=== PATIENT | male | born 1955 | race Caucasian/White ===

== ENCOUNTER 2016-11-02 | Inpatient (IN) ==
[2016-11-02] MEDS ORDERED: *HR* Dextrose 50 % in Water (Syg) 50 ML SYRINGE ONE (02:50)
[2016-11-02] MEDS ORDERED: D5% in 0.45% NACL 1,000 ML IVC ONE (02:51)
[2016-11-02] MEDS ORDERED: Naloxone 0.4 MG/ML INJ IVP PRN (03:04)
--- NOTE | 2016-11-02 03:04 | Internal Med History&Physical ---
<Leandro Johnson - Last Filed: 11/02/16 04:07> Date of Encounter: 11/02/16 Time of Encounter: 03:03 Assessment and Plan (1) Cardiac arrest Current visit: No Status: Acute Status post cardiac arrest, likely secondary to aspiration. Intubated and CODED by EMS. According to EMS, patient was asystolic, had a run of V. tach/V. fib, and then return of spontaneous circulation was obtained on arrival to the [facility]. A central line was placed in the left subclavian and patient was started on levophed due to hypotension despite 2L bolus; currently running at 3mcg to maintain SBP > 90s. Consult pulm for vent management, wean settings as tolerated Obtain echocardiogram Trend troponins Continue cardiopulmonary monitoring Continue norepinephrine drip for hypotension, wean as tolerated Continue maintenance fluids (D5) for lactic acidemia and hypoglycemia NPO (2) Acute respiratory failure with hypoxia and hypercapnia Current visit: Yes Status: Acute Secondary to episode of hypoglycemia, seizure, and then aspiration of vomitus Continue zosyn Add on flagyl F/u blood cultures See above. (3) Aspiration into airway Current visit: No Status: Acute See above Qualifiers: Encounter type: subsequent encounter Qualified Code(s): T17.908D - Unspecified foreign body in respiratory tract, part unspecified causing other injury, subsequent encounter (4) COPD (chronic obstructive pulmonary disease) Current visit: Yes Status: Acute Hx of COPD. On duonebs and Symbicort at home. Continue duonebs q4h Continue symbicort 160 BID Qualifiers: COPD type: unspecified COPD Qualified Code(s): J44.9 - Chronic obstructive pulmonary disease, unspecified (5) Metabolic acidosis Current visit: Yes Status: Acute pH 7.08, CO2 59, HCO3 17.5 on first ABG at [facility]. Repeat ABG here shows pH 7.07, CO2 63, HCO3 18.3 Will increase RR from 12 to 18 to improve acidosis Trend ABGs (6) Lactic acidosis Current visit: Yes Status: Acute Lactic acid of 5.9 See above plans (7) CKD (chronic kidney disease) Current visit: Yes Status: Acute Cr 1.53. No baseline for comparision Patient will be receiving fluids for hypotension and lactic academia Continue to monitor Qualifiers: Chronic kidney disease stage: unspecified stage Qualified Code(s): N18.9 - Chronic kidney disease, unspecified (8) Hypoglycemia Current visit: No Status: Acute POC glucose by EMS was 20 on arrival to nursing facility. Glucose 143 at [place] [facility] at 22:00. Upon arrival to ICU, he was given one amp of D50 and placed on D5 0.45NS at rate of 100ml/hr. Continue accucheck q1h, adjust accordingly (9) Urinary tract infection Current visit: Yes Status: Acute Large leukocyte esterase seen Currently on zosyn and flagyl F/u urine culture Qualifiers: Urinary tract infection type: site unspecified Hematuria presence: without hematuria Qualified Code(s): N39.0 - Urinary tract infection, site not specified (10) DVT prophylaxis Current visit: Yes Status: Acute Heparin 5000units q12h Internal Medicine - H&P: HPI Chief complaint: s/p cardiac arrest, resp failure Admitted From: Intrahospital Transfer History of present illness: Patient is a 60-year-old male with past medical history of COPD, CAD, diabetes, GERD, hypertension, hyperlipidemia. He presented to [facility] status post arrest. Patient currently lives in a fdc. He was found to have blood sugars in the 400s. He received sliding-scale insulin and became unresponsive, Accu-Chek showed a blood sugar in the 20s. He then reportedly seized, vomited and then presumably aspirated and went into respiratory distress. Patient then arrested, was ACLS coded and intubated by EMS. According to EMS, patient was asystolic, had a run of V. tach/V. fib, and then return of spontaneous circulation was obtained on arrival to the [facility]. According to notes, patient had spontaneous respiration no spontaneous extremity motion. He was also hypotensive during his stay despite 2L given; a central line was placed in the left subclavian and patient was started on levophed, currently running at 5mcg to maintain SBP > 90s. He was also given zosyn due to aspiration. Patient was then transferred to our ICU for further care. Labs on initial visit to [facility] showed a white blood cell count of 18.1, hemoglobin 11.4, pH 7.08, CO2 59, HCO3 17.5, lactic acid 5.9, creatinine 1.53, glucose 143. Troponin 0.03. UA shows signs of possible UTI, sent for culture. Blood cultures x2 sent. Initial chest x-ray showed right basilar opacities. 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) - Social History Smoking Status: Current every day smoker Smokeless Tobacco Status: No Alcohol use: none Drug use: none Internal Medicine - H&P: Meds Atorvastatin [Lipitor] 10 mg PO HS 08/16/16 [History] Budesonide/Formoterol 160/4.5 [Symbicort 160/4.5] 2 puff IH BIDR 08/16/16 [ History] HYDROcodone/Acet 7.5/325 mg [[place] 7.5-325 mg] 1 tab PO Q6H PRN 08/16/16 [ History] Insulin Glargine [Lantus] 15 unit SQ HS 08/16/16 [History] Ipratropium/Albuterol Sulfate [Combivent Respimat Inhal [place]] 1 puff IH Q6H 05/30 [History] Megestrol Acetate [Megace] 800 mg PO BID 08/16/16 [History] Multivit with Calcium,Iron,Min [Essential Daily] 1 each PO DAILY 08/16/16 [ History] Omeprazole [PriLOSEC] 40 mg PO DAILY 08/16/16 [History] Potassium Chloride [Klor-Con 10] 10 meq PO DAILY 08/16/16 [History] Insulin ASPART [NovoLOG] 12 unit SQ TIDWM 11/01/16 [History] LevETIRAcetam [Keppra] 500 mg PO BID 11/01/16 [History] Loperamide [Imodium] 2 mg PO Q4HR PRN 11/01/16 [History] Ondansetron HCl [Zofran] 8 mg PO TID 11/01/16 [History] 3 Allergy/AdvReac Type Severity Reaction Status Date / Time codeine Allergy Rash Verified 08/16/16 09:24 ROS unobtainable: due to endotracheal tube All Systems PM: A 10-system review of systems was performed and is negative for pertinent findings except as documented above in the HPI. - Constitutional Exam: unresponsive, intubated and sedated. some spontaneous movement of bilateral feet and toes. No movement of upper extremities. Occasionally partially opens eyes. Does not withdraw to pain but no signs of posturing at this time. - Head Head exam: Present: atraumatic, normal inspection, normocephalic - Eye Eye exam: Present: normal appearance, PERRL, conjuntiva pink, sclera anicteric. Absent: periorbital swelling Pupils: Present: PERRL Additional comments: pupils equal and reactive but sluggish - ENT ENT exam: Present: mucous membranes dry Additional comments: ET tube and OG tube placed - Neck Neck exam general surgery: Present: normal inspection, supple, trachea midline - Respiratory Respiratory exam: Present: rhonchi (bilateral LL) Additional comments: Intubated and on ventilatory support. 7.5 ET tube. - Cardiovascular Cardiovascular exam: Present: RRR, +S1, +S2. Absent: diastolic murmur, systolic murmur - GI/Abdominal GI/Abdominal exam: Present: distended (mildly distended), soft. Absent: firm, guarding, mass, rigid - Extremities Exam Extremities exam: Present: normal capillary refill, radial pulses palpable and symmetrical. Absent: pedal edema - Neurological Exam Additional comments: intubated, on no sedation. partially opening eyes, pupils equal and reactive but sluggish, gag reflex intact; no movement of bilateral UE. Small movements of toes and plantar flexion of bilateral LE. Negative babinksi. - Skin Skin exam: Present: dry, normal color, warm Additional comments: ecchymosis of bilateral UE and chest Internal Med - H&P Results - Labs CBC & Chem 7: 11/02/16 03:18 11/02/16 03:18 Procedures: Internal Med - Intubation Time out performed: Yes Sedative: Etomidate Amount Given: 20 (mg) Paralytic: Rocuronium Amount Given: 70 Laryngoscope: Pantera ET tube size: 7.5 ET tube uncuffed: Yes Tube secured depth (cm): 23 Tube secured location: lips Tube placement confirmation: visualized tube passing through cords, equal breath sounds bilaterally, no breath sounds over epigastrium, confirmation by capnometry Patient tolerated procedure: well Intubation complications: none <Lincoln Goodman - Last Filed: 11/02/16 05:32> Date of Encounter: 11/02/16 Time of Encounter: 04:30 Past Med Surg Social Fam HX - Family History Mother History Unknown: Yes Father History Unknown: Yes ROS unobtainable: due to endotracheal tube - Constitutional Vitals: Temp Pulse Resp BP Pulse Ox 98 F 93 18 96/73 93 11/02/16 03:41 11/02/16 05:00 11/02/16 05:00 11/02/16 05:00 11/02/16 05:00 Exam: intubated and unresponsive; he did have some purposeful movement of feet prior to sedation fro ETT exchange - Head Head exam: Present: atraumatic, normal inspection - Eye Eye exam: Present: normal appearance. Absent: scleral icterus - ENT ENT exam: Present: mucous membranes dry, normal external ear exam Additional comments: ETT in place - Neck Neck exam general surgery: Present: full ROM, supple. Absent: lymphadenopathy - Expanded Neck Exam Neck exam: Absent: carotid bruit - Respiratory Respiratory exam: Present: rales (faint crackles in right base), rhonchi - Cardiovascular Cardiovascular exam: Present: irregular rhythm, +S1, +S2, tachycardia - GI/Abdominal GI/Abdominal exam: Present: soft. Absent: hepatomegaly, rebound, splenomegaly, tenderness - Extremities Exam Extremities exam: Present: full ROM, warm. Absent: calf tenderness, joint swelling - Back Exam Back exam: Absent: CVA tenderness (L), CVA tenderness (R) - Neurological Exam Additional comments: unable to assess due to sedation - Psychiatric Additional comments: unable to assess - Skin Skin exam: Present: dry, warm. Absent: rash Internal Med - H&P Results - Labs CBC & Chem 7: 11/02/16 03:18 11/02/16 03:18 Labs: Short CBC 11/02/16 Range/Units 03:18 WBC 6.0 D (4.3-11.1) K/mcL Hgb 10.2 L (12.9-16.9) g/dL Hct 34.1 L (37.5-50.1) % Plt Count 235 (140-400) K/mcL Neutrophils # 4.7 (1.6-8.9) K/mcL BMP 11/02/16 03:18 Sodium 141 Potassium 4.5 Chloride 117 H Carbon Dioxide 17 L BUN 23 Creatinine 1.43 H Glucose 178 H Calcium 7.1 L D Cardiac Enzymes 11/02/16 Range/Units 03:18 Troponin I 0.09 H* (0-0.03) ng/mL Liver Function 11/02/16 Range/Units 03:18 Total Bilirubin < 0.3 (0.2-1.2) mg/dL AST 67 H (5-34) Units/L ALT 39 (0-55) Units/L Alkaline Phosphatase 101 (38-126) Units/L Albumin 2.5 L (3.5-5.0) g/dL - ABG Interpretation ABG results: 11/02/16 03:08 ABG pH 7.07 L* ABG pCO2 63 H ABG pO2 82 L ABG HCO3 18.3 L ABG Total CO2 20.2 ABG O2 Saturation 90 L ABG Base Excess -11.9 L - EKG Data -: EKG Interpreted by Myself - EKG Data EKG comments: 11/02/16 05:24 Atrial fibrillation with RVR - Impressions ITS Impressions Chest X-Ray 11/02/16 03:06 IMPRESSION: 1. Endotracheal tube tip is 5 cm above the cody. 2. Progressive right basilar airspace disease. D/ / Brian Marques MD / Brian Marques MD Interpreting Provider: Brian Marques MD X-Ray 11/02/16 03:06 IMPRESSION: NG tube in place with proximal side port just below the diaphragm. Tip is in proximal stomach. Consider further advancement by 5 cm. Bibasilar opacities suspicious for pneumonia. Given mass like morphology, consider follow up to resolution. D/ / Pk Oakes MD / Pk Oakes MD Interpreting Provider: Pk Oakes MD X-Ray 11/02/16 03:29 IMPRESSION: Orogastric tube with the tip and the proximal side port within the fundus. D/ / Wei Morgan MD / Wei Morgan MD Interpreting Provider: Wei Morgan MD - Diagnostic Studies Chest x-ray Status: image reviewed by me (RLL infiltrate) - Attending Attestation I discussed the patient LYTTON, PMH, lab data, and exam findings with Dr. Johnson. I was present and supervised patient being re-intubated by Dr. Johnson. ETT needed to be replaced and he had a small ETT and it was obstructing. He did have some minor purposeful foot movement bilaterally prior to sedation and intubation. Once a new ETT was placed, copiuos amounts of mucopurulent material was suctioned from airway. He has a predominantly respiratory acidosis on ABG. Dr. Johnson made some vent changes with which I agree. Repeat ABG will follow later. BP stable now on Leveophed. We will hydrate with IVF, continue antibiotics, and correct electrolytes as needed. If he fails to improve from a neurologic standpoint in the next day or two, I worry he may have suffered anoxic brain injury. We will monitor his glucose hourly for now until stable. I agree with the antibiotic choices. we will ask Pulmonary to assume care in the ICU. Other than my comment above and noted exam findings, I agree with Dr. Johsnon's assessment and plan.
[2016-11-02] MEDS ORDERED: Lacri-Lube 3.5 GM TUBE BOTH EYES PRN (03:07)
[2016-11-02 03:17] LABS: ABG Base Excess -11.9 mEq/L (-2.0 to 3.0); ABG HCO3 18.3 mEQ/L (21-27); ABG Oxygen Saturation 90 % (95-98); ABG PCO2 63 mmHg (35-45); ABG PO2 82 mmHg (85-104); ABG TCO2 20.2 mEq/L (20-26)
[2016-11-02 03:19] LABS: ABG PH 7.07 pH Units (7.32-7.45); Blood Gas FiO2 40 %
[2016-11-02] MEDS ORDERED: MetroNIDAZOLE 500 MG/100 ML 500 MG/100 ML BAG IVPB SCH (03:26)
[2016-11-02 03:40] LABS: Hematocrit 34.1 % (37.5-50.1); Hemoglobin 10.2 g/dL (12.9-16.9); Immature Platelets 2.2 % (1.1-6.1); Lymphocytes # 0.6 K/mcL (0.6-4.6); Mean Corpuscular HGB Conc 29.9 g/dL (31.6-35.5); Mean Corpuscular Hemoglobin 28.8 pg (28.0-33.3); Mean Corpuscular Volume 96.3 fL (83.0-100.0); Mean Platelet Volume 9.3 fL (9.4-12.4); Platelet Count 235 K/mcL (140-400); Red Blood Count 3.54 M/mcL (4.19-5.50); Red Cell Distribution Width 12.9 % (11.5-14.5)
[2016-11-02] MEDS: D5% in 0.45% NACL 1,000 ML IVC SCH ×3 (03:49→19:54)
[2016-11-02] MEDS: Norepinephrine 4 MG in D5% in Water 250 ML IVC SCH ×3 (03:50→18:25)
[2016-11-02] MEDS: Lacri-Lube 3.5 GM TUBE BOTH EYES SCH ×6 (03:54→22:35)
[2016-11-02 03:55] LABS: Alanine Aminotransferase 39 Units/L (0-55); Albumin 2.5 g/dL (3.5-5.0); Albumin/Globulin Ratio 0.9 (1.1-2.2); Alkaline Phosphatase 101 Units/L (38-126); Aspartate Amino Transferase 67 Units/L (5-34); BUN/Creatinine Ratio 16 (6-26); Bilirubin,Total < 0.3 mg/dL (0.2-1.2); Blood Urea Nitrogen 23 mg/dL (8-26); Calcium 7.1 mg/dL (8.6-10.8); Carbon Dioxide 17 mEq/L (19-29); Chloride 117 mEq/L (98-109); Globulin 2.9 g/dL (2.4-3.5); Glucose 178 mg/dL (70-99); Magnesium 1.4 mg/dL (1.6-2.6); Osmolality,Calculated 300 (280-300); Phosphorous 6.4 mg/dL (2.3-4.7); Potassium 4.5 mEq/L (3.5-4.5); Sodium 141 mEq/L (136-145); Total Protein 5.4 g/dL (6.0-8.3); eGFR For African Americans > 60 (> 60); eGFR For Non-African Americans 50 (> 60)
[2016-11-02] MEDS: FentaNYL (PF) 1,000 MCG in 0.9 % Sodium Chloride 80 ML IVC SCH ×2 (03:57→19:09)
[2016-11-02] MEDS ORDERED: *HR* Metoprolol 5 MG/5 ML VIAL IVP PRN (04:05)
[2016-11-02 04:08] LABS: Basophils # 0.2 K/mcL (0.0-0.2); Monocytes # 0.1 K/mcL (0.0-1.3); Neutrophils # 4.7 K/mcL (1.6-8.9); Platelet Estimate Normal (Normal)
[2016-11-02] MEDS ORDERED: Sodium Phosphate 30 MMOL in D5% in Water 100 ML IVPB PRN (04:11)
[2016-11-02] MEDS: Ipratropium/Albuterol Neb 3 ML IH SCH ×6 (04:13→23:39)
[2016-11-02] MEDS: Magnesium Sulfate 2 GM in D5% in Water 100 ML IVPB PRN ×2 (04:37→19:41)
[2016-11-02] MEDS: Calcium Gluconate 1,000 MG in D5% in Water 100 ML IVPB PRN ×2 (04:40→19:40)
[2016-11-02] MEDS: Famotidine 20 MG/2 ML VIAL IVP SCH ×2 (05:03→17:59)
[2016-11-02] MEDS: *HR* Heparin 5,000 UNIT/ML VIAL SQ SCH ×2 (05:03→17:59)
[2016-11-02 05:43] LABS: ABG Base Excess -11.9 mEq/L (-2.0 to 3.0); ABG HCO3 16.7 mEQ/L (21-27); ABG Oxygen Saturation 85 % (95-98); ABG PCO2 49 mmHg (35-45); ABG PO2 66 mmHg (85-104); ABG TCO2 18.2 mEq/L (20-26)
[2016-11-02 05:47] LABS: Blood Gas FiO2 40 %
[2016-11-02 05:48] LABS: ABG PH 7.14 pH Units (7.32-7.45)
[2016-11-02] MEDS: Budesonide/Formoterol 160/4.5 MDI IH SCH ×2 (07:30→19:36)
[2016-11-02] MEDS ORDERED: Budesonide/Formoterol 160/4.5 MDI IH ONE (07:51)
[2016-11-02] MEDS ORDERED: methylPREDNISolone 125 MG/2 ML VIAL IVP SCH (08:00)
[2016-11-02 08:09] LABS: ABG Base Excess -9.7 mEq/L (-2.0 to 3.0); ABG Oxygen Saturation 90 % (95-98); ABG PCO2 46 mmHg (35-45); ABG PO2 73 mmHg (85-104); ABG TCO2 19.4 mEq/L (20-26)
[2016-11-02 08:10] LABS: Blood Gas FiO2 40 %; Blood Gas PEEP 5 cm H2O; Blood Gas Respiration Rate 22; Blood Gas VT 420 cc
[2016-11-02] MEDS ORDERED: Perflutren Lipid Microsphere 1.3 ML in 0.9 % Sodium Chloride 8.7 ML IVP ONE (08:35)
[2016-11-02] MEDS: Piperacillin/Tazobactam 3.375 GM in D5% in Water (Mini-Bag+) 100 ML IVPB SCH ×3 (08:41→22:33)
[2016-11-02] MEDS: Chlorhexidine Rinse 15 ML MOUTHWASH MM SCH ×2 (08:41→19:52)
[2016-11-02 09:05] LABS: BUN/Creatinine Ratio 17 (6-26); Blood Urea Nitrogen 24 mg/dL (8-26); Calcium 7.4 mg/dL (8.6-10.8); Carbon Dioxide 17 mEq/L (19-29); Chloride 114 mEq/L (98-109); Glucose 269 mg/dL (70-99); Osmolality,Calculated 306 (280-300); Potassium 4.1 mEq/L (3.5-4.5); Sodium 141 mEq/L (136-145); eGFR For African Americans > 60 (> 60); eGFR For Non-African Americans 50 (> 60)
--- NOTE | 2016-11-02 09:29 | Pulmonology Consult Note ---
<Kyle Monteiro - Last Filed: 11/02/16 10:56> Date of Encounter: 11/02/16 Time of Encounter: 09:23 Assessment and Plan (1) Cardiac arrest Current Visit: No Status: Acute Patient had a cardiac arrest yesterday evening likely due to aspiration. Patient had arrhythmias of asystole, V. tach, V. fib and then had ROSC at [facility]. They placed a central line and began Levophed. Patient was then transferred to the ICU at [place]. Patient's initial troponin was 0.09 and repeat was 0.20. We will continue to follow this patient's troponin and monitor the patient. An echocardiogram has been ordered on this patient. (2) Hypoglycemia Current Visit: No Status: Acute Patient episode of hypoglycemia yesterday with reported glucose in the 20s. Today his current blood glucose is 269. Patient is receiving D5 half normal saline. We will continue to follow this patient's glucose levels and adjust accordingly. (3) Aspiration into airway Current Visit: No Status: Acute History the patient became hypoglycemic, seized, vomited and aspirated. Patient is being treated with Zosyn. Patient is currently sedated and on a ventilator. Qualifiers: Encounter type: subsequent encounter Qualified Code(s): T17.908D - Unspecified foreign body in respiratory tract, part unspecified causing other injury, subsequent encounter (4) Urinary tract infection Current Visit: Yes Status: Acute Patient has large leukocyte esterase on urinalysis. We will follow the urine culture. Patient is currently on Zosyn. Qualifiers: Urinary tract infection type: site unspecified Hematuria presence: without hematuria Qualified Code(s): N39.0 - Urinary tract infection, site not specified (5) Metabolic acidosis Current Visit: Yes Status: Acute Patient's last ABG showed pH of 7.2, PCO2 46 PO2 73 HCO3 18 total CO2 19.4 O2 saturation 90% base excess -9.7. Patient's ABG has been improving. We will continue to monitor this patient's ABG and we will start the patient on a bicarbonate drip. Once the pH is greater than 7.25 we will stop the bicarbonate drip. (6) Lactic acidosis Current Visit: Yes Status: Acute At [facility] patient had a lactic acid of 5.9. This morning the patient's lactic acid is 1.0. Patient's lactic acidosis is improving. We will continue to follow this patient's lactic acid and monitor the patient. (7) Acute respiratory failure with hypoxia and hypercapnia Current Visit: Yes Status: Acute This is likely secondary to the patient's hyperglycemia, seizure, vomiting and aspiration. Patient is currently sedated and on a ventilator. Patient is currently being treated with Zosyn. Patient will remain intubated until his ABG improves. (8) BJORN (acute kidney injury) Current Visit: Yes Status: Acute Patient has acute kidney injury with an elevated creatinine of 1.43. This is likely due to the patient having cardiac arrest and being hypotensive. Patient is currently receiving fluids. Patient's creatinine appears to be elevated above his baseline of 0.7-0.8. (9) COPD (chronic obstructive pulmonary disease) Current Visit: Yes Status: Chronic Patient has a history of COPD. Patient is currently on DuoNebs and Symbicort Qualifiers: COPD type: unspecified COPD Qualified Code(s): J44.9 - Chronic obstructive pulmonary disease, unspecified (10) DVT prophylaxis Current Visit: Yes Status: Acute Patient is currently on 5000 units of heparin every 12 hours for DVT prophylaxis. History of Present Illness Consult date: 11/02/16 Requesting physician: Leandro Johnson Reason for consult: COPD, other (Vent Management ) Chief complaint: Cardiac arrest History of present illness: Due to the patient being on a ventilator and sedated history of present illness was obtained from sign out physician and medical records. Patient is a 60-year-old male that lives in a custodial. Yesterday he was found to have a blood glucose in the 400s and was given sliding-scale insulin and became unresponsive. He was then found to have a glucose in the 20s. The patient began to seize, vomited and possibly aspirated. The patient then had a cardiac arrest and ACLS protocol was started. Patient was intubated. Patient had arrhythmias of asystole, V. tach, V. fib. He then had ROSC. Patient was brought to [facility]. At [facility] they placed a left subclavian central line and started him on Levophed. He is also given a dose of Zosyn due to his aspiration. Patient was then transferred to the ICU at [facility] for further care. 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) - Social History Smoking Status: Current every day smoker Smokeless Tobacco Status: No Alcohol use: none Drug use: none - Family History Mother History Unknown: Yes Father History Unknown: Yes Medications and Allergies Atorvastatin [Lipitor] 10 mg PO HS 08/16/16 [History] Budesonide/Formoterol 160/4.5 [Symbicort 160/4.5] 2 puff IH BIDR 08/16/16 [ History] Insulin Glargine [Lantus] 14 unit SQ HS 08/16/16 [History] Ipratropium/Albuterol Sulfate [Combivent Respimat Inhal [place]] 1 puff IH Q6H 05/30 [History] Megestrol Acetate [Megace] 800 mg PO BID 08/16/16 [History] Multivit with Calcium,Iron,Min [Essential Daily] 1 each PO DAILY 08/16/16 [ History] Omeprazole [PriLOSEC] 40 mg PO DAILY 08/16/16 [History] Potassium Chloride [Klor-Con 10] 10 meq PO DAILY 08/16/16 [History] Insulin ASPART [NovoLOG] 7 unit SQ TIDWM 11/01/16 [History] Loperamide [Imodium] 2 mg PO Q4HR PRN 11/01/16 [History] Ondansetron HCl [Zofran] 8 mg PO TID PRN 11/01/16 [History] Aspirin [Lo-Dose Aspirin EC] 81 mg PO DAILY 11/02/16 [History] Bacillus Coagulans/Inulin [Probiotic with Prebiotic Caps] 1 each PO DAILY [History] Citalopram [CeleXA] 20 mg PO DAILY 11/02/16 [History] Gabapentin [Neurontin] 600 mg PO TID 11/02/16 [History] LevETIRAcetam [Keppra] 500 mg PO BID 11/02/16 [History] Lidocaine 4% CRM (LMX) [Lmx 4] 1 gm TP BID 11/02/16 [History] Nut.tx.gluc.intoler,Lac-Fr,Soy [Glytrol] 1,000 ml PO DAILY 11/02/16 [History] OxyCODONE/APAP 5/325 [Percocet 5/325 MG] 1 each PO Q6HR PRN 11/02/16 [History] 3 Allergy/AdvReac Type Severity Reaction Status Date / Time codeine Allergy Rash Verified 11/02/16 11:18 ROS unobtainable: due to mental status All Systems: A 10-system review of systems was performed and is negative for pertinent findings except as documented above in the HPI. Physical Examination Vital Signs: Vital Signs, Last 4 Hours Temp Pulse Resp BP Pulse Ox 11/02/16 08:01 105 11/02/16 08:00 97.5 F L 105 22 106/66 97 11/02/16 07:31 22 105/69 99 11/02/16 07:00 101 22 105/69 98 11/02/16 06:02 100 18 102/70 94 11/02/16 05:55 18 85/62 96 General appearance: other (Patient is sedated and on a ventilator) Eyes: nonicteric ENT: oropharynx moist Neck: no JVD Effort: normal Auscultation: left: clear, right: rales Cardiovascular: regular rate and rhythm Gastrointestinal: normoactive bowel sounds, soft Integumentary: other (Scabs on right lower extremity) Extremities: no cyanosis, cool Musculoskeletal: no deformities unable to assess due to mental status (Patient is sedated on a ventilator) other (Unable to assess due to patient's mental status, patient is sedated and on the ventilator) Ventilator Settings Ventilator Settings: Ventilator Settings, Last 8 Hours Ventilator Mode VC+ Ventilator Mode A/C Ventilator Mode VC+ Ventilator Mode A/C Ventilator Mode A/C Ventilator Mode VC+ Ventilator Mode A/C Ventilator Mode A/C Ventilator Mode A/C Ventilator Mode A/C Ventilator Mode VC+ Ventilator Mode A/C Ventilator Mode VC+ Ventilator Tidal Volume 420 Setting Ventilator Tidal Volume 420 Setting Ventilator Tidal Volume 420 Setting Ventilator Tidal Volume 420 Setting Ventilator Tidal Volume 500 Setting Ventilator Tidal Volume 500 Setting Ventilator Tidal Volume 500 Setting Ventilator Tidal Volume 500 Setting Ventilator Tidal Volume 500 Setting Ventilator Tidal Volume 500 Setting Ventilator Tidal Volume 500 Setting Ventilator Tidal Volume 500 Setting Ventilator Tidal Volume 500 Setting Ventilator Tidal Volume 500 Setting Ventilator Respiratory Rate 22 Setting Ventilator Respiratory Rate 22 Setting Ventilator Respiratory Rate 22 Setting Ventilator Respiratory Rate 22 Setting Ventilator Respiratory Rate 18 Setting Ventilator Respiratory Rate 18 Setting Ventilator Respiratory Rate 18 Setting Ventilator Respiratory Rate 18 Setting Ventilator Respiratory Rate 18 Setting Ventilator Respiratory Rate 18 Setting Ventilator Respiratory Rate 18 Setting Ventilator Respiratory Rate 12 Setting Ventilator Respiratory Rate 12 Setting Ventilator Respiratory Rate 12 Setting Actual Respiratory Rate 22 Actual Respiratory Rate 22 Actual Respiratory Rate 22 Actual Respiratory Rate 22 Actual Respiratory Rate 18 Actual Respiratory Rate 18 Actual Respiratory Rate 18 Actual Respiratory Rate 18 Actual Respiratory Rate 18 Actual Respiratory Rate 18 Actual Respiratory Rate 12 Actual Respiratory Rate 32 Positive End Expiratory 5 Pressure Positive End Expiratory 5 Pressure Positive End Expiratory 5 Pressure Positive End Expiratory 5 Pressure Positive End Expiratory 5 Pressure Positive End Expiratory 5 Pressure Positive End Expiratory 5 Pressure Positive End Expiratory 5 Pressure Positive End Expiratory 5 Pressure Positive End Expiratory 5 Pressure Positive End Expiratory 5 Pressure Positive End Expiratory 5 Pressure Positive End Expiratory 5 Pressure Positive End Expiratory 5 Pressure Peak Inspiratory Airway 24 Pressure Peak Inspiratory Airway 25 Pressure Peak Inspiratory Airway 22 Pressure Peak Inspiratory Airway 25 Pressure Peak Inspiratory Airway 24 Pressure Peak Inspiratory Airway 25 Pressure Peak Inspiratory Airway 26 Pressure Peak Inspiratory Airway 26 Pressure Peak Inspiratory Airway 29 Pressure Results - Laboratory Findings CBC and BMP: 11/02/16 03:18 11/02/16 08:30 ABG ABG pH 7.20 pH Units (7.32-7.45) L* 11/02/16 08:00 ABG pCO2 46 mmHg (35-45) H 11/02/16 08:00 ABG pO2 73 mmHg (85-104) L 11/02/16 08:00 ABG O2 Saturation 90 % (95-98) L 11/02/16 08:00 Abnormal lab findings: Abnormal lab results RBC 3.54 M/mcL (4.19-5.50) L 11/02/16 03:18 Hgb 10.2 g/dL (12.9-16.9) L 11/02/16 03:18 Hct 34.1 % (37.5-50.1) L 11/02/16 03:18 MCHC 29.9 g/dL (31.6-35.5) L 11/02/16 03:18 MPV 9.3 fL (9.4-12.4) L 11/02/16 03:18 Band Neutrophils % 16.0 % (0-4) H 11/02/16 03:18 Metamyelocytes % 2.0 % (0) H 11/02/16 03:18 Myelocytes % 4.0 % (0) H 11/02/16 03:18 ABG pH 7.20 pH Units (7.32-7.45) L* 11/02/16 08:00 ABG pCO2 46 mmHg (35-45) H 11/02/16 08:00 ABG pO2 73 mmHg (85-104) L 11/02/16 08:00 ABG HCO3 18.0 mEQ/L (21-27) L 11/02/16 08:00 ABG Total CO2 19.4 mEq/L (20-26) L 11/02/16 08:00 ABG O2 Saturation 90 % (95-98) L 11/02/16 08:00 ABG Base Excess -9.7 mEq/L (-2.0 to 3.0) L 11/02/16 08:00 Chloride 114 mEq/L (98-109) H 11/02/16 08:30 Carbon Dioxide 17 mEq/L (19-29) L 11/02/16 08:30 Creatinine 1.43 mg/dL (0.72-1.25) H 11/02/16 08:30 Est GFR (Non-Af Amer) 50 (> 60) L 11/02/16 08:30 Glucose 269 mg/dL (70-99) H 11/02/16 08:30 Calculated Osmolality 306 (280-300) H 11/02/16 08:30 Calcium 7.4 mg/dL (8.6-10.8) L 11/02/16 08:30 Ionized Calcium 1.07 mmol/L (1.15-1.35) L 11/02/16 04:28 Phosphorus 6.4 mg/dL (2.3-4.7) H 11/02/16 03:18 Magnesium 1.4 mg/dL (1.6-2.6) L 11/02/16 03:18 AST 67 Units/L (5-34) H 11/02/16 03:18 Troponin I 0.20 ng/mL (0-0.03) H* 11/02/16 08:30 Serum Total Protein 5.4 g/dL (6.0-8.3) L 11/02/16 03:18 Albumin 2.5 g/dL (3.5-5.0) L 11/02/16 03:18 Albumin/Globulin Ratio 0.9 (1.1-2.2) L 11/02/16 03:18 - Clinical Findings Intake & Output: Intake & Output 11/01/16 11/02/16 11/02/16 23:59 07:59 15:59 Intake Total 337 / 337 Output Total 150 / 150 Balance 187 / 187 Weight 63.957 kg Consult Discharge Plan - Plan Referrals: Norris Bonner MD [Primary Care Provider] - <Juanito Sotelo - Last Filed: 11/02/16 15:49> Date of Encounter: 11/02/16 All Systems: A 10-system review of systems was performed and is negative for pertinent findings except as documented above in the HPI. Physical Examination Vital Signs: Vital Signs, Last 4 Hours Pulse Resp BP Pulse Ox 11/02/16 15:16 28 77/50 100 11/02/16 15:08 100 11/02/16 15:00 101 28 77/50 100 11/02/16 14:00 99 28 85/56 98 11/02/16 13:41 28 99/59 100 11/02/16 13:00 101 28 69/48 98 11/02/16 12:00 105 28 83/53 99 Ventilator Settings Ventilator Settings: Ventilator Settings, Last 8 Hours Ventilator Mode VC+ Ventilator Mode VC+ Ventilator Mode VC+ Ventilator Mode VC+ Ventilator Mode VC+ Ventilator Mode VC+ Ventilator Mode VC+ Ventilator Mode A/C Ventilator Tidal Volume 450 Setting Ventilator Tidal Volume 450 Setting Ventilator Tidal Volume 450 Setting Ventilator Tidal Volume 450 Setting Ventilator Tidal Volume 450 Setting Ventilator Tidal Volume 450 Setting Ventilator Tidal Volume 450 Setting Ventilator Tidal Volume 450 Setting Ventilator Tidal Volume 420 Setting Ventilator Tidal Volume 420 Setting Ventilator Respiratory Rate 28 Setting Ventilator Respiratory Rate 28 Setting Ventilator Respiratory Rate 28 Setting Ventilator Respiratory Rate 28 Setting Ventilator Respiratory Rate 28 Setting Ventilator Respiratory Rate 26 Setting Ventilator Respiratory Rate 26 Setting Ventilator Respiratory Rate 26 Setting Ventilator Respiratory Rate 22 Setting Ventilator Respiratory Rate 22 Setting Actual Respiratory Rate 28 Actual Respiratory Rate 28 Actual Respiratory Rate 28 Actual Respiratory Rate 28 Actual Respiratory Rate 28 Actual Respiratory Rate 28 Actual Respiratory Rate 28 Actual Respiratory Rate 28 Actual Respiratory Rate 26 Actual Respiratory Rate 26 Actual Respiratory Rate 26 Actual Respiratory Rate 26 Actual Respiratory Rate 26 Actual Respiratory Rate 22 Actual Respiratory Rate 22 Positive End Expiratory 8 Pressure Positive End Expiratory 8 Pressure Positive End Expiratory 8 Pressure Positive End Expiratory 8 Pressure Positive End Expiratory 8 Pressure Positive End Expiratory 8 Pressure Positive End Expiratory 8 Pressure Positive End Expiratory 8 Pressure Positive End Expiratory 8 Pressure Positive End Expiratory 8 Pressure Positive End Expiratory 8 Pressure Positive End Expiratory 8 Pressure Positive End Expiratory 8 Pressure Positive End Expiratory 8 Pressure Positive End Expiratory 5 Pressure Positive End Expiratory 5 Pressure Peak Inspiratory Airway 30 Pressure Peak Inspiratory Airway 30 Pressure Peak Inspiratory Airway 36 Pressure Peak Inspiratory Airway 28 Pressure Peak Inspiratory Airway 29 Pressure Peak Inspiratory Airway 27 Pressure Peak Inspiratory Airway 27 Pressure Peak Inspiratory Airway 30 Pressure Peak Inspiratory Airway 28 Pressure Peak Inspiratory Airway 28 Pressure Peak Inspiratory Airway 28 Pressure Peak Inspiratory Airway 26 Pressure Peak Inspiratory Airway 27 Pressure Peak Inspiratory Airway 24 Pressure Peak Inspiratory Airway 25 Pressure Results - Laboratory Findings CBC and BMP: 11/02/16 03:18 11/02/16 08:30 ABG ABG pH 7.17 pH Units (7.32-7.45) L* 11/02/16 11:00 ABG pCO2 41 mmHg (35-45) 11/02/16 11:00 ABG pO2 79 mmHg (85-104) L 11/02/16 11:00 ABG O2 Saturation 92 % (95-98) L 11/02/16 11:00 Abnormal lab findings: Abnormal lab results RBC 3.54 M/mcL (4.19-5.50) L 11/02/16 03:18 Hgb 10.2 g/dL (12.9-16.9) L 11/02/16 03:18 Hct 34.1 % (37.5-50.1) L 11/02/16 03:18 MCHC 29.9 g/dL (31.6-35.5) L 11/02/16 03:18 MPV 9.3 fL (9.4-12.4) L 11/02/16 03:18 Band Neutrophils % 16.0 % (0-4) H 11/02/16 03:18 Metamyelocytes % 2.0 % (0) H 11/02/16 03:18 Myelocytes % 4.0 % (0) H 11/02/16 03:18 ABG pH 7.17 pH Units (7.32-7.45) L* 11/02/16 11:00 ABG pO2 79 mmHg (85-104) L 11/02/16 11:00 ABG HCO3 15.0 mEQ/L (21-27) L 11/02/16 11:00 ABG Total CO2 16.3 mEq/L (20-26) L 11/02/16 11:00 ABG O2 Saturation 92 % (95-98) L 11/02/16 11:00 ABG Base Excess -12.7 mEq/L (-2.0 to 3.0) L 11/02/16 11:00 Chloride 114 mEq/L (98-109) H 11/02/16 08:30 Carbon Dioxide 17 mEq/L (19-29) L 11/02/16 08:30 Creatinine 1.43 mg/dL (0.72-1.25) H 11/02/16 08:30 Est GFR (Non-Af Amer) 50 (> 60) L 11/02/16 08:30 Glucose 269 mg/dL (70-99) H 11/02/16 08:30 Calculated Osmolality 306 (280-300) H 11/02/16 08:30 Lactic Acid 4.5 mmol/L (0.5-2.2) H* 11/02/16 12:50 Calcium 7.4 mg/dL (8.6-10.8) L 11/02/16 08:30 Ionized Calcium 1.02 mmol/L (1.15-1.35) L 11/02/16 12:50 Phosphorus 6.4 mg/dL (2.3-4.7) H 11/02/16 03:18 Magnesium 1.4 mg/dL (1.6-2.6) L 11/02/16 12:50 AST 67 Units/L (5-34) H 11/02/16 03:18 Troponin I 0.20 ng/mL (0-0.03) H* 11/02/16 08:30 Serum Total Protein 5.4 g/dL (6.0-8.3) L 11/02/16 03:18 Albumin 2.5 g/dL (3.5-5.0) L 11/02/16 03:18 Albumin/Globulin Ratio 0.9 (1.1-2.2) L 11/02/16 03:18 - Clinical Findings Intake & Output: Intake & Output 11/01/16 11/02/16 11/02/16 23:59 07:59 15:59 Intake Total 337 / 337 1650 / 1650 Output Total 150 / 150 100 / 100 Balance 187 / 187 1550 / 1550 Weight 63.957 kg 67.5 kg - Attending Attestation I saw the patient with the resident agree with History and Physical exam findings. Labs and Radiology were reviewed Ventilator data were reviewed BUSINESS MANAGEMENT INTERN: Patient is intubated , sedated and ventilated responding by opening his eyes to his name , patient doesnt follow commands. NECK : No JVD appreciated Pulmonary : Patient is hypoxic seconday to possible aspiration , On Vent settings 450 /28 /8 /40 , Patient Peak pressure was 28 , plateau pressure was 20 , Auto PEEP was 5 need to hyperventilate because of mixed non parker and anion gap metabolic acidosis Cardiac : Patient had cardiac arrest secondary to hypoglycemia doubt is ACS will trend troponin,s got an ECHO waiting for final read to my assesment patient Low EF . Patient is in shock mostly like due to septic shock on levophed titrating to MAP of 65 . Nutrition/GI: Patient is NPO is on GI prophylaxis will start tube feeding tomorrow . Renal : BJORN mostly likely Prerenal /ATN will volume replete will montior renal function . Patient has mixed non-anion gap and anion gap acidosis started on Bicarbonate drip . Gave 3 litres bolus patient has hypalbuminemia because of lactic acidosis and hyperchloremic acidosis gave albumin colloid for replenish intravascular volume . To avoid normal saline when there is non -gap acidosis . Heme onc : Hemoglobin stable , WBC stable ID : Most likely septic shock source is aspiration pneumonia or UTI will start on broad spectrum antibiotics Vanc, Zosy, doxycycline for atypical coverage . Blood culture , sputum ,urine culture in process . Endo: Brittle diabetes prone for hypoglycemia with Insulin R to avoid Insulin R . Will supplement with low dose insulin Lispro. Lines : Patient has subclavian line , feng catheter. Disposition : Critical condition high percentage of mortality Code status: Full Code Family/POA:Spoke with POA daughter about the critical condition of her Dad . She verbalized understanding and answered all the questions. The high probability of a clinically significant, sudden or life threatening deterioration of the patient's condition required my full and direct attention, intervention and personal management. Spent 50 minutes of Critical care time .
[2016-11-02] MEDS ORDERED: Ringers Solution, Lactated 1,000 ML IVC ONE (09:56)
[2016-11-02] MEDS ORDERED: Sodium Bicarbonate 150 MEQ in D5% in Water 1,000 ML IVC SCH ×3 (10:00→20:04)
[2016-11-02 11:11] LABS: ABG Base Excess -12.7 mEq/L (-2.0 to 3.0); ABG Oxygen Saturation 92 % (95-98); ABG PCO2 41 mmHg (35-45); ABG PO2 79 mmHg (85-104); ABG TCO2 16.3 mEq/L (20-26)
[2016-11-02 11:13] LABS: ABG PH 7.17 pH Units (7.32-7.45); Blood Gas FiO2 40 %; Blood Gas PEEP 8 cm H2O; Blood Gas Respiration Rate 26; Blood Gas VT 450 cc
[2016-11-02] MEDS ORDERED: D5% in Water 1,000 ML IVC PRN (11:45)
[2016-11-02] MEDS ORDERED: Dextrose Gel 15 GM PO PRN ×2 (11:45)
[2016-11-02] MEDS ORDERED: *HR* Dextrose 50 % in Water (Syg) 50 ML SYRINGE IVP PRN (11:45)
[2016-11-02] MEDS ORDERED: Vancomycin 1,000 MG in D5% in Water 250 ML IVPB ONE ×2 (12:24→14:00)
[2016-11-02] MEDS: Insulin LISPRO 300 UNITS/3 ML VIAL SQ SCH ×2 (12:35→18:00)
[2016-11-02 13:16] LABS: Ionized Calcium 1.02 mmol/L (1.15-1.35)
[2016-11-02 13:18] LABS: Magnesium 1.4 mg/dL (1.6-2.6)
[2016-11-02] MEDS ORDERED: Doxycycline 100 MG in 0.9 % Sodium Chloride Mini Bag 100 ML IVPB ONE (13:29)
[2016-11-02] MEDS: Albumin 25% 25gram/100mL 25 GM/100 ML IV.SOLN IVC SCH ×4 (15:31→19:52)
[2016-11-02 15:45] LABS: ABG Base Excess -11.5 mEq/L (-2.0 to 3.0); ABG HCO3 15.6 mEQ/L (21-27); ABG Oxygen Saturation 97 % (95-98); ABG PCO2 39 mmHg (35-45); ABG PH 7.21 pH Units (7.32-7.45); ABG PO2 113 mmHg (85-104); ABG TCO2 16.8 mEq/L (20-26)
[2016-11-02 15:46] LABS: Blood Gas FiO2 40 %; Blood Gas PEEP 8 cm H2O; Blood Gas Respiration Rate 28; Blood Gas VT 450 cc
[2016-11-02] MEDS ORDERED: Insulin LISPRO 300 UNITS/3 ML VIAL SQ ONE (17:17)
--- NOTE | 2016-11-02 18:17 | Electrocardiograph Report ---
[address] [address] Test Date: 2016-11-02 Pat Name: Taco Avalos Department: 109 Room: [facility] Gender: M Order Packer Or Packager: RAFA : [id number] Requested By: Leandro Johnson Order Number: [id number] Reading MD: Joe Amaya MD Measurements Intervals Dewar Rate: 124 P: 71 ID: [id number] QRS: 73 QRSD: 102 T: 34 QT: 328 QTc: 402 Interpretive Statements SINUS TACHYCARDIA WITH SHORT ID INTERVAL LOW QRS VOLTAGE IN EXTREMITY LEADS BASELINE ARTIFACT COMPLICATES ACCURATE INTERPRETATION Electronically Signed On 11-02-2016 18:15:54 EDT by Joe Amaya MD
[2016-11-02 18:58] LABS: Calcium 7.4 mg/dL (8.6-10.8); Potassium 3.4 mEq/L (3.5-4.5)
[2016-11-02] MEDS: Insulin Human Regular 100 UNIT in 0.9 % Sodium Chloride 100 ML IVC SCH (19:13)
[2016-11-02] MEDS: Potassium Chloride 40 MEQ/200 ML BAG IVPB PRN (19:36)
[2016-11-02 20:37] LABS: Bilirubin,Urine Negative (Negative); Blood,Urine Large (Negative); Clarity,Urine Turbid (Clear); Color,Urine Yellow (Yellow); Glucose,Urine (UA) >=1000 mg/dL (Normal); Ketones,Urine Negative (Negative); Leukocyte Esterase,Urine Large (Negative); Nitrite,Urine Negative (Negative); Protein,Urine 30 mg/dL (Neg-Trace); Specific Gravity,Urine 1.018 (1.010-1.025); Urobilinogen,Urine Normal (Normal)
[2016-11-02 20:39] LABS: Squamous Epithelial Cell,Urine Many per lpf (None-Few); WBC,Urine TNTC per hpf (0-3)
[2016-11-02 21:40] LABS: Yeast,Urine Many per hpf (None Seen)
[2016-11-02 21:41] LABS: Granular Casts,Urine Few per lpf (None Seen)
[2016-11-02 21:46] LABS: RBC,Urine Present per hpf (0-3); Renal Epithelial Cells,Urine Present per hpf (None-Few); Transitional Epi Cells,Urine Present per hpf (None-Few)
[2016-11-02 21:47] LABS: Bacteria,Urine Present per hpf (None-Few)
[2016-11-02 23:10] LABS: ABG HCO3 15.3 mEQ/L (21-27); ABG Oxygen Saturation 99 % (95-98); ABG PCO2 35 mmHg (35-45); ABG PH 7.25 pH Units (7.32-7.45); ABG PO2 138 mmHg (85-104); ABG TCO2 16.4 mEq/L (20-26); Blood Gas FiO2 40 %
[2016-11-03] MEDS: Insulin Human Regular 100 UNIT in 0.9 % Sodium Chloride 100 ML IVC SCH (00:08)
[2016-11-03] MEDS: Norepinephrine 4 MG in D5% in Water 250 ML IVC SCH ×2 (02:00→11:19)
[2016-11-03] MEDS: FentaNYL (PF) 1,000 MCG in 0.9 % Sodium Chloride 80 ML IVC SCH ×2 (03:11→05:17)
[2016-11-03] MEDS: Lacri-Lube 3.5 GM TUBE BOTH EYES SCH ×5 (03:12→20:39)
[2016-11-03] MEDS: Ipratropium/Albuterol Neb 3 ML IH SCH ×5 (03:20→19:49)
[2016-11-03 03:34] LABS: Hematocrit 25.1 % (37.5-50.1); Mean Corpuscular HGB Conc 30.7 g/dL (31.6-35.5); Mean Corpuscular Hemoglobin 28.7 pg (28.0-33.3); Mean Corpuscular Volume 93.7 fL (83.0-100.0); Mean Platelet Volume 10.4 fL (9.4-12.4); Platelet Count 155 K/mcL (140-400); Red Blood Count 2.68 M/mcL (4.19-5.50); Red Cell Distribution Width 13.2 % (11.5-14.5)
[2016-11-03 03:35] LABS: Hemoglobin 7.7 g/dL (12.9-16.9)
[2016-11-03 03:49] LABS: Calcium 8.3 mg/dL (8.6-10.8); Magnesium 1.9 mg/dL (1.6-2.6); Potassium 3.7 mEq/L (3.5-4.5)
[2016-11-03] MEDS: Potassium Chloride 40 MEQ/200 ML BAG IVPB PRN (03:57)
[2016-11-03 04:07] LABS: Lymphocytes # 0.9 K/mcL (0.6-4.6); Monocytes # 0.2 K/mcL (0.0-1.3); Neutrophils # 7.9 K/mcL (1.6-8.9); Platelet Estimate Normal (Normal)
[2016-11-03] MEDS: Magnesium Sulfate 2 GM in D5% in Water 100 ML IVPB PRN (04:31)
[2016-11-03] MEDS: Famotidine 20 MG/2 ML VIAL IVP SCH (05:00)
[2016-11-03] MEDS: *HR* Heparin 5,000 UNIT/ML VIAL SQ SCH (05:00)
[2016-11-03 05:22] LABS: ABG Base Excess -6.6 mEq/L (-2.0 to 3.0); ABG HCO3 19.1 mEQ/L (21-27); ABG Oxygen Saturation 98 % (95-98); ABG PCO2 38 mmHg (35-45); ABG PH 7.31 pH Units (7.32-7.45); ABG PO2 119 mmHg (85-104); ABG TCO2 20.3 mEq/L (20-26); Blood Gas FiO2 35 %
[2016-11-03] MEDS: Budesonide/Formoterol 160/4.5 MDI IH SCH ×2 (07:32→19:49)
[2016-11-03 07:57] LABS: VBG HCO3 21.5 mEq/L (21-27); VBG PH 7.36 pH Units (7.32-7.42)
[2016-11-03 08:14] LABS: Albumin/Globulin Ratio 1.5 (1.1-2.2); Bilirubin,Direct 0.4 mg/dL (0.0-0.5); Bilirubin,Indirect 0.1 mg/dL (0.0-1.2); Bilirubin,Total 0.5 mg/dL (0.2-1.2)
[2016-11-03] MEDS: Piperacillin/Tazobactam 3.375 GM in D5% in Water (Mini-Bag+) 100 ML IVPB SCH ×2 (08:31→15:02)
[2016-11-03] MEDS: Chlorhexidine Rinse 15 ML MOUTHWASH MM SCH ×2 (08:31→20:48)
[2016-11-03] MEDS ORDERED: Doxycycline 100 MG in 0.9 % Sodium Chloride Mini Bag 100 ML IVPB SCH (09:00)
[2016-11-03 09:03] LABS: INR 1.7
[2016-11-03] MEDS ORDERED: *HR* Rocuronium Bromide 100 MG/10 ML VIAL IVC ONE (09:03)
[2016-11-03 09:05] LABS: Activated Partial Thrombo Time 30.8 Seconds (26.0-36.0)
--- NOTE | 2016-11-03 09:50 | Pulmonology Progress Note ---
<MinnaLuciano W - Last Filed: 11/03/16 11:27> Date of Encounter: 11/03/16 Objective PUL Vital signs: Last Vital Signs Temp 98.4 F 11/03/16 07:37 Pulse 120 11/03/16 09:00 Resp 28 11/03/16 09:00 BP 113/50 11/03/16 09:00 Pulse Ox 99 11/03/16 09:00 Ventilator Settings Ventilator Settings: Ventilator Settings, Last 8 Hours Ventilator Mode VC+ Ventilator Mode VC+ Ventilator Mode VC+ Ventilator Mode VC+ Ventilator Mode VC+ Ventilator Mode VC+ Ventilator Mode VC+ Ventilator Mode VC+ Ventilator Mode VC+ Ventilator Tidal Volume 500 Setting Ventilator Tidal Volume 500 Setting Ventilator Tidal Volume 500 Setting Ventilator Tidal Volume 500 Setting Ventilator Tidal Volume 500 Setting Ventilator Tidal Volume 500 Setting Ventilator Tidal Volume 500 Setting Ventilator Tidal Volume 500 Setting Ventilator Tidal Volume 500 Setting Ventilator Tidal Volume 500 Setting Ventilator Tidal Volume 500 Setting Ventilator Respiratory Rate 28 Setting Ventilator Respiratory Rate 28 Setting Ventilator Respiratory Rate 28 Setting Ventilator Respiratory Rate 28 Setting Ventilator Respiratory Rate 28 Setting Ventilator Respiratory Rate 28 Setting Ventilator Respiratory Rate 28 Setting Ventilator Respiratory Rate 28 Setting Ventilator Respiratory Rate 28 Setting Ventilator Respiratory Rate 28 Setting Ventilator Respiratory Rate 28 Setting Actual Respiratory Rate 28 Actual Respiratory Rate 28 Actual Respiratory Rate 30 Actual Respiratory Rate 28 Actual Respiratory Rate 29 Actual Respiratory Rate 28 Actual Respiratory Rate 28 Actual Respiratory Rate 28 Actual Respiratory Rate 29 Actual Respiratory Rate 29 Positive End Expiratory 5 Pressure Positive End Expiratory 5 Pressure Positive End Expiratory 5 Pressure Positive End Expiratory 8 Pressure Positive End Expiratory 8 Pressure Positive End Expiratory 8 Pressure Positive End Expiratory 8 Pressure Positive End Expiratory 8 Pressure Positive End Expiratory 8 Pressure Positive End Expiratory 8 Pressure Positive End Expiratory 8 Pressure Positive End Expiratory 8 Pressure Peak Inspiratory Airway 24 Pressure Peak Inspiratory Airway 26 Pressure Peak Inspiratory Airway 25 Pressure Peak Inspiratory Airway 28 Pressure Peak Inspiratory Airway 28 Pressure Peak Inspiratory Airway 28 Pressure Peak Inspiratory Airway 32 Pressure Peak Inspiratory Airway 32 Pressure Peak Inspiratory Airway 31 Pressure Peak Inspiratory Airway 31 Pressure Results - Laboratory Findings CBC and BMP: 11/03/16 03:20 11/03/16 03:05 ABG ABG pH 7.31 pH Units (7.32-7.45) L 11/03/16 05:10 ABG pCO2 38 mmHg (35-45) 11/03/16 05:10 ABG pO2 119 mmHg (85-104) H 11/03/16 05:10 ABG O2 Saturation 98 % (95-98) 11/03/16 05:10 PT/INR, D-dimer PT 18.0 Seconds (9.4-12.1) H 11/03/16 08:30 Abnormal lab findings: Abnormal lab results RBC 2.68 M/mcL (4.19-5.50) L 11/03/16 03:20 Hgb 7.7 g/dL (12.9-16.9) L D 11/03/16 03:20 Hct 25.1 % (37.5-50.1) L 11/03/16 03:20 MCHC 30.7 g/dL (31.6-35.5) L 11/03/16 03:20 Band Neutrophils % 46.0 % (0-4) H 11/03/16 03:20 Metamyelocytes % 2.0 % (0) H 11/02/16 03:18 Myelocytes % 2.0 % (0) H 11/03/16 03:20 PT 18.0 Seconds (9.4-12.1) H 11/03/16 08:30 ABG pH 7.31 pH Units (7.32-7.45) L 11/03/16 05:10 ABG pO2 119 mmHg (85-104) H 11/03/16 05:10 ABG HCO3 19.1 mEQ/L (21-27) L 11/03/16 05:10 ABG Base Excess -6.6 mEq/L (-2.0 to 3.0) L 11/03/16 05:10 VBG pCO2 38 mmHg (41-51) L 11/03/16 07:45 VBG pO2 221 mmHg (25-40) H 11/03/16 07:45 Carbon Dioxide 18 mEq/L (19-29) L 11/03/16 03:05 BUN 29 mg/dL (8-26) H 11/03/16 03:05 Creatinine 2.22 mg/dL (0.72-1.25) H 11/03/16 03:05 Est GFR ( Amer) 37 (> 60) L 11/03/16 03:05 Est GFR (Non-Af Amer) 30 (> 60) L 11/03/16 03:05 Glucose 150 mg/dL (70-99) H 11/03/16 03:05 POC Glucose 286 (58-89) H 11/03/16 00:02 Lactic Acid 6.2 mmol/L (0.5-2.2) H* 11/03/16 03:00 Calcium 8.3 mg/dL (8.6-10.8) L 11/03/16 03:05 Ionized Calcium 1.10 mmol/L (1.15-1.35) L 11/03/16 03:00 Phosphorus 6.4 mg/dL (2.3-4.7) H 11/02/16 03:18 AST 61 Units/L (5-34) H 11/03/16 07:45 Troponin I 0.17 ng/mL (0-0.03) H* 11/02/16 21:49 Serum Total Protein 5.0 g/dL (6.0-8.3) L 11/03/16 07:45 Albumin 3.0 g/dL (3.5-5.0) L 11/03/16 07:45 Globulin 2.0 g/dL (2.4-3.5) L 11/03/16 07:45 Ur Specimen Adequacy See below A 11/02/16 20:24 Urine Clarity Turbid (Clear) A 11/02/16 20:24 Urine Protein 30 mg/dL (Neg-Trace) H 11/02/16 20:24 Urine Glucose (UA) >=1000 mg/dL (Normal) H 11/02/16 20:24 Urine Blood Large (Negative) H 11/02/16 20:24 Ur Leukocyte Esterase Large (Negative) H 11/02/16 20:24 Urine Microscopic WBC TNTC per hpf (0-3) H 11/02/16 20:24 Ur Squamous Epith Cells Many per lpf (None-Few) H 11/02/16 20:24 Granular Casts Few per lpf (None Seen) H 11/02/16 20:24 Urine Yeast Many per hpf (None Seen) H 11/02/16 20:24 Ur Culture Indicated? YES (NO) A 11/02/16 20:24 - Microbiology Findings Microbiology Findings: Microbiology, Last 48 Hours 11/02/16 18:30 Sputum Culture - Preliminary Sputum - Clinical Findings Intake & Output: Intake & Output 11/02/16 11/03/16 11/03/16 23:59 07:59 15:59 Intake Total 2174 / 2174 1051 / 1051 Output Total 330 / 330 150 / 150 Balance 1844 / 1844 901 / 901 Weight 70.035 kg Consult Discharge Plan - Plan Referrals: Norris Bonner MD [Primary Care Provider] - - Attending Attestation I examined this patient and my medical decision-making was reviewed with the Resident Physician. I agree with the documented findings, disposition and treatment plan as described except to the extent set forth below. We independently had [id number] contact with the patient I spent 35min of Critical Care time with this patient. It involved decision making of high complexity to assess, manipulate, and support vital organ system failure and/or to prevent further life threatening deterioration of the patient' s condition. The time involved in the performance of separately reportable procedures was not counted toward critical care time. Patient seen and examined at bedside Labs, radiology, chart personally reviewed. Management was reviewed during multidisciplinary critical care rounds. Neuropsych: Awake and alert follows commands on vent. Goal Hustler 2 while on vent cont propfol and fentanyl infusion to achieve this. Pulm: Acute hypoxic Respiratory failure intubated on vent. acceptable oxygenation dropped PEEP from 8 down to 5. Increased RR set on vent to help compnesate for metabolic acidosis. Treating for possible Aspiration PNA Cards: s/p Cardiac arrest also with NSTEMI (likely Type 2 ME) Reduced EF%. Remains in Cardiogenic Shock requiring Levophed infusion titrated for goal mean arterial pressure greater than 60.. We will request a formal Cardiology today. Obtain OSH records if ECHO done in past. Repeat ECG. Check central venous oxygen saturation FEN-GI: GI prophylaxis Given. NPO for now. History of chronic pancreatitis. check lipase. Renal: Acute AGMA with Non GAP Acidosis. s/t to BJORN remains oliguric but UOP increasing, ?DKA and and Lactate acidosis. Stop HCO3- infusion. Nephro sparing protocol. Check function daily. May progress to need for BI MANAGER but currently not requiring. Optimistic in progressive increase in UOP for renal recovery. ID: Stop Vanc and Doxy cont Pip/rey for concern of aspiration pneumonia. We will follow up culture results Heme/Onc: Drop in H/H. Transfuse for cardiac ischemia. Drop in Plt count with elevated INR. Given vit K 5mg x 3. Check Peripheral smear. Check Fibrinogen. CT abd pelvis with out overt evidence of intraabdominal bleeding. Endo: History of brittle diabetes. Glucose Monitored stop Insulin infusion for hypoglycemia. Integ/MSK: Skin Care per routine ICU Nursing Protocol to prevent ulcers. Lines: All lines examined without evidence of infection including: Left Subclavian CVC Dispo: Remains Critically ill CODE: Full <Kyle Monteiro - Last Filed: 11/03/16 14:14> Date of Encounter: 11/03/16 Time of Encounter: 09:49 Assessment and Plan (1) Cardiac arrest Current Visit: No Status: Acute Patient had a cardiac arrest two days ago likely due to aspiration. Patient had arrhythmias of asystole, V. tach, V. fib and then had ROSC at [facility]. They placed a central line and began Levophed. Patient was then transferred to the ICU at [place]. Patient's initial troponin was 0.09 and repeat was 0.20, 0.17. Troponin is trending downward. Patient had an echocardiogram showing ejection fraction of 35%. Cardiology has been consult on this patient. (2) Hypoglycemia Current Visit: No Status: Acute Patient episode of hypoglycemia two days ago with reported glucose in the 20s. Today his current blood glucose is 150. Insulin is ordered for this patient. We will continue to monitor the patient's glucose ant treat accordingly. (3) Aspiration into airway Current Visit: No Status: Acute Two days ago the patient became hypoglycemic, seized, vomited and aspirated. Patient is being treated with Zosyn. Patient is currently intubated and on a ventilator. Qualifiers: Encounter type: subsequent encounter Qualified Code(s): T17.908D - Unspecified foreign body in respiratory tract, part unspecified causing other injury, subsequent encounter (4) Metabolic acidosis Current Visit: Yes Status: Acute The most recent ABG on the patient had a pH of 7.31, PCO2 of 38, PO2 119, HCO3 19.1, total CO2 20.3, O2 saturation 98%, base excess of -6.6. This was followed by VBG that had a pH of 7.36, PCO2 of 38, PO2 of 221, HCO3 of 21.5. Patient's acidosis seems to be improving. We will continue to monitor the patient and repeat ABG. (5) Lactic acidosis Current Visit: Yes Status: Acute Patient has a lactic acidosis. Patient's lactic acid peaked at 10.9 and most recently is 6.2. Patient's lactic acidosis appears to be improving. We will continue to follow the patient's lactic acid level. (6) Acute respiratory failure with hypoxia and hypercapnia Current Visit: Yes Status: Acute This is likely secondary to the patient's hyperglycemia, seizure, vomiting and aspiration. Patient is currently on a ventilator. Patient is currently being treated with Zosyn. (7) Anemia Current Visit: Yes Status: Acute Patient is anemic with a hemoglobin of 7.7. This is a drop from previous hemoglobin of 10.2. We have ordered 2 units of blood to be transfused for this patient. We will continue to follow the patient's hemoglobin. Qualifiers: Anemia type: unspecified type Qualified Code(s): D64.9 - Anemia, unspecified (8) BJORN (acute kidney injury) Current Visit: Yes Status: Acute Patient has acute kidney injury with an elevated creatinine of 2.22. This is likely due to the patient having cardiac arrest and being hypotensive. Patient' s creatinine appears to be elevated above his baseline of 0.7-0.8 (9) COPD (chronic obstructive pulmonary disease) Current Visit: Yes Status: Chronic Patient has a history of COPD. Patient is currently on DuoNebs and Symbicort Qualifiers: COPD type: unspecified COPD Qualified Code(s): J44.9 - Chronic obstructive pulmonary disease, unspecified (10) DVT prophylaxis Current Visit: Yes Status: Acute Due to the patient having decrease in hemoglobin as well as a drop in platelets we have discontinued the heparin for DVT prophylaxis. We have ordered SCDs for the patient for DVT prophylaxis. Subjective Principal diagnosis: Cardiac Arrest Interval history: Patient is still on the ventilator and unable to speak and tell me how he did overnight. There were no events reported overnight. We will continue to monitor the patient. Objective PUL Vital signs: Last Vital Signs Temp 98.4 F 11/03/16 07:37 Pulse 120 11/03/16 09:00 Resp 28 11/03/16 09:00 BP 113/50 11/03/16 09:00 Pulse Ox 99 11/03/16 09:00 General appearance: alert, other (Patient is intubated, wakes up and responds to commands) Eyes: nonicteric ENT: oropharynx moist Neck: supple Effort: normal Auscultation: left: clear, right: rales Cardiovascular: other (Regular but tachycardic) Gastrointestinal: normoactive bowel sounds Integumentary: other (Multiple scabs on the right lower extremity) Extremities: no cyanosis, edema (Mild edema in the lower external nares) Musculoskeletal: no deformities other (Unable to assess due to patient being intubated) other (Unable to assess due to the patient being intubated) Ventilator Settings Ventilator Settings: Ventilator Settings, Last 8 Hours Ventilator Mode VC+ Ventilator Mode VC+ Ventilator Mode VC+ Ventilator Mode VC+ Ventilator Mode VC+ Ventilator Mode VC+ Ventilator Mode VC+ Ventilator Mode VC+ Ventilator Mode VC+ Ventilator Tidal Volume 500 Setting Ventilator Tidal Volume 500 Setting Ventilator Tidal Volume 500 Setting Ventilator Tidal Volume 500 Setting Ventilator Tidal Volume 500 Setting Ventilator Tidal Volume 500 Setting Ventilator Tidal Volume 500 Setting Ventilator Tidal Volume 500 Setting Ventilator Tidal Volume 500 Setting Ventilator Tidal Volume 500 Setting Ventilator Tidal Volume 500 Setting Ventilator Respiratory Rate 28 Setting Ventilator Respiratory Rate 28 Setting Ventilator Respiratory Rate 28 Setting Ventilator Respiratory Rate 28 Setting Ventilator Respiratory Rate 28 Setting Ventilator Respiratory Rate 28 Setting Ventilator Respiratory Rate 28 Setting Ventilator Respiratory Rate 28 Setting Ventilator Respiratory Rate 28 Setting Ventilator Respiratory Rate 28 Setting Ventilator Respiratory Rate 28 Setting Actual Respiratory Rate 28 Actual Respiratory Rate 28 Actual Respiratory Rate 30 Actual Respiratory Rate 28 Actual Respiratory Rate 29 Actual Respiratory Rate 28 Actual Respiratory Rate 28 Actual Respiratory Rate 28 Actual Respiratory Rate 29 Actual Respiratory Rate 29 Positive End Expiratory 5 Pressure Positive End Expiratory 5 Pressure Positive End Expiratory 5 Pressure Positive End Expiratory 8 Pressure Positive End Expiratory 8 Pressure Positive End Expiratory 8 Pressure Positive End Expiratory 8 Pressure Positive End Expiratory 8 Pressure Positive End Expiratory 8 Pressure Positive End Expiratory 8 Pressure Positive End Expiratory 8 Pressure Positive End Expiratory 8 Pressure Peak Inspiratory Airway 24 Pressure Peak Inspiratory Airway 26 Pressure Peak Inspiratory Airway 25 Pressure Peak Inspiratory Airway 28 Pressure Peak Inspiratory Airway 28 Pressure Peak Inspiratory Airway 28 Pressure Peak Inspiratory Airway 32 Pressure Peak Inspiratory Airway 32 Pressure Peak Inspiratory Airway 31 Pressure Peak Inspiratory Airway 31 Pressure Results - Laboratory Findings CBC and BMP: 11/03/16 11:30 11/03/16 11:30 ABG ABG pH 7.31 pH Units (7.32-7.45) L 11/03/16 05:10 ABG pCO2 38 mmHg (35-45) 11/03/16 05:10 ABG pO2 119 mmHg (85-104) H 11/03/16 05:10 ABG O2 Saturation 98 % (95-98) 11/03/16 05:10 PT/INR, D-dimer PT 18.0 Seconds (9.4-12.1) H 11/03/16 08:30 Abnormal lab findings: Abnormal lab results RBC 2.68 M/mcL (4.19-5.50) L 11/03/16 03:20 Hgb 7.7 g/dL (12.9-16.9) L D 11/03/16 03:20 Hct 25.1 % (37.5-50.1) L 11/03/16 03:20 MCHC 30.7 g/dL (31.6-35.5) L 11/03/16 03:20 Band Neutrophils % 46.0 % (0-4) H 11/03/16 03:20 Metamyelocytes % 2.0 % (0) H 11/02/16 03:18 Myelocytes % 2.0 % (0) H 11/03/16 03:20 PT 18.0 Seconds (9.4-12.1) H 11/03/16 08:30 ABG pH 7.31 pH Units (7.32-7.45) L 11/03/16 05:10 ABG pO2 119 mmHg (85-104) H 11/03/16 05:10 ABG HCO3 19.1 mEQ/L (21-27) L 11/03/16 05:10 ABG Base Excess -6.6 mEq/L (-2.0 to 3.0) L 11/03/16 05:10 VBG pCO2 38 mmHg (41-51) L 11/03/16 07:45 VBG pO2 221 mmHg (25-40) H 11/03/16 07:45 Carbon Dioxide 18 mEq/L (19-29) L 11/03/16 03:05 BUN 29 mg/dL (8-26) H 11/03/16 03:05 Creatinine 2.22 mg/dL (0.72-1.25) H 11/03/16 03:05 Est GFR ( Amer) 37 (> 60) L 11/03/16 03:05 Est GFR (Non-Af Amer) 30 (> 60) L 11/03/16 03:05 Glucose 150 mg/dL (70-99) H 11/03/16 03:05 POC Glucose 286 (58-89) H 11/03/16 00:02 Lactic Acid 6.2 mmol/L (0.5-2.2) H* 11/03/16 03:00 Calcium 8.3 mg/dL (8.6-10.8) L 11/03/16 03:05 Ionized Calcium 1.10 mmol/L (1.15-1.35) L 11/03/16 03:00 Phosphorus 6.4 mg/dL (2.3-4.7) H 11/02/16 03:18 AST 61 Units/L (5-34) H 11/03/16 07:45 Troponin I 0.17 ng/mL (0-0.03) H* 11/02/16 21:49 Serum Total Protein 5.0 g/dL (6.0-8.3) L 11/03/16 07:45 Albumin 3.0 g/dL (3.5-5.0) L 11/03/16 07:45 Globulin 2.0 g/dL (2.4-3.5) L 11/03/16 07:45 Ur Specimen Adequacy See below A 11/02/16 20:24 Urine Clarity Turbid (Clear) A 11/02/16 20:24 Urine Protein 30 mg/dL (Neg-Trace) H 11/02/16 20:24 Urine Glucose (UA) >=1000 mg/dL (Normal) H 11/02/16 20:24 Urine Blood Large (Negative) H 11/02/16 20:24 Ur Leukocyte Esterase Large (Negative) H 11/02/16 20:24 Urine Microscopic WBC TNTC per hpf (0-3) H 11/02/16 20:24 Ur Squamous Epith Cells Many per lpf (None-Few) H 11/02/16 20:24 Granular Casts Few per lpf (None Seen) H 11/02/16 20:24 Urine Yeast Many per hpf (None Seen) H 11/02/16 20:24 Ur Culture Indicated? YES (NO) A 11/02/16 20:24 - Microbiology Findings Microbiology Findings: Microbiology, Last 48 Hours 11/02/16 18:30 Sputum Culture - Preliminary Sputum - Clinical Findings Intake & Output: Intake & Output 11/02/16 11/03/16 11/03/16 23:59 07:59 15:59 Intake Total 2174 / 2174 1051 / 1051 Output Total 330 / 330 150 / 150 Balance 1844 / 1844 901 / 901 Weight 70.035 kg
[2016-11-03] MEDS: *HR* Phytonadione 10 MG/ML AMPUL SQ SCH (11:18)
[2016-11-03 11:54] LABS: Basophils # 0.1 K/mcL (0.0-0.2); Hemoglobin 7.6 g/dL (12.9-16.9); Mean Corpuscular HGB Conc 31.7 g/dL (31.6-35.5); Mean Corpuscular Hemoglobin 29.1 pg (28.0-33.3); Mean Platelet Volume 10.3 fL (9.4-12.4); Platelet Count 150 K/mcL (140-400); Red Blood Count 2.61 M/mcL (4.19-5.50); Red Cell Distribution Width 13.3 % (11.5-14.5)
[2016-11-03 11:56] LABS: Magnesium 2.3 mg/dL (1.6-2.6)
[2016-11-03 11:58] LABS: Potassium 5.1 mEq/L (3.5-4.5)
--- NOTE | 2016-11-03 11:59 | Cardiology Consult Note ---
Date of Encounter: 11/03/16 Time of Encounter: 11:54 Assessment and Plan (1) Cardiomyopathy Current Visit: Yes Status: Acute Cardiomyopathy. ? chronicity. No previous for comparison. Segmental wall motion abnormalities described, which would suggest possibly ischemic, especially given multiple risk factors for CAD. However, cardiomyopathy diagnosed after respiratory failure and subsequent cardiac arrest, so myocardial stunning could certainly be contributing. Presentation is not c/w ACS. Suspect flat troponin elevation related to respiratory failure with arrest, renal insufficiency. Continue supportive care. Aspirin when Hg stable. Cr elevated and currently on levophed - hold ACEi/BB. Monitor LFTs - consider statin in future. Obtain cardiology records from [facility] for comparison. Gaurded condition. Consider ischemic evaluation as condition hopefully improves. Thanks, Peter Figueroa DO, [facility] Qualifiers: Cardiomyopathy type: unspecified Qualified Code(s): I42.9 - Cardiomyopathy , unspecified (2) Acute respiratory failure with hypoxia and hypercapnia Current Visit: Yes Status: Acute (3) Elevated troponin Current Visit: Yes Status: Acute Discussion w patient/family: The assessment and plan as outlined above was discussed with the patient and/or family members who expressed understanding and agreement. All questions were answered. Thank you for involving us in the care of your patient. Please call with any questions. History of Present Illness Consult date: 11/03/16 Requesting physician: Kyle Monteiro Consult reason: Abnormal echocardiogram Chief complaint: Hypoglycemic History of present illness: Mr. Avalos is a 60 year old male with a reported history of COPD, CAD, DM, HTN , HLD. He was in rehabilitation. Reportedly, patient treated for hyperglycemia, but subsequently developed hypoglycemia. Per reports, seizure, vomiting, likely aspiration and cardiorespiratory arrest. He received ACLS therapy. Patient placed on Levophed initially, in addition to IVFs. TTE demonstrated LVEF of 35% with segmental wall motion abnormalities. History obtained from daughter. Reports no history of AL, but he did possibly have a cardiac catheterization at [facility] a few years ago. Unknown prior EF (no previous studies here). 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) - Social History Smoking Status: Current every day smoker Smokeless Tobacco Status: No Alcohol use: none Drug use: none - Family History Mother History Unknown: Yes Father History Unknown: Yes Medications and Allergies Atorvastatin [Lipitor] 10 mg PO HS 08/16/16 [History] Budesonide/Formoterol 160/4.5 [Symbicort 160/4.5] 2 puff IH BIDR 08/16/16 [ History] Insulin Glargine [Lantus] 14 unit SQ HS 08/16/16 [History] Ipratropium/Albuterol Sulfate [Combivent Respimat Inhal [place]] 1 puff IH Q6H 05/30 [History] Megestrol Acetate [Megace] 800 mg PO BID 08/16/16 [History] Multivit with Calcium,Iron,Min [Essential Daily] 1 each PO DAILY 08/16/16 [ History] Omeprazole [PriLOSEC] 40 mg PO DAILY 08/16/16 [History] Potassium Chloride [Klor-Con 10] 10 meq PO DAILY 08/16/16 [History] Insulin ASPART [NovoLOG] 7 unit SQ TIDWM 11/01/16 [History] Loperamide [Imodium] 2 mg PO Q4HR PRN 11/01/16 [History] Ondansetron HCl [Zofran] 8 mg PO TID PRN 11/01/16 [History] Aspirin [Lo-Dose Aspirin EC] 81 mg PO DAILY 11/02/16 [History] Bacillus Coagulans/Inulin [Probiotic with Prebiotic Caps] 1 each PO DAILY [History] Citalopram [CeleXA] 20 mg PO DAILY 11/02/16 [History] Gabapentin [Neurontin] 600 mg PO TID 11/02/16 [History] LevETIRAcetam [Keppra] 500 mg PO BID 11/02/16 [History] Lidocaine 4% CRM (LMX) [Lmx 4] 1 gm TP BID 11/02/16 [History] Nut.tx.gluc.intoler,Lac-Fr,Soy [Glytrol] 1,000 ml PO DAILY 11/02/16 [History] OxyCODONE/APAP 5/325 [Percocet 5/325 MG] 1 each PO Q6HR PRN 11/02/16 [History] 3 Allergy/AdvReac Type Severity Reaction Status Date / Time codeine Allergy Rash Verified 11/02/16 11:18 ROS unobtainable: due to endotracheal tube All Systems Review: A 10-system review of systems was performed and is negative for pertinent findings except as documented above in the HPI. Physical Examination Vital Signs, Last 4 Hours Temp Pulse Resp BP Pulse Ox 11/03/16 11:50 99.1 F 11/03/16 11:42 99.1 F 121 30 124/49 11/03/16 11:38 28 96 11/03/16 11:00 122 28 124/49 97 11/03/16 10:48 28 92 11/03/16 10:00 121 28 96/44 97 11/03/16 09:00 120 28 113/50 99 11/03/16 08:00 116 28 112/54 100 General: Other (Appeared sedated and comfortable during my evaluation. ) HEENT: Atraumatic, Normocephaly, Mucus Membranes Moist Neck: No JVD Cardiac: Other (Regular, tachycardic. No obvious murmurs. ) Neuro: Other ([place]) Abdomen: Soft, Non-Tender Skin: No rashes noted on visualized skin Musculoskeletal: No Chest Wall Tenderness Extremities: No Clubbing, No Cyanosis, No Edema Results 11/03/16 03:20 11/03/16 03:05 Lab Results 11/02/16 11/02/16 11/02/16 12:50 18:30 21:49 WBC Hgb Hct Plt Count INR APTT Sodium 137 Potassium 3.4 L Chloride 105 Carbon Dioxide 16 L BUN 26 Creatinine 2.03 H Glucose 556 H* Calcium 7.4 L Magnesium 1.4 L Total Bilirubin AST ALT Alkaline Phosphatase Troponin I 0.17 H* Lipase 11/03/16 11/03/16 11/03/16 03:05 03:20 07:45 WBC 9.2 D Hgb 7.7 L D Hct 25.1 L Plt Count 155 INR APTT Sodium 138 Potassium 3.7 Chloride 106 Carbon Dioxide 18 L BUN 29 H Creatinine 2.22 H Glucose 150 H Calcium 8.3 L Magnesium 1.9 Total Bilirubin 0.5 AST 61 H ALT 35 Alkaline Phosphatase 53 Troponin I Lipase 11/03/16 11/03/16 07:45 08:30 WBC Hgb Hct Plt Count INR 1.7 APTT 30.8 Sodium Potassium Chloride Carbon Dioxide BUN Creatinine Glucose Calcium Magnesium Total Bilirubin AST ALT Alkaline Phosphatase Troponin I Lipase < 10 - Imaging and Cardiology Echo: report reviewed Consult Discharge Plan - Plan Referrals: Norris Bonner MD [Primary Care Provider] -
[2016-11-03 13:35] LABS: Lymphocytes # 1.2 K/mcL (0.6-4.6); Monocytes # 0.4 K/mcL (0.0-1.3); Neutrophils # 10.4 K/mcL (1.6-8.9)
[2016-11-03 13:37] LABS: Platelet Estimate Normal (Normal)
[2016-11-03] MEDS: D5% in 0.45% NACL 1,000 ML IVC SCH (14:39)
[2016-11-03] MEDS: Dexmedetomidine HCl 400 MCG/100 ML MLS IVC SCH (15:02)
[2016-11-03 19:05] LABS: Calcium 8.4 mg/dL (8.6-10.8)
[2016-11-03 19:08] LABS: ABG Base Excess -5.3 mEq/L (-2.0 to 3.0); ABG HCO3 18.4 mEQ/L (21-27); ABG Oxygen Saturation 98 % (95-98); ABG PCO2 29 mmHg (35-45); ABG PH 7.41 pH Units (7.32-7.45); ABG PO2 109 mmHg (85-104); ABG TCO2 19.3 mEq/L (20-26)
[2016-11-03 19:36] LABS: Potassium 5.9 mEq/L (3.5-4.5)
[2016-11-04] MEDS ORDERED: Insulin LISPRO 300 UNITS/3 ML VIAL SQ SCH (00:15)
[2016-11-04] MEDS: Ipratropium/Albuterol Neb 3 ML IH SCH ×6 (00:19→20:19)
[2016-11-04 00:27] LABS: Basophils # 0.1 K/mcL (0.0-0.2); Basophils % 0.9 %; Eosinophils % 0.1 %; Hemoglobin 10.2 g/dL (12.9-16.9); Immature Granulocytes % 2.6 % (0-4); Immature Platelets 3.7 % (1.1-6.1); Lymphocytes # 1.3 K/mcL (0.6-4.6); Lymphocytes % 10.3 %; Mean Corpuscular HGB Conc 32.9 g/dL (31.6-35.5); Mean Corpuscular Hemoglobin 28.8 pg (28.0-33.3); Mean Corpuscular Volume 87.6 fL (83.0-100.0); Mean Platelet Volume 10.1 fL (9.4-12.4); Monocytes # 0.9 K/mcL (0.0-1.3); Monocytes % 7.1 %; Neutrophils # 9.6 K/mcL (1.6-8.9); Platelet Count 140 K/mcL (140-400); Red Blood Count 3.54 M/mcL (4.19-5.50); Red Cell Distribution Width 13.7 % (11.5-14.5)
[2016-11-04 00:57] LABS: Platelet Estimate Normal (Normal)
[2016-11-04] MEDS: Norepinephrine 4 MG in D5% in Water 250 ML IVC SCH (01:14)
[2016-11-04 01:29] LABS: ABG Base Excess -3.6 mEq/L (-2.0 to 3.0); ABG HCO3 19.9 mEQ/L (21-27); ABG Oxygen Saturation 95 % (95-98); ABG PCO2 30 mmHg (35-45); ABG PH 7.43 pH Units (7.32-7.45); ABG PO2 73 mmHg (85-104); ABG TCO2 20.8 mEq/L (20-26)
[2016-11-04] MEDS: FentaNYL (PF) 1,000 MCG in 0.9 % Sodium Chloride 80 ML IVC SCH ×2 (02:25→21:41)
[2016-11-04] MEDS: Insulin LISPRO 300 UNITS/3 ML VIAL SQ SCH ×6 (02:26→20:36)
[2016-11-04] MEDS: Lacri-Lube 3.5 GM TUBE BOTH EYES SCH ×6 (02:26→20:25)
[2016-11-04] MEDS: Piperacillin/Tazobactam 3.375 GM in D5% in Water (Mini-Bag+) 100 ML IVPB SCH ×3 (02:29→22:00)
[2016-11-04 05:01] LABS: Basophils % 0.2 %; Eosinophils % 0.2 %; Hematocrit 31.9 % (37.5-50.1); Hemoglobin 10.6 g/dL (12.9-16.9); Immature Granulocytes % 3.6 % (0-4); Mean Corpuscular HGB Conc 33.2 g/dL (31.6-35.5); Mean Corpuscular Hemoglobin 29.4 pg (28.0-33.3); Mean Corpuscular Volume 88.4 fL (83.0-100.0); Mean Platelet Volume 10.5 fL (9.4-12.4); Monocytes # 0.6 K/mcL (0.0-1.3); Monocytes % 4.6 %; Neutrophils # 10.1 K/mcL (1.6-8.9); Platelet Count 136 K/mcL (140-400); Red Blood Count 3.61 M/mcL (4.19-5.50); Red Cell Distribution Width 13.8 % (11.5-14.5); Segmented Neutrophils % 83.4 %
[2016-11-04 05:16] LABS: Albumin 2.9 g/dL (3.5-5.0); Albumin/Globulin Ratio 1.2 (1.1-2.2); Calcium 8.7 mg/dL (8.6-10.8); Globulin 2.5 g/dL (2.4-3.5); Magnesium 2.3 mg/dL (1.6-2.6); Total Protein 5.4 g/dL (6.0-8.3)
[2016-11-04 05:18] LABS: ABG Base Excess -6.5 mEq/L (-2.0 to 3.0); ABG HCO3 17.9 mEQ/L (21-27); ABG Oxygen Saturation 95 % (95-98); ABG PCO2 31 mmHg (35-45); ABG PH 7.37 pH Units (7.32-7.45); ABG PO2 78 mmHg (85-104); ABG TCO2 18.9 mEq/L (20-26)
[2016-11-04 05:19] LABS: Bilirubin,Total 1.9 mg/dL (0.2-1.2); Potassium 5.6 mEq/L (3.5-4.5)
[2016-11-04 05:26] LABS: Activated Partial Thrombo Time 29.9 Seconds (26.0-36.0)
[2016-11-04 05:27] LABS: INR 1.3; Prothrombin Time 14.3 Seconds (9.4-12.1)
[2016-11-04 05:39] LABS: Reactive Lymphocytes Present (Not Present); Toxic Granulation Present (Not Present)
[2016-11-04 05:40] LABS: Large Platelets Present (Not Present); Platelet Estimate Normal (Normal)
[2016-11-04] MEDS ORDERED: Calcium Gluconate 1,000 MG in D5% in Water 100 ML IVPB ONE (07:19)
[2016-11-04] MEDS: Budesonide/Formoterol 160/4.5 MDI IH SCH ×2 (07:36→20:19)
[2016-11-04] MEDS: *HR* Phytonadione 10 MG/ML AMPUL SQ SCH (07:55)
[2016-11-04] MEDS: Famotidine 20 MG/2 ML VIAL IVP SCH (07:56)
[2016-11-04] MEDS: Chlorhexidine Rinse 15 ML MOUTHWASH MM SCH ×2 (07:56→20:39)
--- NOTE | 2016-11-04 07:58 | Pulmonology Progress Note ---
<MinnaLuciano W - Last Filed: 11/04/16 10:16> Date of Encounter: 11/04/16 Objective PUL Vital signs: Last Vital Signs Temp 98.2 F 11/04/16 07:29 Pulse 128 11/04/16 09:00 Resp 12 11/04/16 09:00 BP 108/58 11/04/16 09:00 Pulse Ox 96 11/04/16 09:00 Ventilator Settings Ventilator Settings: Ventilator Settings, Last 8 Hours Ventilator Mode CPAP Ventilator Mode CPAP Ventilator Mode VC+ Ventilator Mode VC+ Ventilator Mode VC+ Ventilator Mode VC+ Ventilator Mode VC+ Ventilator Tidal Volume 500 Setting Ventilator Tidal Volume 500 Setting Ventilator Tidal Volume 500 Setting Ventilator Tidal Volume 500 Setting Ventilator Tidal Volume 500 Setting Ventilator Tidal Volume 500 Setting Ventilator Respiratory Rate 22 Setting Ventilator Respiratory Rate 24 Setting Ventilator Respiratory Rate 24 Setting Ventilator Respiratory Rate 24 Setting Ventilator Respiratory Rate 24 Setting Actual Respiratory Rate 12 Actual Respiratory Rate 10 Actual Respiratory Rate 24 Actual Respiratory Rate 30 Actual Respiratory Rate 25 Actual Respiratory Rate 25 Positive End Expiratory 5 Pressure Positive End Expiratory 5 Pressure Positive End Expiratory 5 Pressure Positive End Expiratory 5 Pressure Positive End Expiratory 5 Pressure Positive End Expiratory 5 Pressure Positive End Expiratory 5 Pressure Peak Inspiratory Airway 16 Pressure Peak Inspiratory Airway 16 Pressure Peak Inspiratory Airway 27 Pressure Peak Inspiratory Airway 24 Pressure Peak Inspiratory Airway 23 Pressure Peak Inspiratory Airway 23 Pressure Results - Laboratory Findings CBC and BMP: 11/04/16 04:40 11/04/16 07:50 ABG ABG pH 7.37 pH Units (7.32-7.45) 11/04/16 04:59 ABG pCO2 31 mmHg (35-45) L 11/04/16 04:59 ABG pO2 78 mmHg (85-104) L 11/04/16 04:59 ABG O2 Saturation 95 % (95-98) 11/04/16 04:59 PT/INR, D-dimer PT 14.3 Seconds (9.4-12.1) H 11/04/16 04:40 Abnormal lab findings: Abnormal lab results WBC 12.1 K/mcL (4.3-11.1) H 11/04/16 04:40 RBC 3.61 M/mcL (4.19-5.50) L 11/04/16 04:40 Hgb 10.6 g/dL (12.9-16.9) L 11/04/16 04:40 Hct 31.9 % (37.5-50.1) L 11/04/16 04:40 Plt Count 136 K/mcL (140-400) L 11/04/16 04:40 Band Neutrophils % 39.0 % (0-4) H 11/03/16 11:30 Metamyelocytes % 2.0 % (0) H 11/02/16 03:18 Myelocytes % 2.0 % (0) H 11/03/16 11:30 Neutrophils # 10.1 K/mcL (1.6-8.9) H 11/04/16 04:40 Reactive Lymphocytes Present (Not Present) A 11/04/16 04:40 Toxic Granulation Present (Not Present) A 11/04/16 04:40 Large Platelets Present (Not Present) A 11/04/16 04:40 PT 14.3 Seconds (9.4-12.1) H 11/04/16 04:40 ABG pCO2 31 mmHg (35-45) L 11/04/16 04:59 ABG pO2 78 mmHg (85-104) L 11/04/16 04:59 ABG HCO3 17.9 mEQ/L (21-27) L 11/04/16 04:59 ABG Total CO2 18.9 mEq/L (20-26) L 11/04/16 04:59 ABG Base Excess -6.5 mEq/L (-2.0 to 3.0) L 11/04/16 04:59 VBG pCO2 38 mmHg (41-51) L 11/03/16 07:45 VBG pO2 221 mmHg (25-40) H 11/03/16 07:45 Sodium 134 mEq/L (136-145) L 11/04/16 07:50 Potassium 5.7 mEq/L (3.5-4.5) H 11/04/16 07:50 Carbon Dioxide 18 mEq/L (19-29) L 11/04/16 07:50 BUN 46 mg/dL (8-26) H 11/04/16 07:50 Creatinine 3.56 mg/dL (0.72-1.25) H 11/04/16 07:50 Est GFR ( Amer) 21 (> 60) L 11/04/16 07:50 Est GFR (Non-Af Amer) 18 (> 60) L 11/04/16 07:50 Glucose 122 mg/dL (70-99) H 11/04/16 07:50 Ionized Calcium 1.10 mmol/L (1.15-1.35) L 11/03/16 03:00 Phosphorus 6.4 mg/dL (2.3-4.7) H 11/02/16 03:18 Total Bilirubin 1.9 mg/dL (0.2-1.2) H D 11/04/16 04:40 AST 75 Units/L (5-34) H 11/04/16 04:40 Troponin I 0.17 ng/mL (0-0.03) H* 11/02/16 21:49 Serum Total Protein 5.4 g/dL (6.0-8.3) L 11/04/16 04:40 Albumin 2.9 g/dL (3.5-5.0) L 11/04/16 04:40 Ur Specimen Adequacy See below A 11/02/16 20:24 Urine Clarity Turbid (Clear) A 11/02/16 20:24 Urine Protein 30 mg/dL (Neg-Trace) H 11/02/16 20:24 Urine Glucose (UA) >=1000 mg/dL (Normal) H 11/02/16 20:24 Urine Blood Large (Negative) H 11/02/16 20:24 Ur Leukocyte Esterase Large (Negative) H 11/02/16 20:24 Urine Microscopic WBC TNTC per hpf (0-3) H 11/02/16 20:24 Ur Squamous Epith Cells Many per lpf (None-Few) H 11/02/16 20:24 Granular Casts Few per lpf (None Seen) H 11/02/16 20:24 Urine Yeast Many per hpf (None Seen) H 11/02/16 20:24 Ur Culture Indicated? YES (NO) A 11/02/16 20:24 - Microbiology Findings Microbiology Findings: Microbiology, Last 48 Hours 11/02/16 14:33 Blood Culture - Preliminary Peripheral Venipuncture No growth. 11/02/16 12:50 Blood Culture - Preliminary Peripheral Venipuncture No growth. 11/02/16 18:30 Sputum Culture - Preliminary Sputum Yeast Species - Clinical Findings Intake & Output: Intake & Output 11/03/16 11/04/16 11/04/16 23:59 07:59 15:59 Intake Total 659 / 659 379 / 379 Output Total 300 / 300 600 / 600 Balance 359 / 359 -221 / -221 Weight 71.469 kg Consult Discharge Plan - Plan Referrals: Norris Bonner MD [Primary Care Provider] - - Attending Attestation I examined this patient and my medical decision-making was reviewed with the Resident Physician. I agree with the documented findings, disposition and treatment plan as described except to the extent set forth below. We independently had [id number] contact with the patient I spent 35min of Critical Care time with this patient. It involved decision making of high complexity to assess, manipulate, and support vital organ system failure and/or to prevent further life threatening deterioration of the patient' s condition. The time involved in the performance of separately reportable procedures was not counted toward critical care time. Patient seen and examined at bedside Labs, radiology, chart personally reviewed. Management was reviewed during multidisciplinary critical care rounds. Neuropsych: Awake and alert follows commands on vent. Stop Fentanyl today cont Precedex. Cont Daily Sedation Holiday. Restart Keppra for history of Seizures. Pulm: Acute hypoxic Respiratory failure intubated on vent. acceptable oxygenation on current minimal vent settings SBT. today. Cards: s/p Cardiac arrest also with NSTEMI (likely Type 2 [place]) Reduced EF%. Remains in Cardiogenic Shock requiring Levophed infusion titrated for goal mean arterial pressure greater than 60. Cardiology has evaluated patient and plan on further cardiomyopathy w/u after liberation from vent on further stabilized. FEN-GI: GI prophylaxis Given. Start Enteral Nutrition today History of chronic pancreatitis. Lipase WNL Renal: Acute AGMA with Non GAP Acidosis. s/t to BJORN remains oliguric metabolic acidosis is improving however renal function continues to deteriorate and he has potential life threatening complication of hyperkalemia for which Kayexalate and Calcium gluconate. Nephrology consulted will need HD IR consulted for line placement. ID: [id number] Pip/rey for concern of aspiration pneumonia. cultures remain negative thus far. Heme/Onc: Thrombocytopenia slightly worse today but not at significant incrase in bleeding risk. H/H stable s/p transfusion no over signs of bleeding likely s/ t critical illness and ABx start Chemical DVT prophylaxis Endo: History of brittle diabetes. Glucose Monitored and controlled on corrective scale. Integ/MSK: Skin Care per routine ICU Nursing Protocol to prevent ulcers. Lines: All lines examined without evidence of infection including: Left Subclavian CVC Dispo: Remains Critically ill CODE: Full. Daughter (HKPOA updated at bedside) <Kyle Monteiro - Last Filed: 11/04/16 17:56> Date of Encounter: 11/04/16 Time of Encounter: 07:58 Assessment and Plan (1) Cardiac arrest Current Visit: No Status: Acute Patient had a cardiac arrest three days ago likely due to aspiration. Patient had arrhythmias of asystole, V. tach, V. fib and then had ROSC at [facility]. They placed a central line and began Levophed. Patient was then transferred to the ICU at [place]. Patient's initial troponin was 0.09 and repeat was 0.20, 0.17. Troponin is trending downward. Patient had an echocardiogram showing ejection fraction of 35%. Cardiology has been consult on this patient. (2) Hypoglycemia Current Visit: No Status: Acute Patient episode of hypoglycemia two days ago with reported glucose in the 20s. Today his current blood glucose is 122. Insulin is ordered for this patient. We will continue to monitor the patient's glucose and treat accordingly. (3) Aspiration into airway Current Visit: No Status: Acute Three days ago the patient became hypoglycemic, seized, vomited and aspirated. Patient is being treated with Zosyn. Patient is currently intubated and on a ventilator. (4) Metabolic acidosis Current Visit: Yes Status: Acute The most recent ABG on the patient had a pH of 7.31, PCO2 of 38, PO2 119, HCO3 19.1, total CO2 20.3, O2 saturation 98%, base excess of -6.6. This was followed by VBG that had a pH of 7.36, PCO2 of 38, PO2 of 221, HCO3 of 21.5. Patient's acidosis seems to be improving. We will continue to monitor the patient and repeat ABG. (5) Lactic acidosis Current Visit: Yes Status: Acute Lactic acidosis appears to be resolving. Patient's lactic acid peaked at 10.9 and most recently is 1.3. Patient's lactic acidosis appears to be improving. We will continue to follow the patient's lactic acid level. (6) Acute respiratory failure with hypoxia and hypercapnia Current Visit: Yes Status: Acute This is likely secondary to the patient's hyperglycemia, seizure, vomiting and aspiration. Patient is currently on a ventilator. Patient is currently being treated with Zosyn. (7) Anemia Current Visit: Yes Status: Acute Patient was anemic with a hemoglobin of 7.7. He was transfused with 2 units of blood yesterday. Today the patient's hemoglobin is 10.6. We will continue to monitor the patient's hemoglobin. Qualifiers: Anemia type: unspecified type Qualified Code(s): D64.9 - Anemia, unspecified (8) BJORN (acute kidney injury) Current Visit: Yes Status: Acute Patient has acute kidney injury with an elevated creatinine of 3.56. This is likely due to the patient having cardiac arrest and being hypotensive. Patient' s creatinine appears to be elevated above his baseline of 0.7-0.8. We have consult nephrology on this patient. (9) COPD (chronic obstructive pulmonary disease) Current Visit: Yes Status: Chronic Patient has a history of COPD. Patient is currently on DuoNebs and Symbicort Qualifiers: COPD type: unspecified COPD Qualified Code(s): J44.9 - Chronic obstructive pulmonary disease, unspecified (10) DVT prophylaxis Current Visit: Yes Status: Acute Patient is currently on 5000 units of heparin subcutaneous every 8 hours for DVT prophylaxis. Subjective Principal diagnosis: Cardiac Arrest Interval history: Patient is still on the ventilator and unable to speak but nods that things went well overnight. There are no events reported overnight. We will continue to monitor the patient. Objective PUL Vital signs: Last Vital Signs Temp 98.2 F 11/04/16 07:29 Pulse 124 11/04/16 06:00 Resp 26 11/04/16 07:36 BP 136/73 11/04/16 06:05 Pulse Ox 97 11/04/16 07:36 General appearance: other (Patient is currently on a ventilator) Eyes: nonicteric ENT: oropharynx moist Neck: supple Effort: mildly labored Auscultation: left: clear, right: rales Cardiovascular: other (Tachycardic but regular) Gastrointestinal: hypoactive bowel sounds Integumentary: other (Patient has scabs and scars on right and left lower extremities) Musculoskeletal: no deformities non-focal exam, other (Unable to assess fully due to the patient being intubated ) other (Unable to assess fully due to the patient being intubated) Ventilator Settings Ventilator Settings: Ventilator Settings, Last 8 Hours Ventilator Mode VC+ Ventilator Mode VC+ Ventilator Mode VC+ Ventilator Mode VC+ Ventilator Mode VC+ Ventilator Mode VC+ Ventilator Mode VC+ Ventilator Mode VC+ Ventilator Tidal Volume 500 Setting Ventilator Tidal Volume 500 Setting Ventilator Tidal Volume 500 Setting Ventilator Tidal Volume 500 Setting Ventilator Tidal Volume 500 Setting Ventilator Tidal Volume 500 Setting Ventilator Tidal Volume 500 Setting Ventilator Tidal Volume 500 Setting Ventilator Respiratory Rate 22 Setting Ventilator Respiratory Rate 24 Setting Ventilator Respiratory Rate 24 Setting Ventilator Respiratory Rate 24 Setting Ventilator Respiratory Rate 24 Setting Ventilator Respiratory Rate 24 Setting Ventilator Respiratory Rate 24 Setting Ventilator Respiratory Rate 24 Setting Actual Respiratory Rate 24 Actual Respiratory Rate 30 Actual Respiratory Rate 25 Actual Respiratory Rate 25 Actual Respiratory Rate 25 Actual Respiratory Rate 26 Positive End Expiratory 5 Pressure Positive End Expiratory 5 Pressure Positive End Expiratory 5 Pressure Positive End Expiratory 5 Pressure Positive End Expiratory 5 Pressure Positive End Expiratory 5 Pressure Positive End Expiratory 5 Pressure Positive End Expiratory 5 Pressure Peak Inspiratory Airway 27 Pressure Peak Inspiratory Airway 24 Pressure Peak Inspiratory Airway 23 Pressure Peak Inspiratory Airway 23 Pressure Peak Inspiratory Airway 24 Pressure Peak Inspiratory Airway 22 Pressure Results - Laboratory Findings CBC and BMP: 11/04/16 04:40 11/04/16 07:50 ABG ABG pH 7.37 pH Units (7.32-7.45) 11/04/16 04:59 ABG pCO2 31 mmHg (35-45) L 11/04/16 04:59 ABG pO2 78 mmHg (85-104) L 11/04/16 04:59 ABG O2 Saturation 95 % (95-98) 11/04/16 04:59 PT/INR, D-dimer PT 14.3 Seconds (9.4-12.1) H 11/04/16 04:40 Abnormal lab findings: Abnormal lab results WBC 12.1 K/mcL (4.3-11.1) H 11/04/16 04:40 RBC 3.61 M/mcL (4.19-5.50) L 11/04/16 04:40 Hgb 10.6 g/dL (12.9-16.9) L 11/04/16 04:40 Hct 31.9 % (37.5-50.1) L 11/04/16 04:40 Plt Count 136 K/mcL (140-400) L 11/04/16 04:40 Band Neutrophils % 39.0 % (0-4) H 11/03/16 11:30 Metamyelocytes % 2.0 % (0) H 11/02/16 03:18 Myelocytes % 2.0 % (0) H 11/03/16 11:30 Neutrophils # 10.1 K/mcL (1.6-8.9) H 11/04/16 04:40 Reactive Lymphocytes Present (Not Present) A 11/04/16 04:40 Toxic Granulation Present (Not Present) A 11/04/16 04:40 Large Platelets Present (Not Present) A 11/04/16 04:40 PT 14.3 Seconds (9.4-12.1) H 11/04/16 04:40 ABG pCO2 31 mmHg (35-45) L 11/04/16 04:59 ABG pO2 78 mmHg (85-104) L 11/04/16 04:59 ABG HCO3 17.9 mEQ/L (21-27) L 11/04/16 04:59 ABG Total CO2 18.9 mEq/L (20-26) L 11/04/16 04:59 ABG Base Excess -6.5 mEq/L (-2.0 to 3.0) L 11/04/16 04:59 VBG pCO2 38 mmHg (41-51) L 11/03/16 07:45 VBG pO2 221 mmHg (25-40) H 11/03/16 07:45 Sodium 134 mEq/L (136-145) L 11/04/16 04:40 Potassium 5.6 mEq/L (3.5-4.5) H 11/04/16 04:40 BUN 44 mg/dL (8-26) H 11/04/16 04:40 Creatinine 3.55 mg/dL (0.72-1.25) H 11/04/16 04:40 Est GFR ( Amer) 21 (> 60) L 11/04/16 04:40 Est GFR (Non-Af Amer) 18 (> 60) L 11/04/16 04:40 Glucose 103 mg/dL (70-99) H 11/04/16 04:40 Lactic Acid 6.2 mmol/L (0.5-2.2) H* 11/03/16 03:00 Ionized Calcium 1.10 mmol/L (1.15-1.35) L 11/03/16 03:00 Phosphorus 6.4 mg/dL (2.3-4.7) H 11/02/16 03:18 Total Bilirubin 1.9 mg/dL (0.2-1.2) H D 11/04/16 04:40 AST 75 Units/L (5-34) H 11/04/16 04:40 Troponin I 0.17 ng/mL (0-0.03) H* 11/02/16 21:49 Serum Total Protein 5.4 g/dL (6.0-8.3) L 11/04/16 04:40 Albumin 2.9 g/dL (3.5-5.0) L 11/04/16 04:40 Ur Specimen Adequacy See below A 11/02/16 20:24 Urine Clarity Turbid (Clear) A 11/02/16 20:24 Urine Protein 30 mg/dL (Neg-Trace) H 11/02/16 20:24 Urine Glucose (UA) >=1000 mg/dL (Normal) H 11/02/16 20:24 Urine Blood Large (Negative) H 11/02/16 20:24 Ur Leukocyte Esterase Large (Negative) H 11/02/16 20:24 Urine Microscopic WBC TNTC per hpf (0-3) H 11/02/16 20:24 Ur Squamous Epith Cells Many per lpf (None-Few) H 11/02/16 20:24 Granular Casts Few per lpf (None Seen) H 11/02/16 20:24 Urine Yeast Many per hpf (None Seen) H 11/02/16 20:24 Ur Culture Indicated? YES (NO) A 11/02/16 20:24 - Microbiology Findings Microbiology Findings: Microbiology, Last 48 Hours 11/02/16 18:30 Sputum Culture - Preliminary Sputum Yeast Species - Clinical Findings Intake & Output: Intake & Output 11/03/16 11/03/16 11/04/16 15:59 23:59 07:59 Intake Total 870 / 870 659 / 659 379 / 379 Output Total 500 / 500 300 / 300 600 / 600 Balance 370 / 370 359 / 359 -221 / -221 Weight 71.469 kg
[2016-11-04 08:53] LABS: Calcium 8.7 mg/dL (8.6-10.8); Potassium 5.7 mEq/L (3.5-4.5)
[2016-11-04] MEDS ORDERED: 0.9 % Sodium Chloride 250 ML IVC PRN (09:13)
--- NOTE | 2016-11-04 09:19 | Nephrology Consult Note ---
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 His hemodynamics are slowly improving and almost off Levo. Remains intubated. I've consulted IR to request a temporary HD catheter, and will attempt hemodialysis however, he may need CRRT if hemodynamics are not supportive enough. Follow a renal protective strategy: dose Rx by GFR, avoid NSAIDs, Bactrim, IV contrast Thank you for consulting the [facility] group. Will follow with you. 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 Appears nonobstructing without hydronephrosis. (4) Acute respiratory failure with hypoxia and hypercapnia Current Visit: Yes Status: Acute As per primary (5) Cardiomyopathy Current Visit: Yes Status: Acute Hx of, Qualifiers: Cardiomyopathy type: unspecified Qualified Code(s): I42.9 - Cardiomyopathy , unspecified (6) Metabolic acidosis Current Visit: Yes Status: Acute Most likely secondary to the BJORN History of Present Illness - Reason for Consult Consult date: 11/04/16 Acute Kidney Injury, hyperkalemia Requesting physician: Luciano Buitrago - Chief Complaint BJORN with hyperkalemia s/p Cardiac arrest - History of Present Illness Taco Avalos is a 60 y/o WM who developed acute respiratory failure with tachycardia and acute renal failure. 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 He was intubated and sedated so a complete history was limited. A CT abd without contrast did not reveal hydronephrosis, though did suggest chronic pancreatitis. He developed hyperkalemia and worsening SCr. 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) - Social History Smoking Status: Current every day smoker Smokeless Tobacco Status: No Alcohol use: none Drug use: none - Family History Mother History Unknown: Yes Father History Unknown: Yes Medications and Allergies Atorvastatin [Lipitor] 10 mg PO HS 08/16/16 [History] Budesonide/Formoterol 160/4.5 [Symbicort 160/4.5] 2 puff IH BIDR 08/16/16 [ History] Insulin Glargine [Lantus] 14 unit SQ HS 08/16/16 [History] Ipratropium/Albuterol Sulfate [Combivent Respimat Inhal [place]] 1 puff IH Q6H 05/30 [History] Megestrol Acetate [Megace] 800 mg PO BID 08/16/16 [History] Multivit with Calcium,Iron,Min [Essential Daily] 1 each PO DAILY 08/16/16 [ History] Omeprazole [PriLOSEC] 40 mg PO DAILY 08/16/16 [History] Potassium Chloride [Klor-Con 10] 10 meq PO DAILY 08/16/16 [History] Insulin ASPART [NovoLOG] 7 unit SQ TIDWM 11/01/16 [History] Loperamide [Imodium] 2 mg PO Q4HR PRN 11/01/16 [History] Ondansetron HCl [Zofran] 8 mg PO TID PRN 11/01/16 [History] Aspirin [Lo-Dose Aspirin EC] 81 mg PO DAILY 11/02/16 [History] Bacillus Coagulans/Inulin [Probiotic with Prebiotic Caps] 1 each PO DAILY [History] Citalopram [CeleXA] 20 mg PO DAILY 11/02/16 [History] Gabapentin [Neurontin] 600 mg PO TID 11/02/16 [History] LevETIRAcetam [Keppra] 500 mg PO BID 11/02/16 [History] Lidocaine 4% CRM (LMX) [Lmx 4] 1 gm TP BID 11/02/16 [History] Nut.tx.gluc.intoler,Lac-Fr,Soy [Glytrol] 1,000 ml PO DAILY 11/02/16 [History] OxyCODONE/APAP 5/325 [Percocet 5/325 MG] 1 each PO Q6HR PRN 11/02/16 [History] 3 Allergy/AdvReac Type Severity Reaction Status Date / Time codeine Allergy Rash Verified 11/02/16 11:18 Review of Systems ROS unobtainable: due to endotracheal tube, due to mental status Exam - Vital Signs Vital signs: Initial Vital Signs Resp BP Pulse Ox 32 110/74 100 11/02/16 02:35 11/02/16 02:35 11/02/16 02:35 Vital Signs - Last 8 Hours Temp Pulse Resp BP Pulse Ox 11/04/16 08:00 129 10 108/61 95 11/04/16 07:36 26 97 11/04/16 07:29 98.2 F 11/04/16 06:05 29 136/73 98 11/04/16 06:00 124 25 136/73 99 11/04/16 05:00 120 29 132/58 98 11/04/16 04:37 27 133/74 98 11/04/16 04:28 98.3 F 11/04/16 04:00 112 24 125/68 100 11/04/16 03:00 112 25 124/70 98 11/04/16 02:50 27 122/66 98 11/04/16 02:00 112 27 119/58 98 Intake and Output 11/03/16 11/04/16 11/04/16 23:59 07:59 15:59 Intake Total 659 / 659 379 / 379 Output Total 300 / 300 600 / 600 Balance 359 / 359 -221 / -221 Intake: IV Fluids 309 / 309 379 / 379 HumuLIN R 100 UNIT In 0. 2 / 2 9 % Sodium Chloride 100 ML @ 1 UNIT/HR 1.01 mls/ hr IVC CONT JOSY Rx#: [id number] Levophed 4 MG In Dextrose 207 / 207 279 / 279 5% 250 ML @ 8 MCG/MIN 30 mls/hr IVC CONT JOSY Rx#: [id number] Zosyn 3.375 GM In 100 / 100 100 / 100 Dextrose 5% (Minibag+) 100 ML 100 ML @ 25 mls/hr IVPB Q8H JOSY Rx#: [id number] Blood Product 350 / 350 Rbcs Leuko Poor As-1 350 / 350 Unit [id number] Output: Catheter 300 / 300 600 / 600 Other: Weight 71.469 kg Blood Glucose* 118 116 Patient Weight 11/04/16 23:59 Weight 71.469 kg - General Appearance General appearance: sedated on ventilator, intubated EENT: ATNC, PERRL Neck: supple Respiratory: course breath sounds Cardiology: no murmurs, no edema, rapid rhythm, normal S1, normal S2 Gastrointestinal: normoactive bowel sounds, no tenderness, no guarding Integumentary: no rash, warm and dry Neurologic: no asterixis, confused Musculoskeletal: no erythema, no cyanosis, no clubbing Results - Lab Results 11/06/16 04:47 11/06/16 17:30 Most recent lab results ABG pH 7.37 pH Units (7.32-7.45) 11/04/16 04:59 ABG pCO2 31 mmHg (35-45) L 11/04/16 04:59 ABG pO2 78 mmHg (85-104) L 11/04/16 04:59 ABG HCO3 17.9 mEQ/L (21-27) L 11/04/16 04:59 ABG O2 Saturation 95 % (95-98) 11/04/16 04:59 Calcium 8.7 mg/dL (8.6-10.8) 11/04/16 07:50 Phosphorus 6.4 mg/dL (2.3-4.7) H 11/02/16 03:18 Magnesium 2.3 mg/dL (1.6-2.6) 11/04/16 04:40 I reviewed the above data mcpherson and reviewed the progress notes, labs, med, I/ Os, imaging. Consult Discharge Plan - Plan Referrals: Norris Bonner MD [Primary Care Provider] -
[2016-11-04] MEDS ORDERED: *HR* Heparin 5,000 UNIT/ML VIAL ONE (11:14)
[2016-11-04] MEDS: Dexmedetomidine HCl 400 MCG/100 ML MLS IVC SCH ×2 (15:59→23:14)
[2016-11-04] MEDS ORDERED: *HR* Metoprolol 5 MG/5 ML VIAL IVP ONE ×2 (16:13→17:46)
[2016-11-04] MEDS: *HR* Heparin 5,000 UNIT/ML VIAL SQ SCH ×2 (16:23→22:01)
--- NOTE | 2016-11-04 18:27 | Electrocardiograph Report ---
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
[2016-11-04 19:09] LABS: Calcium 8.4 mg/dL (8.6-10.8)
[2016-11-04 19:10] LABS: Potassium 4.6 mEq/L (3.5-4.5)
--- NOTE | 2016-11-04 19:20 | Event Note ---
Date of Encounter: 11/04/16 Time of Encounter: 19:19 Continuing to monitor patient from a cardiovascular standpoint. Continues to require aggressive support. Not an ideal candidate for an ischemic evaluation at this time. Continue supportive care. We will continue to monitor.
[2016-11-05] MEDS: Ipratropium/Albuterol Neb 3 ML IH SCH ×7 (00:08→23:28)
[2016-11-05] MEDS: Lacri-Lube 3.5 GM TUBE BOTH EYES SCH ×6 (01:01→20:46)
[2016-11-05] MEDS: Insulin LISPRO 300 UNITS/3 ML VIAL SQ SCH ×7 (01:01→23:59)
[2016-11-05 04:30] LABS: Eosinophils % 0.1 %; Lymphocytes % 6.1 %
[2016-11-05 04:31] LABS: Basophils # 0.1 K/mcL (0.0-0.2); Basophils % 0.9 %; Hematocrit 32.2 % (37.5-50.1); Hemoglobin 10.4 g/dL (12.9-16.9); Immature Platelets 4.4 % (1.1-6.1); Lymphocytes # 0.6 K/mcL (0.6-4.6); Mean Corpuscular HGB Conc 32.3 g/dL (31.6-35.5); Mean Corpuscular Hemoglobin 28.7 pg (28.0-33.3); Mean Corpuscular Volume 88.7 fL (83.0-100.0); Mean Platelet Volume 10.3 fL (9.4-12.4); Monocytes # 0.4 K/mcL (0.0-1.3); Monocytes % 4.4 %; Neutrophils # 8.4 K/mcL (1.6-8.9); Red Blood Count 3.63 M/mcL (4.19-5.50); Red Cell Distribution Width 13.8 % (11.5-14.5); Segmented Neutrophils % 87.5 %
[2016-11-05 04:38] LABS: Platelet Count 95 K/mcL (140-400)
[2016-11-05 04:41] LABS: INR 1.2; Prothrombin Time 12.5 Seconds (9.4-12.1)
[2016-11-05 04:43] LABS: Activated Partial Thrombo Time 35.6 Seconds (26.0-36.0)
[2016-11-05 04:48] LABS: Potassium 4.9 mEq/L (3.5-4.5)
[2016-11-05 04:49] LABS: Albumin 2.5 g/dL (3.5-5.0); Albumin/Globulin Ratio 0.9 (1.1-2.2); Bilirubin,Total 1.4 mg/dL (0.2-1.2); Globulin 2.9 g/dL (2.4-3.5); Magnesium 2.2 mg/dL (1.6-2.6); Total Protein 5.4 g/dL (6.0-8.3)
[2016-11-05 05:11] LABS: ABG HCO3 15.1 mEQ/L (21-27); ABG Oxygen Saturation 94 % (95-98); ABG PCO2 30 mmHg (35-45); ABG PH 7.31 pH Units (7.32-7.45); ABG PO2 77 mmHg (85-104)
[2016-11-05 05:13] LABS: Blood Gas FiO2 30 %; Blood Gas PEEP 5 cm H2O; Blood Gas Respiration Rate 22; Blood Gas VT 500 cc
[2016-11-05 05:14] LABS: Platelet Estimate Decreased (Normal); Toxic Granulation Present (Not Present)
--- NOTE | 2016-11-05 05:49 | Event Note ---
Date of Encounter: 11/05/16 Time of Encounter: 05:47 Patient loosened RUE from soft restraint and self extubated. He was satting 89 % on RA and then 98% on nonrebreather. However, he had significant rales and was belly breathing at a rate of 10. He was also still confused. Concern for airway protection at this time. Patient was subsequently intubated. See separate note for procedure.
--- NOTE | 2016-11-05 05:55 | Procedure Note ---
Date of procedure: 11/05/16 Pre-op diagnosis: ARF secondary to aspiration Post-op diagnosis: same Procedure: Endotracheal Intubation Date: 11/05/16 Time: 05:32 Indication: ARF secondary to aspiration Resident: Leandro Johnson D.O. Attending: Dr. Santa A time-out was completed verifying correct patient, procedure, positioning. The patient was placed in a flat position. Sedation was obtained using Versed 4mg, and additionally with Etomidate 20mg. The patient was easily ventilated using an ambu bag. The MAC 4 BLADE was used and inserted into the oropharynx at which time there was a Grade 1 view of the vocal cords. A 7.5-thai endotracheal tube was inserted and visualized going through the vocal cords. The stylette was removed. Colorimetric change was visualized on the CO2 meter. Breath sounds were heard in both lung mcpherson equally. The endotracheal tube was placed at 23 cm, measured at the lip. Dr. Santa was present for the entire procedure. A chest x-ray was ordered to assess for pneumothorax and verify endotrachealtube placement. The patient tolerated the procedure well and there were no complications. Condition: stable Disposition: ICU
[2016-11-05] MEDS: Norepinephrine 4 MG in D5% in Water 250 ML IVC SCH (06:34)
[2016-11-05] MEDS: *HR* Heparin 5,000 UNIT/ML VIAL SQ SCH ×3 (06:34→21:21)
[2016-11-05 06:48] LABS: ABG Base Excess -11.3 mEq/L (-2.0 to 3.0); ABG HCO3 13.4 mEQ/L (21-27); ABG Oxygen Saturation 95 % (95-98); ABG PCO2 26 mmHg (35-45); ABG PH 7.32 pH Units (7.32-7.45); ABG PO2 81 mmHg (85-104); ABG TCO2 14.2 mEq/L (20-26)
[2016-11-05 06:49] LABS: Blood Gas FiO2 30 %; Blood Gas PEEP 5 cm H2O; Blood Gas Respiration Rate 22; Blood Gas VT 500 cc
[2016-11-05] MEDS ORDERED: *HR* Etomidate 20 MG/10 ML AMPUL IVP ONE (07:02)
[2016-11-05] MEDS ORDERED: *HR* Midazolam HCl 5 MG/5 ML VIAL IVP ONE (07:02)
--- NOTE | 2016-11-05 07:39 | Pulmonology Progress Note ---
<DanielaulyssesLuciano alves W - Last Filed: 11/05/16 10:19> Date of Encounter: 11/05/16 Objective PUL Vital signs: Last Vital Signs Temp 96.5 F L 11/05/16 07:54 Pulse 117 11/05/16 07:30 Resp 25 11/05/16 07:30 BP 117/63 11/05/16 07:30 Pulse Ox 95 11/05/16 07:30 Ventilator Settings Ventilator Settings: Ventilator Settings, Last 8 Hours Ventilator Mode VC+ Ventilator Mode VC+ Ventilator Mode VC+ Ventilator Mode VC+ Ventilator Mode VC+ Ventilator Mode VC+ Ventilator Tidal Volume 500 Setting Ventilator Tidal Volume 500 Setting Ventilator Tidal Volume 500 Setting Ventilator Tidal Volume 500 Setting Ventilator Tidal Volume 500 Setting Ventilator Tidal Volume 500 Setting Ventilator Respiratory Rate 22 Setting Ventilator Respiratory Rate 22 Setting Ventilator Respiratory Rate 22 Setting Ventilator Respiratory Rate 22 Setting Ventilator Respiratory Rate 22 Setting Ventilator Respiratory Rate 22 Setting Actual Respiratory Rate 25 Actual Respiratory Rate 25 Actual Respiratory Rate 25 Actual Respiratory Rate 25 Positive End Expiratory 5 Pressure Positive End Expiratory 5 Pressure Positive End Expiratory 5 Pressure Positive End Expiratory 5 Pressure Positive End Expiratory 5 Pressure Positive End Expiratory 5 Pressure Peak Inspiratory Airway 22 Pressure Peak Inspiratory Airway 21 Pressure Peak Inspiratory Airway 21 Pressure Peak Inspiratory Airway 23 Pressure Results - Laboratory Findings CBC and BMP: 11/05/16 04:15 11/05/16 04:15 ABG ABG pH 7.32 pH Units (7.32-7.45) 11/05/16 06:40 ABG pCO2 26 mmHg (35-45) L 11/05/16 06:40 ABG pO2 81 mmHg (85-104) L 11/05/16 06:40 ABG O2 Saturation 95 % (95-98) 11/05/16 06:40 PT/INR, D-dimer PT 12.5 Seconds (9.4-12.1) H 11/05/16 04:15 Abnormal lab findings: Abnormal lab results RBC 3.63 M/mcL (4.19-5.50) L 11/05/16 04:15 Hgb 10.4 g/dL (12.9-16.9) L 11/05/16 04:15 Hct 32.2 % (37.5-50.1) L 11/05/16 04:15 Plt Count 95 K/mcL (140-400) L 11/05/16 04:15 Band Neutrophils % 39.0 % (0-4) H 11/03/16 11:30 Metamyelocytes % 2.0 % (0) H 11/02/16 03:18 Myelocytes % 2.0 % (0) H 11/03/16 11:30 Reactive Lymphocytes Present (Not Present) A 11/04/16 04:40 Toxic Granulation Present (Not Present) A 11/05/16 04:15 Platelet Estimate Decreased (Normal) L 11/05/16 04:15 Large Platelets Present (Not Present) A 11/04/16 04:40 PT 12.5 Seconds (9.4-12.1) H 11/05/16 04:15 ABG pCO2 26 mmHg (35-45) L 11/05/16 06:40 ABG pO2 81 mmHg (85-104) L 11/05/16 06:40 ABG HCO3 13.4 mEQ/L (21-27) L 11/05/16 06:40 ABG Total CO2 14.2 mEq/L (20-26) L 11/05/16 06:40 ABG Base Excess -11.3 mEq/L (-2.0 to 3.0) L 11/05/16 06:40 VBG pCO2 38 mmHg (41-51) L 11/03/16 07:45 VBG pO2 221 mmHg (25-40) H 11/03/16 07:45 Potassium 4.9 mEq/L (3.5-4.5) H 11/05/16 04:15 Carbon Dioxide 16 mEq/L (19-29) L 11/05/16 04:15 BUN 40 mg/dL (8-26) H 11/05/16 04:15 Creatinine 3.16 mg/dL (0.72-1.25) H 11/05/16 04:15 Est GFR ( Amer) 24 (> 60) L 11/05/16 04:15 Est GFR (Non-Af Amer) 20 (> 60) L 11/05/16 04:15 Glucose 153 mg/dL (70-99) H 11/05/16 04:15 POC Glucose 123 (58-89) H 11/05/16 00:27 Calculated Osmolality 301 (280-300) H 11/05/16 04:15 Ionized Calcium 1.10 mmol/L (1.15-1.35) L 11/03/16 03:00 Phosphorus 6.4 mg/dL (2.3-4.7) H 11/02/16 03:18 Total Bilirubin 1.4 mg/dL (0.2-1.2) H 11/05/16 04:15 AST 69 Units/L (5-34) H 11/05/16 04:15 Troponin I 0.17 ng/mL (0-0.03) H* 11/02/16 21:49 Serum Total Protein 5.4 g/dL (6.0-8.3) L 11/05/16 04:15 Albumin 2.5 g/dL (3.5-5.0) L 11/05/16 04:15 Albumin/Globulin Ratio 0.9 (1.1-2.2) L 11/05/16 04:15 Ur Specimen Adequacy See below A 11/02/16 20:24 Urine Clarity Turbid (Clear) A 11/02/16 20:24 Urine Protein 30 mg/dL (Neg-Trace) H 11/02/16 20:24 Urine Glucose (UA) >=1000 mg/dL (Normal) H 11/02/16 20:24 Urine Blood Large (Negative) H 11/02/16 20:24 Ur Leukocyte Esterase Large (Negative) H 11/02/16 20:24 Urine Microscopic WBC TNTC per hpf (0-3) H 11/02/16 20:24 Ur Squamous Epith Cells Many per lpf (None-Few) H 11/02/16 20:24 Granular Casts Few per lpf (None Seen) H 11/02/16 20:24 Urine Yeast Many per hpf (None Seen) H 11/02/16 20:24 Ur Culture Indicated? YES (NO) A 11/02/16 20:24 - Microbiology Findings Microbiology Findings: Microbiology, Last 48 Hours 11/02/16 20:24 Urine Culture - Final Urine,Clean Catch Yeast Species 11/02/16 14:33 Blood Culture - Preliminary Peripheral Venipuncture No growth. 11/02/16 12:50 Blood Culture - Preliminary Peripheral Venipuncture No growth. 11/02/16 18:30 Sputum Culture - Preliminary Sputum Yeast Species - Clinical Findings Intake & Output: Intake & Output 11/04/16 11/05/16 11/05/16 23:59 07:59 15:59 Intake Total 344.9 / 344.9 207 / 207 50 / 50 Output Total 400 / 400 700 / 700 Balance -55.1 / -55.1 -493 / -493 50 / 50 Weight 71.214 kg Consult Discharge Plan - Plan Referrals: Norris Bonner MD [Primary Care Provider] - - Attending Attestation I examined this patient and my medical decision-making was reviewed with the Resident Physician. I agree with the documented findings, disposition and treatment plan as described except to the extent set forth below. We independently had [id number] contact with the patient I spent 35min of Critical Care time with this patient. It involved decision making of high complexity to assess, manipulate, and support vital organ system failure and/or to prevent further life threatening deterioration of the patient' s condition. The time involved in the performance of separately reportable procedures was not counted toward critical care time. Patient seen and examined at bedside Labs, radiology, chart personally reviewed. Management was reviewed during multidisciplinary critical care rounds. Neuropsych: sedated on vent. will hold sedation now for sedation holiday. cont precedex and fentanyl as needed for GOAL [place] 2. Keppra restarted for history of seizures. Pulm: Acute hypoxic Respiratory failure intubated on vent. acceptable oxygenation on current minimal vent settings however unintended extubation overnight and patient failed and had to be reintubated. this may have been related to decreased sensorium more than actually respiratory deficit. Cards: s/p Cardiac arrest also with NSTEMI (likely Type 2 [place]) Reduced EF%. Vasopressor weaned off. BB started for SVT (likely aflutter) Diuresis today for pulmonary edema. ASA 325 per Cardiology recs. FEN-GI: GI prophylaxis Given. Cont Enteral Nutrition today History of chronic pancreatitis. Lipase WNL Renal: Acute AGMA with Non GAP Acidosis. s/t to BJORN HD yesterday for hyperkalemia. No indication today. ID: cont Pip/rey for concern of aspiration pneumonia. cultures remain negative thus far. Heme/Onc: Thrombocytopenia likely s/t to critical illness and Piptazo. . H/H stable s/p transfusion no over signs of bleeding cont Chemical DVT prophylaxis Endo: History of brittle diabetes. Glucose Monitored and controlled on corrective scale. Integ/MSK: Skin Care per routine ICU Nursing Protocol to prevent ulcers. Lines: All lines examined without evidence of infection including: Left Subclavian CVC and right Temp Dialysis CVC. Dispo: Remains in ICU <Kyle Monteiro - Last Filed: 11/05/16 16:34> Date of Encounter: 11/05/16 Time of Encounter: 07:39 Assessment and Plan (1) Cardiac arrest Current Visit: No Status: Acute Patient had a cardiac arrest three days ago likely due to aspiration. Patient had arrhythmias of asystole, V. tach, V. fib and then had ROSC at [facility]. They placed a central line and began Levophed. Patient was then transferred to the ICU at [place]. Patient's initial troponin was 0.09 and repeat was 0.20, 0.17. Patient had an echocardiogram showing ejection fraction of 35%. Patient has had some tachycardia which is being treated with lopressor. Cardiology has been consult on this patient. (2) Hypoglycemia Current Visit: No Status: Acute Patient episode of hypoglycemia two days ago with reported glucose in the 20s. Today his current blood glucose is 153. Insulin is ordered for this patient. We will continue to monitor the patient's glucose and treat accordingly. (3) Aspiration into airway Current Visit: No Status: Acute Three days ago the patient became hypoglycemic, seized, vomited and aspirated. Patient is being treated with Zosyn. Patient is currently intubated and on a ventilator. (4) Metabolic acidosis Current Visit: Yes Status: Acute The most recent ABG on the patient had a pH of 7.32, PCO2 of 26, PO2 81, HCO3 18.4, total CO2 of 14.2, O2 saturation 95, base excess of -11.3. We will continue to monitor the patient and repeat ABG. (5) Lactic acidosis Current Visit: Yes Status: Acute Lactic acidosis appears to be resolving. Patient's lactic acid peaked at 10.9 and most recently is 1.2. Patient's lactic acidosis appears to be improving. We will continue to follow the patient's lactic acid level. (6) Acute respiratory failure with hypoxia and hypercapnia Current Visit: Yes Status: Acute This is likely secondary to the patient's hyperglycemia, seizure, vomiting and aspiration. Patient is currently on a ventilator. Patient is currently being treated with Zosyn. (7) Anemia Current Visit: Yes Status: Acute Patient was anemic with a hemoglobin of 7.7. He was transfused with 2 units of blood. Today the patient's hemoglobin is 10.4. We will continue to monitor the patient's hemoglobin. Qualifiers: Anemia type: unspecified type Qualified Code(s): D64.9 - Anemia, unspecified (8) CAD (coronary artery disease) Current Visit: Yes Status: Acute Patient has a history of coronary artery disease. Patient has had stents placed in the LAD and circumflex at an outside organization and an undetermined date. We are in the process of trying to obtain further medical records. Cardiology has been consulted on this patient. It is my understanding that the patient is not a candidate to have a catheterization at this time. It was recommended that the patient be started on aspirin for his CAD. We have started the patient on 300 mg of aspirin rectally daily. Qualifiers: Coronary Disease-Associated Artery/Lesion type: [place] artery [place] vs. transplanted heart: [place] heart Associated angina: angina presence unspecified Qualified Code(s): I25.10 - Atherosclerotic heart disease of [place] coronary artery without angina pectoris (9) BJORN (acute kidney injury) Current Visit: Yes Status: Acute Patient has acute kidney injury with an elevated creatinine of 3.16. This is likely due to the patient having cardiac arrest and being hypotensive. Patient' s creatinine appears to be elevated above his baseline of 0.7-0.8. We have consult nephrology on this patient. Per nephrology patient received dialysis yesterday but did not tolerate very well so they had to stop early. They said that they would hold off on dialysis today. (10) COPD (chronic obstructive pulmonary disease) Current Visit: Yes Status: Chronic Patient has a history of COPD. Patient is currently on DuoNebs and Symbicort Qualifiers: COPD type: unspecified COPD Qualified Code(s): J44.9 - Chronic obstructive pulmonary disease, unspecified (11) DVT prophylaxis Current Visit: Yes Status: Acute Patient is currently on 5000 units of heparin subcutaneous every 8 hours for DVT prophylaxis. Subjective Principal diagnosis: Cardiac Arrest Interval history: Overnight the patient self extubated as well as pulled his OG tube out. The overnight staff felt that the patient was not breathing adequately so the patient was recently intubated and sedated. Patient was sedated and intubated this morning and was unable to communicate how he was doing or anything about the overnight events. Objective PUL Vital signs: Last Vital Signs Temp 97.6 F 11/05/16 00:00 Pulse 122 11/05/16 06:00 Resp 25 11/05/16 06:25 BP 118/66 11/05/16 06:25 Pulse Ox 94 11/05/16 06:25 General appearance: other (Patient is currently sedated and intubated) Eyes: icteric ENT: oropharynx dry Neck: no JVD Effort: mildly labored Auscultation: right: rales (Mild), bilateral: clear Cardiovascular: other (Heart was regular but tachycardic) Gastrointestinal: hypoactive bowel sounds Integumentary: other (Scabs on lower left and right extremities) Extremities: no cyanosis, edema (Mild edema) Musculoskeletal: no deformities other (Unable to assess due to the patient being sedated and on a ventilator) other (Unable to assess due to the patient being sedated and on a ventilator) Ventilator Settings Ventilator Settings: Ventilator Settings, Last 8 Hours Ventilator Mode VC+ Ventilator Mode VC+ Ventilator Mode VC+ Ventilator Mode VC+ Ventilator Mode VC+ Ventilator Mode VC+ Ventilator Mode VC+ Ventilator Tidal Volume 500 Setting Ventilator Tidal Volume 500 Setting Ventilator Tidal Volume 500 Setting Ventilator Tidal Volume 500 Setting Ventilator Tidal Volume 500 Setting Ventilator Tidal Volume 500 Setting Ventilator Tidal Volume 500 Setting Ventilator Respiratory Rate 22 Setting Ventilator Respiratory Rate 22 Setting Ventilator Respiratory Rate 22 Setting Ventilator Respiratory Rate 22 Setting Ventilator Respiratory Rate 22 Setting Ventilator Respiratory Rate 22 Setting Ventilator Respiratory Rate 22 Setting Actual Respiratory Rate 25 Actual Respiratory Rate 25 Actual Respiratory Rate 25 Actual Respiratory Rate 26 Actual Respiratory Rate 25 Positive End Expiratory 5 Pressure Positive End Expiratory 5 Pressure Positive End Expiratory 5 Pressure Positive End Expiratory 5 Pressure Positive End Expiratory 5 Pressure Positive End Expiratory 5 Pressure Positive End Expiratory 5 Pressure Peak Inspiratory Airway 21 Pressure Peak Inspiratory Airway 21 Pressure Peak Inspiratory Airway 23 Pressure Peak Inspiratory Airway 24 Pressure Peak Inspiratory Airway 24 Pressure Results - Laboratory Findings CBC and BMP: 11/05/16 04:15 11/05/16 04:15 ABG ABG pH 7.32 pH Units (7.32-7.45) 11/05/16 06:40 ABG pCO2 26 mmHg (35-45) L 11/05/16 06:40 ABG pO2 81 mmHg (85-104) L 11/05/16 06:40 ABG O2 Saturation 95 % (95-98) 11/05/16 06:40 PT/INR, D-dimer PT 12.5 Seconds (9.4-12.1) H 11/05/16 04:15 Abnormal lab findings: Abnormal lab results RBC 3.63 M/mcL (4.19-5.50) L 11/05/16 04:15 Hgb 10.4 g/dL (12.9-16.9) L 11/05/16 04:15 Hct 32.2 % (37.5-50.1) L 11/05/16 04:15 Plt Count 95 K/mcL (140-400) L 11/05/16 04:15 Band Neutrophils % 39.0 % (0-4) H 11/03/16 11:30 Metamyelocytes % 2.0 % (0) H 11/02/16 03:18 Myelocytes % 2.0 % (0) H 11/03/16 11:30 Reactive Lymphocytes Present (Not Present) A 11/04/16 04:40 Toxic Granulation Present (Not Present) A 11/05/16 04:15 Platelet Estimate Decreased (Normal) L 11/05/16 04:15 Large Platelets Present (Not Present) A 11/04/16 04:40 PT 12.5 Seconds (9.4-12.1) H 11/05/16 04:15 ABG pCO2 26 mmHg (35-45) L 11/05/16 06:40 ABG pO2 81 mmHg (85-104) L 11/05/16 06:40 ABG HCO3 13.4 mEQ/L (21-27) L 11/05/16 06:40 ABG Total CO2 14.2 mEq/L (20-26) L 11/05/16 06:40 ABG Base Excess -11.3 mEq/L (-2.0 to 3.0) L 11/05/16 06:40 VBG pCO2 38 mmHg (41-51) L 11/03/16 07:45 VBG pO2 221 mmHg (25-40) H 11/03/16 07:45 Potassium 4.9 mEq/L (3.5-4.5) H 11/05/16 04:15 Carbon Dioxide 16 mEq/L (19-29) L 11/05/16 04:15 BUN 40 mg/dL (8-26) H 11/05/16 04:15 Creatinine 3.16 mg/dL (0.72-1.25) H 11/05/16 04:15 Est GFR ( Amer) 24 (> 60) L 11/05/16 04:15 Est GFR (Non-Af Amer) 20 (> 60) L 11/05/16 04:15 Glucose 153 mg/dL (70-99) H 11/05/16 04:15 POC Glucose 123 (58-89) H 11/05/16 00:27 Calculated Osmolality 301 (280-300) H 11/05/16 04:15 Ionized Calcium 1.10 mmol/L (1.15-1.35) L 11/03/16 03:00 Phosphorus 6.4 mg/dL (2.3-4.7) H 11/02/16 03:18 Total Bilirubin 1.4 mg/dL (0.2-1.2) H 11/05/16 04:15 AST 69 Units/L (5-34) H 11/05/16 04:15 Troponin I 0.17 ng/mL (0-0.03) H* 11/02/16 21:49 Serum Total Protein 5.4 g/dL (6.0-8.3) L 11/05/16 04:15 Albumin 2.5 g/dL (3.5-5.0) L 11/05/16 04:15 Albumin/Globulin Ratio 0.9 (1.1-2.2) L 11/05/16 04:15 Ur Specimen Adequacy See below A 11/02/16 20:24 Urine Clarity Turbid (Clear) A 11/02/16 20:24 Urine Protein 30 mg/dL (Neg-Trace) H 11/02/16 20:24 Urine Glucose (UA) >=1000 mg/dL (Normal) H 11/02/16 20:24 Urine Blood Large (Negative) H 11/02/16 20:24 Ur Leukocyte Esterase Large (Negative) H 11/02/16 20:24 Urine Microscopic WBC TNTC per hpf (0-3) H 11/02/16 20:24 Ur Squamous Epith Cells Many per lpf (None-Few) H 11/02/16 20:24 Granular Casts Few per lpf (None Seen) H 11/02/16 20:24 Urine Yeast Many per hpf (None Seen) H 11/02/16 20:24 Ur Culture Indicated? YES (NO) A 11/02/16 20:24 - Microbiology Findings Microbiology Findings: Microbiology, Last 48 Hours 11/02/16 20:24 Urine Culture - Final Urine,Clean Catch Yeast Species 11/02/16 14:33 Blood Culture - Preliminary Peripheral Venipuncture No growth. 11/02/16 12:50 Blood Culture - Preliminary Peripheral Venipuncture No growth. 11/02/16 18:30 Sputum Culture - Preliminary Sputum Yeast Species - Clinical Findings Intake & Output: Intake & Output 11/04/16 11/04/16 11/05/16 15:59 23:59 07:59 Intake Total 1015.1 / 1015.1 344.9 / 344.9 207 / 207 Output Total 450 / 450 400 / 400 700 / 700 Balance 565.1 / 565.1 -55.1 / -55.1 -493 / -493 Weight 71.214 kg - VTE Documentation of Mechanical Device: Intermittent pneumatic compression device
[2016-11-05] MEDS: Budesonide/Formoterol 160/4.5 MDI IH SCH ×2 (07:53→19:49)
--- NOTE | 2016-11-05 08:37 | Electrocardiograph Report ---
[place] [address] Test Date: 2016-11-04 Pat Name: Taco Avalos Department: 109 Room: [facility] Gender: M Health Commissioner: BRIE : 1955 Requested By: Kyle Monteiro Order Number: [id number] Reading MD: Joe Amaya MD Measurements Intervals [place] Rate: 123 P: 66 DE: 93 QRS: 51 QRSD: 98 T: 64 QT: 321 QTc: 394 Interpretive Statements SINUS TACHYCARDIA WITH SHORT DE INTERVAL LOW QRS VOLTAGE IN EXTREMITY LEADS Electronically Signed On 11-05-2016 8:35:15 EDT by Joe Amaya MD
[2016-11-05] MEDS: Dexmedetomidine HCl 400 MCG/100 ML MLS IVC SCH ×2 (08:45→21:23)
[2016-11-05] MEDS: FentaNYL (PF) 1,000 MCG in 0.9 % Sodium Chloride 80 ML IVC SCH ×2 (08:47→08:59)
[2016-11-05] MEDS: Piperacillin/Tazobactam 3.375 GM in D5% in Water (Mini-Bag+) 100 ML IVPB SCH ×2 (09:14→21:22)
[2016-11-05] MEDS: Nicotine 7 MG PATCH.TD24 TD SCH (09:16)
[2016-11-05] MEDS ORDERED: Furosemide 40 MG/4 ML VIAL IVP ONE (09:16)
[2016-11-05] MEDS: *HR* Phytonadione 10 MG/ML AMPUL SQ SCH (09:18)
[2016-11-05] MEDS: Chlorhexidine Rinse 15 ML MOUTHWASH MM SCH ×2 (09:21→21:21)
[2016-11-05] MEDS: Famotidine 20 MG/2 ML VIAL IVP SCH (09:21)
--- NOTE | 2016-11-05 09:24 | Nephrology Progress Note ---
Date of Encounter: 11/05/16 Time of Encounter: 09:21 - Assessment and Plan (1) BJORN (acute kidney injury) Current Visit: Yes Status: Acute Non-oliguric BJORN. He did not tolerated standard HD with low Qb and Qd with minimal UF d/t significantly worsened tachycardia and hypotension. The mildly elevated serum K+ is not severe and not necessitating BILINGUAL RECEPTIONIST today. He is making significant UOP as well, without fluid overload on exam. Since he remains so tachycardic today, I recommend holding HD today out of concern that HD may again worsen his hemodynamics. Will assess daily for dialytic vs CVVHDF needs. Discussed with the PERSONAL CARER. (2) Hyperkalemia Current Visit: Yes Status: Acute Improved after first HD (3) Left nephrolithiasis Current Visit: Yes Status: Chronic History of, and does not appear to be active (4) Acute respiratory failure with hypoxia and hypercapnia Current Visit: Yes Status: Acute As per primary (5) Cardiomyopathy Current Visit: Yes Status: Acute History of a CMP. As per primary Qualifiers: Cardiomyopathy type: unspecified Qualified Code(s): I42.9 - Cardiomyopathy , unspecified (6) Metabolic acidosis Current Visit: Yes Status: Acute Improved after first HD Subjective Principal diagnosis: Cardiac Arrest Interval history: Pt was seen and examined. He remains intubated. The initial HD led to severely worsened tachycardia and hypotension. Objective - Vital Signs Vital signs: Vital Signs Temp Pulse Resp BP Pulse Ox 11/05/16 07:54 96.5 F L 11/05/16 07:30 117 25 117/63 95 11/05/16 06:25 25 118/66 94 11/05/16 06:00 122 23 118/66 94 11/05/16 05:00 120 25 118/77 92 11/05/16 04:00 112 11/05/16 03:53 25 128/58 94 11/05/16 03:00 120 25 110/61 91 11/05/16 02:00 118 25 139/71 96 11/05/16 01:00 122 23 136/75 96 11/05/16 00:08 26 140/73 98 11/05/16 00:00 97.6 F 116 25 140/73 92 11/04/16 23:00 112 23 146/72 94 11/04/16 22:00 110 23 135/80 93 11/04/16 21:58 23 147/82 92 11/04/16 21:00 112 23 141/72 92 11/04/16 20:20 25 134/85 92 11/04/16 20:00 96.8 F L 104 29 119/66 88 11/04/16 19:00 142 25 116/76 93 11/04/16 18:00 114 24 130/73 93 11/04/16 17:00 116 26 114/73 93 11/04/16 16:49 23 97 11/04/16 16:15 97.7 F 24 110/56 11/04/16 16:00 147 24 80/41 92 11/04/16 15:45 90/56 11/04/16 15:30 96/67 11/04/16 15:25 97.7 F 11/04/16 15:15 109/58 11/04/16 15:00 114 24 108/54 94 11/04/16 14:45 113/70 11/04/16 14:30 125/62 11/04/16 14:15 90/56 11/04/16 14:00 97.7 F 147 24 129/78 96 11/04/16 13:00 125 24 80/51 96 11/04/16 12:00 97.5 F L 129 25 92/61 92 11/04/16 11:35 9 94 11/04/16 11:00 129 10 109/67 93 11/04/16 10:00 126 10 113/60 94 11/04/16 09:57 10 96 Intake and Output 11/04/16 11/05/16 11/05/16 23:59 07:59 15:59 Intake Total 344.9 / 344.9 207 / 207 50 / 50 Output Total 400 / 400 700 / 700 Balance -55.1 / -55.1 -493 / -493 50 / 50 Intake: IV Fluids 344.9 / 344.9 207 / 207 50 / 50 PRECEDEX Premix 400 mcg 100 / 100 57 / 57 In 100 ml @ 0.2 MCG/KG/HR 3.502 mls/hr IVC .Q24H JOSY Rx#:[id number] FentaNYL (PF) 1,000 MCG 139.9 / 139.9 50 / 50 50 / 50 In 0.9 % Sodium Chloride 80 ML @ 50 MCG/HR 5 mls/ hr IVC CONT JOSY Rx#: [id number] Zosyn 3.375 GM In 100 / 100 Dextrose 5% (Minibag+) 100 ML 100 ML @ 25 mls/hr IVPB Q12H JOSY Rx#: [id number] Keppra 500 MG In 0.9 % 105 / 105 Sodium Chloride 100 ML @ 400 mls/hr IVPB BID JOSY Rx#:[id number] Output: Urine 0 / 0 Total Dialysis (HD) 0 / 0 Output Catheter 400 / 400 700 / 700 Other: Weight 71.214 kg Blood Glucose* 98 179 Hemodialysis Net Fluid 0 Removed (mL) Patient Weight 11/05/16 23:59 Weight 71.214 kg - General Appearance Exam: General appearance: sedated on ventilator, intubated EENT: ATNC, PERRL Neck: supple Respiratory: course breath sounds Cardiology: no murmurs, no edema, rapid rhythm, normal S1, normal S2 Gastrointestinal: normoactive bowel sounds, no tenderness, no guarding Integumentary: no rash, warm and dry Neurologic: no asterixis, confused Musculoskeletal: no erythema, no cyanosis, no clubbing - Lab 11/06/16 04:47 11/06/16 17:30 Most recent lab results ABG pH 7.32 pH Units (7.32-7.45) 11/05/16 06:40 ABG pCO2 26 mmHg (35-45) L 11/05/16 06:40 ABG pO2 81 mmHg (85-104) L 11/05/16 06:40 ABG HCO3 13.4 mEQ/L (21-27) L 11/05/16 06:40 ABG O2 Saturation 95 % (95-98) 11/05/16 06:40 Calcium 9.0 mg/dL (8.6-10.8) 11/05/16 04:15 Phosphorus 6.4 mg/dL (2.3-4.7) H 11/02/16 03:18 Magnesium 2.2 mg/dL (1.6-2.6) 11/05/16 04:15 - VTE Documentation of Mechanical Device: Intermittent pneumatic compression device Consult Discharge Plan - Plan Referrals: Norris Bonner MD [Primary Care Provider] -
[2016-11-05 10:12] LABS: Hepatitis B Surface Antigen Nonreactive (Nonreactive)
--- NOTE | 2016-11-05 10:26 | Cardiology Progress Note ---
Date of Encounter: 11/05/16 Time of Encounter: 10:22 Assessment and Plan (1) Cardiomyopathy Current Visit: Yes Status: Acute Cardiomyopathy. ? chronicity. No previous for comparison. Segmental wall motion abnormalities described, which would suggest possibly ischemic, especially given known CAD. Per reports, prior PCI to LAD and CX. However, cardiomyopathy diagnosed after respiratory failure and subsequent cardiac arrest, so myocardial stunning could certainly be contributing. Presentation is not c/w ACS. Suspect flat troponin elevation related to respiratory failure with arrest, renal insufficiency. Continue supportive care. Recommend aspirin. Agree with BB. Monitor LFTs, statin when able. Guarded condition. Consider ischemic evaluation as condition hopefully improves. Thanks, Peter Figueroa DO, FACC Qualifiers: Qualified Code(s): I42.9 - Cardiomyopathy, unspecified (2) Acute respiratory failure with hypoxia and hypercapnia Current Visit: Yes Status: Acute (3) Elevated troponin Current Visit: Yes Status: Acute Discussion w patient/family: The assessment and plan as outlined above was discussed with the patient and/or family members who expressed understanding and agreement. All questions were answered. Thank you for involving us in the care of your patient. Please call with any questions. Subjective Principal diagnosis: Cardiac Arrest Interval history: Patient seen and examined. HD performed yesterday. Self extubation overnight, reintubated. Currently, he appears comfortable. Hemodynamics appear stable. Remains off pressors. Reports received - similar hospitalization in [place] in 2016 due to hypoglycemia. Comments in those documents regarding CAD and prior PCI to LAD and CX. EF not commented on. Objective Vital Signs, Last 4 Hours Temp Pulse Resp BP Pulse Ox 11/05/16 09:00 117 22 113/61 95 11/05/16 08:00 117 23 114/64 95 11/05/16 07:54 96.5 F L 11/05/16 07:30 117 25 117/63 95 11/05/16 06:25 25 118/66 94 General: Other (Sedated on ventilatory) HEENT: Atraumatic, Normocephaly, Mucus Membranes Moist Neck: No JVD, Normal carotid pulses Cardiac: Reg Rate and Rhythm, Normal S1 and S2, No Murmur, Other (Tachycardic) Lungs: Normal Breath Sounds, Other (Mostly clear at this time) Neuro: Other (Sedated on ventilator) Abdomen: Soft, Non-Tender Skin: No rashes noted on visualized skin Musculoskeletal: No Chest Wall Tenderness Extremities: No Clubbing, No Cyanosis, No Edema Results 11/05/16 04:15 11/05/16 04:15 Lab Results 11/04/16 11/05/16 11/05/16 18:38 04:15 04:15 WBC 9.6 Hgb 10.4 L Hct 32.2 L Plt Count 95 L INR 1.2 APTT 35.6 Sodium 136 Potassium 4.6 H D Chloride 102 Carbon Dioxide 23 BUN 33 H D Creatinine 2.81 H Glucose 100 H Calcium 8.4 L Magnesium 2.0 Total Bilirubin AST ALT Alkaline Phosphatase 11/05/16 04:15 WBC Hgb Hct Plt Count INR APTT Sodium 139 Potassium 4.9 H Chloride 102 Carbon Dioxide 16 L BUN 40 H Creatinine 3.16 H Glucose 153 H Calcium 9.0 Magnesium 2.2 Total Bilirubin 1.4 H AST 69 H ALT 45 Alkaline Phosphatase 101 - Imaging and Cardiology Echo: report reviewed - EKG Interpretation EKG results cardiology: personally reviewed - VTE Documentation of Mechanical Device: Intermittent pneumatic compression device Consult Discharge Plan - Plan Referrals: Norris Bonner MD [Primary Care Provider] -
[2016-11-05] MEDS: *HR* Metoprolol 5 MG/5 ML VIAL IVP SCH ×3 (11:12→23:59)
[2016-11-05 16:59] LABS: Calcium 8.8 mg/dL (8.6-10.8); Potassium 4.4 mEq/L (3.5-4.5)
[2016-11-05] MEDS ORDERED: *HR* Metoprolol 5 MG/5 ML VIAL IVP ONE ×2 (19:37→21:25)
[2016-11-05] MEDS ORDERED: 0.9 % Sodium Chloride 500 ML IVC ONE (20:31)
[2016-11-06] MEDS: FentaNYL (PF) 1,000 MCG in 0.9 % Sodium Chloride 80 ML IVC SCH ×3 (01:13→22:43)
[2016-11-06] MEDS: Ipratropium/Albuterol Neb 3 ML IH SCH ×6 (04:09→23:24)
[2016-11-06] MEDS: Lacri-Lube 3.5 GM TUBE BOTH EYES SCH ×7 (04:25→23:36)
[2016-11-06] MEDS: Norepinephrine 4 MG in D5% in Water 250 ML IVC SCH (04:25)
[2016-11-06 04:26] LABS: ABG Base Excess -8.6 mEq/L (-2.0 to 3.0); ABG HCO3 16.5 mEQ/L (21-27); ABG Oxygen Saturation 94 % (95-98); ABG PCO2 32 mmHg (35-45); ABG PH 7.32 pH Units (7.32-7.45); ABG PO2 75 mmHg (85-104); ABG TCO2 17.5 mEq/L (20-26); Blood Gas FiO2 30 %
[2016-11-06] MEDS: Insulin LISPRO 300 UNITS/3 ML VIAL SQ SCH ×6 (04:26→23:36)
[2016-11-06] MEDS: Dexmedetomidine HCl 400 MCG/100 ML MLS IVC SCH ×4 (04:29→22:43)
[2016-11-06 05:13] LABS: Red Cell Distribution Width 14.3 % (11.5-14.5)
[2016-11-06 05:15] LABS: Basophils # 0.1 K/mcL (0.0-0.2); Hematocrit 31.2 % (37.5-50.1); Hemoglobin 10.2 g/dL (12.9-16.9); Immature Platelets 5.5 % (1.1-6.1); Mean Corpuscular HGB Conc 32.7 g/dL (31.6-35.5); Mean Corpuscular Hemoglobin 29.2 pg (28.0-33.3); Mean Corpuscular Volume 89.4 fL (83.0-100.0); Mean Platelet Volume 10.4 fL (9.4-12.4); Red Blood Count 3.49 M/mcL (4.19-5.50)
[2016-11-06 05:20] LABS: Prothrombin Time 10.4 Seconds (9.4-12.1)
[2016-11-06 05:22] LABS: Activated Partial Thrombo Time 32.5 Seconds (26.0-36.0)
[2016-11-06] MEDS: *HR* Metoprolol 5 MG/5 ML VIAL IVP SCH ×4 (05:30→23:34)
[2016-11-06] MEDS: *HR* Heparin 5,000 UNIT/ML VIAL SQ SCH ×3 (05:30→21:22)
[2016-11-06 05:46] LABS: Calcium 8.9 mg/dL (8.6-10.8); Potassium 4.5 mEq/L (3.5-4.5)
[2016-11-06 05:49] LABS: Platelet Count 93 K/mcL (140-400)
[2016-11-06 06:28] LABS: Lymphocytes # 0.4 K/mcL (0.6-4.6); Monocytes # 0.1 K/mcL (0.0-1.3); Platelet Estimate Decreased (Normal); Toxic Granulation Present (Not Present)
[2016-11-06 06:30] LABS: Ovalocytes 1+ (Not Present); Poikilocytosis 1+ (Not Present)
[2016-11-06 06:31] LABS: Burr Cells 1+ (Not Present)
--- NOTE | 2016-11-06 06:41 | Pulmonology Progress Note ---
Date of Encounter: 11/06/16 Time of Encounter: 06:41 Assessment and Plan (1) Acute respiratory failure with hypoxia and hypercapnia Current Visit: Yes Status: Acute Management was reviewed during multidisciplinary critical care rounds. Neuropsych: sedated on vent. He does respond to my voice continue to wean sedation for goal Bejarano 2-3 cont daily sedation holiday Pulm: Acute hypoxic Respiratory failure intubated on vent. acceptable oxygenation on current minimal vent settings however plan for spontaneous breathing trial today Cards: s/p Cardiac arrest also with NSTEMI (likely Type 2 [place]) Reduced EF%. Continue BB started for atrial fibrillation continue Diuresis today for pulmonary edema. ASA 325 per Cardiology recs. Will check leak test prior to extubation because of laryngeal edema noted on reintubation FEN-GI: GI prophylaxis Given. Enteral nutrition on hold because neither and OG or NG could be placed because of pharyngeal edema Renal: Acute AGMA with Non GAP Acidosis. s/t to BJORN HD yesterday for hyperkalemia. Worsening renal function over the last 24 hours may need EGD today including volume removal will discuss with nephrology has been following with this patient ID: cont Pip/rey for concern of aspiration pneumonia. cultures remain negative thus far. Heme/Onc: Thrombocytopenia likely s/t to critical illness and Piptazo improved from yesterday. H/H stable no over signs of bleeding cont continue Chemical DVT prophylaxis Endo: History of brittle diabetes. Glucose Monitored and controlled on corrective scale. Integ/MSK: Skin Care per routine ICU Nursing Protocol to prevent ulcers. Lines: All lines examined without evidence of infection including: Left Subclavian CVC and right Temp Dialysis CVC. Dispo: Remain in ICU Code Full: Family updated at bedside (2) Cardiac arrest Current Visit: No Status: Acute (3) Acute hyperglycemia Current Visit: No Status: Acute (4) Aspiration into airway Current Visit: No Status: Acute Qualifiers: Encounter type: initial encounter Qualified Code(s): T17.908A - Unspecified foreign body in respiratory tract, part unspecified causing other injury, initial encounter (5) Metabolic acidosis Current Visit: Yes Status: Acute (6) DVT prophylaxis Current Visit: Yes Status: Acute (7) COPD (chronic obstructive pulmonary disease) Current Visit: Yes Status: Chronic Qualifiers: COPD type: unspecified COPD Qualified Code(s): J44.9 - Chronic obstructive pulmonary disease, unspecified (8) BJORN (acute kidney injury) Current Visit: Yes Status: Acute (9) Cardiomyopathy Current Visit: Yes Status: Acute Qualifiers: Cardiomyopathy type: unspecified Qualified Code(s): I42.9 - Cardiomyopathy , unspecified (10) Hyperkalemia Current Visit: Yes Status: Acute Subjective Principal diagnosis: Cardiac Arrest Interval history: Had a couple of episodes of SVT overnight requiring boluses of metoprolol was also given IV crystalloid infusion. He is a weekend to my voice he is able to nod his head to my questions. He remains hemodynamically stable Objective PUL Vital signs: Last Vital Signs Temp 97.6 F 11/06/16 04:00 Pulse 103 11/06/16 06:00 Resp 9 11/06/16 06:13 BP 104/58 11/06/16 06:13 Pulse Ox 94 11/06/16 06:13 General appearance: other (He is sedated on the vent response to my voice makes eye contact) Eyes: nonicteric ENT: other (Endotracheal tube noted in satisfactory position) Auscultation: bilateral: diminished breath sounds, rales Cardiovascular: irregular rhythm Gastrointestinal: normoactive bowel sounds, soft, non-tender Extremities: edema non-focal exam, pupils equal and round Ventilator Settings Ventilator Settings: Ventilator Settings, Last 8 Hours Ventilator Mode CPAP Ventilator Mode CPAP Ventilator Mode VC+ Ventilator Mode VC+ Ventilator Mode VC+ Ventilator Mode VC+ Ventilator Mode VC+ Ventilator Mode VC+ Ventilator Mode VC+ Ventilator Mode VC+ Ventilator Mode VC+ Ventilator Mode VC+ Ventilator Mode VC+ Ventilator Mode VC+ Ventilator Mode VC+ Ventilator Tidal Volume 500 Setting Ventilator Tidal Volume 500 Setting Ventilator Tidal Volume 500 Setting Ventilator Tidal Volume 500 Setting Ventilator Tidal Volume 500 Setting Ventilator Tidal Volume 500 Setting Ventilator Tidal Volume 500 Setting Ventilator Tidal Volume 500 Setting Ventilator Tidal Volume 500 Setting Ventilator Tidal Volume 500 Setting Ventilator Tidal Volume 500 Setting Ventilator Tidal Volume 500 Setting Ventilator Tidal Volume 500 Setting Ventilator Respiratory Rate 18 Setting Ventilator Respiratory Rate 18 Setting Ventilator Respiratory Rate 18 Setting Ventilator Respiratory Rate 18 Setting Ventilator Respiratory Rate 18 Setting Ventilator Respiratory Rate 18 Setting Ventilator Respiratory Rate 18 Setting Ventilator Respiratory Rate 18 Setting Ventilator Respiratory Rate 18 Setting Ventilator Respiratory Rate 18 Setting Ventilator Respiratory Rate 18 Setting Ventilator Respiratory Rate 18 Setting Ventilator Respiratory Rate 18 Setting Actual Respiratory Rate 9 Actual Respiratory Rate 21 Actual Respiratory Rate 20 Actual Respiratory Rate 19 Actual Respiratory Rate 22 Actual Respiratory Rate 20 Actual Respiratory Rate 19 Actual Respiratory Rate 21 Actual Respiratory Rate 21 Actual Respiratory Rate 22 Actual Respiratory Rate 27 Actual Respiratory Rate 22 Actual Respiratory Rate 24 Positive End Expiratory 5 Pressure Positive End Expiratory 5 Pressure Positive End Expiratory 5 Pressure Positive End Expiratory 5 Pressure Positive End Expiratory 5 Pressure Positive End Expiratory 5 Pressure Positive End Expiratory 5 Pressure Positive End Expiratory 5 Pressure Positive End Expiratory 5 Pressure Positive End Expiratory 5 Pressure Positive End Expiratory 5 Pressure Positive End Expiratory 5 Pressure Positive End Expiratory 5 Pressure Positive End Expiratory 5 Pressure Peak Inspiratory Airway 11 Pressure Peak Inspiratory Airway 12 Pressure Peak Inspiratory Airway 20 Pressure Peak Inspiratory Airway 18 Pressure Peak Inspiratory Airway 21 Pressure Peak Inspiratory Airway 18 Pressure Peak Inspiratory Airway 17 Pressure Peak Inspiratory Airway 20 Pressure Peak Inspiratory Airway 20 Pressure Peak Inspiratory Airway 15 Pressure Peak Inspiratory Airway 21 Pressure Peak Inspiratory Airway 18 Pressure Peak Inspiratory Airway 22 Pressure Results - Laboratory Findings CBC and BMP: 11/06/16 04:47 11/06/16 04:47 ABG ABG pH 7.32 pH Units (7.32-7.45) 11/06/16 04:09 ABG pCO2 32 mmHg (35-45) L 11/06/16 04:09 ABG pO2 75 mmHg (85-104) L 11/06/16 04:09 ABG O2 Saturation 94 % (95-98) L 11/06/16 04:09 PT/INR, D-dimer PT 10.4 Seconds (9.4-12.1) 11/06/16 04:47 Abnormal lab findings: Abnormal lab results RBC 3.49 M/mcL (4.19-5.50) L 11/06/16 04:47 Hgb 10.2 g/dL (12.9-16.9) L 11/06/16 04:47 Hct 31.2 % (37.5-50.1) L 11/06/16 04:47 Plt Count 93 K/mcL (140-400) L 11/06/16 04:47 Band Neutrophils % 6.0 % (0-4) H 11/06/16 04:47 Metamyelocytes % 2.0 % (0) H 11/02/16 03:18 Myelocytes % 2.0 % (0) H 11/03/16 11:30 Lymphocytes # 0.4 K/mcL (0.6-4.6) L 11/06/16 04:47 Reactive Lymphocytes Present (Not Present) A 11/04/16 04:40 Toxic Granulation Present (Not Present) A 11/06/16 04:47 Platelet Estimate Decreased (Normal) L 11/06/16 04:47 Large Platelets Present (Not Present) A 11/04/16 04:40 Poikilocytosis 1+ (Not Present) A 11/06/16 04:47 Ovalocytes 1+ (Not Present) A 11/06/16 04:47 Reyno Cells 1+ (Not Present) A 11/06/16 04:47 ABG pCO2 32 mmHg (35-45) L 11/06/16 04:09 ABG pO2 75 mmHg (85-104) L 11/06/16 04:09 ABG HCO3 16.5 mEQ/L (21-27) L 11/06/16 04:09 ABG Total CO2 17.5 mEq/L (20-26) L 11/06/16 04:09 ABG O2 Saturation 94 % (95-98) L 11/06/16 04:09 ABG Base Excess -8.6 mEq/L (-2.0 to 3.0) L 11/06/16 04:09 VBG pCO2 38 mmHg (41-51) L 11/03/16 07:45 VBG pO2 221 mmHg (25-40) H 11/03/16 07:45 Carbon Dioxide 16 mEq/L (19-29) L 11/06/16 04:47 BUN 45 mg/dL (8-26) H 11/06/16 04:47 Creatinine 3.69 mg/dL (0.72-1.25) H 11/06/16 04:47 Est GFR ( Amer) 20 (> 60) L 11/06/16 04:47 Est GFR (Non-Af Amer) 17 (> 60) L 11/06/16 04:47 Glucose 149 mg/dL (70-99) H 11/06/16 04:47 POC Glucose 123 (58-89) H 11/05/16 00:27 Calculated Osmolality 306 (280-300) H 11/06/16 04:47 Ionized Calcium 1.10 mmol/L (1.15-1.35) L 11/03/16 03:00 Phosphorus 6.4 mg/dL (2.3-4.7) H 11/02/16 03:18 Total Bilirubin 1.4 mg/dL (0.2-1.2) H 11/05/16 04:15 AST 69 Units/L (5-34) H 11/05/16 04:15 Troponin I 0.17 ng/mL (0-0.03) H* 11/02/16 21:49 Serum Total Protein 5.4 g/dL (6.0-8.3) L 11/05/16 04:15 Albumin 2.5 g/dL (3.5-5.0) L 11/05/16 04:15 Albumin/Globulin Ratio 0.9 (1.1-2.2) L 11/05/16 04:15 Ur Specimen Adequacy See below A 11/02/16 20:24 Urine Clarity Turbid (Clear) A 11/02/16 20:24 Urine Protein 30 mg/dL (Neg-Trace) H 11/02/16 20:24 Urine Glucose (UA) >=1000 mg/dL (Normal) H 11/02/16 20:24 Urine Blood Large (Negative) H 11/02/16 20:24 Ur Leukocyte Esterase Large (Negative) H 11/02/16 20:24 Urine Microscopic WBC TNTC per hpf (0-3) H 11/02/16 20:24 Ur Squamous Epith Cells Many per lpf (None-Few) H 11/02/16 20:24 Granular Casts Few per lpf (None Seen) H 11/02/16 20:24 Urine Yeast Many per hpf (None Seen) H 11/02/16 20:24 Ur Culture Indicated? YES (NO) A 11/02/16 20:24 - Microbiology Findings Microbiology Findings: Microbiology, Last 48 Hours 11/02/16 18:30 Sputum Culture - Preliminary Sputum Yeast Species 11/02/16 20:24 Urine Culture - Final Urine,Clean Catch Yeast Species 11/02/16 14:33 Blood Culture - Preliminary Peripheral Venipuncture No growth. 11/02/16 12:50 Blood Culture - Preliminary Peripheral Venipuncture No growth. - Clinical Findings Intake & Output: Intake & Output 11/05/16 11/05/16 11/06/16 15:59 23:59 07:59 Intake Total 404 / 404 205 / 205 300 / 300 Output Total 750 / 750 625 / 625 850 / 850 Balance -346 / -346 -420 / -420 -550 / -550 Weight 72.1 kg - VTE Documentation of Mechanical Device: Graduated compression elastic hosiery Consult Discharge Plan - Plan Referrals: Norris Bonner MD [Primary Care Provider] -
[2016-11-06] MEDS: Budesonide/Formoterol 160/4.5 MDI IH SCH ×2 (07:42→19:47)
[2016-11-06] MEDS: Nicotine 7 MG PATCH.TD24 TD SCH (08:54)
[2016-11-06] MEDS: Chlorhexidine Rinse 15 ML MOUTHWASH MM SCH ×2 (08:55→21:21)
[2016-11-06] MEDS: Famotidine 20 MG/2 ML VIAL IVP SCH (08:55)
--- NOTE | 2016-11-06 08:56 | Nephrology Progress Note ---
Date of Encounter: 11/06/16 Time of Encounter: 08:45 - Assessment and Plan (1) BJORN (acute kidney injury) Current Visit: Yes Status: Acute Excellent UOP, no hyperkalemia, and still too tachy with relative hypotension, making the risks of iHD today sufficient enough that I'll hold it today as well. If his hemodynamics do not stabilize and if his renal function were to continue worsening, then would upgrade him to CVVHDF by tomorrow (Thursday). Discussed with the ICU team. (2) Hyperkalemia Current Visit: Yes Status: Acute Improved (3) Left nephrolithiasis Current Visit: Yes Status: Chronic noted on CT but it was nonobstructive (4) Acute respiratory failure with hypoxia and hypercapnia Current Visit: Yes Status: Acute As per primary (5) Cardiomyopathy Current Visit: Yes Status: Acute Hx of CMP Qualifiers: Cardiomyopathy type: unspecified Qualified Code(s): I42.9 - Cardiomyopathy , unspecified (6) Metabolic acidosis Current Visit: Yes Status: Acute Will monitor Subjective Principal diagnosis: Cardiac Arrest Interval history: Pt was seen/examined earlier today. He remains intubated and sedated. I spoke with his daughter and son. Objective - Vital Signs Vital signs: Vital Signs Temp Pulse Resp BP Pulse Ox 11/06/16 08:00 108 10 96/61 100 11/06/16 07:43 8 95 11/06/16 07:20 97.6 F 11/06/16 06:13 9 104/58 94 11/06/16 06:00 103 21 104/58 95 11/06/16 05:38 20 108/58 95 11/06/16 05:00 105 19 106/59 94 11/06/16 04:30 105 11/06/16 04:09 22 97/55 95 11/06/16 04:00 97.6 F 106 20 97/55 94 11/06/16 03:00 109 19 105/62 95 11/06/16 02:00 111 21 97/62 95 11/06/16 01:00 131 21 88/55 95 11/06/16 00:49 22 88/61 95 11/06/16 00:29 126 11/06/16 00:13 97.1 F L 11/06/16 00:00 126 27 91/55 98 11/05/16 23:28 22 94/64 94 11/05/16 23:00 131 24 94/64 93 11/05/16 22:00 138 23 111/67 95 11/05/16 21:53 23 117/69 95 11/05/16 21:00 140 21 117/68 96 11/05/16 20:39 96.4 F L 11/05/16 20:30 140 11/05/16 20:00 140 18 111/73 98 11/05/16 19:49 20 101/63 93 11/05/16 19:00 107 25 135/74 93 11/05/16 18:00 140 20 116/68 93 11/05/16 17:00 112 23 131/64 95 11/05/16 16:00 97.3 F L 112 20 123/62 95 11/05/16 15:28 21 117/73 94 11/05/16 15:00 128 21 117/73 94 11/05/16 14:00 105 23 105/55 94 11/05/16 13:15 23 103/74 95 11/05/16 13:00 154 20 108/72 95 11/05/16 12:00 109 21 104/59 95 11/05/16 11:57 97.1 F L 11/05/16 11:14 24 95/57 94 11/05/16 11:00 117 20 95/57 95 11/05/16 10:00 118 24 104/60 94 11/05/16 09:50 24 108/59 95 11/05/16 09:00 117 22 113/61 95 Intake and Output 11/05/16 11/06/16 11/06/16 23:59 07:59 15:59 Intake Total / 205 300 / 300 Output Total 625 / 625 1050 / 1050 Balance -420 / -420 -750 / -750 Intake: IV Fluids 205 / 205 300 / 300 PRECEDEX Premix 400 mcg 100 / 100 100 / 100 In 100 ml @ 0.2 MCG/KG/HR 3.502 mls/hr IVC .Q24H JOSY Rx#:[id number] FentaNYL (PF) 1,000 MCG 0 / 0 100 / 100 In 0.9 % Sodium Chloride 80 ML @ 50 MCG/HR 5 mls/ hr IVC CONT JOSY Rx#: [id number] Zosyn 3.375 GM In 100 / 100 Dextrose 5% (Minibag+) 100 ML 100 ML @ 25 mls/hr IVPB Q12H JOSY Rx#: [id number] Keppra 500 MG In 0.9 % 105 / 105 Sodium Chloride 100 ML @ 400 mls/hr IVPB BID JOSY Rx#:[id number] Output: Catheter 625 / 625 1050 / 1050 Other: Weight 72.1 kg Blood Glucose* 103 143 Patient Weight 11/06/16 23:59 Weight 72.1 kg - General Appearance Exam: General appearance: sedated on ventilator, intubated EENT: ATNC, PERRL Neck: supple Respiratory: course breath sounds Cardiology: no murmurs, no edema, rapid rhythm, normal S1, normal S2 Gastrointestinal: normoactive bowel sounds, no tenderness, no guarding Integumentary: no rash, warm and dry Neurologic: no asterixis, confused Musculoskeletal: no erythema, no cyanosis, no clubbing - Lab 11/06/16 04:47 11/06/16 17:30 Most recent lab results ABG pH 7.32 pH Units (7.32-7.45) 11/06/16 04:09 ABG pCO2 32 mmHg (35-45) L 11/06/16 04:09 ABG pO2 75 mmHg (85-104) L 11/06/16 04:09 ABG HCO3 16.5 mEQ/L (21-27) L 11/06/16 04:09 ABG O2 Saturation 94 % (95-98) L 11/06/16 04:09 Calcium 8.9 mg/dL (8.6-10.8) 11/06/16 04:47 Phosphorus 6.4 mg/dL (2.3-4.7) H 11/02/16 03:18 Magnesium 2.0 mg/dL (1.6-2.6) 11/06/16 04:47 - VTE Documentation of Mechanical Device: Graduated compression elastic hosiery Consult Discharge Plan - Plan Referrals: Norris Bonner MD [Primary Care Provider] -
[2016-11-06] MEDS ORDERED: Furosemide 40 MG/4 ML VIAL IVP ONE (09:06)
[2016-11-06] MEDS ORDERED: Furosemide 40 MG/4 ML VIAL ONE (09:12)
[2016-11-06] MEDS: Piperacillin/Tazobactam 3.375 GM in D5% in Water (Mini-Bag+) 100 ML IVPB SCH ×2 (10:26→21:22)
--- NOTE | 2016-11-06 17:39 | Electrocardiograph Report ---
[place] [address] Test Date: 2016-11-04 Pat Name: Taco Avalos Department: 109 Room: 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
--- NOTE | 2016-11-06 17:46 | Cardiology Progress Note ---
Date of Encounter: 11/06/16 Time of Encounter: 17:44 Assessment and Plan (1) Cardiomyopathy Current Visit: Yes Status: Acute Cardiomyopathy. ? chronicity. No previous for comparison. Segmental wall motion abnormalities described, which would suggest possibly ischemic, especially given known CAD. Per reports, prior PCI to LAD and CX. However, cardiomyopathy diagnosed after respiratory failure and subsequent cardiac arrest, so myocardial stunning could certainly be contributing. Presentation is not c/w ACS. Suspect flat troponin elevation related to respiratory failure with arrest, renal insufficiency. Continue supportive care. Recommend aspirin. Agree with BB. Monitor LFTs, statin when able. Guarded condition. Consider ischemic evaluation as condition hopefully improves. Thanks, Peter Figueroa, DO, [facility] Qualifiers: Cardiomyopathy type: unspecified Qualified Code(s): I42.9 - Cardiomyopathy , unspecified (2) Acute respiratory failure with hypoxia and hypercapnia Current Visit: Yes Status: Acute (3) Elevated troponin Current Visit: Yes Status: Acute Discussion w patient/family: The assessment and plan as outlined above was discussed with the patient and/or family members who expressed understanding and agreement. All questions were answered. Thank you for involving us in the care of your patient. Please call with any questions. Subjective Principal diagnosis: Cardiac Arrest Interval history: Patient seen and examined earlier this morning. He was on CPAP at that time. Otherwise, no new cardiac events. ECGs reviewed - sinus rhythm/sinus tachycardia. Objective Vital Signs, Last 4 Hours Temp Pulse Resp BP Pulse Ox 11/06/16 17:00 109 19 109/55 100 11/06/16 16:03 20 98 11/06/16 16:00 112 19 98/51 100 11/06/16 15:52 97.8 F 11/06/16 15:15 113 24 92/48 98 11/06/16 14:39 8 99 11/06/16 14:00 114 17 91/53 98 General: Other (Ventilator) HEENT: Atraumatic, Normocephaly, Mucus Membranes Moist Neck: No JVD, Normal carotid pulses Cardiac: Other (Distant, regular) Lungs: Other (Mostly clear breaths sounds noted, few rhonchi) Neuro: Other (sedated on ventilator) Abdomen: Soft Skin: No rashes noted on visualized skin Musculoskeletal: No Chest Wall Tenderness Extremities: No Clubbing, No Cyanosis, No Edema Results 11/06/16 04:47 11/06/16 04:47 Lab Results 11/06/16 11/06/16 11/06/16 04:47 04:47 04:47 WBC 6.7 Hgb 10.2 L Hct 31.2 L Plt Count 93 L INR 1.0 APTT 32.5 Sodium 141 Potassium 4.5 Chloride 105 Carbon Dioxide 16 L BUN 45 H Creatinine 3.69 H Glucose 149 H Calcium 8.9 Magnesium 2.0 - Imaging and Cardiology Echo: report reviewed - EKG Interpretation EKG results cardiology: personally reviewed - VTE Documentation of Mechanical Device: Graduated compression elastic hosiery Consult Discharge Plan - Plan Referrals: Norris Bonner MD [Primary Care Provider] -
[2016-11-06 18:41] LABS: Calcium 9.1 mg/dL (8.6-10.8); Potassium 4.3 mEq/L (3.5-4.5)
[2016-11-07] MEDS: Norepinephrine 4 MG in D5% in Water 250 ML IVC SCH ×2 (00:05→04:42)
[2016-11-07 03:31] LABS: Hematocrit 30.8 % (37.5-50.1); Hemoglobin 9.9 g/dL (12.9-16.9); Immature Platelets 4.2 % (1.1-6.1); Mean Corpuscular HGB Conc 32.1 g/dL (31.6-35.5); Mean Corpuscular Hemoglobin 28.6 pg (28.0-33.3); Mean Platelet Volume 10.4 fL (9.4-12.4); Monocytes # 0.6 K/mcL (0.0-1.3); Red Blood Count 3.46 M/mcL (4.19-5.50); Red Cell Distribution Width 14.4 % (11.5-14.5)
[2016-11-07 03:32] LABS: Prothrombin Time 10.6 Seconds (9.4-12.1)
[2016-11-07 03:35] LABS: Activated Partial Thrombo Time 30.4 Seconds (26.0-36.0)
[2016-11-07 03:37] LABS: Platelet Count 98 K/mcL (140-400)
[2016-11-07] MEDS: Ipratropium/Albuterol Neb 3 ML IH SCH ×6 (03:41→23:31)
[2016-11-07 03:45] LABS: Magnesium 1.8 mg/dL (1.6-2.6); Potassium 4.4 mEq/L (3.5-4.5)
[2016-11-07] MEDS: Insulin LISPRO 300 UNITS/3 ML VIAL SQ SCH ×6 (03:47→23:02)
[2016-11-07] MEDS: Lacri-Lube 3.5 GM TUBE BOTH EYES SCH ×6 (03:48→23:02)
[2016-11-07 04:07] LABS: Dohle Bodies Present (Not Present); Lymphocytes # 0.6 K/mcL (0.6-4.6); Neutrophils # 4.9 K/mcL (1.6-8.9); Platelet Estimate Decreased (Normal)
[2016-11-07 04:07] LABS: ABG Base Excess -8.2 mEq/L (-2.0 to 3.0); ABG Oxygen Saturation 96 % (95-98); ABG PCO2 33 mmHg (35-45); ABG PH 7.32 pH Units (7.32-7.45); ABG PO2 89 mmHg (85-104); Blood Gas FiO2 30 %
[2016-11-07] MEDS: Dexmedetomidine HCl 400 MCG/100 ML MLS IVC SCH ×3 (04:58→21:00)
[2016-11-07] MEDS: *HR* Metoprolol 5 MG/5 ML VIAL IVP SCH ×4 (05:35→23:02)
[2016-11-07] MEDS: *HR* Heparin 5,000 UNIT/ML VIAL SQ SCH ×3 (05:35→21:00)
--- NOTE | 2016-11-07 06:31 | Pulmonology Progress Note ---
Date of Encounter: 11/07/16 Time of Encounter: 06:31 Assessment and Plan (1) Acute respiratory failure with hypoxia and hypercapnia Current Visit: Yes Status: Acute Management was reviewed during multidisciplinary critical care rounds. Neuropsych: Worsening Delirium. Low dose continuous infusion of sedative ( Precedex) and fentanyl He does respond to my voice continue to wean sedation for goal Bejarano 2cont daily sedation holiday Pulm: Acute hypoxic Respiratory failure intubated on vent. acceptable oxygenation on current minimal vent settings plan for spontaneous breathing trial today. Will check leak test prior to extubation because of laryngeal edema noted on reintubation Cards: s/p Cardiac arrest also with NSTEMI (likely Type 2 NE) Reduced EF%.mild hypotension it is possible that after diuresis although patient total body fluid overloaded may be intravascularly dry we will hold further diuresis at this time would continue low-dose beta erasmo may consider infusion of albumin aced upon clinical course pulmonary edema. ASA 325 per Cardiology recs. FEN-GI: GI prophylaxis Given. Enteral nutrition on hold because neither and OG or NG could be placed because of pharyngeal edema. If unable to be liberated from the ventilator today we will reattempt placement of small bore feeding tube such as Dobhoff Renal: Acute AGMA with Non GAP Acidosis. s/t to BJORN . Worsening renal function over the last 24 hours may need EMPLOYMENT DIRECTOR. Nephrology followig. We are monitoring his electrolytes daily and replacing per protocol ID: cont Pip/rey for concern of aspiration pneumonia. Would stop after day 7 (tomorrow). He does have a normal white count but noticed increase in band forms over the last 2 days and with hypotension there is a concern of early sepsis although I think there are other explanations that are just as likely he does not have any fever but if clinical worsening would reculture patient at very least and it would have low threshold for broadening out antimicrobials. Heme/Onc: Thrombocytopenia likely s/t to critical illness and Abx (stable). H/ H stable no over signs of bleeding. Continue Chemical DVT prophylaxis Endo: History of brittle diabetes. Glucose Monitored and controlled on corrective scale. Integ/MSK: Skin Care per routine ICU Nursing Protocol to prevent ulcers. Lines: All lines examined without evidence of infection including: Left Subclavian CVC and right Temp Dialysis CVC. Dispo: Remain in ICU Code Full: (2) Cardiac arrest Current Visit: No Status: Acute (3) Acute hyperglycemia Current Visit: No Status: Acute (4) Aspiration into airway Current Visit: No Status: Acute Qualifiers: Encounter type: initial encounter Qualified Code(s): T17.908A - Unspecified foreign body in respiratory tract, part unspecified causing other injury, initial encounter (5) Metabolic acidosis Current Visit: Yes Status: Acute (6) DVT prophylaxis Current Visit: Yes Status: Acute (7) COPD (chronic obstructive pulmonary disease) Current Visit: Yes Status: Chronic Qualifiers: COPD type: unspecified COPD Qualified Code(s): J44.9 - Chronic obstructive pulmonary disease, unspecified (8) BJORN (acute kidney injury) Current Visit: Yes Status: Acute (9) Cardiomyopathy Current Visit: Yes Status: Acute Qualifiers: Cardiomyopathy type: unspecified Qualified Code(s): I42.9 - Cardiomyopathy , unspecified (10) Hyperkalemia Current Visit: Yes Status: Acute Subjective Principal diagnosis: Cardiac Arrest Interval history: Early this morning patient had an episode of hypotension after being moved and possible fluid shift per nursing staff. He was started on low-dose infusion of platelets and to keep map greater than 60 he is currently 1 g of Levaquin.. Urine output has been excellent although creatinine clearance continues to decline Objective PUL Vital signs: Last Vital Signs Temp 97.8 F 11/07/16 04:50 Pulse 108 11/07/16 06:00 Resp 25 11/07/16 06:00 BP 133/64 11/07/16 06:00 Pulse Ox 99 11/07/16 06:00 General appearance: no acute distress Eyes: nonicteric Auscultation: bilateral: diminished breath sounds, rales Cardiovascular: regular rate and rhythm Gastrointestinal: normoactive bowel sounds, soft, non-tender Extremities: edema non-focal exam, pupils equal and round, other (He is able to follow all my commands and moves all extremities and not his head to my questions) Ventilator Settings Ventilator Settings: Ventilator Settings, Last 8 Hours Ventilator Mode VC+ Ventilator Mode VC+ Ventilator Mode VC+ Ventilator Mode VC+ Ventilator Mode VC+ Ventilator Mode VC+ Ventilator Mode VC+ Ventilator Mode VC+ Ventilator Mode VC+ Ventilator Mode VC+ Ventilator Mode VC+ Ventilator Mode VC+ Ventilator Mode VC+ Ventilator Tidal Volume 500 Setting Ventilator Tidal Volume 500 Setting Ventilator Tidal Volume 500 Setting Ventilator Tidal Volume 500 Setting Ventilator Tidal Volume 500 Setting Ventilator Tidal Volume 500 Setting Ventilator Tidal Volume 500 Setting Ventilator Tidal Volume 500 Setting Ventilator Tidal Volume 500 Setting Ventilator Tidal Volume 500 Setting Ventilator Tidal Volume 500 Setting Ventilator Tidal Volume 500 Setting Ventilator Tidal Volume 500 Setting Ventilator Respiratory Rate 18 Setting Ventilator Respiratory Rate 18 Setting Ventilator Respiratory Rate 18 Setting Ventilator Respiratory Rate 18 Setting Ventilator Respiratory Rate 18 Setting Ventilator Respiratory Rate 18 Setting Ventilator Respiratory Rate 18 Setting Ventilator Respiratory Rate 18 Setting Ventilator Respiratory Rate 18 Setting Ventilator Respiratory Rate 18 Setting Ventilator Respiratory Rate 18 Setting Ventilator Respiratory Rate 18 Setting Ventilator Respiratory Rate 18 Setting Actual Respiratory Rate 25 Actual Respiratory Rate 24 Actual Respiratory Rate 21 Actual Respiratory Rate 21 Actual Respiratory Rate 22 Actual Respiratory Rate 22 Actual Respiratory Rate 21 Actual Respiratory Rate 22 Actual Respiratory Rate 21 Actual Respiratory Rate 23 Actual Respiratory Rate 23 Actual Respiratory Rate 23 Positive End Expiratory 5 Pressure Positive End Expiratory 5 Pressure Positive End Expiratory 5 Pressure Positive End Expiratory 5 Pressure Positive End Expiratory 5 Pressure Positive End Expiratory 5 Pressure Positive End Expiratory 5 Pressure Positive End Expiratory 5 Pressure Positive End Expiratory 5 Pressure Positive End Expiratory 5 Pressure Positive End Expiratory 5 Pressure Positive End Expiratory 5 Pressure Positive End Expiratory 5 Pressure Peak Inspiratory Airway 22 Pressure Peak Inspiratory Airway 22 Pressure Peak Inspiratory Airway 18 Pressure Peak Inspiratory Airway 21 Pressure Peak Inspiratory Airway 21 Pressure Peak Inspiratory Airway 22 Pressure Peak Inspiratory Airway 21 Pressure Peak Inspiratory Airway 20 Pressure Peak Inspiratory Airway 22 Pressure Peak Inspiratory Airway 21 Pressure Peak Inspiratory Airway 20 Pressure Peak Inspiratory Airway 18 Pressure Results - Laboratory Findings CBC and BMP: 11/07/16 03:20 11/07/16 03:20 ABG ABG pH 7.32 pH Units (7.32-7.45) 11/07/16 03:58 ABG pCO2 33 mmHg (35-45) L 11/07/16 03:58 ABG pO2 89 mmHg (85-104) 11/07/16 03:58 ABG O2 Saturation 96 % (95-98) 11/07/16 03:58 PT/INR, D-dimer PT 10.6 Seconds (9.4-12.1) 11/07/16 03:20 Abnormal lab findings: Abnormal lab results RBC 3.46 M/mcL (4.19-5.50) L 11/07/16 03:20 Hgb 9.9 g/dL (12.9-16.9) L 11/07/16 03:20 Hct 30.8 % (37.5-50.1) L 11/07/16 03:20 Plt Count 98 K/mcL (140-400) L 11/07/16 03:20 Band Neutrophils % 8.0 % (0-4) H 11/07/16 03:20 Metamyelocytes % 2.0 % (0) H 11/02/16 03:18 Myelocytes % 2.0 % (0) H 11/03/16 11:30 Reactive Lymphocytes Present (Not Present) A 11/04/16 04:40 Toxic Granulation Present (Not Present) A 11/06/16 04:47 Dohle Bodies Present (Not Present) A 11/07/16 03:20 Platelet Estimate Decreased (Normal) L 11/07/16 03:20 Large Platelets Present (Not Present) A 11/04/16 04:40 Poikilocytosis 1+ (Not Present) A 11/06/16 04:47 Ovalocytes 1+ (Not Present) A 11/06/16 04:47 Mission Cells 1+ (Not Present) A 11/06/16 04:47 ABG pCO2 33 mmHg (35-45) L 11/07/16 03:58 ABG HCO3 17.0 mEQ/L (21-27) L 11/07/16 03:58 ABG Total CO2 18.0 mEq/L (20-26) L 11/07/16 03:58 ABG Base Excess -8.2 mEq/L (-2.0 to 3.0) L 11/07/16 03:58 VBG pCO2 38 mmHg (41-51) L 11/03/16 07:45 VBG pO2 221 mmHg (25-40) H 11/03/16 07:45 Carbon Dioxide 18 mEq/L (19-29) L 11/07/16 03:20 BUN 52 mg/dL (8-26) H 11/07/16 03:20 Creatinine 4.01 mg/dL (0.72-1.25) H 11/07/16 03:20 Est GFR ( Amer) 19 (> 60) L 11/07/16 03:20 Est GFR (Non-Af Amer) 15 (> 60) L 11/07/16 03:20 Glucose 127 mg/dL (70-99) H 11/07/16 03:20 POC Glucose 147 (58-89) H 11/06/16 23:29 Calculated Osmolality 312 (280-300) H 11/07/16 03:20 Ionized Calcium 1.10 mmol/L (1.15-1.35) L 11/03/16 03:00 Phosphorus 6.4 mg/dL (2.3-4.7) H 11/02/16 03:18 Total Bilirubin 1.4 mg/dL (0.2-1.2) H 11/05/16 04:15 AST 69 Units/L (5-34) H 11/05/16 04:15 Troponin I 0.17 ng/mL (0-0.03) H* 11/02/16 21:49 Serum Total Protein 5.4 g/dL (6.0-8.3) L 11/05/16 04:15 Albumin 2.5 g/dL (3.5-5.0) L 11/05/16 04:15 Albumin/Globulin Ratio 0.9 (1.1-2.2) L 11/05/16 04:15 Ur Specimen Adequacy See below A 11/02/16 20:24 Urine Clarity Turbid (Clear) A 11/02/16 20:24 Urine Protein 30 mg/dL (Neg-Trace) H 11/02/16 20:24 Urine Glucose (UA) >=1000 mg/dL (Normal) H 11/02/16 20:24 Urine Blood Large (Negative) H 11/02/16 20:24 Ur Leukocyte Esterase Large (Negative) H 11/02/16 20:24 Urine Microscopic WBC TNTC per hpf (0-3) H 11/02/16 20:24 Ur Squamous Epith Cells Many per lpf (None-Few) H 11/02/16 20:24 Granular Casts Few per lpf (None Seen) H 11/02/16 20:24 Urine Yeast Many per hpf (None Seen) H 11/02/16 20:24 Ur Culture Indicated? YES (NO) A 11/02/16 20:24 - Microbiology Findings Microbiology Findings: Microbiology, Last 48 Hours 11/02/16 18:30 Sputum Culture - Preliminary Sputum Yeast Species 11/02/16 20:24 Urine Culture - Final Urine,Clean Catch Yeast Species - Clinical Findings Intake & Output: Intake & Output 11/06/16 11/06/16 11/07/16 15:59 23:59 07:59 Intake Total 405 / 405 305 / 305 245 / 245 Output Total 1000 / 1000 520 / 520 550 / 550 Balance -595 / -595 -215 / -215 -305 / -305 - VTE Documentation of Mechanical Device: Intermittent pneumatic compression device Consult Discharge Plan - Plan Referrals: Norris Bonnre MD [Primary Care Provider] -
[2016-11-07] MEDS ORDERED: Furosemide 40 MG/4 ML VIAL IVP ONE (06:37)
[2016-11-07] MEDS: Budesonide/Formoterol 160/4.5 MDI IH SCH ×2 (07:24→19:38)
[2016-11-07] MEDS: Chlorhexidine Rinse 15 ML MOUTHWASH MM SCH ×2 (09:29→19:31)
[2016-11-07] MEDS: Piperacillin/Tazobactam 3.375 GM in D5% in Water (Mini-Bag+) 100 ML IVPB SCH ×2 (09:29→21:00)
[2016-11-07] MEDS: Nicotine 7 MG PATCH.TD24 TD SCH (09:36)
[2016-11-07] MEDS: Famotidine 20 MG/2 ML VIAL IVP SCH (09:40)
--- NOTE | 2016-11-07 11:08 | Cardiology Progress Note ---
Date of Encounter: 11/07/16 Time of Encounter: 11:05 Assessment and Plan (1) Cardiomyopathy Current Visit: Yes Status: Acute Cardiomyopathy. ? chronicity. No previous for comparison. Segmental wall motion abnormalities described, which would suggest possibly ischemic, especially given known CAD. Per reports, prior PCI to LAD and CX. However, cardiomyopathy diagnosed after respiratory failure and subsequent cardiac arrest, so myocardial stunning could certainly be contributing. Presentation is not c/w ACS. Suspect flat troponin elevation related to respiratory failure with arrest, renal insufficiency. Despite supportive ICU care, remains intubated. Delerium noted per reports. Recommend continue aspirin. Hypotensive requiring levophed and BJORN noted - hold BB/ACEi. Consider statin once LFTs normalize. Overall, his condition remains guarded. Given multiple organ systems involved, prognosis appears guarded. Consider ischemic evaluation as condition hopefully improves. Thanks, Peter Figueroa DO, [facility] Qualifiers: Cardiomyopathy type: unspecified Qualified Code(s): I42.9 - Cardiomyopathy , unspecified (2) Acute respiratory failure with hypoxia and hypercapnia Current Visit: Yes Status: Acute (3) Elevated troponin Current Visit: Yes Status: Acute Discussion w patient/family: The assessment and plan as outlined above was discussed with the patient and/or family members who expressed understanding and agreement. All questions were answered. Thank you for involving us in the care of your patient. Please call with any questions. Subjective Principal diagnosis: Cardiac Arrest Interval history: Remains intubated this AM. Increasing delerium per reports. Requiring levophed. Renal function worsening. Objective Vital Signs, Last 4 Hours Temp Pulse Resp BP Pulse Ox 11/07/16 09:08 21 96/55 95 11/07/16 08:30 120 22 82/50 93 11/07/16 08:10 99.7 F H 11/07/16 07:33 109 20 89/51 99 11/07/16 07:25 27 89/51 96 General: Other (Intubated, sedated. ) HEENT: Atraumatic, Normocephaly, Mucus Membranes Moist Neck: No JVD, Normal carotid pulses Cardiac: Reg Rate and Rhythm, Other (Tachycardic. No obvious murmurs) Lungs: Other (Mostly clear) Neuro: Other (Sedated/delerium per reports) Abdomen: Soft, Non-Tender Skin: No rashes noted on visualized skin Musculoskeletal: No Chest Wall Tenderness Extremities: No Clubbing, No Cyanosis, No Edema Results 11/07/16 03:20 11/07/16 03:20 Lab Results 11/06/16 11/07/16 11/07/16 17:30 03:20 03:20 WBC 6.1 Hgb 9.9 L Hct 30.8 L Plt Count 98 L INR 1.0 APTT 30.4 Sodium 142 Potassium 4.3 Chloride 105 Carbon Dioxide 16 L BUN 50 H Creatinine 3.81 H Glucose 147 H Calcium 9.1 Magnesium 11/07/16 03:20 WBC Hgb Hct Plt Count INR APTT Sodium 143 Potassium 4.4 Chloride 107 Carbon Dioxide 18 L BUN 52 H Creatinine 4.01 H Glucose 127 H Calcium 9.0 Magnesium 1.8 - Imaging and Cardiology Echo: report reviewed - EKG Interpretation EKG results cardiology: personally reviewed - VTE Documentation of Mechanical Device: Intermittent pneumatic compression device Consult Discharge Plan - Plan Referrals: Norris Bonner MD [Primary Care Provider] -
--- NOTE | 2016-11-07 11:26 | Nephrology Progress Note ---
Date of Encounter: 11/07/16 Time of Encounter: 10:50 Subjective Principal diagnosis: Cardiac Arrest Interval history: Patient seen. He is intubated. Objective - Vital Signs Vital signs: Vital Signs Temp Pulse Resp BP Pulse Ox 11/07/16 09:08 21 96/55 95 11/07/16 08:30 120 22 82/50 93 11/07/16 08:10 99.7 F H 11/07/16 07:33 109 20 89/51 99 11/07/16 07:25 27 89/51 96 11/07/16 06:00 108 25 133/64 99 11/07/16 05:42 24 95/54 99 11/07/16 05:00 109 21 78/51 96 11/07/16 04:50 97.8 F 11/07/16 04:19 105 11/07/16 04:00 105 21 79/57 97 11/07/16 03:41 24 87/50 98 11/07/16 03:00 104 22 100/58 100 11/07/16 02:00 101 21 81/48 100 11/07/16 01:26 22 106/54 98 11/07/16 01:00 99 21 106/74 99 11/07/16 00:18 104 11/07/16 00:00 103 23 98/54 98 11/06/16 23:24 23 92/54 100 11/06/16 23:00 109 23 92/54 100 11/06/16 22:00 108 23 96/59 99 11/06/16 21:45 24 91/59 99 11/06/16 21:00 105 23 93/56 97 11/06/16 20:33 104 11/06/16 20:18 96.8 F L 11/06/16 20:00 102 23 101/59 100 11/06/16 19:47 18 84/61 100 11/06/16 19:00 97 16 99/56 99 11/06/16 18:13 18 99 11/06/16 18:00 105 19 104/54 100 11/06/16 17:00 109 19 109/55 100 11/06/16 16:03 20 98 11/06/16 16:00 112 19 98/51 100 11/06/16 15:52 97.8 F 11/06/16 15:15 113 24 92/48 98 11/06/16 14:39 8 99 11/06/16 14:00 114 17 91/53 98 11/06/16 13:00 111 19 96/53 99 11/06/16 12:26 97.7 F 11/06/16 12:00 106 12 92/48 97 11/06/16 11:31 9 100 Intake and Output 11/06/16 11/07/16 11/07/16 23:59 07:59 15:59 Intake Total 305 / 305 245 / 245 Output Total 520 / 520 550 / 550 100 / 100 Balance -215 / -215 -305 / -305 -100 / -100 Intake: IV Fluids 305 / 305 245 / 245 PRECEDEX Premix 400 mcg 100 / 100 100 / 100 In 100 ml @ 0.2 MCG/KG/HR 3.502 mls/hr IVC .Q24H JOSY Rx#:[id number] FentaNYL (PF) 1,000 MCG 100 / 100 45 / 45 In 0.9 % Sodium Chloride 80 ML @ 50 MCG/HR 5 mls/ hr IVC CONT JOSY Rx#: [id number] Zosyn 3.375 GM In 100 / 100 Dextrose 5% (Minibag+) 100 ML 100 ML @ 25 mls/hr IVPB Q12H JOSY Rx#: [id number] Keppra 500 MG In 0.9 % 105 / 105 Sodium Chloride 100 ML @ 400 mls/hr IVPB BID JOSY Rx#:[id number] Output: Catheter 400 / 400 550 / 550 100 / 100 Gastric Drainage 120 / 120 Other: Blood Glucose* 153 147 164 - Lab 11/07/16 03:20 11/07/16 03:20 Most recent lab results ABG pH 7.32 pH Units (7.32-7.45) 11/07/16 03:58 ABG pCO2 33 mmHg (35-45) L 11/07/16 03:58 ABG pO2 89 mmHg (85-104) 11/07/16 03:58 ABG HCO3 17.0 mEQ/L (21-27) L 11/07/16 03:58 ABG O2 Saturation 96 % (95-98) 11/07/16 03:58 Calcium 9.0 mg/dL (8.6-10.8) 11/07/16 03:20 Phosphorus 6.4 mg/dL (2.3-4.7) H 11/02/16 03:18 Magnesium 1.8 mg/dL (1.6-2.6) 11/07/16 03:20 - VTE Documentation of Mechanical Device: Intermittent pneumatic compression device Consult Discharge Plan - Plan Referrals: Norris Bonner MD [Primary Care Provider] -
[2016-11-07] MEDS ORDERED: 0.9 % Sodium Chloride 250 ML IVC PRN (11:53)
[2016-11-07] MEDS ORDERED: *HR* Heparin 10,000 UNIT/10 ML VIAL IV PRN (11:53)
[2016-11-07] MEDS ORDERED: Albumin Human 5% 25.0 GM/500 ML VIAL ONE (16:47)
[2016-11-07] MEDS: FentaNYL (PF) 1,000 MCG in 0.9 % Sodium Chloride 80 ML IVC SCH ×2 (17:45→23:51)
[2016-11-08] MEDS: Norepinephrine 4 MG in D5% in Water 250 ML IVC SCH (01:01)
[2016-11-08] MEDS: Lacri-Lube 3.5 GM TUBE BOTH EYES SCH ×6 (01:02→23:10)
[2016-11-08] MEDS: Dexmedetomidine HCl 400 MCG/100 ML MLS IVC SCH ×3 (02:02→20:40)
[2016-11-08 03:13] LABS: INR 1.2; Prothrombin Time 12.7 Seconds (9.4-12.1)
[2016-11-08 03:16] LABS: Activated Partial Thrombo Time 34.4 Seconds (26.0-36.0)
[2016-11-08 03:20] LABS: Calcium 8.7 mg/dL (8.6-10.8); Magnesium 1.5 mg/dL (1.6-2.6)
[2016-11-08 03:22] LABS: Hematocrit 26.6 % (37.5-50.1)
[2016-11-08 03:23] LABS: Hemoglobin 8.2 g/dL (12.9-16.9); Immature Platelets 4.2 % (1.1-6.1); Mean Corpuscular HGB Conc 30.8 g/dL (31.6-35.5); Mean Corpuscular Hemoglobin 28.5 pg (28.0-33.3); Mean Corpuscular Volume 92.4 fL (83.0-100.0); Mean Platelet Volume 10.4 fL (9.4-12.4); Red Blood Count 2.88 M/mcL (4.19-5.50); Red Cell Distribution Width 14.8 % (11.5-14.5)
[2016-11-08] MEDS: Insulin LISPRO 300 UNITS/3 ML VIAL SQ SCH ×6 (03:24→23:10)
[2016-11-08] MEDS: Ipratropium/Albuterol Neb 3 ML IH SCH ×6 (03:38→23:35)
[2016-11-08 03:52] LABS: Platelet Count 91 K/mcL (140-400)
[2016-11-08 03:54] LABS: Basophils # 0.2 K/mcL (0.0-0.2); Lymphocytes # 1.5 K/mcL (0.6-4.6); Neutrophils # 5.5 K/mcL (1.6-8.9); Platelet Estimate Marked Decrease (Normal)
[2016-11-08] MEDS: *HR* Metoprolol 5 MG/5 ML VIAL IVP SCH ×5 (04:09→23:10)
[2016-11-08] MEDS: Magnesium Sulfate 2 GM in D5% in Water 100 ML IVPB PRN (04:09)
[2016-11-08] MEDS: *HR* Heparin 5,000 UNIT/ML VIAL SQ SCH ×4 (04:09→21:03)
[2016-11-08 06:12] LABS: ABG Base Excess -8.9 mEq/L (-2.0 to 3.0); ABG HCO3 16.7 mEQ/L (21-27); ABG Oxygen Saturation 96 % (95-98); ABG PCO2 34 mmHg (35-45); ABG PO2 88 mmHg (85-104); ABG TCO2 17.7 mEq/L (20-26); Blood Gas FiO2 40 %
[2016-11-08] MEDS: Budesonide/Formoterol 160/4.5 MDI IH SCH ×2 (07:37→19:55)
--- NOTE | 2016-11-08 07:41 | Pulmonology Progress Note ---
<Luciano Buitrago W - Last Filed: 11/08/16 09:12> Date of Encounter: 11/08/16 Assessment and Plan (1) Acute respiratory failure with hypoxia and hypercapnia Current Visit: Yes Status: Acute (2) Cardiac arrest Current Visit: No Status: Acute (3) Acute hyperglycemia Current Visit: No Status: Acute (4) Aspiration into airway Current Visit: No Status: Acute Qualifiers: Encounter type: initial encounter Qualified Code(s): T17.908A - Unspecified foreign body in respiratory tract, part unspecified causing other injury, initial encounter (5) Metabolic acidosis Current Visit: Yes Status: Acute (6) DVT prophylaxis Current Visit: Yes Status: Acute (7) COPD (chronic obstructive pulmonary disease) Current Visit: Yes Status: Chronic Qualifiers: COPD type: unspecified COPD Qualified Code(s): J44.9 - Chronic obstructive pulmonary disease, unspecified (8) BJORN (acute kidney injury) Current Visit: Yes Status: Acute (9) Cardiomyopathy Current Visit: Yes Status: Acute Qualifiers: Cardiomyopathy type: unspecified Qualified Code(s): I42.9 - Cardiomyopathy , unspecified (10) Hyperkalemia Current Visit: Yes Status: Acute Objective PUL Vital signs: Last Vital Signs Temp 98.9 F 11/08/16 04:07 Pulse 112 11/08/16 06:12 Resp 23 11/08/16 06:12 BP 111/62 11/08/16 06:12 Pulse Ox 100 11/08/16 06:12 Ventilator Settings Ventilator Settings: Ventilator Settings, Last 8 Hours Ventilator Mode VC+ Ventilator Mode VC+ Ventilator Mode VC+ Ventilator Mode VC+ Ventilator Mode VC+ Ventilator Mode VC+ Ventilator Mode VC+ Ventilator Mode VC+ Ventilator Mode VC+ Ventilator Mode VC+ Ventilator Mode VC+ Ventilator Tidal Volume 500 Setting Ventilator Tidal Volume 500 Setting Ventilator Tidal Volume 500 Setting Ventilator Tidal Volume 500 Setting Ventilator Tidal Volume 500 Setting Ventilator Tidal Volume 500 Setting Ventilator Tidal Volume 500 Setting Ventilator Tidal Volume 500 Setting Ventilator Tidal Volume 500 Setting Ventilator Tidal Volume 500 Setting Ventilator Tidal Volume 500 Setting Ventilator Respiratory Rate 18 Setting Ventilator Respiratory Rate 18 Setting Ventilator Respiratory Rate 18 Setting Ventilator Respiratory Rate 18 Setting Ventilator Respiratory Rate 18 Setting Ventilator Respiratory Rate 18 Setting Ventilator Respiratory Rate 18 Setting Ventilator Respiratory Rate 18 Setting Ventilator Respiratory Rate 18 Setting Ventilator Respiratory Rate 18 Setting Ventilator Respiratory Rate 18 Setting Actual Respiratory Rate 21 Actual Respiratory Rate 21 Actual Respiratory Rate 21 Actual Respiratory Rate 23 Actual Respiratory Rate 23 Actual Respiratory Rate 22 Actual Respiratory Rate 23 Actual Respiratory Rate 22 Actual Respiratory Rate 20 Actual Respiratory Rate 23 Positive End Expiratory 5 Pressure Positive End Expiratory 5 Pressure Positive End Expiratory 5 Pressure Positive End Expiratory 5 Pressure Positive End Expiratory 5 Pressure Positive End Expiratory 5 Pressure Positive End Expiratory 5 Pressure Positive End Expiratory 5 Pressure Positive End Expiratory 5 Pressure Positive End Expiratory 5 Pressure Positive End Expiratory 5 Pressure Peak Inspiratory Airway 27 Pressure Peak Inspiratory Airway 18 Pressure Peak Inspiratory Airway 18 Pressure Peak Inspiratory Airway 20 Pressure Peak Inspiratory Airway 25 Pressure Peak Inspiratory Airway 22 Pressure Peak Inspiratory Airway 20 Pressure Peak Inspiratory Airway 20 Pressure Peak Inspiratory Airway 23 Pressure Peak Inspiratory Airway 21 Pressure Results - Laboratory Findings CBC and BMP: 11/08/16 03:00 11/08/16 03:00 ABG ABG pH 7.30 pH Units (7.32-7.45) L 11/08/16 05:58 ABG pCO2 34 mmHg (35-45) L 11/08/16 05:58 ABG pO2 88 mmHg (85-104) 11/08/16 05:58 ABG O2 Saturation 96 % (95-98) 11/08/16 05:58 PT/INR, D-dimer PT 12.7 Seconds (9.4-12.1) H 11/08/16 03:00 Abnormal lab findings: Abnormal lab results RBC 2.88 M/mcL (4.19-5.50) L 11/08/16 03:00 Hgb 8.2 g/dL (12.9-16.9) L D 11/08/16 03:00 Hct 26.6 % (37.5-50.1) L 11/08/16 03:00 MCHC 30.8 g/dL (31.6-35.5) L 11/08/16 03:00 RDW 14.8 % (11.5-14.5) H 11/08/16 03:00 Plt Count 91 K/mcL (140-400) L 11/08/16 03:00 Band Neutrophils % 28.0 % (0-4) H 11/08/16 03:00 Metamyelocytes % 2.0 % (0) H 11/02/16 03:18 Myelocytes % 2.0 % (0) H 11/03/16 11:30 Reactive Lymphocytes Present (Not Present) A 11/04/16 04:40 Toxic Granulation Present (Not Present) A 11/06/16 04:47 Dohle Bodies Present (Not Present) A 11/07/16 03:20 Platelet Estimate Marked Decrease (Normal) L 11/08/16 03:00 Large Platelets Present (Not Present) A 11/04/16 04:40 Poikilocytosis 1+ (Not Present) A 11/06/16 04:47 Ovalocytes 1+ (Not Present) A 11/06/16 04:47 Gini Cells 1+ (Not Present) A 11/06/16 04:47 PT 12.7 Seconds (9.4-12.1) H 11/08/16 03:00 ABG pH 7.30 pH Units (7.32-7.45) L 11/08/16 05:58 ABG pCO2 34 mmHg (35-45) L 11/08/16 05:58 ABG HCO3 16.7 mEQ/L (21-27) L 11/08/16 05:58 ABG Total CO2 17.7 mEq/L (20-26) L 11/08/16 05:58 ABG Base Excess -8.9 mEq/L (-2.0 to 3.0) L 11/08/16 05:58 VBG pCO2 38 mmHg (41-51) L 11/03/16 07:45 VBG pO2 221 mmHg (25-40) H 11/03/16 07:45 Carbon Dioxide 15 mEq/L (19-29) L 11/08/16 03:00 Creatinine 2.65 mg/dL (0.72-1.25) H 11/08/16 03:00 Est GFR ( Amer) 30 (> 60) L 11/08/16 03:00 Est GFR (Non-Af Amer) 25 (> 60) L 11/08/16 03:00 Glucose 191 mg/dL (70-99) H 11/08/16 03:00 POC Glucose 152 (58-89) H 11/07/16 22:34 Calculated Osmolality 303 (280-300) H 11/08/16 03:00 Ionized Calcium 1.10 mmol/L (1.15-1.35) L 11/03/16 03:00 Phosphorus 6.4 mg/dL (2.3-4.7) H 11/02/16 03:18 Magnesium 1.5 mg/dL (1.6-2.6) L 11/08/16 03:00 Total Bilirubin 1.4 mg/dL (0.2-1.2) H 11/05/16 04:15 AST 69 Units/L (5-34) H 11/05/16 04:15 Troponin I 0.17 ng/mL (0-0.03) H* 11/02/16 21:49 Serum Total Protein 5.4 g/dL (6.0-8.3) L 11/05/16 04:15 Albumin 2.5 g/dL (3.5-5.0) L 11/05/16 04:15 Albumin/Globulin Ratio 0.9 (1.1-2.2) L 11/05/16 04:15 Ur Specimen Adequacy See below A 11/02/16 20:24 Urine Clarity Turbid (Clear) A 11/02/16 20:24 Urine Protein 30 mg/dL (Neg-Trace) H 11/02/16 20:24 Urine Glucose (UA) >=1000 mg/dL (Normal) H 11/02/16 20:24 Urine Blood Large (Negative) H 11/02/16 20:24 Ur Leukocyte Esterase Large (Negative) H 11/02/16 20:24 Urine Microscopic WBC TNTC per hpf (0-3) H 11/02/16 20:24 Ur Squamous Epith Cells Many per lpf (None-Few) H 11/02/16 20:24 Granular Casts Few per lpf (None Seen) H 11/02/16 20:24 Urine Yeast Many per hpf (None Seen) H 11/02/16 20:24 Ur Culture Indicated? YES (NO) A 11/02/16 20:24 - Microbiology Findings Microbiology Findings: Microbiology, Last 48 Hours 11/02/16 18:30 Sputum Culture - Final Sputum Yeast Species - Clinical Findings Intake & Output: Intake & Output 11/07/16 11/07/16 11/08/16 15:59 23:59 07:59 Intake Total 1195 / 1195 820 / 820 260 / 260 Output Total 550 / 550 680 / 680 50 / 50 Balance 645 / 645 140 / 140 210 / 210 Weight 70 kg Consult Discharge Plan - Plan Referrals: Norris Bonner MD [Primary Care Provider] - - Attending Attestation I examined this patient and my medical decision-making was reviewed with the Resident Physician. I agree with the documented findings, disposition and treatment plan as described except to the extent set forth below. We independently had [id number] contact with the patient Patient seen and examined at bedside Labs, radiology, chart personally reviewed. Management was reviewed during multidisciplinary critical care rounds.: Neuropsych: Persistent Delirium. Low dose continuous infusion of sedative ( Precedex) and will attempt to stop fentanyl jerry. Goal [place] 2. We will attempt to restore sleep-wake cycle. avoid sensory deprivation and avoid unnecessary HUM[employer]IT[employer]ORDINATOR depressant medications. Pulm: Acute hypoxic Respiratory failure intubated on vent. acceptable oxygenation on current minimal vent settings plan for spontaneous breathing trial today. Will check leak test prior to extubation because of laryngeal edema noted on reintubation Cards: s/p Cardiac arrest also with NSTEMI (likely Type 2 [place]) Reduced EF% .persistent tachycardia titrate low-dose beta erasmo may consider ASA 325 per Cardiology recs. FEN-GI: GI prophylaxis Given. G-tube past today start enteral nutrition at trophic rate. PPI prophylaxis given Renal: Acute AGMA with Non GAP Acidosis. s/t to BJORN . Status post truncated hemodialysis is a complicated by tachycardia and hypotension creatinine clearance has improved after dialysis he continues to make urine we will attempt diuretic today continue to monitor electrolyte panel daily nephrology following ID: Concern for evolving sepsis with bandemia of 28 today persistent leuckocytosis cont Zosyn for aspiration pneumonia concern for invasive candidiasis start Diflucan. Broaden to Vancomycin pending final cultures obtained yesterday. Heme/Onc: Thrombocytopenia likely s/t to critical illness and Abx (stable). He has worsening ecchymosis on the flanks with the drop in H&H overnight sending for retroperitoneal CT scan to rule out bleed. No other overt signs of bleeding Integ/MSK: Skin Care per routine ICU Nursing Protocol to prevent ulcers. Lines: All lines examined without evidence of infection including: Left Subclavian CVC and right Temp Dialysis CVC. Dispo: Remains in ICU Code: Full. Family updated at bedside including his daughter stepdaughter and son <Renee Parekhd - Last Filed: 11/08/16 12:28> Date of Encounter: 11/08/16 Time of Encounter: 07:40 Assessment and Plan (1) Acute respiratory failure with hypoxia and hypercapnia Current Visit: Yes Status: Acute Patient is currently intubated. We will continue this at this time. His last arterial blood gas shows a pH of 7.3, PCO2 of 34, PO2 of 88, bicarbonate 15. We will continue DuoNeb's every 4 hours. We are not treating an aspiration pneumonia with Zosyn. We have provided this for 7 days. Although his leukocytosis has improved, there is some concern about a fungal origin to this pneumonia. We will start 100 mg of Diflucan today. They will continue 400 mg after today. This patient also received 1 dose of vancomycin. We will continue monitoring his CBC. (2) Aspiration pneumonia Current Visit: Yes Status: Acute See above (3) Cardiac arrest Current Visit: No Status: Acute Cardiac arrest also with a NSTEMI with reduced ejection fraction. We will continue holding diuresis at this time and use low dose beta erasmo. We may consider albumin infusion if blood pressure lowers. (4) Acute hyperglycemia Current Visit: No Status: Acute Patient's last serum glucose was 191. He is currently on low-dose corrective insulin regimen. We will continue monitoring his blood glucose. (5) Aspiration into airway Current Visit: No Status: Acute See above Qualifiers: Encounter type: initial encounter Qualified Code(s): T17.908A - Unspecified foreign body in respiratory tract, part unspecified causing other injury, initial encounter (6) Metabolic acidosis Current Visit: Yes Status: Acute See above (7) DVT prophylaxis Current Visit: Yes Status: Acute Soft compressive devices around the calves as there is a concern for bleeding in this patient. (8) Anemia Current Visit: Yes Status: Acute This patient have a drop in his hemoglobin from 9.9-8.2. We also noticed that he has some ecchymosis of the flanks bilaterally. We obtained a CT scan of his abdomen and pelvis to rule out a retroperitoneal bleed. CT scan was negative for such. We will continue monitoring his hemoglobin as he may need a blood transfusion. We currently do not have a source for his anemia. Qualifiers: Anemia type: unspecified type Qualified Code(s): D64.9 - Anemia, unspecified (9) COPD (chronic obstructive pulmonary disease) Current Visit: Yes Status: Chronic See above Qualifiers: COPD type: unspecified COPD Qualified Code(s): J44.9 - Chronic obstructive pulmonary disease, unspecified (10) BJORN (acute kidney injury) Current Visit: Yes Status: Acute Patient's current creatinine is 2.65 and his BUN is 24. We will continue to monitor his renal function as this patient is followed and managed by nephrology closely. (11) Cardiomyopathy Current Visit: Yes Status: Acute See above Qualifiers: Cardiomyopathy type: unspecified Qualified Code(s): I42.9 - Cardiomyopathy , unspecified (12) Hyperkalemia Current Visit: Yes Status: Acute Current potassium is 4.0. We will continue monitoring. Subjective Principal diagnosis: Cardiac Arrest Interval history: Unable to obtain history of patient due to sedation. Patient has had some agitation throughout the night. No other events. Objective PUL Vital signs: Last Vital Signs Temp 98.9 F 11/08/16 04:07 Pulse 112 11/08/16 06:12 Resp 23 11/08/16 06:12 BP 111/62 11/08/16 06:12 Pulse Ox 100 11/08/16 06:12 General appearance: other (Patient is currently sedated and on the ventilator upon exam.) Eyes: nonicteric ENT: oropharynx moist Neck: supple Effort: normal Auscultation: bilateral: rhonchi Cardiovascular: irregular rhythm, other (Rate in the 120s) Gastrointestinal: hypoactive bowel sounds, non-distended, other (Ecchymosis on the flanks bilaterally.) Integumentary: other (Ecchymosis on the arms bilaterally.) Extremities: no cyanosis, no edema, pink and warm unable to assess due to mental status (Intubated and sedated) other (Unable to assess) Ventilator Settings Ventilator Settings: Ventilator Settings, Last 8 Hours Ventilator Mode VC+ Ventilator Mode VC+ Ventilator Mode VC+ Ventilator Mode VC+ Ventilator Mode VC+ Ventilator Mode VC+ Ventilator Mode VC+ Ventilator Mode VC+ Ventilator Mode VC+ Ventilator Mode VC+ Ventilator Mode VC+ Ventilator Tidal Volume 500 Setting Ventilator Tidal Volume 500 Setting Ventilator Tidal Volume 500 Setting Ventilator Tidal Volume 500 Setting Ventilator Tidal Volume 500 Setting Ventilator Tidal Volume 500 Setting Ventilator Tidal Volume 500 Setting Ventilator Tidal Volume 500 Setting Ventilator Tidal Volume 500 Setting Ventilator Tidal Volume 500 Setting Ventilator Tidal Volume 500 Setting Ventilator Respiratory Rate 18 Setting Ventilator Respiratory Rate 18 Setting Ventilator Respiratory Rate 18 Setting Ventilator Respiratory Rate 18 Setting Ventilator Respiratory Rate 18 Setting Ventilator Respiratory Rate 18 Setting Ventilator Respiratory Rate 18 Setting Ventilator Respiratory Rate 18 Setting Ventilator Respiratory Rate 18 Setting Ventilator Respiratory Rate 18 Setting Ventilator Respiratory Rate 18 Setting Actual Respiratory Rate 21 Actual Respiratory Rate 21 Actual Respiratory Rate 21 Actual Respiratory Rate 23 Actual Respiratory Rate 23 Actual Respiratory Rate 22 Actual Respiratory Rate 23 Actual Respiratory Rate 22 Actual Respiratory Rate 20 Actual Respiratory Rate 23 Positive End Expiratory 5 Pressure Positive End Expiratory 5 Pressure Positive End Expiratory 5 Pressure Positive End Expiratory 5 Pressure Positive End Expiratory 5 Pressure Positive End Expiratory 5 Pressure Positive End Expiratory 5 Pressure Positive End Expiratory 5 Pressure Positive End Expiratory 5 Pressure Positive End Expiratory 5 Pressure Positive End Expiratory 5 Pressure Peak Inspiratory Airway 27 Pressure Peak Inspiratory Airway 18 Pressure Peak Inspiratory Airway 18 Pressure Peak Inspiratory Airway 20 Pressure Peak Inspiratory Airway 25 Pressure Peak Inspiratory Airway 22 Pressure Peak Inspiratory Airway 20 Pressure Peak Inspiratory Airway 20 Pressure Peak Inspiratory Airway 23 Pressure Peak Inspiratory Airway 21 Pressure Results - Laboratory Findings CBC and BMP: 11/08/16 03:00 11/08/16 03:00 ABG ABG pH 7.30 pH Units (7.32-7.45) L 11/08/16 05:58 ABG pCO2 34 mmHg (35-45) L 11/08/16 05:58 ABG pO2 88 mmHg (85-104) 11/08/16 05:58 ABG O2 Saturation 96 % (95-98) 11/08/16 05:58 PT/INR, D-dimer PT 12.7 Seconds (9.4-12.1) H 11/08/16 03:00 Abnormal lab findings: Abnormal lab results RBC 2.88 M/mcL (4.19-5.50) L 11/08/16 03:00 Hgb 8.2 g/dL (12.9-16.9) L D 11/08/16 03:00 Hct 26.6 % (37.5-50.1) L 11/08/16 03:00 MCHC 30.8 g/dL (31.6-35.5) L 11/08/16 03:00 RDW 14.8 % (11.5-14.5) H 11/08/16 03:00 Plt Count 91 K/mcL (140-400) L 11/08/16 03:00 Band Neutrophils % 28.0 % (0-4) H 11/08/16 03:00 Metamyelocytes % 2.0 % (0) H 11/02/16 03:18 Myelocytes % 2.0 % (0) H 11/03/16 11:30 Reactive Lymphocytes Present (Not Present) A 11/04/16 04:40 Toxic Granulation Present (Not Present) A 11/06/16 04:47 Dohle Bodies Present (Not Present) A 11/07/16 03:20 Platelet Estimate Marked Decrease (Normal) L 11/08/16 03:00 Large Platelets Present (Not Present) A 11/04/16 04:40 Poikilocytosis 1+ (Not Present) A 11/06/16 04:47 Ovalocytes 1+ (Not Present) A 11/06/16 04:47 [place] Cells 1+ (Not Present) A 11/06/16 04:47 PT 12.7 Seconds (9.4-12.1) H 11/08/16 03:00 ABG pH 7.30 pH Units (7.32-7.45) L 11/08/16 05:58 ABG pCO2 34 mmHg (35-45) L 11/08/16 05:58 ABG HCO3 16.7 mEQ/L (21-27) L 11/08/16 05:58 ABG Total CO2 17.7 mEq/L (20-26) L 11/08/16 05:58 ABG Base Excess -8.9 mEq/L (-2.0 to 3.0) L 11/08/16 05:58 VBG pCO2 38 mmHg (41-51) L 11/03/16 07:45 VBG pO2 221 mmHg (25-40) H 11/03/16 07:45 Carbon Dioxide 15 mEq/L (19-29) L 11/08/16 03:00 Creatinine 2.65 mg/dL (0.72-1.25) H 11/08/16 03:00 Est GFR ( Amer) 30 (> 60) L 11/08/16 03:00 Est GFR (Non-Af Amer) 25 (> 60) L 11/08/16 03:00 Glucose 191 mg/dL (70-99) H 11/08/16 03:00 POC Glucose 152 (58-89) H 11/07/16 22:34 Calculated Osmolality 303 (280-300) H 11/08/16 03:00 Ionized Calcium 1.10 mmol/L (1.15-1.35) L 11/03/16 03:00 Phosphorus 6.4 mg/dL (2.3-4.7) H 11/02/16 03:18 Magnesium 1.5 mg/dL (1.6-2.6) L 11/08/16 03:00 Total Bilirubin 1.4 mg/dL (0.2-1.2) H 11/05/16 04:15 AST 69 Units/L (5-34) H 11/05/16 04:15 Troponin I 0.17 ng/mL (0-0.03) H* 11/02/16 21:49 Serum Total Protein 5.4 g/dL (6.0-8.3) L 11/05/16 04:15 Albumin 2.5 g/dL (3.5-5.0) L 11/05/16 04:15 Albumin/Globulin Ratio 0.9 (1.1-2.2) L 11/05/16 04:15 Ur Specimen Adequacy See below A 11/02/16 20:24 Urine Clarity Turbid (Clear) A 11/02/16 20:24 Urine Protein 30 mg/dL (Neg-Trace) H 11/02/16 20:24 Urine Glucose (UA) >=1000 mg/dL (Normal) H 11/02/16 20:24 Urine Blood Large (Negative) H 11/02/16 20:24 Ur Leukocyte Esterase Large (Negative) H 11/02/16 20:24 Urine Microscopic WBC TNTC per hpf (0-3) H 11/02/16 20:24 Ur Squamous Epith Cells Many per lpf (None-Few) H 11/02/16 20:24 Granular Casts Few per lpf (None Seen) H 11/02/16 20:24 Urine Yeast Many per hpf (None Seen) H 11/02/16 20:24 Ur Culture Indicated? YES (NO) A 11/02/16 20:24 - Microbiology Findings Microbiology Findings: Microbiology, Last 48 Hours 11/02/16 18:30 Sputum Culture - Final Sputum Yeast Species - Clinical Findings Intake & Output: Intake & Output 11/07/16 11/07/16 11/08/16 15:59 23:59 07:59 Intake Total 1195 / 1195 820 / 820 260 / 260 Output Total 550 / 550 680 / 680 50 / 50 Balance 645 / 645 140 / 140 210 / 210 Weight 70 kg - VTE Documentation of Mechanical Device: Intermittent pneumatic compression device
--- NOTE | 2016-11-08 09:07 | Nephrology Progress Note ---
Date of Encounter: 11/08/16 Time of Encounter: 09:01 - Assessment and Plan (1) BJORN (acute kidney injury) Current Visit: Yes Status: Acute Attempted dialysis yesterday. Had to discontinue secondary to hypotension and tachycardia despite no UF. Monitor for renal recovery. Adjust medications for renal function. (2) Acute respiratory failure with hypoxia and hypercapnia Current Visit: Yes Status: Acute Patient is intubated and sedated. Per pulmonary. (3) Cardiomyopathy Current Visit: Yes Status: Acute Per cardiology. Qualifiers: Cardiomyopathy type: unspecified Qualified Code(s): I42.9 - Cardiomyopathy , unspecified (4) Metabolic acidosis Current Visit: Yes Status: Acute Replace as needed. Consider supplemental bicarbonate. Will give one amp and reevaluate in am. Subjective Principal diagnosis: Cardiac Arrest Interval history: Patient seen. He is intubated. Objective - Vital Signs Vital signs: Vital Signs Temp Pulse Resp BP Pulse Ox 11/08/16 07:53 98.9 F 11/08/16 07:37 24 95/49 97 11/08/16 06:12 112 23 111/62 100 11/08/16 05:50 21 107/60 100 11/08/16 05:00 106 23 97/53 100 11/08/16 04:07 98.9 F 112 24 100/52 100 11/08/16 03:38 23 100/57 99 11/08/16 03:03 111 21 97/53 100 11/08/16 02:00 111 22 102/59 100 11/08/16 01:25 22 102/59 100 11/08/16 01:00 111 23 112/59 100 11/08/16 00:02 110 23 105/55 100 11/07/16 23:31 23 105/55 100 11/07/16 23:01 98.8 F 142 24 108/58 100 11/07/16 22:43 142 11/07/16 22:00 147 20 100 11/07/16 21:42 23 101/52 100 11/07/16 21:00 149 25 100 11/07/16 20:09 120 23 100/55 98 11/07/16 19:38 26 100/55 98 11/07/16 19:09 100 F H 154 23 104/59 98 11/07/16 19:00 98 11/07/16 18:58 154 11/07/16 18:30 154 26 102/57 98 11/07/16 18:10 23 108/92 96 11/07/16 17:30 155 24 101/63 98 11/07/16 16:45 100.0 F H 28 72/54 11/07/16 16:38 72/50 11/07/16 16:35 76/55 11/07/16 16:30 156 28 98/55 97 11/07/16 16:15 106/90 11/07/16 16:00 114/69 11/07/16 15:47 23 96/48 99 11/07/16 15:45 96/48 11/07/16 15:30 128 26 117/60 98 11/07/16 15:15 115/64 11/07/16 15:00 114/69 11/07/16 14:45 116/67 11/07/16 14:30 120 28 138/70 98 11/07/16 14:15 141/71 11/07/16 14:00 101.0 F H 26 121/67 11/07/16 13:30 130 28 109/53 97 11/07/16 12:30 130 28 102/51 96 11/07/16 11:49 101.4 F H 11/07/16 11:39 27 105/63 99 11/07/16 11:30 138 22 105/63 98 11/07/16 10:30 135 24 95/53 96 11/07/16 09:30 128 24 105/52 94 11/07/16 09:08 21 96/55 95 Intake and Output 11/07/16 11/08/16 11/08/16 23:59 07:59 15:59 Intake Total 820 / 820 260 / 260 Output Total 680 / 680 150 / 150 Balance 140 / 140 110 / 110 Intake: IV Fluids 820 / 820 260 / 260 ALBURX 5% 12.5 gm In 250 500 / 500 ml @ As Directed IVC .Q0M JOSY Rx#:[id number] PRECEDEX Premix 400 mcg 95 / 95 100 / 100 In 100 ml @ 0.2 MCG/KG/HR 3.502 mls/hr IVC .Q24H JOSY Rx#:[id number] FentaNYL (PF) 1,000 MCG 120 / 120 60 / 60 In 0.9 % Sodium Chloride 80 ML @ 50 MCG/HR 5 mls/ hr IVC CONT JOSY Rx#: [id number] Zosyn 3.375 GM In 100 / 100 Dextrose 5% (Minibag+) 100 ML 100 ML @ 25 mls/hr IVPB Q12H JOSY Rx#: [id number] Keppra 500 MG In 0.9 % 105 / 105 Sodium Chloride 100 ML @ 400 mls/hr IVPB BID JOSY Rx#:[id number] Output: Urine 0 / 0 Total Dialysis (HD) 530 / 530 Output Catheter 150 / 150 150 / 150 Other: Weight 70 kg Blood Glucose* 176 Hemodialysis Net Fluid 0 Removed (mL) - General Appearance General appearance: Present: well-developed, chronically ill, sedated on ventilator, intubated, frail EENT: Present: ATNC Neck: Present: supple Respiratory: Present: course breath sounds Cardiology: Present: no edema Additional Comments: tachycardic Dialysis Vascular Access: Venous Catheter Integumentary: Present: warm and dry - Lab 11/08/16 03:00 11/08/16 03:00 Most recent lab results ABG pH 7.30 pH Units (7.32-7.45) L 11/08/16 05:58 ABG pCO2 34 mmHg (35-45) L 11/08/16 05:58 ABG pO2 88 mmHg (85-104) 11/08/16 05:58 ABG HCO3 16.7 mEQ/L (21-27) L 11/08/16 05:58 ABG O2 Saturation 96 % (95-98) 11/08/16 05:58 Calcium 8.7 mg/dL (8.6-10.8) 11/08/16 03:00 Phosphorus 6.4 mg/dL (2.3-4.7) H 11/02/16 03:18 Magnesium 1.5 mg/dL (1.6-2.6) L 11/08/16 03:00 - VTE Documentation of Mechanical Device: Intermittent pneumatic compression device Consult Discharge Plan - Plan Referrals: Norris Bonner MD [Primary Care Provider] -
[2016-11-08] MEDS: Famotidine 20 MG/2 ML VIAL IVP SCH (09:48)
[2016-11-08] MEDS: Chlorhexidine Rinse 15 ML MOUTHWASH MM SCH ×2 (09:48→20:01)
[2016-11-08] MEDS: Nicotine 7 MG PATCH.TD24 TD SCH (09:48)
[2016-11-08] MEDS: FentaNYL (PF) 3,000 MCG in 0.9 % Sodium Chloride 240 ML IVC SCH ×2 (10:18→19:31)
[2016-11-08] MEDS ORDERED: Vancomycin 1,000 MG in D5% in Water 250 ML IVPB ONE (10:30)
[2016-11-08] MEDS: Piperacillin/Tazobactam 3.375 GM in D5% in Water (Mini-Bag+) 100 ML IVPB SCH ×2 (10:35→21:03)
[2016-11-08] MEDS: Fluconazole 400 MG/200 ML 400 MG/200 ML BAG IVPB SCH ×2 (10:36→12:28)
[2016-11-08] MEDS: Sennosides 8.6 MG TABLET PO SCH ×2 (12:01→20:01)
--- NOTE | 2016-11-08 16:46 | Cardiology Progress Note ---
Date of Encounter: 11/08/16 Time of Encounter: 16:44 Assessment and Plan (1) Cardiomyopathy Current Visit: Yes Status: Acute Cardiomyopathy. ? chronicity. No previous for comparison. Segmental wall motion abnormalities described, which would suggest possibly ischemic, especially given known CAD. Per reports, prior PCI to LAD and CX. However, cardiomyopathy diagnosed after respiratory failure and subsequent cardiac arrest, so myocardial stunning could certainly be contributing. Presentation is not c/w ACS. Suspect flat troponin elevation related to respiratory failure with arrest, renal insufficiency. Despite supportive ICU care, remains intubated. Delerium noted per reports. Recommend aspirin. BP better today. If remains, consider low dose BB. Consider statin once LFTs normalize. Overall, his condition remains guarded. Given multiple organ systems involved, prognosis appears guarded. Consider ischemic evaluation as condition hopefully improves. Thanks, Peter Figueroa DO, [facility] Qualifiers: Cardiomyopathy type: unspecified Qualified Code(s): I42.9 - Cardiomyopathy , unspecified (2) Acute respiratory failure with hypoxia and hypercapnia Current Visit: Yes Status: Acute (3) Elevated troponin Current Visit: Yes Status: Acute Discussion w patient/family: The assessment and plan as outlined above was discussed with the patient and/or family members who expressed understanding and agreement. All questions were answered. Thank you for involving us in the care of your patient. Please call with any questions. Subjective Principal diagnosis: Cardiac Arrest Interval history: Seen and examined earlier today. Remains intubated. HD attempted yesterday, BP low. BP appears better today. Objective Vital Signs, Last 4 Hours Temp Pulse Resp BP Pulse Ox 11/08/16 16:00 115 21 130/70 99 11/08/16 15:58 97.6 F 11/08/16 15:10 20 132/63 100 11/08/16 15:00 106 16 132/63 100 11/08/16 14:00 109 24 130/67 100 11/08/16 13:05 23 126/73 100 11/08/16 13:00 109 20 126/73 100 General: Other (Remains sedated, intubated. ) HEENT: Atraumatic, Normocephaly, Mucus Membranes Moist Neck: No JVD, Normal carotid pulses Cardiac: Other (Tachycardia, no significant murmurs) Lungs: Normal Breath Sounds, Other Neuro: Alert and responsive, No focal deficits noted Abdomen: Soft, Non-Tender Skin: No rashes noted on visualized skin Musculoskeletal: No Chest Wall Tenderness Extremities: No Clubbing, No Cyanosis, No Edema Results 11/08/16 03:00 11/08/16 03:00 Lab Results 11/08/16 11/08/16 11/08/16 03:00 03:00 03:00 WBC 8.1 Hgb 8.2 L D Hct 26.6 L Plt Count 91 L INR 1.2 APTT 34.4 Sodium 142 Potassium 4.0 Chloride 104 Carbon Dioxide 15 L BUN 24 D Creatinine 2.65 H Glucose 191 H Calcium 8.7 Magnesium 1.5 L - Imaging and Cardiology Echo: report reviewed - VTE Documentation of Mechanical Device: Intermittent pneumatic compression device Consult Discharge Plan - Plan Referrals: Norris Bonner MD [Primary Care Provider] -
[2016-11-08 20:19] LABS: Hematocrit 27.7 % (37.5-50.1); Hemoglobin 9.1 g/dL (12.9-16.9)
[2016-11-09] MEDS: FentaNYL (PF) 3,000 MCG in 0.9 % Sodium Chloride 240 ML IVC SCH (01:03)
[2016-11-09] MEDS: Norepinephrine 4 MG in D5% in Water 250 ML IVC SCH (01:03)
[2016-11-09] MEDS: Dexmedetomidine HCl 400 MCG/100 ML MLS IVC SCH ×4 (02:59→22:47)
[2016-11-09] MEDS: Lacri-Lube 3.5 GM TUBE BOTH EYES SCH ×5 (03:00→19:32)
[2016-11-09 03:15] LABS: Red Cell Distribution Width 14.6 % (11.5-14.5)
[2016-11-09 03:17] LABS: Hematocrit 28.4 % (37.5-50.1); Hemoglobin 9.1 g/dL (12.9-16.9); Immature Platelets 3.8 % (1.1-6.1); Mean Corpuscular Hemoglobin 28.5 pg (28.0-33.3); Mean Platelet Volume 10.2 fL (9.4-12.4); Monocytes # 0.5 K/mcL (0.0-1.3); Platelet Count 106 K/mcL (140-400); Red Blood Count 3.19 M/mcL (4.19-5.50)
[2016-11-09 03:19] LABS: INR 1.1
[2016-11-09 03:21] LABS: Activated Partial Thrombo Time 31.5 Seconds (26.0-36.0)
[2016-11-09 03:26] LABS: Calcium 9.1 mg/dL (8.6-10.8); Magnesium 1.9 mg/dL (1.6-2.6); Potassium 3.8 mEq/L (3.5-4.5)
[2016-11-09] MEDS: Insulin LISPRO 300 UNITS/3 ML VIAL SQ SCH ×5 (03:32→20:17)
[2016-11-09] MEDS: Ipratropium/Albuterol Neb 3 ML IH SCH ×5 (03:34→19:55)
[2016-11-09 03:41] LABS: Eosinophils # 0.5 K/mcL (0.0-0.6); Lymphocytes # 1.6 K/mcL (0.6-4.6); Neutrophils # 10.3 K/mcL (1.6-8.9); Toxic Granulation Present (Not Present)
[2016-11-09 03:42] LABS: Platelet Estimate Decreased (Normal)
[2016-11-09 04:21] LABS: ABG Base Excess -5.5 mEq/L (-2.0 to 3.0); ABG HCO3 18.9 mEQ/L (21-27); ABG Oxygen Saturation 98 % (95-98); ABG PCO2 32 mmHg (35-45); ABG PH 7.38 pH Units (7.32-7.45); ABG PO2 104 mmHg (85-104); ABG TCO2 19.9 mEq/L (20-26)
[2016-11-09] MEDS: *HR* Heparin 5,000 UNIT/ML VIAL SQ SCH ×3 (05:00→19:45)
[2016-11-09] MEDS: *HR* Metoprolol 5 MG/5 ML VIAL IVP SCH (05:00)
[2016-11-09] MEDS ORDERED: Furosemide 40 MG/4 ML VIAL IVP ONE (06:53)
[2016-11-09] MEDS ORDERED: *HR* Metoprolol 5 MG/5 ML VIAL IVP PRN (07:00)
--- NOTE | 2016-11-09 07:03 | Pulmonology Progress Note ---
<Luciano Buitrago W - Last Filed: 11/09/16 08:14> Date of Encounter: 11/09/16 Assessment and Plan (1) Acute respiratory failure with hypoxia and hypercapnia Current Visit: Yes Status: Acute (2) Cardiac arrest Current Visit: No Status: Acute (3) Acute hyperglycemia Current Visit: No Status: Acute (4) Aspiration into airway Current Visit: No Status: Acute Qualifiers: Encounter type: initial encounter Qualified Code(s): T17.908A - Unspecified foreign body in respiratory tract, part unspecified causing other injury, initial encounter (5) Metabolic acidosis Current Visit: Yes Status: Acute (6) DVT prophylaxis Current Visit: Yes Status: Acute (7) COPD (chronic obstructive pulmonary disease) Current Visit: Yes Status: Chronic Qualifiers: COPD type: unspecified COPD Qualified Code(s): J44.9 - Chronic obstructive pulmonary disease, unspecified (8) BJORN (acute kidney injury) Current Visit: Yes Status: Acute (9) Cardiomyopathy Current Visit: Yes Status: Acute Qualifiers: Cardiomyopathy type: unspecified Qualified Code(s): I42.9 - Cardiomyopathy , unspecified (10) Hyperkalemia Current Visit: Yes Status: Acute Objective PUL Vital signs: Last Vital Signs Temp 99.2 F 11/09/16 04:00 Pulse 120 11/09/16 06:00 Resp 25 11/09/16 06:00 BP 127/66 11/09/16 06:00 Pulse Ox 100 11/09/16 06:00 Ventilator Settings Ventilator Settings: Ventilator Settings, Last 8 Hours Ventilator Mode VC+ Ventilator Mode VC+ Ventilator Mode VC+ Ventilator Mode VC+ Ventilator Mode VC+ Ventilator Mode VC+ Ventilator Mode VC+ Ventilator Mode VC+ Ventilator Mode VC+ Ventilator Mode VC+ Ventilator Mode VC+ Ventilator Mode VC+ Ventilator Tidal Volume 500 Setting Ventilator Tidal Volume 500 Setting Ventilator Tidal Volume 500 Setting Ventilator Tidal Volume 500 Setting Ventilator Tidal Volume 500 Setting Ventilator Tidal Volume 500 Setting Ventilator Tidal Volume 500 Setting Ventilator Tidal Volume 500 Setting Ventilator Tidal Volume 500 Setting Ventilator Tidal Volume 500 Setting Ventilator Tidal Volume 500 Setting Ventilator Tidal Volume 500 Setting Ventilator Respiratory Rate 18 Setting Ventilator Respiratory Rate 18 Setting Ventilator Respiratory Rate 18 Setting Ventilator Respiratory Rate 18 Setting Ventilator Respiratory Rate 18 Setting Ventilator Respiratory Rate 18 Setting Ventilator Respiratory Rate 18 Setting Ventilator Respiratory Rate 18 Setting Ventilator Respiratory Rate 18 Setting Ventilator Respiratory Rate 18 Setting Ventilator Respiratory Rate 18 Setting Ventilator Respiratory Rate 18 Setting Actual Respiratory Rate 26 Actual Respiratory Rate 29 Actual Respiratory Rate 26 Actual Respiratory Rate 26 Actual Respiratory Rate 26 Actual Respiratory Rate 21 Actual Respiratory Rate 21 Actual Respiratory Rate 24 Actual Respiratory Rate 21 Actual Respiratory Rate 21 Actual Respiratory Rate 21 Positive End Expiratory 5 Pressure Positive End Expiratory 5 Pressure Positive End Expiratory 5 Pressure Positive End Expiratory 5 Pressure Positive End Expiratory 5 Pressure Positive End Expiratory 5 Pressure Positive End Expiratory 5 Pressure Positive End Expiratory 5 Pressure Positive End Expiratory 5 Pressure Positive End Expiratory 5 Pressure Positive End Expiratory 5 Pressure Positive End Expiratory 5 Pressure Peak Inspiratory Airway 13 Pressure Peak Inspiratory Airway 15 Pressure Peak Inspiratory Airway 12 Pressure Peak Inspiratory Airway 12 Pressure Peak Inspiratory Airway 12 Pressure Peak Inspiratory Airway 11 Pressure Peak Inspiratory Airway 13 Pressure Peak Inspiratory Airway 11 Pressure Peak Inspiratory Airway 13 Pressure Peak Inspiratory Airway 13 Pressure Peak Inspiratory Airway 13 Pressure Results - Laboratory Findings CBC and BMP: 11/09/16 03:00 11/09/16 03:00 ABG ABG pH 7.38 pH Units (7.32-7.45) 11/09/16 04:14 ABG pCO2 32 mmHg (35-45) L 11/09/16 04:14 ABG pO2 104 mmHg (85-104) 11/09/16 04:14 ABG O2 Saturation 98 % (95-98) 11/09/16 04:14 PT/INR, D-dimer PT 12.0 Seconds (9.4-12.1) 11/09/16 03:00 Abnormal lab findings: Abnormal lab results WBC 12.9 K/mcL (4.3-11.1) H D 11/09/16 03:00 RBC 3.19 M/mcL (4.19-5.50) L 11/09/16 03:00 Hgb 9.1 g/dL (12.9-16.9) L 11/09/16 03:00 Hct 28.4 % (37.5-50.1) L 11/09/16 03:00 RDW 14.6 % (11.5-14.5) H 11/09/16 03:00 Plt Count 106 K/mcL (140-400) L 11/09/16 03:00 Band Neutrophils % 8.0 % (0-4) H 11/09/16 03:00 Metamyelocytes % 2.0 % (0) H 11/02/16 03:18 Myelocytes % 2.0 % (0) H 11/03/16 11:30 Neutrophils # 10.3 K/mcL (1.6-8.9) H 11/09/16 03:00 Reactive Lymphocytes Present (Not Present) A 11/04/16 04:40 Toxic Granulation Present (Not Present) A 11/09/16 03:00 Dohle Bodies Present (Not Present) A 11/07/16 03:20 Platelet Estimate Decreased (Normal) L 11/09/16 03:00 Large Platelets Present (Not Present) A 11/04/16 04:40 Poikilocytosis 1+ (Not Present) A 11/06/16 04:47 Ovalocytes 1+ (Not Present) A 11/06/16 04:47 Gini Cells 1+ (Not Present) A 11/06/16 04:47 ABG pCO2 32 mmHg (35-45) L 11/09/16 04:14 ABG HCO3 18.9 mEQ/L (21-27) L 11/09/16 04:14 ABG Total CO2 19.9 mEq/L (20-26) L 11/09/16 04:14 ABG Base Excess -5.5 mEq/L (-2.0 to 3.0) L 11/09/16 04:14 VBG pCO2 38 mmHg (41-51) L 11/03/16 07:45 VBG pO2 221 mmHg (25-40) H 11/03/16 07:45 BUN 31 mg/dL (8-26) H 11/09/16 03:00 Creatinine 3.41 mg/dL (0.72-1.25) H 11/09/16 03:00 Est GFR ( Amer) 22 (> 60) L 11/09/16 03:00 Est GFR (Non-Af Amer) 18 (> 60) L 11/09/16 03:00 Glucose 164 mg/dL (70-99) H 11/09/16 03:00 POC Glucose 100 (58-89) H 11/08/16 22:39 Calculated Osmolality 306 (280-300) H 11/09/16 03:00 Ionized Calcium 1.10 mmol/L (1.15-1.35) L 11/03/16 03:00 Phosphorus 6.4 mg/dL (2.3-4.7) H 11/02/16 03:18 Total Bilirubin 1.4 mg/dL (0.2-1.2) H 11/05/16 04:15 AST 69 Units/L (5-34) H 11/05/16 04:15 Troponin I 0.17 ng/mL (0-0.03) H* 11/02/16 21:49 Serum Total Protein 5.4 g/dL (6.0-8.3) L 11/05/16 04:15 Albumin 2.5 g/dL (3.5-5.0) L 11/05/16 04:15 Albumin/Globulin Ratio 0.9 (1.1-2.2) L 11/05/16 04:15 Ur Specimen Adequacy See below A 11/02/16 20:24 Urine Clarity Turbid (Clear) A 11/02/16 20:24 Urine Protein 30 mg/dL (Neg-Trace) H 11/02/16 20:24 Urine Glucose (UA) >=1000 mg/dL (Normal) H 11/02/16 20:24 Urine Blood Large (Negative) H 11/02/16 20:24 Ur Leukocyte Esterase Large (Negative) H 11/02/16 20:24 Urine Microscopic WBC TNTC per hpf (0-3) H 11/02/16 20:24 Ur Squamous Epith Cells Many per lpf (None-Few) H 11/02/16 20:24 Granular Casts Few per lpf (None Seen) H 11/02/16 20:24 Urine Yeast Many per hpf (None Seen) H 11/02/16 20:24 Ur Culture Indicated? YES (NO) A 11/02/16 20:24 - Microbiology Findings Microbiology Findings: Microbiology, Last 48 Hours 11/02/16 14:33 Blood Culture - Final Peripheral Venipuncture No growth. 11/02/16 12:50 Blood Culture - Final Peripheral Venipuncture No growth. 11/02/16 18:30 Sputum Culture - Final Sputum Yeast Species - Clinical Findings Intake & Output: Intake & Output 11/08/16 11/08/16 11/09/16 15:59 23:59 07:59 Intake Total 885 / 885 296 / 296 210 / 210 Output Total 150 / 150 450 / 450 350 / 350 Balance 735 / 735 -154 / -154 -140 / -140 Weight 70.2 kg Consult Discharge Plan - Plan Referrals: Norris Bonner MD [Primary Care Provider] - - Attending Attestation I examined this patient and my medical decision-making was reviewed with the Resident Physician. I agree with the documented findings, disposition and treatment plan as described except to the extent set forth below. We independently had [id number] contact with the patient Patient seen and examined at bedside Labs, radiology, chart personally reviewed. Management was reviewed during multidisciplinary critical care rounds.: Neuropsych: Persistent Delirium with agitation. Cont Low dose continuous infusion of sedative (Precedex) d/c fentanyl infustion may need intemrittent boulses for severe agitation. Goal [place] 2. We will attempt to restore sleep- wake cycle. avoid sensory deprivation and avoid unnecessary [employer] depressant medications. Pulm: Acute hypoxic Respiratory failure intubated on vent. acceptable oxygenation on current minimal vent settings failed spontaneous breathing trial today because of agitation and poor respiratory mechanics suspect degree of underlying. Lower lung field cuts from CT abdomen showed bilateral consolidations consistent with aspiration from admission vs VAP. Cards: s/p Cardiac arrest also with NSTEMI (likely Type 2 [place]) Reduced EF% .persistent tachycardia titrate low-dose beta erasmo ASA 325 per Cardiology recs. Will need ischemic evaluation when extubated more stable FEN-GI: GI prophylaxis Given. OG tube placed cont advance enteral nutrition to goal (nutrition consulted) PPI prophylaxis given Renal: Acute AGMA with Non GAP Acidosis. s/t to BJORN . Continues to have poor renal clearance as evidenced by a rise in serum creatinine over the last 24 hours when he has not undergone renal replacement therapy. Nephrology following I will defer to them for timing of dialysis continue to monitor electrolytes and replace per protocol ID: Concern for evolving sepsis with bandemia of 28 today persistent leuckocytosis Cont Zosyn for aspiration today because of concern for invasive candidiasis and Diflucan started and also broadened to Vancomycin. Heme/Onc: Thrombocytopenia likely s/t to critical illness and Abx (stable). CT abd w/o evidence of RP bleeding. H/H stable Integ/MSK: Skin Care per routine ICU Nursing Protocol to prevent ulcers. Lines: All lines examined without evidence of infection including: Left Subclavian CVC and right Temp Dialysis CVC. Dispo: Remains in ICU Code: Full. Family updated at bedside including his daughter stepdaughter and son <Kyle Monteiro - Last Filed: 11/09/16 09:47> Date of Encounter: 11/09/16 Time of Encounter: 07:02 Assessment and Plan (1) Cardiac arrest Current Visit: No Status: Acute Patient had a cardiac arrest three days ago likely due to aspiration. Patient had arrhythmias of asystole, V. tach, V. fib and then had ROSC at [facility]. Patient was then transferred to the ICU at [place]. Patient's initial troponin was 0.09 and repeat was 0.20, 0.17. Patient had an echocardiogram showing ejection fraction of 35%. Patient is on lopressor for rate contorl. Cardiology has been consult on this patient. (2) Hypoglycemia Current Visit: No Status: Acute Patient most recent glucose was 164. Low-dose Insulin is ordered for this patient. We will continue to monitor the patient's glucose and treat accordingly. (3) Aspiration into airway Current Visit: No Status: Acute Three days ago the patient became hypoglycemic, seized, vomited and aspirated. Patient is being treated with Zosyn and diflucan. Patient is currently intubated and on a ventilator. Qualifiers: Encounter type: initial encounter Qualified Code(s): T17.908A - Unspecified foreign body in respiratory tract, part unspecified causing other injury, initial encounter (4) Metabolic acidosis Current Visit: Yes Status: Acute The most recent ABG on the patient had a pH of 7.38, PCO2 of 32, PO2 of 104, HCO3 of 18.9, total CO2 19.9, O2 saturations 98, with a base excess of -5.5.. We will continue to monitor the patient and repeat ABG. (5) Lactic acidosis Current Visit: Yes Status: Acute Lactic acidosis appears to be resolving. Patient's lactic acid peaked at 10.9 and most recently is 1.8. We will continue to follow the patient's lactic acid level. (6) Acute respiratory failure with hypoxia and hypercapnia Current Visit: Yes Status: Acute This is likely secondary to the patient's hyperglycemia, seizure, vomiting and aspiration. Patient is currently sedated, intubated and on a ventilator. Patient is currently being treated with Zosyn. He has also been started on Diflucan for concern of fungal infection. (7) Anemia Current Visit: Yes Status: Acute Patient's hemoglobin is currently 9.1. Patient had a CT of the abdomen and pelvis done yesterday which was negative for a bleed. We do not have a source of bleeding at this time. We will continue to monitor the patient's hemoglobin CBCs Qualifiers: Anemia type: unspecified type Qualified Code(s): D64.9 - Anemia, unspecified (8) CAD (coronary artery disease) Current Visit: Yes Status: Acute Patient has a history of coronary artery disease. Patient has had stents placed in the LAD and circumflex at an outside organization and an undetermined date. Cardiology has been consulted on this patient. Patient is receiving aspirin. Qualifiers: Coronary Disease-Associated Artery/Lesion type: [place] artery [place] vs. transplanted heart: [place] heart Associated angina: angina presence unspecified Qualified Code(s): I25.10 - Atherosclerotic heart disease of [place] coronary artery without angina pectoris (9) BJORN (acute kidney injury) Current Visit: Yes Status: Acute Patient has acute kidney injury with an elevated creatinine of 3.41. This is likely due to the patient having cardiac arrest and being hypotensive. Patient' s creatinine appears to be elevated above his baseline of 0.7-0.8. We have consult nephrology on this patient. Per nephrology patient received dialysis on thursday but did not tolerate very well so they had to stop early. Further dialysis will be per nephrology. (10) COPD (chronic obstructive pulmonary disease) Current Visit: Yes Status: Chronic Patient has a history of COPD. Patient is currently on DuoNebs and Symbicort Qualifiers: COPD type: unspecified COPD Qualified Code(s): J44.9 - Chronic obstructive pulmonary disease, unspecified (11) DVT prophylaxis Current Visit: Yes Status: Acute Patient is currently on 5000 units of heparin subcutaneous every 8 hours for DVT prophylaxis. Subjective Principal diagnosis: Cardiac Arrest Interval history: The patient is currently sedated, intubated and on the ventilator. Due to this the patient was unable to give any overnight history. I am not aware of any events that occurred overnight. Objective PUL Vital signs: Last Vital Signs Temp 99.2 F 11/09/16 04:00 Pulse 120 11/09/16 06:00 Resp 25 11/09/16 06:00 BP 127/66 11/09/16 06:00 Pulse Ox 100 11/09/16 06:00 General appearance: other (Patient is sedated and on the ventilator) Eyes: nonicteric ENT: oropharynx dry Neck: supple Effort: mildly labored Auscultation: bilateral: rales Cardiovascular: other (Tachycardic but regular) Gastrointestinal: hypoactive bowel sounds Integumentary: other (Bilateral scabs and lower extremities) Extremities: no cyanosis, edema (Bilateral lower extremities) Musculoskeletal: no deformities other (Unable to assess due to the patient being sedated and intubated) other (Unable to assess due to the patient being sedated and intubated) Ventilator Settings Ventilator Settings: Ventilator Settings, Last 8 Hours Ventilator Mode VC+ Ventilator Mode VC+ Ventilator Mode VC+ Ventilator Mode VC+ Ventilator Mode VC+ Ventilator Mode VC+ Ventilator Mode VC+ Ventilator Mode VC+ Ventilator Mode VC+ Ventilator Mode VC+ Ventilator Mode VC+ Ventilator Mode VC+ Ventilator Mode VC+ Ventilator Tidal Volume 500 Setting Ventilator Tidal Volume 500 Setting Ventilator Tidal Volume 500 Setting Ventilator Tidal Volume 500 Setting Ventilator Tidal Volume 500 Setting Ventilator Tidal Volume 500 Setting Ventilator Tidal Volume 500 Setting Ventilator Tidal Volume 500 Setting Ventilator Tidal Volume 500 Setting Ventilator Tidal Volume 500 Setting Ventilator Tidal Volume 500 Setting Ventilator Tidal Volume 500 Setting Ventilator Tidal Volume 500 Setting Ventilator Respiratory Rate 18 Setting Ventilator Respiratory Rate 18 Setting Ventilator Respiratory Rate 18 Setting Ventilator Respiratory Rate 18 Setting Ventilator Respiratory Rate 18 Setting Ventilator Respiratory Rate 18 Setting Ventilator Respiratory Rate 18 Setting Ventilator Respiratory Rate 18 Setting Ventilator Respiratory Rate 18 Setting Ventilator Respiratory Rate 18 Setting Ventilator Respiratory Rate 18 Setting Ventilator Respiratory Rate 18 Setting Ventilator Respiratory Rate 18 Setting Actual Respiratory Rate 26 Actual Respiratory Rate 29 Actual Respiratory Rate 26 Actual Respiratory Rate 26 Actual Respiratory Rate 26 Actual Respiratory Rate 21 Actual Respiratory Rate 21 Actual Respiratory Rate 24 Actual Respiratory Rate 21 Actual Respiratory Rate 21 Actual Respiratory Rate 21 Positive End Expiratory 5 Pressure Positive End Expiratory 5 Pressure Positive End Expiratory 5 Pressure Positive End Expiratory 5 Pressure Positive End Expiratory 5 Pressure Positive End Expiratory 5 Pressure Positive End Expiratory 5 Pressure Positive End Expiratory 5 Pressure Positive End Expiratory 5 Pressure Positive End Expiratory 5 Pressure Positive End Expiratory 5 Pressure Positive End Expiratory 5 Pressure Positive End Expiratory 5 Pressure Peak Inspiratory Airway 13 Pressure Peak Inspiratory Airway 15 Pressure Peak Inspiratory Airway 12 Pressure Peak Inspiratory Airway 12 Pressure Peak Inspiratory Airway 12 Pressure Peak Inspiratory Airway 11 Pressure Peak Inspiratory Airway 13 Pressure Peak Inspiratory Airway 11 Pressure Peak Inspiratory Airway 13 Pressure Peak Inspiratory Airway 13 Pressure Peak Inspiratory Airway 13 Pressure Results - Laboratory Findings CBC and BMP: 11/09/16 03:00 11/09/16 03:00 ABG ABG pH 7.38 pH Units (7.32-7.45) 11/09/16 04:14 ABG pCO2 32 mmHg (35-45) L 11/09/16 04:14 ABG pO2 104 mmHg (85-104) 11/09/16 04:14 ABG O2 Saturation 98 % (95-98) 11/09/16 04:14 PT/INR, D-dimer PT 12.0 Seconds (9.4-12.1) 11/09/16 03:00 Abnormal lab findings: Abnormal lab results WBC 12.9 K/mcL (4.3-11.1) H D 11/09/16 03:00 RBC 3.19 M/mcL (4.19-5.50) L 11/09/16 03:00 Hgb 9.1 g/dL (12.9-16.9) L 11/09/16 03:00 Hct 28.4 % (37.5-50.1) L 11/09/16 03:00 RDW 14.6 % (11.5-14.5) H 11/09/16 03:00 Plt Count 106 K/mcL (140-400) L 11/09/16 03:00 Band Neutrophils % 8.0 % (0-4) H 11/09/16 03:00 Metamyelocytes % 2.0 % (0) H 11/02/16 03:18 Myelocytes % 2.0 % (0) H 11/03/16 11:30 Neutrophils # 10.3 K/mcL (1.6-8.9) H 11/09/16 03:00 Reactive Lymphocytes Present (Not Present) A 11/04/16 04:40 Toxic Granulation Present (Not Present) A 11/09/16 03:00 Dohle Bodies Present (Not Present) A 11/07/16 03:20 Platelet Estimate Decreased (Normal) L 11/09/16 03:00 Large Platelets Present (Not Present) A 11/04/16 04:40 Poikilocytosis 1+ (Not Present) A 11/06/16 04:47 Ovalocytes 1+ (Not Present) A 11/06/16 04:47 Gini Cells 1+ (Not Present) A 11/06/16 04:47 ABG pCO2 32 mmHg (35-45) L 11/09/16 04:14 ABG HCO3 18.9 mEQ/L (21-27) L 11/09/16 04:14 ABG Total CO2 19.9 mEq/L (20-26) L 11/09/16 04:14 ABG Base Excess -5.5 mEq/L (-2.0 to 3.0) L 11/09/16 04:14 VBG pCO2 38 mmHg (41-51) L 11/03/16 07:45 VBG pO2 221 mmHg (25-40) H 11/03/16 07:45 BUN 31 mg/dL (8-26) H 11/09/16 03:00 Creatinine 3.41 mg/dL (0.72-1.25) H 11/09/16 03:00 Est GFR ( Amer) 22 (> 60) L 11/09/16 03:00 Est GFR (Non-Af Amer) 18 (> 60) L 11/09/16 03:00 Glucose 164 mg/dL (70-99) H 11/09/16 03:00 POC Glucose 100 (58-89) H 11/08/16 22:39 Calculated Osmolality 306 (280-300) H 11/09/16 03:00 Ionized Calcium 1.10 mmol/L (1.15-1.35) L 11/03/16 03:00 Phosphorus 6.4 mg/dL (2.3-4.7) H 11/02/16 03:18 Total Bilirubin 1.4 mg/dL (0.2-1.2) H 11/05/16 04:15 AST 69 Units/L (5-34) H 11/05/16 04:15 Troponin I 0.17 ng/mL (0-0.03) H* 11/02/16 21:49 Serum Total Protein 5.4 g/dL (6.0-8.3) L 11/05/16 04:15 Albumin 2.5 g/dL (3.5-5.0) L 11/05/16 04:15 Albumin/Globulin Ratio 0.9 (1.1-2.2) L 11/05/16 04:15 Ur Specimen Adequacy See below A 11/02/16 20:24 Urine Clarity Turbid (Clear) A 11/02/16 20:24 Urine Protein 30 mg/dL (Neg-Trace) H 11/02/16 20:24 Urine Glucose (UA) >=1000 mg/dL (Normal) H 11/02/16 20:24 Urine Blood Large (Negative) H 11/02/16 20:24 Ur Leukocyte Esterase Large (Negative) H 11/02/16 20:24 Urine Microscopic WBC TNTC per hpf (0-3) H 11/02/16 20:24 Ur Squamous Epith Cells Many per lpf (None-Few) H 11/02/16 20:24 Granular Casts Few per lpf (None Seen) H 11/02/16 20:24 Urine Yeast Many per hpf (None Seen) H 11/02/16 20:24 Ur Culture Indicated? YES (NO) A 11/02/16 20:24 - Microbiology Findings Microbiology Findings: Microbiology, Last 48 Hours 11/02/16 14:33 Blood Culture - Final Peripheral Venipuncture No growth. 11/02/16 12:50 Blood Culture - Final Peripheral Venipuncture No growth. 11/02/16 18:30 Sputum Culture - Final Sputum Yeast Species - Clinical Findings Intake & Output: Intake & Output 11/08/16 11/08/16 11/09/16 15:59 23:59 07:59 Intake Total 885 / 885 296 / 296 210 / 210 Output Total 150 / 150 450 / 450 350 / 350 Balance 735 / 735 -154 / -154 -140 / -140 Weight 70.2 kg - VTE Documentation of Mechanical Device: Intermittent pneumatic compression device
[2016-11-09] MEDS: Budesonide/Formoterol 160/4.5 MDI IH SCH ×2 (07:23→19:55)
--- NOTE | 2016-11-09 08:35 | Nephrology Progress Note ---
Date of Encounter: 11/09/16 Time of Encounter: 08:32 - Assessment and Plan (1) BJORN (acute kidney injury) Current Visit: Yes Status: Acute Creatinine continues to rise. UOP nonoliguric. No acute need for dialysis today. Patient appears to be euvolemic. Caution with diuretics. Would avoid using vancomycin if possible. Monitor for renal recovery. Adjust medications for renal function. With lack of recovery will expand work-up for BJORN. (2) Acute respiratory failure with hypoxia and hypercapnia Current Visit: Yes Status: Acute Patient is intubated and sedated. Per pulmonary. (3) Cardiomyopathy Current Visit: Yes Status: Acute Per cardiology. Qualifiers: Cardiomyopathy type: unspecified Qualified Code(s): I42.9 - Cardiomyopathy , unspecified (4) Metabolic acidosis Current Visit: Yes Status: Acute Resolved. (5) Anemia Current Visit: Yes Status: Acute check iron stores, vitamin b12 and folate. Qualifiers: Anemia type: unspecified type Qualified Code(s): D64.9 - Anemia, unspecified (6) Hyperphosphatemia Current Visit: Yes Status: Acute Likely related to renal failure. Check PTH and vitamin D. Subjective Principal diagnosis: Cardiac Arrest Interval history: Patient seen. He is intubated. Sedated. ROS unobtainable. Objective - Vital Signs Vital signs: Vital Signs Temp Pulse Resp BP Pulse Ox 11/09/16 08:00 133 32 113/64 100 11/09/16 07:00 128 30 123/64 99 11/09/16 06:00 120 25 127/66 100 11/09/16 05:40 29 126/69 100 11/09/16 05:00 115 23 128/70 100 11/09/16 04:00 99.2 F 122 23 123/71 100 11/09/16 03:34 26 126/69 100 11/09/16 03:00 117 22 129/69 100 11/09/16 02:00 117 20 128/78 95 11/09/16 01:45 24 125/74 98 11/09/16 01:00 99.2 F 117 22 125/65 100 11/09/16 00:00 116 20 133/70 100 11/08/16 23:35 21 133/70 100 11/08/16 23:04 99.2 F 116 22 133/72 100 11/08/16 22:02 116 21 134/70 100 11/08/16 21:30 19 135/70 100 11/08/16 21:04 111 23 141/67 100 11/08/16 20:01 112 21 132/69 100 11/08/16 19:55 20 132/69 100 11/08/16 19:00 99.1 F 110 22 135/64 100 11/08/16 18:00 115 20 128/76 11/08/16 17:00 115 20 140/72 100 11/08/16 16:00 115 21 130/70 99 11/08/16 15:58 97.6 F 11/08/16 15:10 20 132/63 100 11/08/16 15:00 106 16 132/63 100 11/08/16 14:00 109 24 130/67 100 11/08/16 13:05 23 126/73 100 11/08/16 13:00 109 20 126/73 100 11/08/16 12:00 115 18 122/65 100 11/08/16 11:10 19 110/69 100 11/08/16 11:00 130 18 110/69 100 11/08/16 10:00 120 18 106/56 100 11/08/16 09:15 22 111/57 100 11/08/16 09:00 144 20 111/57 100 Intake and Output 11/08/16 11/09/16 11/09/16 23:59 07:59 15:59 Intake Total 296 / 296 210 / 210 Output Total 450 / 450 350 / 350 Balance -154 / -154 -140 / -140 Intake: IV Fluids 205 / 205 200 / 200 PRECEDEX Premix 400 mcg 100 / 100 100 / 100 In 100 ml @ 0.2 MCG/KG/HR 3.502 mls/hr IVC .Q24H JOSY Rx#:[id number] Zosyn 3.375 GM In 100 / 100 Dextrose 5% (Minibag+) 100 ML 100 ML @ 25 mls/hr IVPB Q12H JOSY Rx#: [id number] Keppra 500 MG In 0.9 % 105 / 105 Sodium Chloride 100 ML @ 400 mls/hr IVPB BID JOSY Rx#:[id number] Tube Feeding Free Water Output: Catheter 450 / 450 350 / 350 Other: Weight 70.2 kg Patient Weight 11/09/16 23:59 Weight 70.2 kg - General Appearance General appearance: Present: well-developed, chronically ill, sedated on ventilator, intubated, frail EENT: Present: ATNC Respiratory: Present: course breath sounds Cardiology: Present: no edema Additional Comments: tachycardic Dialysis Vascular Access: Venous Catheter Gastrointestinal: Present: no tenderness Integumentary: Present: warm and dry Additional Comments: sedated. Musculoskeletal: Present: no cyanosis - Lab 11/09/16 03:00 11/09/16 03:00 Most recent lab results ABG pH 7.38 pH Units (7.32-7.45) 11/09/16 04:14 ABG pCO2 32 mmHg (35-45) L 11/09/16 04:14 ABG pO2 104 mmHg (85-104) 11/09/16 04:14 ABG HCO3 18.9 mEQ/L (21-27) L 11/09/16 04:14 ABG O2 Saturation 98 % (95-98) 11/09/16 04:14 Calcium 9.1 mg/dL (8.6-10.8) 11/09/16 03:00 Phosphorus 6.4 mg/dL (2.3-4.7) H 11/02/16 03:18 Magnesium 1.9 mg/dL (1.6-2.6) 11/09/16 03:00 - VTE Documentation of Mechanical Device: Intermittent pneumatic compression device Consult Discharge Plan - Plan Referrals: Norris Bonner MD [Primary Care Provider] -
[2016-11-09] MEDS: Chlorhexidine Rinse 15 ML MOUTHWASH MM SCH ×2 (08:46→19:32)
[2016-11-09] MEDS: Sennosides 8.6 MG TABLET PO SCH ×2 (08:46→19:32)
[2016-11-09] MEDS: Famotidine 20 MG/2 ML VIAL IVP SCH (08:46)
[2016-11-09] MEDS: Aspirin 325 MG TABLET PO SCH (08:46)
[2016-11-09] MEDS: Fluconazole 400 MG/200 ML 400 MG/200 ML BAG IVPB SCH (08:48)
[2016-11-09] MEDS: Nicotine 7 MG PATCH.TD24 TD SCH (08:49)
--- NOTE | 2016-11-09 09:01 | Cardiology Progress Note ---
Date of Encounter: 11/09/16 Time of Encounter: 08:59 Assessment and Plan (1) Cardiomyopathy Current Visit: Yes Status: Acute Cardiomyopathy. ? chronicity. No previous for comparison. Segmental wall motion abnormalities described, which would suggest possibly ischemic, especially given known CAD. Per outside reports, prior PCI to LAD and CX. However, cardiomyopathy diagnosed after aspiration/respiratory failure and subsequent cardiac arrest, so myocardial stunning could certainly be contributing. Presentation is not c/w ACS. Suspect flat troponin elevation related to respiratory failure with arrest, renal insufficiency, etc. Despite supportive ICU care, remains intubated. Delerium noted per reports. Recommend aspirin. Agree with beta erasmo increase today. Overall, his condition remains guarded. Given multiple organ systems involved, prognosis appears guarded. Consider ischemic evaluation as condition hopefully improves. Thanks, Peter Figueroa DO, [facility] Qualifiers: Qualified Code(s): I42.9 - Cardiomyopathy, unspecified (2) Acute respiratory failure with hypoxia and hypercapnia Current Visit: Yes Status: Acute (3) Elevated troponin Current Visit: Yes Status: Acute Discussion w patient/family: The assessment and plan as outlined above was discussed with the patient and/or family members who expressed understanding and agreement. All questions were answered. Thank you for involving us in the care of your patient. Please call with any questions. Subjective Principal diagnosis: Cardiac Arrest Interval history: Overall, no significant changes compared to yesterday. Urine output remains reduced, BJORN worsening. Bandemia improved with broadened antibiotics. CPAP trials being attempted, but only for 5-10 per nursing. Hemodynamics remain stable - BP improved, tachycardic. Seems slightly agitated during my encounter. Objective Vital Signs, Last 4 Hours Pulse Resp BP Pulse Ox 11/09/16 08:00 133 32 113/64 100 11/09/16 07:22 34 113/64 99 11/09/16 07:00 128 30 123/64 99 11/09/16 06:00 120 25 127/66 100 11/09/16 05:40 29 126/69 100 11/09/16 05:00 115 23 128/70 100 General: Other (Critically ill) HEENT: Atraumatic Neck: No JVD Cardiac: Reg Rate and Rhythm, No Murmur, Other (Tachycardic) Lungs: Other (Mostly clear, few scattered rhonchi) Neuro: Other (Sedated, ventilated.) Abdomen: Soft, Non-Tender Skin: No rashes noted on visualized skin Musculoskeletal: No Chest Wall Tenderness Extremities: No Clubbing, No Cyanosis, No Edema Results 11/09/16 03:00 11/09/16 03:00 Lab Results 11/08/16 11/09/16 11/09/16 20:10 03:00 03:00 WBC 12.9 H D Hgb 9.1 L 9.1 L Hct 27.7 L 28.4 L Plt Count 106 L INR 1.1 APTT 31.5 Sodium Potassium Chloride Carbon Dioxide BUN Creatinine Glucose Calcium Magnesium 11/09/16 03:00 WBC Hgb Hct Plt Count INR APTT Sodium 143 Potassium 3.8 Chloride 104 Carbon Dioxide 20 BUN 31 H Creatinine 3.41 H Glucose 164 H Calcium 9.1 Magnesium 1.9 - Imaging and Cardiology Echo: report reviewed - VTE Documentation of Mechanical Device: Intermittent pneumatic compression device Consult Discharge Plan - Plan Referrals: Norris Bonner MD [Primary Care Provider] -
[2016-11-09] MEDS: Piperacillin/Tazobactam 3.375 GM in D5% in Water (Mini-Bag+) 100 ML IVPB SCH ×2 (10:13→22:46)
[2016-11-09 10:44] LABS: Bilirubin,Urine Negative (Negative); Blood,Urine Moderate (Negative); Clarity,Urine Turbid (Clear); Color,Urine Yellow (Yellow); Glucose,Urine (UA) Normal (Normal); Ketones,Urine 40 mg/dL (Negative); Leukocyte Esterase,Urine Large (Negative); Nitrite,Urine Negative (Negative); Protein,Urine 30 mg/dL (Neg-Trace); Specific Gravity,Urine 1.012 (1.010-1.025); Urobilinogen,Urine Normal (Normal)
[2016-11-09 10:48] LABS: Ionized Calcium 1.26 mmol/L (1.15-1.35)
[2016-11-09 10:51] LABS: RBC,Urine 15-30 per hpf (0-3); Squamous Epithelial Cell,Urine Few per lpf (None-Few)
[2016-11-09 10:52] LABS: Bacteria,Urine Few per hpf (None-Few); Yeast,Urine Many per hpf (None Seen)
[2016-11-09 11:01] LABS: Phosphorous 3.4 mg/dL (2.3-4.7); Uric Acid 4.5 mg/dL (3.5-7.2)
[2016-11-09 11:57] LABS: Protein/Creatinine Ratio,Urine 1.08 mg/mg (0-0.20); Rheumatoid Factor < 15 IU/mL (0-29)
[2016-11-09 12:32] LABS: Folate 11.5 ng/mL (7.0-31.4)
[2016-11-09 12:33] LABS: Vitamin B12 > 2000 pg/mL (213-816)
[2016-11-09] MEDS ORDERED: D5% in Water (Mini-Bag+) 100 ML IVPB ONE (22:39)
[2016-11-10] MEDS: Ipratropium/Albuterol Neb 3 ML IH SCH ×7 (00:01→23:59)
[2016-11-10] MEDS: Lacri-Lube 3.5 GM TUBE BOTH EYES SCH ×6 (00:20→20:00)
[2016-11-10] MEDS: Insulin LISPRO 300 UNITS/3 ML VIAL SQ SCH ×6 (00:21→20:00)
[2016-11-10] MEDS: Norepinephrine 4 MG in D5% in Water 250 ML IVC SCH (03:08)
[2016-11-10] MEDS: Dexmedetomidine HCl 400 MCG/100 ML MLS IVC SCH ×3 (03:08→19:30)
[2016-11-10 04:17] LABS: Mean Platelet Volume 10.1 fL (9.4-12.4); Red Cell Distribution Width 14.7 % (11.5-14.5); Segmented Neutrophils % 84.9 %
[2016-11-10 04:19] LABS: Basophils # 0.1 K/mcL (0.0-0.2); Basophils % 0.6 %; Eosinophils # 0.1 K/mcL (0.0-0.6); Eosinophils % 0.4 %; Hematocrit 28.1 % (37.5-50.1); Hemoglobin 8.9 g/dL (12.9-16.9); Immature Granulocytes % 2.4 % (0-4); Immature Platelets 3.7 % (1.1-6.1); Lymphocytes # 0.8 K/mcL (0.6-4.6); Mean Corpuscular HGB Conc 31.7 g/dL (31.6-35.5); Mean Corpuscular Hemoglobin 28.1 pg (28.0-33.3); Mean Corpuscular Volume 88.6 fL (83.0-100.0); Monocytes # 0.8 K/mcL (0.0-1.3); Monocytes % 5.7 %; Neutrophils # 11.4 K/mcL (1.6-8.9); Platelet Count 116 K/mcL (140-400); Red Blood Count 3.17 M/mcL (4.19-5.50)
[2016-11-10 04:20] LABS: ABG Base Excess -6.6 mEq/L (-2.0 to 3.0); ABG HCO3 17.9 mEQ/L (21-27); ABG Oxygen Saturation 97 % (95-98); ABG PCO2 31 mmHg (35-45); ABG PH 7.37 pH Units (7.32-7.45); ABG PO2 92 mmHg (85-104); ABG TCO2 18.9 mEq/L (20-26); Blood Gas FiO2 40 %
[2016-11-10 04:25] LABS: INR 1.1; Prothrombin Time 12.3 Seconds (9.4-12.1)
[2016-11-10 04:28] LABS: Activated Partial Thrombo Time 29.5 Seconds (26.0-36.0)
[2016-11-10 04:31] LABS: Albumin/Globulin Ratio 0.6 (1.1-2.2); Bilirubin,Indirect 0.3 mg/dL (0.0-1.2); Bilirubin,Total 1.3 mg/dL (0.2-1.2); Globulin 3.4 g/dL (2.4-3.5); Total Protein 5.3 g/dL (6.0-8.3)
[2016-11-10 04:32] LABS: Calcium 9.2 mg/dL (8.6-10.8); Magnesium 1.7 mg/dL (1.6-2.6); Potassium 3.8 mEq/L (3.5-4.5)
[2016-11-10 04:36] LABS: Albumin 1.9 g/dL (3.5-5.0)
[2016-11-10 04:47] LABS: Platelet Estimate Slight Decrease (Normal)
[2016-11-10 04:48] LABS: Toxic Granulation Present (Not Present)
[2016-11-10] MEDS: *HR* Heparin 5,000 UNIT/ML VIAL SQ SCH ×3 (05:57→20:18)
[2016-11-10] MEDS: Budesonide/Formoterol 160/4.5 MDI IH SCH ×2 (07:27→19:58)
--- NOTE | 2016-11-10 08:35 | Pulmonology Progress Note ---
Date of Encounter: 11/10/16 Time of Encounter: 07:00 Assessment and Plan (1) Acute respiratory failure with hypoxia and hypercapnia Current Visit: Yes Status: Acute Patient is tolerating SBT and will plan to extubate. There is a risk that patient might need to be reintubated, however I feel clinically its worst to extubate and hopefully that will give us a better idea about his mental status. We might even consider neurology consultation. (2) Aspiration pneumonia Current Visit: Yes Status: Acute stop fluconazole and he completed his antibiotic course. It is not clear to me about the leukocytosis, will continue monitor for now. Qualifiers: Aspiration pneumonia type: unspecified Lung location: unspecified part of lung Qualified Code(s): J69.0 - Pneumonitis due to inhalation of food and vomit Subjective Principal diagnosis: Cardiac Arrest Interval history: Patient still have some agitation when sedation decreased. Objective PUL Vital signs: Last Vital Signs Temp 98.4 F 11/10/16 07:22 Pulse 108 11/10/16 08:00 Resp 19 11/10/16 08:00 BP 112/60 11/10/16 08:00 Pulse Ox 95 11/10/16 08:00 General appearance: appears uncomfortable Eyes: nonicteric Mallampati (class): 2 Neck: supple, JVD Effort: mildly labored Auscultation: bilateral: rhonchi Cardiovascular: regular rate and rhythm Gastrointestinal: normoactive bowel sounds, soft Extremities: no cyanosis, edema unable to assess due to mental status anxious Ventilator Settings Ventilator Settings: Ventilator Settings, Last 8 Hours Ventilator Mode CPAP Ventilator Mode VC+ Ventilator Mode VC+ Ventilator Mode VC+ Ventilator Mode VC+ Ventilator Mode VC+ Ventilator Mode VC+ Ventilator Mode VC+ Ventilator Mode VC+ Ventilator Mode VC+ Ventilator Mode VC+ Ventilator Mode VC+ Ventilator Mode VC+ Ventilator Tidal Volume 500 Setting Ventilator Tidal Volume 500 Setting Ventilator Tidal Volume 500 Setting Ventilator Tidal Volume 500 Setting Ventilator Tidal Volume 500 Setting Ventilator Tidal Volume 500 Setting Ventilator Tidal Volume 500 Setting Ventilator Tidal Volume 500 Setting Ventilator Tidal Volume 500 Setting Ventilator Tidal Volume 500 Setting Ventilator Tidal Volume 500 Setting Ventilator Tidal Volume 500 Setting Ventilator Tidal Volume 500 Setting Ventilator Respiratory Rate 18 Setting Ventilator Respiratory Rate 18 Setting Ventilator Respiratory Rate 18 Setting Ventilator Respiratory Rate 18 Setting Ventilator Respiratory Rate 18 Setting Ventilator Respiratory Rate 18 Setting Ventilator Respiratory Rate 18 Setting Ventilator Respiratory Rate 18 Setting Ventilator Respiratory Rate 18 Setting Ventilator Respiratory Rate 18 Setting Ventilator Respiratory Rate 18 Setting Ventilator Respiratory Rate 18 Setting Actual Respiratory Rate 19 Actual Respiratory Rate 26 Actual Respiratory Rate 26 Actual Respiratory Rate 25 Actual Respiratory Rate 26 Actual Respiratory Rate 26 Actual Respiratory Rate 28 Actual Respiratory Rate 30 Actual Respiratory Rate 28 Actual Respiratory Rate 26 Actual Respiratory Rate 26 Actual Respiratory Rate 27 Positive End Expiratory 5 Pressure Positive End Expiratory 5 Pressure Positive End Expiratory 5 Pressure Positive End Expiratory 5 Pressure Positive End Expiratory 5 Pressure Positive End Expiratory 5 Pressure Positive End Expiratory 5 Pressure Positive End Expiratory 5 Pressure Positive End Expiratory 5 Pressure Positive End Expiratory 5 Pressure Positive End Expiratory 5 Pressure Positive End Expiratory 5 Pressure Positive End Expiratory 5 Pressure Peak Inspiratory Airway 14 Pressure Peak Inspiratory Airway 12 Pressure Peak Inspiratory Airway 13 Pressure Peak Inspiratory Airway 13 Pressure Peak Inspiratory Airway 13 Pressure Peak Inspiratory Airway 19 Pressure Peak Inspiratory Airway 19 Pressure Peak Inspiratory Airway 16 Pressure Peak Inspiratory Airway 16 Pressure Peak Inspiratory Airway 16 Pressure Peak Inspiratory Airway 20 Pressure Results - Laboratory Findings CBC and BMP: 11/10/16 04:04 11/10/16 04:04 ABG ABG pH 7.37 pH Units (7.32-7.45) 11/10/16 04:10 ABG pCO2 31 mmHg (35-45) L 11/10/16 04:10 ABG pO2 92 mmHg (85-104) 11/10/16 04:10 ABG O2 Saturation 97 % (95-98) 11/10/16 04:10 PT/INR, D-dimer PT 12.3 Seconds (9.4-12.1) H 11/10/16 04:04 Abnormal lab findings: Abnormal lab results WBC 13.4 K/mcL (4.3-11.1) H 11/10/16 04:04 RBC 3.17 M/mcL (4.19-5.50) L 11/10/16 04:04 Hgb 8.9 g/dL (12.9-16.9) L 11/10/16 04:04 Hct 28.1 % (37.5-50.1) L 11/10/16 04:04 RDW 14.7 % (11.5-14.5) H 11/10/16 04:04 Plt Count 116 K/mcL (140-400) L 11/10/16 04:04 Band Neutrophils % 8.0 % (0-4) H 11/09/16 03:00 Metamyelocytes % 2.0 % (0) H 11/02/16 03:18 Myelocytes % 2.0 % (0) H 11/03/16 11:30 Neutrophils # 11.4 K/mcL (1.6-8.9) H 11/10/16 04:04 Reactive Lymphocytes Present (Not Present) A 11/04/16 04:40 Toxic Granulation Present (Not Present) A 11/10/16 04:04 Dohle Bodies Present (Not Present) A 11/07/16 03:20 Platelet Estimate Slight Decrease (Normal) L 11/10/16 04:04 Large Platelets Present (Not Present) A 11/04/16 04:40 Poikilocytosis 1+ (Not Present) A 11/06/16 04:47 Ovalocytes 1+ (Not Present) A 11/06/16 04:47 Gini Cells 1+ (Not Present) A 11/06/16 04:47 PT 12.3 Seconds (9.4-12.1) H 11/10/16 04:04 ABG pCO2 31 mmHg (35-45) L 11/10/16 04:10 ABG HCO3 17.9 mEQ/L (21-27) L 11/10/16 04:10 ABG Total CO2 18.9 mEq/L (20-26) L 11/10/16 04:10 ABG Base Excess -6.6 mEq/L (-2.0 to 3.0) L 11/10/16 04:10 VBG pCO2 38 mmHg (41-51) L 11/03/16 07:45 VBG pO2 221 mmHg (25-40) H 11/03/16 07:45 Carbon Dioxide 18 mEq/L (19-29) L 11/10/16 04:04 BUN 39 mg/dL (8-26) H 11/10/16 04:04 Creatinine 3.98 mg/dL (0.72-1.25) H 11/10/16 04:04 Est GFR ( Amer) 19 (> 60) L 11/10/16 04:04 Est GFR (Non-Af Amer) 15 (> 60) L 11/10/16 04:04 Glucose 223 mg/dL (70-99) H 11/10/16 04:04 POC Glucose 134 (58-89) H 11/09/16 23:22 Calculated Osmolality 316 (280-300) H 11/10/16 04:04 Iron 21 mcg/dL (65-175) L 11/09/16 10:25 % Saturation 19 % (20-55) L 11/09/16 10:25 Transferrin 79 mg/dL (174-364) L 11/09/16 10:25 Total Bilirubin 1.3 mg/dL (0.2-1.2) H 11/10/16 04:04 Direct Bilirubin 1.0 mg/dL (0.0-0.5) H 11/10/16 04:04 Alkaline Phosphatase 340 Units/L (38-126) H 11/10/16 04:04 Troponin I 0.17 ng/mL (0-0.03) H* 11/02/16 21:49 Serum Total Protein 5.3 g/dL (6.0-8.3) L 11/10/16 04:04 Albumin 1.9 g/dL (3.5-5.0) L 11/10/16 04:04 Albumin/Globulin Ratio 0.6 (1.1-2.2) L 11/10/16 04:04 Vitamin B12 > 2000 pg/mL (213-816) H 11/09/16 10:25 Ur Specimen Adequacy See below A 11/02/16 20:24 Urine Clarity Turbid (Clear) A 11/09/16 10:25 Urine Protein 30 mg/dL (Neg-Trace) H 11/09/16 10:25 Urine Ketones 40 mg/dL (Negative) H 11/09/16 10:25 Urine Blood Moderate (Negative) H 11/09/16 10:25 Ur Leukocyte Esterase Large (Negative) H 11/09/16 10:25 Urine Microscopic RBC 15-30 per hpf (0-3) H 11/09/16 10:25 Urine Microscopic WBC 5-15 per hpf (0-3) H 11/09/16 10:25 Granular Casts Few per lpf (None Seen) H 11/02/16 20:24 Urine Yeast Many per hpf (None Seen) H 11/09/16 10:25 Ur Culture Indicated? YES (NO) A 11/09/16 10:25 Microalb/Creat Ratio 223 (0-30) H 11/09/16 10:25 Protein/Creatinin Ratio 1.08 mg/mg (0-0.20) H 11/09/16 10:25 - Microbiology Findings Microbiology Findings: Microbiology, Last 48 Hours 11/07/16 13:53 Blood Culture - Preliminary Peripheral Venipuncture No growth. 11/07/16 13:53 Blood Culture - Preliminary Peripheral Venipuncture No growth. 11/02/16 14:33 Blood Culture - Final Peripheral Venipuncture No growth. 11/02/16 12:50 Blood Culture - Final Peripheral Venipuncture No growth. - Diagnostic Findings Chest x-ray: report reviewed, image reviewed - Clinical Findings Intake & Output: Intake & Output 11/09/16 11/10/16 11/10/16 23:59 07:59 15:59 Intake Total 390 / 390 267.1 / 267.1 100 / 100 Output Total 1350 / 1350 725 / 725 Balance -960 / -960 -457.9 / -457.9 100 / 100 Weight 69.354 kg - VTE Documentation of Mechanical Device: Intermittent pneumatic compression device Consult Discharge Plan - Plan Referrals: Norris Bonner MD [Primary Care Provider] -
[2016-11-10] MEDS: Sennosides 8.6 MG TABLET PO SCH ×2 (08:46→20:01)
[2016-11-10] MEDS: Chlorhexidine Rinse 15 ML MOUTHWASH MM SCH ×2 (08:46→20:17)
[2016-11-10] MEDS: Aspirin 325 MG TABLET PO SCH (08:46)
[2016-11-10] MEDS: Nicotine 7 MG PATCH.TD24 TD SCH (08:47)
[2016-11-10] MEDS: Famotidine 20 MG/2 ML VIAL IVP SCH (08:47)
[2016-11-10] MEDS: Fluconazole 400 MG/200 ML 400 MG/200 ML BAG IVPB SCH (08:47)
--- NOTE | 2016-11-10 09:36 | Nephrology Progress Note ---
Date of Encounter: 11/10/16 Time of Encounter: 09:30 - Assessment and Plan (1) BJORN (acute kidney injury) Current Visit: Yes Status: Acute Creatinine continues to rise. UOP nonoliguric. No acute need for dialysis today. Patient appears to be euvolemic. Caution with diuretics. Would avoid using vancomycin if possible. Monitor for renal recovery. Adjust medications for renal function. With lack of recovery expanded work-up for BJORN. Patient with unexplained hematuria will repeat urinalysis. (2) Leukocytosis Current Visit: Yes Status: Acute Unexplained etiology. Patient on fluconozole. Evaluate for source (possibly UTI). If unexplained consider changing out central lines. Qualifiers: Qualified Code(s): D72.829 - Elevated white blood cell count, unspecified (3) Acute respiratory failure with hypoxia and hypercapnia Current Visit: Yes Status: Acute Patient is intubated and sedated. Per pulmonary. He is tolerating CPAP today. (4) Cardiomyopathy Current Visit: Yes Status: Acute Per cardiology. Etiology unclear. Qualifiers: Cardiomyopathy type: unspecified Qualified Code(s): I42.9 - Cardiomyopathy , unspecified (5) Metabolic acidosis Current Visit: Yes Status: Acute Will address with iHD (6) Anemia Current Visit: Yes Status: Acute iron saturation slightly low. Avoid iv iron until infection cleared. Qualifiers: Anemia type: unspecified type Qualified Code(s): D64.9 - Anemia, unspecified (7) Hyperphosphatemia Current Visit: Yes Status: Acute Likely related to renal failure. Resolved. Subjective Principal diagnosis: Cardiac Arrest Interval history: Patient seen. He is intubated. Sedated. ROS unobtainable. Objective - Vital Signs Vital signs: Vital Signs Temp Pulse Resp BP Pulse Ox 11/10/16 09:00 107 22 114/69 95 11/10/16 08:00 108 19 112/60 95 11/10/16 07:28 26 103/63 98 11/10/16 07:22 98.4 F 11/10/16 07:00 114 26 93/53 98 11/10/16 06:23 25 91/51 97 11/10/16 06:00 112 24 96/50 97 11/10/16 05:00 142 27 115/67 97 11/10/16 04:50 28 130/68 98 11/10/16 04:39 99.7 F H 11/10/16 04:00 111 30 126/72 98 11/10/16 03:00 113 28 129/71 98 11/10/16 02:31 26 130/66 98 11/10/16 02:30 112 27 130/66 98 11/10/16 01:00 112 27 136/76 100 11/10/16 00:02 21 130/72 100 11/10/16 00:00 107 28 130/72 100 11/09/16 23:52 99.6 F 11/09/16 23:00 110 27 124/76 100 11/09/16 22:54 24 131/69 100 11/09/16 22:00 106 19 135/75 100 11/09/16 21:30 102 28 132/79 100 11/09/16 20:00 98.6 F 112 23 131/79 100 11/09/16 19:55 26 135/69 98 11/09/16 19:00 112 27 124/68 100 11/09/16 18:00 117 26 118/74 100 11/09/16 17:30 27 126/66 93 11/09/16 17:00 115 30 130/69 100 11/09/16 16:10 100.2 F H 11/09/16 16:00 100.2 F H 11/09/16 15:11 28 126/66 100 11/09/16 15:00 115 28 126/66 100 11/09/16 14:00 117 26 123/68 100 11/09/16 13:01 26 123/60 100 11/09/16 13:00 116 27 128/66 100 11/09/16 12:19 100.6 F H 120 27 123/60 100 11/09/16 12:00 100.6 F H 120 27 123/60 100 11/09/16 11:00 122 28 126/60 100 11/09/16 10:00 120 27 103/54 Intake and Output 11/09/16 11/10/16 11/10/16 23:59 07:59 15:59 Intake Total 390 / 390 267.1 / 267.1 200 / 200 Output Total 1350 / 1350 725 / 725 Balance -960 / -960 -457.9 / -457.9 200 / 200 Intake: IV Fluids 305 / 305 267.1 / 267.1 200 / 200 PRECEDEX Premix 400 mcg 200 / 200 100 / 100 100 / 100 In 100 ml @ 0.2 MCG/KG/HR 3.502 mls/hr IVC .Q24H JOSY Rx#:[id number] FentaNYL (PF) 3,000 MCG 67.1 / 67.1 In 0.9 % Sodium Chloride 240 ML @ 50 MCG/HR 5 mls/ hr IVC CONT JOSY Rx#: [id number] Zosyn 3.375 GM In 100 / 100 Dextrose 5% (Minibag+) 100 ML 100 ML @ 25 mls/hr IVPB Q12H JOSY Rx#: [id number] Keppra 500 MG In 0.9 % 105 / 105 100 / 100 Sodium Chloride 100 ML @ 400 mls/hr IVPB BID JOSY Rx#:[id number] Tube Feeding Output: Catheter 1350 / 1350 725 / 725 Other: Weight 69.354 kg Blood Glucose* 134 162 - General Appearance General appearance: Present: well-developed, cachectic, chronically ill, sedated on ventilator, intubated, frail EENT: Present: ATNC Neck: Present: supple Respiratory: Present: course breath sounds Cardiology: Present: no edema Additional Comments: tachycardic Dialysis Vascular Access: Venous Catheter Gastrointestinal: Present: no tenderness Integumentary: Present: warm and dry Additional Comments: sedated Musculoskeletal: Present: no cyanosis - Lab 11/10/16 04:04 11/10/16 04:04 Most recent lab results ABG pH 7.37 pH Units (7.32-7.45) 11/10/16 04:10 ABG pCO2 31 mmHg (35-45) L 11/10/16 04:10 ABG pO2 92 mmHg (85-104) 11/10/16 04:10 ABG HCO3 17.9 mEQ/L (21-27) L 11/10/16 04:10 ABG O2 Saturation 97 % (95-98) 11/10/16 04:10 Calcium 9.2 mg/dL (8.6-10.8) 11/10/16 04:04 Phosphorus 3.4 mg/dL (2.3-4.7) 11/09/16 10:25 Magnesium 1.7 mg/dL (1.6-2.6) 11/10/16 04:04 Urine Creatinine 13 mg/dL 11/09/16 10:25 Urine Sodium 111.0 mEq/L 11/09/16 10:25 Urine Total Protein 14 mg/dL (1-14) 11/09/16 10:25 - VTE Documentation of Mechanical Device: Intermittent pneumatic compression device Consult Discharge Plan - Plan Referrals: Norris Bonner MD [Primary Care Provider] -
[2016-11-10 11:05] LABS: Bilirubin,Urine Negative (Negative); Blood,Urine Negative (Negative); Clarity,Urine Clear (Clear); Color,Urine Yellow (Yellow); Glucose,Urine (UA) Normal (Normal); Ketones,Urine Negative (Negative); Leukocyte Esterase,Urine Trace (Negative); Nitrite,Urine Negative (Negative); PH,Urine 6.5 pH Units (5.0-8.0); Protein,Urine Trace mg/dL (Neg-Trace); Specific Gravity,Urine 1.009 (1.010-1.025); Urobilinogen,Urine Normal (Normal)
[2016-11-10 11:07] LABS: Bacteria,Urine None Seen per hpf (None-Few); Hyaline Casts,Urine None Seen per lpf (None-Few)
[2016-11-10 11:18] LABS: Yeast,Urine Few per hpf (None Seen)
[2016-11-10 11:19] LABS: Squamous Epithelial Cell,Urine Few per lpf (None-Few)
--- NOTE | 2016-11-10 12:57 | Cardiology Progress Note ---
Date of Encounter: 11/10/16 Time of Encounter: 11:30 Assessment and Plan (1) Cardiomyopathy Current Visit: Yes Status: Acute Possible new Cardiomyopathy. TTE shows EF 35%, mild MR and mild TR. Unknown chronicity. No previous echo for comparison. H/o CAD. Segmental wall motion abnormalities would suggest possible ischemic cause. Per outside reports, prior PCI to LAD and CX. However, cardiomyopathy diagnosed after aspiration/respiratory failure and subsequent cardiac arrest, so myocardial stunning could certainly be contributing. Presentation is not c/w ACS. Suspect flat troponin elevation related to respiratory failure with arrest, renal insufficiency, etc. Extubated this morning to nasal cannula. Continues to be drowsy Condition remains guarded. Planning for recurrent dialysis. Consider ischemic evaluation once kidney status and respiratory status improves. Continue asa and bb. Tolerating increase in bb. Mild fluid overload on exam in the setting of acute on chronic systolic CHF and ARF. Fluid management per nephrology. We will continue to monitor peripherally with you. Qualifiers: Cardiomyopathy type: unspecified Qualified Code(s): I42.9 - Cardiomyopathy , unspecified (2) Elevated troponin Current Visit: Yes Status: Acute Flat troponin elevation likely secondary to respiratory distress. Discussion w patient/family: The assessment and plan as outlined above was discussed with the patient and/or family members who expressed understanding and agreement. All questions were answered. Thank you for involving us in the care of your patient. Please call with any questions. Subjective Principal diagnosis: Cardiac Arrest Interval history: Patient was extubated. Objective Vital Signs, Last 4 Hours Temp Pulse Resp BP Pulse Ox 11/10/16 12:00 96 22 93 11/10/16 11:54 96.6 F L 11/10/16 11:08 20 96 11/10/16 11:00 99 24 110/62 92 11/10/16 10:00 104 20 117/63 96 11/10/16 09:20 20 96 11/10/16 09:00 107 22 114/69 95 General: Other (whispering, oriented x 3, drowsy) HEENT: Atraumatic, Normocephaly, Mucus Membranes Moist Neck: No JVD, Normal carotid pulses Cardiac: Reg Rate and Rhythm, Normal S1 and S2, No Murmur Lungs: Other (Course rhonci throughout. Respirations easy. ) Neuro: Alert and responsive, No focal deficits noted Abdomen: Soft, Non-Tender Skin: No rashes noted on visualized skin Musculoskeletal: No Chest Wall Tenderness Extremities: No Clubbing, No Cyanosis, No Edema, Normal Pulses Results 11/10/16 04:04 11/10/16 04:04 Lab Results 11/10/16 11/10/16 11/10/16 04:04 04:04 04:04 WBC 13.4 H Hgb 8.9 L Hct 28.1 L Plt Count 116 L INR 1.1 APTT 29.5 Sodium Potassium Chloride Carbon Dioxide BUN Creatinine Glucose Calcium Magnesium Total Bilirubin 1.3 H AST 17 ALT 35 Alkaline Phosphatase 340 H 11/10/16 04:04 WBC Hgb Hct Plt Count INR APTT Sodium 145 Potassium 3.8 Chloride 105 Carbon Dioxide 18 L BUN 39 H Creatinine 3.98 H Glucose 223 H Calcium 9.2 Magnesium 1.7 Total Bilirubin AST ALT Alkaline Phosphatase - EKG Interpretation EKG results cardiology: personally reviewed - VTE Documentation of Mechanical Device: Intermittent pneumatic compression device Consult Discharge Plan - Plan Referrals: Norris Bonner MD [Primary Care Provider] -
[2016-11-10 13:13] LABS: HIV-1&2 Antibody & p24 Ag Nonreactive (Nonreactive); Hepatitis A Antibody IgM Nonreactive (Nonreactive); Hepatitis B Core IgM Nonreactive (Nonreactive); Hepatitis B Surface Antigen Nonreactive (Nonreactive); Hepatitis C Virus Antibody Nonreactive (Nonreactive)
--- NOTE | 2016-11-10 17:10 | Electrocardiograph Report ---
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
--- NOTE | 2016-11-10 17:28 | Electrocardiograph Report ---
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
[2016-11-10] MEDS: FentaNYL (PF) 3,000 MCG in 0.9 % Sodium Chloride 240 ML IVC SCH (19:29)
[2016-11-10 23:20] LABS: Acinetobacter baumannii by PCR Not Detected (Not Detect); Enterococcus by PCR Not Detected (Not Detect); Escherichia coli by PCR Not Detected (Not Detect); Klebsiella oxytoca by PCR Not Detected (Not Detect); Klebsiella pneumoniae by PCR Not Detected (Not Detect); Serratia marcescens by PCR Not Detected (Not Detect); Staphylococcus aureus by PCR Not Detected (Not Detect); Streptococcus agalactiae(B)PCR Not Detected (Not Detect); Streptococcus by PCR Not Detected (Not Detect); Streptococcus pneumoniae PCR Not Detected (Not Detect); Streptococcus pyogenes (A) PCR Not Detected (Not Detect); blaKPC Carbapenem-Resist Gene Not Detected (Not Detect); mecA Methicillin-Resist Gene Not Detected (Not Detect); vanA/B Vancomycin-Resist Genes Not Detected (Not Detect)
[2016-11-10 23:21] LABS: Candida albicans by PCR Not Detected (Not Detect); Candida glabrata by PCR ***DETECTED*** (Not Detect); Candida krusei by PCR Not Detected (Not Detect); Candida parapsilosis by PCR Not Detected (Not Detect); Candida tropicalis by PCR Not Detected (Not Detect); Pseudomonas aeruginosa by PCR Not Detected (Not Detect)
[2016-11-11] MEDS: Lacri-Lube 3.5 GM TUBE BOTH EYES SCH ×7 (00:21→23:18)
[2016-11-11] MEDS: Insulin LISPRO 300 UNITS/3 ML VIAL SQ SCH ×7 (00:21→23:18)
[2016-11-11 00:22] LABS: ABG Base Excess -2.2 mEq/L (-2.0 to 3.0); ABG HCO3 22.3 mEQ/L (21-27); ABG Oxygen Saturation 80 % (95-98); ABG PCO2 36 mmHg (35-45); ABG TCO2 23.4 mEq/L (20-26)
[2016-11-11 00:26] LABS: ABG PO2 44 mmHg (85-104)
[2016-11-11] MEDS: Dexmedetomidine HCl 400 MCG/100 ML MLS IVC SCH ×3 (01:51→23:20)
[2016-11-11 03:51] LABS: ABG Base Excess -5.8 mEq/L (-2.0 to 3.0); ABG HCO3 21.1 mEQ/L (21-27); ABG Oxygen Saturation 89 % (95-98); ABG PCO2 47 mmHg (35-45); ABG PH 7.26 pH Units (7.32-7.45); ABG PO2 66 mmHg (85-104); ABG TCO2 22.5 mEq/L (20-26)
[2016-11-11] MEDS: Ipratropium/Albuterol Neb 3 ML IH SCH ×6 (04:04→23:16)
[2016-11-11 04:41] LABS: Hemoglobin 9.1 g/dL (12.9-16.9); Mean Corpuscular HGB Conc 31.4 g/dL (31.6-35.5); Mean Corpuscular Hemoglobin 28.5 pg (28.0-33.3); Mean Corpuscular Volume 90.9 fL (83.0-100.0); Mean Platelet Volume 10.6 fL (9.4-12.4); Platelet Count 130 K/mcL (140-400); Red Blood Count 3.19 M/mcL (4.19-5.50); Red Cell Distribution Width 14.8 % (11.5-14.5)
[2016-11-11] MEDS: Norepinephrine 4 MG in D5% in Water 250 ML IVC SCH ×2 (04:49→12:55)
[2016-11-11 04:51] LABS: Calcium 9.5 mg/dL (8.6-10.8); Magnesium 1.7 mg/dL (1.6-2.6); Phosphorous 4.8 mg/dL (2.3-4.7); Potassium 3.5 mEq/L (3.5-4.5)
[2016-11-11 04:59] LABS: Lymphocytes # 0.8 K/mcL (0.6-4.6); Monocytes # 0.6 K/mcL (0.0-1.3); Neutrophils # 12.3 K/mcL (1.6-8.9)
[2016-11-11 05:00] LABS: Dohle Bodies Present (Not Present); Platelet Estimate Slight Decrease (Normal)
--- NOTE | 2016-11-11 05:01 | Procedure Note ---
Date of procedure: 11/11/16 (04:44) Pre-op diagnosis: acute respirstory failure Post-op diagnosis: same Procedure: Endotracheal intubation: A time-out was completed verifying correct patient, procedure, site, positioning , and special equipment. The patient was placed in a flat position. Sedation was obtained using Precedex. The patient was easily ventilated using an ambu bag. The [employer]/ MAC 3 BLADE was used and inserted into the oropharynx at which time there was a Grade 1 view of the vocal cords. A 7.5- ecuadorean endotracheal tube was inserted and visualized going through the vocal cords. The stylette was removed. Colorimetric change was visualized on the CO2 meter. Breath sounds were heard in both lung mcpherson equally. The endotracheal tube was placed at 22 cm, measured at the teeth. Attending, Dr. Grewal was present for the entire procedure. A chest x-ray was ordered to assess for pneumothorax and verify endotrachealtube placement. Estimated Blood Loss: 0 cc The patient tolerated the procedure well and there were no complications. Anesthesia: IV sedation Surgeon: Norris Gill Loading Checker: Zoraida Grewal Estimated blood loss (cc): 0 Pathology: none sent Condition: critical Disposition: ICU
--- NOTE | 2016-11-11 05:06 | Event Note ---
<Norris Gill - Last Filed: 11/11/16 05:34> Date of Encounter: 11/11/16 Time of Encounter: 04:30 11/08/16 11/09/16 11/10/16 05:58 04:14 04:10 ABG pH 7.30 L 7.38 7.37 ABG pCO2 34 L 32 L 31 L ABG pO2 88 104 92 ABG HCO3 16.7 L 18.9 L 17.9 L ABG Total CO2 17.7 L 19.9 L 18.9 L ABG O2 Saturation 96 98 97 ABG Base Excess -8.9 L -5.5 L -6.6 L VBG pH VBG pCO2 VBG pO2 VBG HCO3 11/11/16 11/11/16 00:08 03:38 ABG pH 7.40 7.26 L D ABG pCO2 36 47 H ABG pO2 44 L* 66 L ABG HCO3 22.3 21.1 ABG Total CO2 23.4 22.5 ABG O2 Saturation 80 L 89 L ABG Base Excess -2.2 L -5.8 L VBG pH VBG pCO2 VBG pO2 VBG HCO3 Last Vital Signs Temp 98.1 F 11/10/16 23:00 Pulse 118 11/11/16 04:00 Resp 18 11/11/16 04:48 BP 88/52 11/11/16 04:48 Pulse Ox 100 11/11/16 04:48 Notified by nursing staff that patient was very tachypneic with RR 30 and SpO2 in high 80s to low 90s on 5L NC after breathing treatment. ABG was performed revealing pH 7.40, pCO2 36, pO2 44, HCO3 22.3, and O2 Sat 80. Patient was placed on BiPap. He later vomited while on Bipap and was switched to 15L oxymask. Nursing reports copious amount of emesis during suctioning and likely aspiration. Repeat ABG revealed pH 7.26, pCO2 47, pO2 66, HCO3 21.1, and O2 Sat 89. Patient was A&Ox3 on exam but remained tachypenic at RR 32, had accessory muscle use, increased respiratory effort, with diffuse wheezing and rales on lung auscultation. Levophen was administered for pressure support and patient was re-intubated for airway protection with attending and RT at bedside. Orders were placed for Versed, Fentanyl, NG tube placement, restraints (due to previous self extubation), and vent settings A/C rate 18, TV 500, FiO2 100, and PEEP 5. <UriZoraida - Last Filed: 11/11/16 05:49> Date of Encounter: 11/11/16 Pt has worsen SOB with tachypnea. He was extubateed today and we decide reintubate pt. Resident Dr Gill finished the intubation procedure. I supervised him throughout the whole procedure. Tube position confirmed by CXR ( In trach. will advance some per CXR recommendation).
[2016-11-11 05:11] LABS: Ionized Calcium 1.28 mmol/L (1.15-1.35)
[2016-11-11] MEDS: FentaNYL (PF) 3,000 MCG in 0.9 % Sodium Chloride 240 ML IVC SCH ×2 (05:16→23:19)
[2016-11-11] MEDS: *HR* Heparin 5,000 UNIT/ML VIAL SQ SCH ×3 (05:18→20:21)
[2016-11-11 06:29] LABS: ABG Base Excess -6.1 mEq/L (-2.0 to 3.0); ABG HCO3 22.4 mEQ/L (21-27); ABG Oxygen Saturation 100 % (95-98); ABG PCO2 60 mmHg (35-45); ABG PO2 233 mmHg (85-104); ABG TCO2 24.2 mEq/L (20-26)
[2016-11-11 06:30] LABS: ABG PH 7.18 pH Units (7.32-7.45)
[2016-11-11] MEDS: Potassium Chloride 40 MEQ/200 ML BAG IVPB PRN ×2 (06:51→15:55)
[2016-11-11] MEDS: Magnesium Sulfate 2 GM in D5% in Water 100 ML IVPB PRN (07:24)
--- NOTE | 2016-11-11 07:31 | Pulmonology Progress Note ---
<Tejas Hernandes - Last Filed: 11/11/16 07:28> Date of Encounter: 11/11/16 Time of Encounter: 07:30 Assessment and Plan (1) Sepsis Current Visit: Yes Status: Acute Lactic acid trending up 2.9< 2.4< 1.8 possibly contributed to mixed respiratory and anion gap metabolic acidosis (Anion gap = 18) Patient has increased WBC = 13.7, candidenemia, and tachycardic Started on Micafungin 100mg daily. Renal dosing not required. Continue to monitor VS and a.m. labs Qualifiers: Qualified Code(s): B37.7 - Candidal sepsis (2) Candidemia Current Visit: Yes Status: Acute Patient had yeast positive sputum and urine. Blood culture is positive for aminta glabrata. vital signs normal and stable at this time. No eye lesions, skin lesions noted. C. giabrata are resistant to fluconazole. Micafungin 100mg daily started today. Pharmacy indicates that no renal dosing is necessary. Continue to monitor organ system functions with a.m. labs, ABG. (3) Cardiac arrest Current Visit: Yes Status: Acute s/p cardiac arrest with NSTEMI. Reduced EF%. The patients vital signs are normal and stable. Continue beta erasmo (4) Acute respiratory failure with hypoxia and hypercapnia Current Visit: Yes Status: Acute Patient became hypoxic last night with worsening SOB and tachypnea. Reintubation was necessary. CXR confirms tube position to be above cody. ABG reveals uncompensated acute respiratory acidosis. Sodium bicarbonate 50meq IVP administered. We will consider increasing respiratory rate. recheck ABG later today. Patient SPO2 = 100. Consider permissive hypercapnea and continue to monitor. (5) Cardiomyopathy Current Visit: Yes Status: Acute Plan per cardiology. Flat troponin elevation is likely related to respiratory failure with arrest. Ischemic evaluation will be done once kidney and respiratory status improves. Continue ASA and BB. Qualifiers: Cardiomyopathy type: unspecified Qualified Code(s): I42.9 - Cardiomyopathy , unspecified (6) COPD (chronic obstructive pulmonary disease) Current Visit: No Status: Chronic Qualifiers: COPD type: unspecified COPD Qualified Code(s): J44.9 - Chronic obstructive pulmonary disease, unspecified (7) Lactic acidosis Current Visit: Yes Status: Acute (8) BJORN (acute kidney injury) Current Visit: Yes Status: Acute Acute AGMA with non-GAP acidosis with worsening renal function. Nephrology is following - UOP nonoliguric. No acute need for dialysis. They recommend to caution with diuretics and adjust medications for renal function. Repeat UA continues to show yeast infection. We will continue to monitor kidney function. (9) Hyperphosphatemia Current Visit: Yes Status: Acute Calcium levels are normal and stable. Continue IVF for now. (10) Leukocytosis Current Visit: Yes Status: Acute Qualifiers: Qualified Code(s): D72.829 - Elevated white blood cell count, unspecified Subjective Principal diagnosis: Cardiac Arrest Objective PUL Vital signs: Last Vital Signs Temp 98.7 F 11/11/16 05:00 Pulse 144 11/11/16 06:00 Resp 18 11/11/16 06:00 BP 94/49 11/11/16 06:00 Pulse Ox 100 11/11/16 06:00 General appearance: other (sedated on the vent, responds to voice, makes eye contac) Eyes: nonicteric ENT: other (endotracheal tube noted in satisfactory position ) Effort: mildly labored Auscultation: bilateral: diminished breath sounds, rales Cardiovascular: irregular rhythm Gastrointestinal: normoactive bowel sounds, soft, non-tender, non-distended Extremities: no cyanosis Musculoskeletal: no deformities Ventilator Settings Ventilator Settings: Ventilator Settings, Last 8 Hours Ventilator Mode VC+ Ventilator Mode VC+ Ventilator Mode VC+ Ventilator Mode VC+ Ventilator Tidal Volume 500 Setting Ventilator Tidal Volume 500 Setting Ventilator Tidal Volume 500 Setting Ventilator Tidal Volume 500 Setting Ventilator Respiratory Rate 18 Setting Ventilator Respiratory Rate 18 Setting Ventilator Respiratory Rate 18 Setting Ventilator Respiratory Rate 18 Setting Actual Respiratory Rate 18 Actual Respiratory Rate 18 Actual Respiratory Rate 18 Positive End Expiratory 5 Pressure Positive End Expiratory 5 Pressure Positive End Expiratory 5 Pressure Positive End Expiratory 5 Pressure Peak Inspiratory Airway 25 Pressure Peak Inspiratory Airway 25 Pressure Peak Inspiratory Airway 25 Pressure Results - Laboratory Findings CBC and BMP: 11/11/16 04:20 11/11/16 04:20 ABG ABG pH 7.18 pH Units (7.32-7.45) L* 11/11/16 06:01 ABG pCO2 60 mmHg (35-45) H 11/11/16 06:01 ABG pO2 233 mmHg (85-104) H 11/11/16 06:01 ABG O2 Saturation 100 % (95-98) H 11/11/16 06:01 PT/INR, D-dimer PT 12.3 Seconds (9.4-12.1) H 11/10/16 04:04 Abnormal lab findings: Abnormal lab results WBC 13.7 K/mcL (4.3-11.1) H 11/11/16 04:20 RBC 3.19 M/mcL (4.19-5.50) L 11/11/16 04:20 Hgb 9.1 g/dL (12.9-16.9) L 11/11/16 04:20 Hct 29.0 % (37.5-50.1) L 11/11/16 04:20 MCHC 31.4 g/dL (31.6-35.5) L 11/11/16 04:20 RDW 14.8 % (11.5-14.5) H 11/11/16 04:20 Plt Count 130 K/mcL (140-400) L 11/11/16 04:20 Metamyelocytes % 2.0 % (0) H 11/02/16 03:18 Myelocytes % 2.0 % (0) H 11/03/16 11:30 Neutrophils # 12.3 K/mcL (1.6-8.9) H 11/11/16 04:20 Reactive Lymphocytes Present (Not Present) A 11/04/16 04:40 Toxic Granulation Present (Not Present) A 11/10/16 04:04 Dohle Bodies Present (Not Present) A 11/11/16 04:20 Platelet Estimate Slight Decrease (Normal) L 11/11/16 04:20 Large Platelets Present (Not Present) A 11/04/16 04:40 Poikilocytosis 1+ (Not Present) A 11/06/16 04:47 Ovalocytes 1+ (Not Present) A 11/06/16 04:47 [place] Cells 1+ (Not Present) A 11/06/16 04:47 PT 12.3 Seconds (9.4-12.1) H 11/10/16 04:04 ABG pH 7.18 pH Units (7.32-7.45) L* 11/11/16 06:01 ABG pCO2 60 mmHg (35-45) H 11/11/16 06:01 ABG pO2 233 mmHg (85-104) H 11/11/16 06:01 ABG O2 Saturation 100 % (95-98) H 11/11/16 06:01 ABG Base Excess -6.1 mEq/L (-2.0 to 3.0) L 11/11/16 06:01 VBG pCO2 38 mmHg (41-51) L 11/03/16 07:45 VBG pO2 221 mmHg (25-40) H 11/03/16 07:45 Sodium 148 mEq/L (136-145) H 11/11/16 04:20 BUN 46 mg/dL (8-26) H 11/11/16 04:20 Creatinine 4.38 mg/dL (0.72-1.25) H 11/11/16 04:20 Est GFR ( Amer) 17 (> 60) L 11/11/16 04:20 Est GFR (Non-Af Amer) 14 (> 60) L 11/11/16 04:20 Glucose 165 mg/dL (70-99) H 11/11/16 04:20 POC Glucose 132 (58-89) H 11/10/16 23:51 Calculated Osmolality 322 (280-300) H 11/11/16 04:20 Lactic Acid 2.9 mmol/L (0.5-2.2) H 11/11/16 04:20 Phosphorus 4.8 mg/dL (2.3-4.7) H 11/11/16 04:20 Iron 21 mcg/dL (65-175) L 11/09/16 10:25 % Saturation 19 % (20-55) L 11/09/16 10:25 Transferrin 79 mg/dL (174-364) L 11/09/16 10:25 Total Bilirubin 1.3 mg/dL (0.2-1.2) H 11/10/16 04:04 Direct Bilirubin 1.0 mg/dL (0.0-0.5) H 11/10/16 04:04 Alkaline Phosphatase 340 Units/L (38-126) H 11/10/16 04:04 Troponin I 0.17 ng/mL (0-0.03) H* 11/02/16 21:49 Serum Total Protein 5.3 g/dL (6.0-8.3) L 11/10/16 04:04 Albumin 1.9 g/dL (3.5-5.0) L 11/10/16 04:04 Albumin/Globulin Ratio 0.6 (1.1-2.2) L 11/10/16 04:04 Vitamin B12 > 2000 pg/mL (213-816) H 11/09/16 10:25 25-OH Vitamin D Total 9 ng/mL (30-80) L 11/09/16 10:25 Ur Specimen Adequacy See below A 11/02/16 20:24 Ur Specific [place] 1.009 (1.010-1.025) L 11/10/16 09:38 Ur Leukocyte Esterase Trace (Negative) H 11/10/16 09:38 Urine Microscopic RBC 3-5 per hpf (0-3) H 11/10/16 09:38 Urine Microscopic WBC 3-5 per hpf (0-3) H 11/10/16 09:38 Granular Casts Few per lpf (None Seen) H 11/02/16 20:24 Urine Yeast Few per hpf (None Seen) H 11/10/16 09:38 Ur Culture Indicated? YES (NO) A 11/10/16 09:38 Microalb/Creat Ratio 223 (0-30) H 11/09/16 10:25 Protein/Creatinin Ratio 1.08 mg/mg (0-0.20) H 11/09/16 10:25 C. glabrata (PCR) DETECTED (Not Detect) A 11/07/16 13:53 - Microbiology Findings Microbiology Findings: Microbiology, Last 48 Hours 11/07/16 13:53 Blood Culture - Preliminary Peripheral Venipuncture Aminta glabrata 11/09/16 10:25 Urine Culture - Preliminary Urine,Clean Catch 11/07/16 13:53 Blood Culture - Preliminary Peripheral Venipuncture No growth. - Clinical Findings Intake & Output: Intake & Output 11/10/16 11/10/16 11/11/16 15:59 23:59 07:59 Intake Total 232.5 / 232.5 110 / 110 153 / 153 Output Total 400 / 400 500 / 500 100 / 100 Balance -167.5 / -167.5 -390 / -390 53 / 53 Weight 67.9 kg - VTE Documentation of Mechanical Device: Intermittent pneumatic compression device Consult Discharge Plan - Plan Referrals: Norris Bonner MD [Primary Care Provider] - <Kierra Rodriguez - Last Filed: 11/11/16 19:50> Date of Encounter: 11/11/16 Assessment and Plan (1) Acute respiratory failure with hypoxia and hypercapnia Current Visit: Yes Status: Acute (2) Aspiration pneumonia Current Visit: Yes Status: Acute Qualifiers: Aspiration pneumonia type: unspecified Lung location: unspecified part of lung Objective PUL Vital signs: Last Vital Signs Temp 99.8 F H 11/11/16 12:00 Pulse 118 11/11/16 13:00 Resp 22 11/11/16 13:00 BP 104/48 11/11/16 13:00 Pulse Ox 97 11/11/16 13:00 Ventilator Settings Ventilator Settings: Ventilator Settings, Last 8 Hours Ventilator Mode VC+ Ventilator Mode VC+ Ventilator Mode VC+ Ventilator Mode VC+ Ventilator Mode VC+ Ventilator Mode VC+ Ventilator Mode VC+ Ventilator Mode VC+ Ventilator Mode VC+ Ventilator Mode VC+ Ventilator Mode VC+ Ventilator Mode VC+ Ventilator Mode VC+ Ventilator Tidal Volume 550 Setting Ventilator Tidal Volume 550 Setting Ventilator Tidal Volume 550 Setting Ventilator Tidal Volume 550 Setting Ventilator Tidal Volume 550 Setting Ventilator Tidal Volume 550 Setting Ventilator Tidal Volume 550 Setting Ventilator Tidal Volume 550 Setting Ventilator Tidal Volume 550 Setting Ventilator Tidal Volume 550 Setting Ventilator Tidal Volume 550 Setting Ventilator Tidal Volume 500 Setting Ventilator Tidal Volume 500 Setting Ventilator Respiratory Rate 18 Setting Ventilator Respiratory Rate 18 Setting Ventilator Respiratory Rate 18 Setting Ventilator Respiratory Rate 18 Setting Ventilator Respiratory Rate 18 Setting Ventilator Respiratory Rate 18 Setting Ventilator Respiratory Rate 18 Setting Ventilator Respiratory Rate 18 Setting Ventilator Respiratory Rate 18 Setting Ventilator Respiratory Rate 18 Setting Ventilator Respiratory Rate 18 Setting Ventilator Respiratory Rate 18 Setting Ventilator Respiratory Rate 18 Setting Actual Respiratory Rate 22 Actual Respiratory Rate 18 Actual Respiratory Rate 22 Actual Respiratory Rate 18 Actual Respiratory Rate 18 Actual Respiratory Rate 18 Actual Respiratory Rate 18 Actual Respiratory Rate 18 Actual Respiratory Rate 18 Actual Respiratory Rate 18 Actual Respiratory Rate 18 Positive End Expiratory 5 Pressure Positive End Expiratory 5 Pressure Positive End Expiratory 5 Pressure Positive End Expiratory 5 Pressure Positive End Expiratory 5 Pressure Positive End Expiratory 5 Pressure Positive End Expiratory 5 Pressure Positive End Expiratory 5 Pressure Positive End Expiratory 5 Pressure Positive End Expiratory 5 Pressure Positive End Expiratory 5 Pressure Positive End Expiratory 5 Pressure Positive End Expiratory 5 Pressure Peak Inspiratory Airway 27 Pressure Peak Inspiratory Airway 27 Pressure Peak Inspiratory Airway 27 Pressure Peak Inspiratory Airway 25 Pressure Peak Inspiratory Airway 25 Pressure Peak Inspiratory Airway 30 Pressure Peak Inspiratory Airway 26 Pressure Peak Inspiratory Airway 27 Pressure Peak Inspiratory Airway 27 Pressure Peak Inspiratory Airway 27 Pressure Peak Inspiratory Airway 25 Pressure Results - Laboratory Findings CBC and BMP: 11/11/16 04:20 11/11/16 13:55 ABG ABG pH 7.31 pH Units (7.32-7.45) L D 11/11/16 09:38 ABG pCO2 52 mmHg (35-45) H 11/11/16 09:38 ABG pO2 185 mmHg (85-104) H 11/11/16 09:38 ABG O2 Saturation 100 % (95-98) H 11/11/16 09:38 PT/INR, D-dimer PT 12.3 Seconds (9.4-12.1) H 11/10/16 04:04 Abnormal lab findings: Abnormal lab results WBC 13.7 K/mcL (4.3-11.1) H 11/11/16 04:20 RBC 3.19 M/mcL (4.19-5.50) L 11/11/16 04:20 Hgb 9.1 g/dL (12.9-16.9) L 11/11/16 04:20 Hct 29.0 % (37.5-50.1) L 11/11/16 04:20 MCHC 31.4 g/dL (31.6-35.5) L 11/11/16 04:20 RDW 14.8 % (11.5-14.5) H 11/11/16 04:20 Plt Count 130 K/mcL (140-400) L 11/11/16 04:20 Metamyelocytes % 2.0 % (0) H 11/02/16 03:18 Myelocytes % 2.0 % (0) H 11/03/16 11:30 Neutrophils # 12.3 K/mcL (1.6-8.9) H 11/11/16 04:20 Reactive Lymphocytes Present (Not Present) A 11/04/16 04:40 Toxic Granulation Present (Not Present) A 11/10/16 04:04 Dohle Bodies Present (Not Present) A 11/11/16 04:20 Platelet Estimate Slight Decrease (Normal) L 11/11/16 04:20 Large Platelets Present (Not Present) A 11/04/16 04:40 Poikilocytosis 1+ (Not Present) A 11/06/16 04:47 Ovalocytes 1+ (Not Present) A 11/06/16 04:47 [place] Cells 1+ (Not Present) A 11/06/16 04:47 PT 12.3 Seconds (9.4-12.1) H 11/10/16 04:04 ABG pH 7.31 pH Units (7.32-7.45) L D 11/11/16 09:38 ABG pCO2 52 mmHg (35-45) H 11/11/16 09:38 ABG pO2 185 mmHg (85-104) H 11/11/16 09:38 ABG Total CO2 27.8 mEq/L (20-26) H 11/11/16 09:38 ABG O2 Saturation 100 % (95-98) H 11/11/16 09:38 VBG pCO2 38 mmHg (41-51) L 11/03/16 07:45 VBG pO2 221 mmHg (25-40) H 11/03/16 07:45 Sodium 148 mEq/L (136-145) H 11/11/16 04:20 BUN 46 mg/dL (8-26) H 11/11/16 04:20 Creatinine 4.38 mg/dL (0.72-1.25) H 11/11/16 04:20 Est GFR ( Amer) 17 (> 60) L 11/11/16 04:20 Est GFR (Non-Af Amer) 14 (> 60) L 11/11/16 04:20 Glucose 165 mg/dL (70-99) H 11/11/16 04:20 POC Glucose 132 (58-89) H 11/10/16 23:51 Calculated Osmolality 322 (280-300) H 11/11/16 04:20 Lactic Acid 2.9 mmol/L (0.5-2.2) H 11/11/16 04:20 Phosphorus 4.8 mg/dL (2.3-4.7) H 11/11/16 04:20 Iron 21 mcg/dL (65-175) L 11/09/16 10:25 % Saturation 19 % (20-55) L 11/09/16 10:25 Transferrin 79 mg/dL (174-364) L 11/09/16 10:25 Total Bilirubin 1.3 mg/dL (0.2-1.2) H 11/10/16 04:04 Direct Bilirubin 1.0 mg/dL (0.0-0.5) H 11/10/16 04:04 Alkaline Phosphatase 340 Units/L (38-126) H 11/10/16 04:04 Troponin I 0.17 ng/mL (0-0.03) H* 11/02/16 21:49 Serum Total Protein 5.3 g/dL (6.0-8.3) L 11/10/16 04:04 Albumin 1.9 g/dL (3.5-5.0) L 11/10/16 04:04 Albumin/Globulin Ratio 0.6 (1.1-2.2) L 11/10/16 04:04 Vitamin B12 > 2000 pg/mL (213-816) H 11/09/16 10:25 25-OH Vitamin D Total 9 ng/mL (30-80) L 11/09/16 10:25 Ur Specimen Adequacy See below A 11/02/16 20:24 Ur Specific [place] 1.009 (1.010-1.025) L 11/10/16 09:38 Ur Leukocyte Esterase Trace (Negative) H 11/10/16 09:38 Urine Microscopic RBC 3-5 per hpf (0-3) H 11/10/16 09:38 Urine Microscopic WBC 3-5 per hpf (0-3) H 11/10/16 09:38 Granular Casts Few per lpf (None Seen) H 11/02/16 20:24 Urine Yeast Few per hpf (None Seen) H 11/10/16 09:38 Ur Culture Indicated? YES (NO) A 11/10/16 09:38 Microalb/Creat Ratio 223 (0-30) H 11/09/16 10:25 Protein/Creatinin Ratio 1.08 mg/mg (0-0.20) H 11/09/16 10:25 C. glabrata (PCR) DETECTED (Not Detect) A 11/07/16 13:53 - Microbiology Findings Microbiology Findings: Microbiology, Last 48 Hours 11/07/16 13:53 Blood Culture - Preliminary Peripheral Venipuncture Aminta glabrata 11/09/16 10:25 Urine Culture - Preliminary Urine,Clean Catch 11/07/16 13:53 Blood Culture - Preliminary Peripheral Venipuncture No growth. - Clinical Findings Intake & Output: Intake & Output 11/10/16 11/11/16 11/11/16 23:59 07:59 15:59 Intake Total 110 / 110 153 / 153 833 / 833 Output Total 500 / 500 175 / 175 0 / 0 Balance -390 / -390 -22 / -22 833 / 833 Weight 67.9 kg - Attending Attestation I examined this patient and my medical decision-making was reviewed with the Resident Physician. I agree with the documented findings, disposition and treatment plan as described except to the extent set forth below. Patient seen and examined. Labs, radiology, chart personally reviewed. 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 Pulmonary: unfortunately patient had to be reintubated and this is due to multiple factors especially with his cardiomyopathy and what looks like fungal pneumonia which is very serious. Cardiovascular: patient unstable and continue supportive care as well as vasopressors for shock GI: Nutrition per dietary and GI prophylaxis per routine. Patient is nothing by mouth due to not tolerating tube feed and unfortunately due to fungal infection he would not be a candidate for TPN Heme: DVT prophylaxis per routine ID:antifungal medication and started and prognosis is poor Renal; urine out put and renal funtion reviewed Endorcine: blood glucose is monitored Lines: all lines checked and no evidence of infections Skin: skin care to prevent pressure ulcers per nursing routine care I have discussed with the family at the bedside and told him about poor prognosis. I spent 35 min of Critical Care time with this patient. It involved decision making of high complexity to assess, manipulate, and support vital organ system failure and/or to prevent further life threatening deterioration of the patient' s condition. The time involved in the performance of separately reportable procedures was not counted toward critical care time.
[2016-11-11] MEDS ORDERED: Micafungin 100 MG in 0.9 % Sodium Chloride 100 ML IVPB SCH ×2 (07:35→09:00)
[2016-11-11] MEDS: Budesonide/Formoterol 160/4.5 MDI IH SCH ×2 (07:48→19:38)
[2016-11-11] MEDS: Nicotine 7 MG PATCH.TD24 TD SCH (07:57)
[2016-11-11] MEDS: Famotidine 20 MG/2 ML VIAL IVP SCH (07:57)
[2016-11-11] MEDS: Chlorhexidine Rinse 15 ML MOUTHWASH MM SCH ×2 (07:57→20:21)
[2016-11-11 09:50] LABS: ABG Base Excess -0.4 mEq/L (-2.0 to 3.0); ABG HCO3 26.2 mEQ/L (21-27); ABG Oxygen Saturation 100 % (95-98); ABG PCO2 52 mmHg (35-45); ABG PH 7.31 pH Units (7.32-7.45); ABG PO2 185 mmHg (85-104); ABG TCO2 27.8 mEq/L (20-26)
[2016-11-11 09:51] LABS: Blood Gas FiO2 80 %
--- NOTE | 2016-11-11 11:31 | Nephrology Progress Note ---
Date of Encounter: 11/11/16 Time of Encounter: 11:30 - Assessment and Plan (1) BJORN (acute kidney injury) Current Visit: Yes Status: Acute Kidney function continues to worsen Patient was re-intubated early this am and Levo was started. Was planning for HD today however will discuss with Dr Newberry change in condition today Palliative team has been consulted (2) Acute respiratory failure with hypoxia and hypercapnia Current Visit: Yes Status: Acute per pulmonary team (3) Cardiomyopathy Current Visit: Yes Status: Acute per cardiology team Qualifiers: Cardiomyopathy type: unspecified Qualified Code(s): I42.9 - Cardiomyopathy , unspecified (4) Candidemia Current Visit: Yes Status: Acute on anti-fungal per primary team (5) Cardiac arrest Current Visit: Yes Status: Acute per cardiology team Subjective Principal diagnosis: Cardiac Arrest Interval history: Patient seen and examined. Intubated and sedated. Objective - Vital Signs Vital signs: Vital Signs Temp Pulse Resp BP Pulse Ox 11/11/16 11:00 115 18 109/45 100 11/11/16 10:00 110 18 112/49 100 11/11/16 09:30 18 104/42 100 11/11/16 09:00 110 18 112/49 100 11/11/16 08:00 112 18 99/50 100 11/11/16 07:48 18 109/51 100 11/11/16 07:29 99.5 F 11/11/16 07:00 99.5 F 115 18 106/47 100 11/11/16 06:00 144 18 94/49 100 11/11/16 05:00 98.7 F 137 18 85/45 100 11/11/16 04:48 18 88/52 100 11/11/16 04:05 40 92 11/11/16 04:00 118 40 81/52 93 11/11/16 03:00 151 41 112/45 91 11/11/16 01:54 114 32 81/51 94 11/11/16 01:00 113 41 83/57 94 11/11/16 00:44 31 96/52 94 11/11/16 00:00 112 30 93/54 89 11/10/16 23:00 98.1 F 112 31 93/54 88 11/10/16 22:00 115 24 92/56 92 11/10/16 21:00 115 20 102/54 94 11/10/16 20:38 98.1 F 11/10/16 20:00 109 20 98/61 92 11/10/16 19:00 112 18 96/73 92 11/10/16 18:00 96.9 F L 106 18 115/79 11/10/16 17:00 96.4 F L 105 18 100/90 95 11/10/16 16:00 94.5 F L 93 16 91/65 94 11/10/16 15:55 22 94 11/10/16 15:00 93 20 132/73 94 11/10/16 14:00 93 22 118/63 94 11/10/16 13:00 124 22 103/67 92 11/10/16 12:00 96 22 109/86 93 11/10/16 11:54 96.6 F L Intake and Output 11/10/16 11/11/16 11/11/16 23:59 07:59 15:59 Intake Total 110 / 110 153 / 153 699 / 699 Output Total 500 / 500 175 / 175 0 / 0 Balance -390 / -390 -22 / -22 699 / 699 Intake: IV Fluids 110 / 110 153 / 153 699 / 699 PRECEDEX Premix 400 mcg 0 / 0 70 / 70 In 100 ml @ 0.2 MCG/KG/HR 3.502 mls/hr IVC .Q24H JOSY Rx#:[id number] FentaNYL (PF) 3,000 MCG 0 / 0 70 / 70 In 0.9 % Sodium Chloride 240 ML @ 50 MCG/HR 5 mls/ hr IVC CONT JOSY Rx#: [id number] Levophed 4 MG In Dextrose 153 / 153 150 / 150 5% 250 ML @ 8 MCG/MIN 30 .48 mls/hr IVC CONT JOSY Rx#:[id number] Magnesium Sulfate 2 GM In 104 / 104 Dextrose 5% 100 ML @ 50 mls/hr IVPB Q6H PRN Rx#: [id number] Potassium Chloride 20 mEq 200 / 200 /100 mL 40 meq In 200 ml @ 100 mls/hr IVPB Q1H PRN Rx#:[id number] Keppra 500 MG In 0.9 % 110 / 110 105 / 105 Sodium Chloride 100 ML @ 400 mls/hr IVPB BID JOSY Rx#:[id number] Oral 0 / 0 0 / 0 Output: Catheter 500 / 500 175 / 175 0 / 0 Other: Weight 67.9 kg Blood Glucose* 132 144 - General Appearance General appearance: Present: cachectic, moderate distress, chronically ill EENT: Present: ATNC Neck: Present: supple Respiratory: Present: rales, course breath sounds, rhonchi Cardiology: Present: no edema, normal S1, normal S2 Dialysis Vascular Access: Venous Catheter Gastrointestinal: Present: no tenderness, no guarding Integumentary: Present: warm and dry - Lab 11/11/16 04:20 11/11/16 04:20 Most recent lab results ABG pH 7.31 pH Units (7.32-7.45) L D 11/11/16 09:38 ABG pCO2 52 mmHg (35-45) H 11/11/16 09:38 ABG pO2 185 mmHg (85-104) H 11/11/16 09:38 ABG HCO3 26.2 mEQ/L (21-27) 11/11/16 09:38 ABG O2 Saturation 100 % (95-98) H 11/11/16 09:38 Calcium 9.5 mg/dL (8.6-10.8) 11/11/16 04:20 Phosphorus 4.8 mg/dL (2.3-4.7) H 11/11/16 04:20 Magnesium 1.7 mg/dL (1.6-2.6) 11/11/16 04:20 Urine Creatinine 13 mg/dL 11/09/16 10:25 Urine Sodium 111.0 mEq/L 11/09/16 10:25 Urine Total Protein 14 mg/dL (1-14) 11/09/16 10:25 - VTE Documentation of Mechanical Device: Intermittent pneumatic compression device Consult Discharge Plan - Plan Referrals: Norris Bonner MD [Primary Care Provider] -
--- NOTE | 2016-11-11 11:43 | Palliative - Consult Note ---
Date of Encounter: 11/11/16 Time of Encounter: 11:30 Palliative-CN HPI - Data of Consult Requesting Physician: Lincoln Goodman MD Primary Care Provider: Norris Bonner MD - Consult Narrative History of present illness: Mr. Avalos is a 60 year old male CC: Lincoln Goodman MD 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) - Social History Smoking Status: Current every day smoker Smokeless Tobacco Status: No Alcohol use: none Drug use: none - Family History Mother History Unknown: Yes Father History Unknown: Yes Medications and Allergies Atorvastatin [Lipitor] 10 mg PO HS 08/16/16 [History] Budesonide/Formoterol 160/4.5 [Symbicort 160/4.5] 2 puff IH BIDR 08/16/16 [ History] Insulin Glargine [Lantus] 14 unit SQ HS 08/16/16 [History] Ipratropium/Albuterol Sulfate [Combivent Respimat Inhal [place]] 1 puff IH Q6H 05/30 [History] Megestrol Acetate [Megace] 800 mg PO BID 08/16/16 [History] Multivit with Calcium,Iron,Min [Essential Daily] 1 each PO DAILY 08/16/16 [ History] Omeprazole [PriLOSEC] 40 mg PO DAILY 08/16/16 [History] Potassium Chloride [Klor-Con 10] 10 meq PO DAILY 08/16/16 [History] Insulin ASPART [NovoLOG] 7 unit SQ TIDWM 11/01/16 [History] Loperamide [Imodium] 2 mg PO Q4HR PRN 11/01/16 [History] Ondansetron HCl [Zofran] 8 mg PO TID PRN 11/01/16 [History] Aspirin [Lo-Dose Aspirin EC] 81 mg PO DAILY 11/02/16 [History] Bacillus Coagulans/Inulin [Probiotic with Prebiotic Caps] 1 each PO DAILY [History] Citalopram [CeleXA] 20 mg PO DAILY 11/02/16 [History] Gabapentin [Neurontin] 600 mg PO TID 11/02/16 [History] LevETIRAcetam [Keppra] 500 mg PO BID 11/02/16 [History] Lidocaine 4% CRM (LMX) [Lmx 4] 1 gm TP BID 11/02/16 [History] Nut.tx.gluc.intoler,Lac-Fr,Soy [Glytrol] 1,000 ml PO DAILY 11/02/16 [History] OxyCODONE/APAP 5/325 [Percocet 5/325 MG] 1 each PO Q6HR PRN 11/02/16 [History] 3 Allergy/AdvReac Type Severity Reaction Status Date / Time codeine Allergy Rash Verified 11/02/16 11:18 Palliative Care-Exam - Constitutional Vitals: Temp Pulse Resp BP Pulse Ox 99.5 F 115 18 109/45 100 11/11/16 07:29 11/11/16 11:00 11/11/16 11:00 11/11/16 11:00 11/11/16 11:00 Internal Medicine - CN: Reslt - Labs CBC & Chem 7: 11/11/16 04:20 11/11/16 04:20 Labs: Short CBC 11/11/16 Range/Units 04:20 WBC 13.7 H (4.3-11.1) K/mcL Hgb 9.1 L (12.9-16.9) g/dL Hct 29.0 L (37.5-50.1) % Plt Count 130 L (140-400) K/mcL Neutrophils # 12.3 H (1.6-8.9) K/mcL BMP 11/11/16 04:20 Sodium 148 H Potassium 3.5 Chloride 109 Carbon Dioxide 20 BUN 46 H Creatinine 4.38 H Glucose 165 H Calcium 9.5 - ABG Interpretation ABG results: ABG ABG pH 7.31 pH Units (7.32-7.45) L D 11/11/16 09:38 ABG pCO2 52 mmHg (35-45) H 11/11/16 09:38 ABG pO2 185 mmHg (85-104) H 11/11/16 09:38 ABG O2 Saturation 100 % (95-98) H 11/11/16 09:38 PT/INR, D-dimer PT 12.3 Seconds (9.4-12.1) H 11/10/16 04:04 - Impressions Impressions Chest X-Ray 11/11/16 04:20 IMPRESSION: Persistent bilateral airspace opacities are noted, worse on the right with small bilateral pleural effusions. Findings could be related to edema or pneumonia. D/ / Maris Briones MD / Maris Briones MD Interpreting Provider: Maris Briones MD Chest X-Ray 11/11/16 04:52 IMPRESSION: The tip of the ET tube is 12.9 cm above the cody and further advancement is recommended by 10 cm. The side hole of the enteric tube is seen within the distal esophagus. Recommend further advancement. Diffuse bilateral airspace opacities, worse on the right with small bilateral pleural effusions are noted. The findings were sent to the Radiology Results Communication [facility] at 5:23 am on 11/11/2016to be communicated to a licensed caregiver. D/ / Maris Briones MD / Maris Briones MD Interpreting Provider: Maris Briones MD X-Ray 11/11/16 04:52 IMPRESSION: 1. Advancement of the endotracheal tube, now in satisfactory position. 2. Advancement of the gastric tube with the tip in the gastric fundus in the sideport in the fundus just beyond the gastroesophageal junction. Consider further advancement. 3. Unchanged patchy airspace opacities more prominent on the right with superimposed interstitial opacities. Considerations include asymmetric pulmonary edema or multifocal pneumonia. 4. Unchanged bilateral effusions larger on the right with underlying bibasilar atelectasis and/or pneumonia. D/ / Faheem Syed MD / Faheem Syed MD Interpreting Provider: Faheem Syed MD Chest X-Ray 11/11/16 05:42 IMPRESSION: 1. Advancement of the endotracheal tube, now in satisfactory position. 2. Advancement of the gastric tube with the tip in the gastric fundus in the sideport in the fundus just beyond the gastroesophageal junction. Consider further advancement. 3. Unchanged patchy airspace opacities more prominent on the right with superimposed interstitial opacities. Considerations include asymmetric pulmonary edema or multifocal pneumonia. 4. Unchanged bilateral effusions larger on the right with underlying bibasilar atelectasis and/or pneumonia. D/ / Faheem Syed MD / Faheem Syed MD Interpreting Provider: Faheem Syed MD Chest X-Ray 11/11/16 06:23 IMPRESSION: 1. Advancement of the endotracheal tube, now in satisfactory position. 2. Advancement of the gastric tube with the tip in the gastric fundus in the sideport in the fundus just beyond the gastroesophageal junction. Consider further advancement. 3. Unchanged patchy airspace opacities more prominent on the right with superimposed interstitial opacities. Considerations include asymmetric pulmonary edema or multifocal pneumonia. 4. Unchanged bilateral effusions larger on the right with underlying bibasilar atelectasis and/or pneumonia. D/ / Faheem Syed MD / Faheem Syed MD Interpreting Provider: Faheem Syed MD Consult Discharge Plan - Plan Referrals: Norris Bonner MD [Primary Care Provider] - Palliative Quality Code Status: 11/02/16 03:04 Resuscitation Status: Active [RES] Routine Comment: Resuscitation Status: Full Code
[2016-11-11] MEDS ORDERED: Micafungin 100 MG in 0.9 % Sodium Chloride Mini Bag 100 ML IVPB SCH (12:15)
--- NOTE | 2016-11-11 13:35 | Palliative - Consult Note ---
Date of Encounter: 11/11/16 Time of Encounter: 12:35 - Assessment and Plan (1) Lactic acidosis Current Visit: Yes Status: Acute Assessment and plan: This is in all likelihood secondary to sepsis complicated by acute respiratory failure with hypoxemia and hypercapnia. She is getting treatment for this, and per intensive care team. (2) Goals of care, counseling/discussion Current Visit: Yes Status: Acute Assessment and plan: Discussed with patient's family this afternoon she will remain a full code. Medical power of civil litigation attorney was not present for this discussion. Overall goal was for the patient to try to return back to [facility] where he came from in the first place. The patient was originally there because of a fractured hip in rehabilitation for that. Family is aware that the patient has made a major turn for the worse secondary to candidemia, and respiratory failure that has required that he be reintubated. Also on pressors for the sepsis. We will continue to have conversations with the family. (3) Candidemia Current Visit: Yes Status: Acute Assessment and plan: Per the intensive care team patient is being treated for this. One blood culture positive for candidemia as well as sputum and urine. Palliative-CN HPI - Data of Consult Patient: new to practice Requesting Physician: Lincoln Goodman MD Primary Care Provider: Norris Bonner MD - Consult Narrative Palliative Care/Comfort Measures: Palliative care History of present illness: Mr. Avalos is a 60 year old male The patient is a very brittle diabetic, for cardiac arrest after having an extreme hypoglycemic episode at the assisted where he resides. The cardiac arrest was thought to be secondary to aspiration. Was found to be in hypoxemic hypercapnic respiratory failure in the history of COPD, he also had metabolic acidosis secondary to lactate and chronic kidney disease. As already noted the patient has a very brittle diabetes, and he was also hypoglycemic and on top of that he also had urinary tract infection. The patient did survive initial resuscitation was intubated and was doing okay the patient did manage to get extubated yesterday, had problems with vomiting and probable aspiration respiratory distress again BiPAP was unable to relieve this and he required reintubation. This period of time he also required surgeries and is been discovered the patient does have anemia. He has positive culture for Neli in the blood, he also has positive Neli in the sputum in the urine. He is being treated aggressively for this. Throughout this the patient has been a full code. Palliative care was consulted as the patient is doing worse now wiring reintubation out with lactic acid trending upwards with his sepsis, which is felt to be secondary to candidemia. And his overall problems with hypoxemic hypercapnic respiratory failure. The patient has also had kidney function worsened to the point of requiring hemodialysis. Palliative care was requested to discuss with family further goals of care given the patient's for the worse. CC: Lincoln Goodman MD Cardiac arrest 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) - Social History Smoking Status: Current every day smoker Smokeless Tobacco Status: No Alcohol use: none Drug use: none - Family History Mother History Unknown: Yes Father History Unknown: Yes Medications and Allergies Atorvastatin [Lipitor] 10 mg PO HS 08/16/16 [History] Budesonide/Formoterol 160/4.5 [Symbicort 160/4.5] 2 puff IH BIDR 08/16/16 [ History] Insulin Glargine [Lantus] 14 unit SQ HS 08/16/16 [History] Ipratropium/Albuterol Sulfate [Combivent Respimat Inhal [place]] 1 puff IH Q6H 05/30 [History] Megestrol Acetate [Megace] 800 mg PO BID 08/16/16 [History] Multivit with Calcium,Iron,Min [Essential Daily] 1 each PO DAILY 08/16/16 [ History] Omeprazole [PriLOSEC] 40 mg PO DAILY 08/16/16 [History] Potassium Chloride [Klor-Con 10] 10 meq PO DAILY 08/16/16 [History] Insulin ASPART [NovoLOG] 7 unit SQ TIDWM 11/01/16 [History] Loperamide [Imodium] 2 mg PO Q4HR PRN 11/01/16 [History] Ondansetron HCl [Zofran] 8 mg PO TID PRN 11/01/16 [History] Aspirin [Lo-Dose Aspirin EC] 81 mg PO DAILY 11/02/16 [History] Bacillus Coagulans/Inulin [Probiotic with Prebiotic Caps] 1 each PO DAILY [History] Citalopram [CeleXA] 20 mg PO DAILY 11/02/16 [History] Gabapentin [Neurontin] 600 mg PO TID 11/02/16 [History] LevETIRAcetam [Keppra] 500 mg PO BID 11/02/16 [History] Lidocaine 4% CRM (LMX) [Lmx 4] 1 gm TP BID 11/02/16 [History] Nut.tx.gluc.intoler,Lac-Fr,Soy [Glytrol] 1,000 ml PO DAILY 11/02/16 [History] OxyCODONE/APAP 5/325 [Percocet 5/325 MG] 1 each PO Q6HR PRN 11/02/16 [History] 3 Allergy/AdvReac Type Severity Reaction Status Date / Time codeine Allergy Rash Verified 11/02/16 11:18 ROS unobtainable: due to mental status Palliative Care-Exam - Constitutional Vitals: Temp Pulse Resp BP Pulse Ox 99.8 F H 118 22 104/48 97 11/11/16 12:00 11/11/16 13:00 11/11/16 13:00 11/11/16 13:00 11/11/16 13:00 General appearance: Present: no acute distress (However is sedated on vent) - Head Head Exam: Present: atraumatic, normal inspection - Eye Eye exam: Present: normal appearance - ENT ENT exam: Present: mucous membranes moist (Tracheal tube is in place and the one on the right side) - Neck Neck exam: Absent: normal inspection (Endotracheal tube is in place central line on the right side) - Respiratory Respiratory exam: Present: decreased breath sounds (Sedated on vent) - Cardiovascular Cardiovascular exam: Present: RRR, tachycardia - GI/Abdominal Exam GI/Abdominal exam: Present: diminished bowel sounds, soft. Absent: tenderness - Catheter Type: Urethral ([place]) - Extremities Exam Extremities exam: Absent: pedal edema, tenderness - Neurological Exam Neurological exam: Present: altered (Sedated on vent) - Psychiatric Psychiatric exam: Absent: agitated, anxious - Skin Skin exam: Present: dry, warm Internal Medicine - CN: Reslt - Labs CBC & Chem 7: 11/11/16 04:20 11/11/16 04:20 Labs: Short CBC 11/11/16 Range/Units 04:20 WBC 13.7 H (4.3-11.1) K/mcL Hgb 9.1 L (12.9-16.9) g/dL Hct 29.0 L (37.5-50.1) % Plt Count 130 L (140-400) K/mcL Neutrophils # 12.3 H (1.6-8.9) K/mcL BMP 11/11/16 04:20 Sodium 148 H Potassium 3.5 Chloride 109 Carbon Dioxide 20 BUN 46 H Creatinine 4.38 H Glucose 165 H Calcium 9.5 - ABG Interpretation ABG results: ABG ABG pH 7.31 pH Units (7.32-7.45) L D 11/11/16 09:38 ABG pCO2 52 mmHg (35-45) H 11/11/16 09:38 ABG pO2 185 mmHg (85-104) H 11/11/16 09:38 ABG O2 Saturation 100 % (95-98) H 11/11/16 09:38 PT/INR, D-dimer PT 12.3 Seconds (9.4-12.1) H 11/10/16 04:04 - Impressions Impressions Chest X-Ray 11/11/16 04:20 IMPRESSION: Persistent bilateral airspace opacities are noted, worse on the right with small bilateral pleural effusions. Findings could be related to edema or pneumonia. D/ / Maris Briones MD / Maris Briones MD Interpreting Provider: Maris Briones MD Chest X-Ray 11/11/16 04:52 IMPRESSION: The tip of the ET tube is 12.9 cm above the cody and further advancement is recommended by 10 cm. The side hole of the enteric tube is seen within the distal esophagus. Recommend further advancement. Diffuse bilateral airspace opacities, worse on the right with small bilateral pleural effusions are noted. The findings were sent to the Radiology Results Communication Center at 5:23 am on 11/11/2016to be communicated to a licensed caregiver. D/ / Maris Briones MD / Marsi Briones MD Interpreting Provider: Maris Briones MD X-Ray 11/11/16 04:52 IMPRESSION: 1. Advancement of the endotracheal tube, now in satisfactory position. 2. Advancement of the gastric tube with the tip in the gastric fundus in the sideport in the fundus just beyond the gastroesophageal junction. Consider further advancement. 3. Unchanged patchy airspace opacities more prominent on the right with superimposed interstitial opacities. Considerations include asymmetric pulmonary edema or multifocal pneumonia. 4. Unchanged bilateral effusions larger on the right with underlying bibasilar atelectasis and/or pneumonia. D/ / Faheem Syed MD / Faheem Syed MD Interpreting Provider: Faheem Syed MD Chest X-Ray 11/11/16 05:42 IMPRESSION: 1. Advancement of the endotracheal tube, now in satisfactory position. 2. Advancement of the gastric tube with the tip in the gastric fundus in the sideport in the fundus just beyond the gastroesophageal junction. Consider further advancement. 3. Unchanged patchy airspace opacities more prominent on the right with superimposed interstitial opacities. Considerations include asymmetric pulmonary edema or multifocal pneumonia. 4. Unchanged bilateral effusions larger on the right with underlying bibasilar atelectasis and/or pneumonia. D/ / Faheem Syed MD / Faheem Syed MD Interpreting Provider: Faheem Syed MD Chest X-Ray 11/11/16 06:23 IMPRESSION: 1. Advancement of the endotracheal tube, now in satisfactory position. 2. Advancement of the gastric tube with the tip in the gastric fundus in the sideport in the fundus just beyond the gastroesophageal junction. Consider further advancement. 3. Unchanged patchy airspace opacities more prominent on the right with superimposed interstitial opacities. Considerations include asymmetric pulmonary edema or multifocal pneumonia. 4. Unchanged bilateral effusions larger on the right with underlying bibasilar atelectasis and/or pneumonia. D/ / Faheem Syed MD / Faheem Syed MD Interpreting Provider: Faheem Syed MD Consult Discharge Plan - Plan Referrals: Norris Bonner MD [Primary Care Provider] - Palliative Quality Palliative Quality: Screen for Code Status: Yes, Screen for Goals of Care: Yes, Screen for Pain: Yes, If Pain Regimen Started, Initiate Bowel Regimen: Yes, Screen for Nausea/Vomitting: Yes Code Status: 11/02/16 03:04 Resuscitation Status: Active [RES] Routine Comment: Resuscitation Status: Full Code
[2016-11-11 15:22] LABS: Albumin/Globulin Ratio 0.5 (1.1-2.2); Bilirubin,Total 0.9 mg/dL (0.2-1.2); Calcium 9.2 mg/dL (8.6-10.8); Globulin 3.6 g/dL (2.4-3.5); Potassium 3.7 mEq/L (3.5-4.5); Total Protein 5.4 g/dL (6.0-8.3)
[2016-11-11 15:23] LABS: Albumin 1.8 g/dL (3.5-5.0)
[2016-11-11 15:56] LABS: Magnesium 2.2 mg/dL (1.6-2.6)
[2016-11-11] MEDS: Bisacodyl 10 MG RECTAL SUPPOSITORY RC SCH (20:16)
[2016-11-12] MEDS: Norepinephrine 4 MG in D5% in Water 250 ML IVC SCH ×2 (00:56→09:40)
[2016-11-12 03:18] LABS: Hematocrit 28.5 % (37.5-50.1); Mean Corpuscular HGB Conc 31.6 g/dL (31.6-35.5); Mean Corpuscular Hemoglobin 28.6 pg (28.0-33.3); Mean Corpuscular Volume 90.5 fL (83.0-100.0); Mean Platelet Volume 10.5 fL (9.4-12.4); Nucleated Red Blood Cells 0.1 /100 WBC (0); Platelet Count 178 K/mcL (140-400); Red Blood Count 3.15 M/mcL (4.19-5.50); Red Cell Distribution Width 15.1 % (11.5-14.5)
[2016-11-12 03:22] LABS: Ionized Calcium 1.21 mmol/L (1.15-1.35)
[2016-11-12] MEDS: Ipratropium/Albuterol Neb 3 ML IH SCH ×6 (03:25→23:54)
[2016-11-12 03:30] LABS: Magnesium 1.9 mg/dL (1.6-2.6); Phosphorous 4.7 mg/dL (2.3-4.7)
[2016-11-12 03:32] LABS: Albumin/Globulin Ratio 0.5 (1.1-2.2); Bilirubin,Total 1.2 mg/dL (0.2-1.2); Calcium 9.1 mg/dL (8.6-10.8); Globulin 3.5 g/dL (2.4-3.5); Total Protein 5.1 g/dL (6.0-8.3)
[2016-11-12 03:35] LABS: Albumin 1.6 g/dL (3.5-5.0); Potassium 4.8 mEq/L (3.5-4.5)
[2016-11-12] MEDS: Lacri-Lube 3.5 GM TUBE BOTH EYES SCH ×6 (03:37→23:14)
[2016-11-12] MEDS: Insulin LISPRO 300 UNITS/3 ML VIAL SQ SCH ×6 (03:37→23:14)
[2016-11-12 03:48] LABS: Lymphocytes # 1.1 K/mcL (0.6-4.6); Monocytes # 0.6 K/mcL (0.0-1.3); Neutrophils # 12.1 K/mcL (1.6-8.9)
[2016-11-12 03:49] LABS: Platelet Estimate Normal (Normal); Toxic Granulation Present (Not Present)
[2016-11-12 03:57] LABS: Dohle Bodies Present (Not Present); Hypochromasia Present (Not Present); Large Platelets Present (Not Present)
[2016-11-12] MEDS: *HR* Heparin 5,000 UNIT/ML VIAL SQ SCH ×3 (05:19→23:13)
[2016-11-12 05:53] LABS: ABG Base Excess -1.7 mEq/L (-2.0 to 3.0); ABG HCO3 24.3 mEQ/L (21-27); ABG Oxygen Saturation 98 % (95-98); ABG PCO2 46 mmHg (35-45); ABG PH 7.33 pH Units (7.32-7.45); ABG PO2 119 mmHg (85-104); ABG TCO2 25.7 mEq/L (20-26); Blood Gas FiO2 60 %
[2016-11-12 07:32] LABS: Complement Component 3 65 mg/dL (88-201); Complement Component 4 18 mg/dL (10-40)
[2016-11-12] MEDS: Budesonide/Formoterol 160/4.5 MDI IH SCH ×2 (07:37→19:36)
--- NOTE | 2016-11-12 08:52 | Pulmonology Progress Note ---
<Tejas Hernandes - Last Filed: 11/12/16 14:00> Date of Encounter: 11/12/16 Time of Encounter: 09:45 Assessment and Plan (1) Sepsis Current Visit: Yes Status: Acute Lactic acid pending today. Anion Gap = 14 Patient continues to have leukocytosis with WBC = 13.7, tachycardic, on mechanical ventilator. Continue with Micafungin 100mg daily Monitor with VS and a.m. labs Cadidemia likely from HD catheter. We will consider catheter removal and tip culture depending on patient's code status. Palliative met with patient today and they have changed his status for DNR - CCA , but family states that they will change code status depending on patient's progress. Family wishes to gradually decrease sedation in hopes that patient's mental status will improve. Qualifiers: Sepsis type: Neli Qualified Code(s): B37.7 - Candidal sepsis (2) Candidemia Current Visit: Yes Status: Acute Continue with Micafungin 100mg daily and a.m. labs. Plan per #1 Nephrology states OK to remove HD catheter and tip culture if necessary, and introduce new catheter if patient continues to require hemodyalisis. (3) Cardiac arrest Current Visit: Yes Status: Acute (4) Acute respiratory failure with hypoxia and hypercapnia Current Visit: Yes Status: Acute Patient is intubated. CXR today shows intubation tube >2cm above the cody. Readjusted tube. CXR tomorrow morning to recheck tube placement. Plan per #1 (5) Cardiomyopathy Current Visit: Yes Status: Acute Plan per cardiology. Flat troponin elevation is likely related to respiratory failure with arrest. Ischemic evaluation will be done once kidney and respiratory status improves. Continue ASA and BB. Qualifiers: Cardiomyopathy type: unspecified Qualified Code(s): I42.9 - Cardiomyopathy , unspecified (6) COPD (chronic obstructive pulmonary disease) Current Visit: No Status: Chronic Qualifiers: COPD type: unspecified COPD Qualified Code(s): J44.9 - Chronic obstructive pulmonary disease, unspecified (7) Lactic acidosis Current Visit: Yes Status: Acute (8) BJORN (acute kidney injury) Current Visit: Yes Status: Acute Acute AGMA with non-GAP acidosis with worsening renal function. Nephrology is following - UOP nonoliguric. No acute need for dialysis. They recommend to caution with diuretics and adjust medications for renal function. Repeat UA continues to show yeast infection. We will continue to monitor kidney function. Patient is on mechanical ventilation. (9) Hyperphosphatemia Current Visit: Yes Status: Acute Calcium levels are normal and stable. Continue IVF for now. (10) Leukocytosis Current Visit: Yes Status: Acute Qualifiers: Qualified Code(s): D72.828 - Other elevated white blood cell count (11) Bandemia Current Visit: Yes Status: Acute Subjective Principal diagnosis: Cardiac Arrest Objective PUL Vital signs: Last Vital Signs Temp 99.2 F 11/12/16 07:47 Pulse 113 11/12/16 08:23 Resp 20 11/12/16 08:00 BP 134/57 11/12/16 08:00 Pulse Ox 98 11/12/16 08:00 General appearance: other (sedated on ventilation and intubated. Unresponsive. ) Eyes: nonicteric Effort: other (Patient is intubated) Auscultation: bilateral: clear Cardiovascular: other (distant heart sounds) Gastrointestinal: absent bowel sounds, non-distended Extremities: cool, other (weak radial pulses bilaterally) Musculoskeletal: no deformities normal mental status, non-focal exam mood appropriate, affect normal Ventilator Settings Ventilator Settings: Ventilator Settings, Last 8 Hours Ventilator Mode VC+ Ventilator Mode VC+ Ventilator Mode VC+ Ventilator Mode VC+ Ventilator Mode VC+ Ventilator Mode VC+ Ventilator Mode VC+ Ventilator Mode VC+ Ventilator Mode VC+ Ventilator Mode VC+ Ventilator Mode VC+ Ventilator Mode VC+ Ventilator Tidal Volume 550 Setting Ventilator Tidal Volume 550 Setting Ventilator Tidal Volume 550 Setting Ventilator Tidal Volume 550 Setting Ventilator Tidal Volume 550 Setting Ventilator Tidal Volume 550 Setting Ventilator Tidal Volume 550 Setting Ventilator Tidal Volume 550 Setting Ventilator Tidal Volume 550 Setting Ventilator Tidal Volume 550 Setting Ventilator Tidal Volume 550 Setting Ventilator Tidal Volume 550 Setting Ventilator Respiratory Rate 18 Setting Ventilator Respiratory Rate 18 Setting Ventilator Respiratory Rate 18 Setting Ventilator Respiratory Rate 18 Setting Ventilator Respiratory Rate 18 Setting Ventilator Respiratory Rate 18 Setting Ventilator Respiratory Rate 18 Setting Ventilator Respiratory Rate 18 Setting Ventilator Respiratory Rate 18 Setting Ventilator Respiratory Rate 18 Setting Ventilator Respiratory Rate 18 Setting Ventilator Respiratory Rate 18 Setting Actual Respiratory Rate 20 Actual Respiratory Rate 20 Actual Respiratory Rate 20 Actual Respiratory Rate 20 Actual Respiratory Rate 18 Actual Respiratory Rate 18 Actual Respiratory Rate 18 Actual Respiratory Rate 20 Actual Respiratory Rate 20 Actual Respiratory Rate 19 Actual Respiratory Rate 21 Positive End Expiratory 5 Pressure Positive End Expiratory 5 Pressure Positive End Expiratory 5 Pressure Positive End Expiratory 5 Pressure Positive End Expiratory 5 Pressure Positive End Expiratory 5 Pressure Positive End Expiratory 5 Pressure Positive End Expiratory 5 Pressure Positive End Expiratory 5 Pressure Positive End Expiratory 5 Pressure Positive End Expiratory 5 Pressure Positive End Expiratory 5 Pressure Peak Inspiratory Airway 26 Pressure Peak Inspiratory Airway 26 Pressure Peak Inspiratory Airway 24 Pressure Peak Inspiratory Airway 24 Pressure Peak Inspiratory Airway 23 Pressure Peak Inspiratory Airway 23 Pressure Peak Inspiratory Airway 23 Pressure Peak Inspiratory Airway 23 Pressure Peak Inspiratory Airway 23 Pressure Peak Inspiratory Airway 23 Pressure Peak Inspiratory Airway 19 Pressure Results - Laboratory Findings CBC and BMP: 11/12/16 03:00 11/12/16 03:00 ABG ABG pH 7.33 pH Units (7.32-7.45) 11/12/16 05:45 ABG pCO2 46 mmHg (35-45) H 11/12/16 05:45 ABG pO2 119 mmHg (85-104) H 11/12/16 05:45 ABG O2 Saturation 98 % (95-98) 11/12/16 05:45 PT/INR, D-dimer PT 12.3 Seconds (9.4-12.1) H 11/10/16 04:04 Abnormal lab findings: Abnormal lab results WBC 13.7 K/mcL (4.3-11.1) H 11/12/16 03:00 RBC 3.15 M/mcL (4.19-5.50) L 11/12/16 03:00 Hgb 9.0 g/dL (12.9-16.9) L 11/12/16 03:00 Hct 28.5 % (37.5-50.1) L 11/12/16 03:00 RDW 15.1 % (11.5-14.5) H 11/12/16 03:00 Band Neutrophils % 16.0 % (0-4) H 11/12/16 03:00 Metamyelocytes % 2.0 % (0) H 11/02/16 03:18 Myelocytes % 2.0 % (0) H 11/03/16 11:30 Neutrophils # 12.1 K/mcL (1.6-8.9) H 11/12/16 03:00 Nucleated RBCs/100 WBC 0.1 /100 WBC (0) H 11/12/16 03:00 Reactive Lymphocytes Present (Not Present) A 11/04/16 04:40 Toxic Granulation Present (Not Present) A 11/12/16 03:00 Dohle Bodies Present (Not Present) A 11/12/16 03:00 Large Platelets Present (Not Present) A 11/12/16 03:00 Hypochromasia Present (Not Present) A 11/12/16 03:00 Poikilocytosis 1+ (Not Present) A 11/06/16 04:47 Ovalocytes 1+ (Not Present) A 11/06/16 04:47 [place] Cells 1+ (Not Present) A 11/06/16 04:47 PT 12.3 Seconds (9.4-12.1) H 11/10/16 04:04 ABG pCO2 46 mmHg (35-45) H 11/12/16 05:45 ABG pO2 119 mmHg (85-104) H 11/12/16 05:45 VBG pCO2 38 mmHg (41-51) L 11/03/16 07:45 VBG pO2 221 mmHg (25-40) H 11/03/16 07:45 Sodium 146 mEq/L (136-145) H 11/12/16 03:00 Potassium 4.8 mEq/L (3.5-4.5) H D 11/12/16 03:00 BUN 55 mg/dL (8-26) H 11/12/16 03:00 Creatinine 4.87 mg/dL (0.72-1.25) H 11/12/16 03:00 Est GFR ( Amer) 15 (> 60) L 11/12/16 03:00 Est GFR (Non-Af Amer) 12 (> 60) L 11/12/16 03:00 Glucose 186 mg/dL (70-99) H 11/12/16 03:00 POC Glucose 130 (58-89) H 11/11/16 23:16 Calculated Osmolality 322 (280-300) H 11/12/16 03:00 Lactic Acid 2.9 mmol/L (0.5-2.2) H 11/11/16 04:20 Iron 21 mcg/dL (65-175) L 11/09/16 10:25 % Saturation 19 % (20-55) L 11/09/16 10:25 Transferrin 79 mg/dL (174-364) L 11/09/16 10:25 Direct Bilirubin 1.0 mg/dL (0.0-0.5) H 11/10/16 04:04 Alkaline Phosphatase 356 Units/L (38-126) H 11/12/16 03:00 Troponin I 0.17 ng/mL (0-0.03) H* 11/02/16 21:49 Serum Total Protein 5.1 g/dL (6.0-8.3) L 11/12/16 03:00 Albumin 1.6 g/dL (3.5-5.0) L 11/12/16 03:00 Albumin/Globulin Ratio 0.5 (1.1-2.2) L 11/12/16 03:00 Vitamin B12 > 2000 pg/mL (213-816) H 11/09/16 10:25 25-OH Vitamin D Total 9 ng/mL (30-80) L 11/09/16 10:25 Ur Specimen Adequacy See below A 11/02/16 20:24 Ur Specific [place] 1.009 (1.010-1.025) L 11/10/16 09:38 Ur Leukocyte Esterase Trace (Negative) H 11/10/16 09:38 Urine Microscopic RBC 3-5 per hpf (0-3) H 11/10/16 09:38 Urine Microscopic WBC 3-5 per hpf (0-3) H 11/10/16 09:38 Granular Casts Few per lpf (None Seen) H 11/02/16 20:24 Urine Yeast Few per hpf (None Seen) H 11/10/16 09:38 Ur Culture Indicated? YES (NO) A 11/10/16 09:38 Microalb/Creat Ratio 223 (0-30) H 11/09/16 10:25 Protein/Creatinin Ratio 1.08 mg/mg (0-0.20) H 11/09/16 10:25 Complement C3 65 mg/dL (88-201) L 11/09/16 10:25 C. glabrata (PCR) DETECTED (Not Detect) A 11/07/16 13:53 - Microbiology Findings Microbiology Findings: Microbiology, Last 48 Hours 11/09/16 10:25 Urine Culture - Preliminary Urine,Clean Catch Yeast Species 11/10/16 09:38 Urine Culture - Final Urine,Clean Catch No growth. 11/07/16 13:53 Blood Culture - Preliminary Peripheral Venipuncture Neli glabrata - Clinical Findings Intake & Output: Intake & Output 08/11/12/16 11/12/16 23:59 07:59 15:59 Intake Total 445 / 445 134 / 134 Output Total 300 / 300 150 / 150 Balance 145 / 145 -16 / -16 - VTE Documentation of Mechanical Device: Intermittent pneumatic compression device Consult Discharge Plan - Plan Referrals: Norris Bonner MD [Primary Care Provider] - <Rosa MboraKierra nixon - Last Filed: 11/12/16 15:33> Date of Encounter: 11/12/16 Assessment and Plan (1) Acute respiratory failure with hypoxia and hypercapnia Current Visit: Yes Status: Acute (2) Aspiration pneumonia Current Visit: Yes Status: Acute Qualifiers: Aspiration pneumonia type: unspecified Lung location: unspecified part of lung Objective PUL Vital signs: Last Vital Signs Temp 98.3 F 11/12/16 11:55 Pulse 158 11/12/16 14:00 Resp 21 11/12/16 14:00 BP 111/46 11/12/16 14:00 Pulse Ox 100 11/12/16 14:00 Ventilator Settings Ventilator Settings: Ventilator Settings, Last 8 Hours Ventilator Mode VC+ Ventilator Mode VC+ Ventilator Mode VC+ Ventilator Mode VC+ Ventilator Mode VC+ Ventilator Mode VC+ Ventilator Mode VC+ Ventilator Mode VC+ Ventilator Mode VC+ Ventilator Tidal Volume 550 Setting Ventilator Tidal Volume 550 Setting Ventilator Tidal Volume 550 Setting Ventilator Tidal Volume 550 Setting Ventilator Tidal Volume 550 Setting Ventilator Tidal Volume 550 Setting Ventilator Tidal Volume 550 Setting Ventilator Tidal Volume 550 Setting Ventilator Tidal Volume 550 Setting Ventilator Respiratory Rate 18 Setting Ventilator Respiratory Rate 18 Setting Ventilator Respiratory Rate 18 Setting Ventilator Respiratory Rate 18 Setting Ventilator Respiratory Rate 18 Setting Ventilator Respiratory Rate 18 Setting Ventilator Respiratory Rate 18 Setting Ventilator Respiratory Rate 18 Setting Ventilator Respiratory Rate 18 Setting Actual Respiratory Rate 21 Actual Respiratory Rate 22 Actual Respiratory Rate 21 Actual Respiratory Rate 21 Actual Respiratory Rate 21 Actual Respiratory Rate 21 Actual Respiratory Rate 19 Actual Respiratory Rate 20 Actual Respiratory Rate 20 Positive End Expiratory 5 Pressure Positive End Expiratory 5 Pressure Positive End Expiratory 5 Pressure Positive End Expiratory 5 Pressure Positive End Expiratory 5 Pressure Positive End Expiratory 5 Pressure Positive End Expiratory 5 Pressure Positive End Expiratory 5 Pressure Positive End Expiratory 5 Pressure Peak Inspiratory Airway 24 Pressure Peak Inspiratory Airway 22 Pressure Peak Inspiratory Airway 24 Pressure Peak Inspiratory Airway 24 Pressure Peak Inspiratory Airway 24 Pressure Peak Inspiratory Airway 24 Pressure Peak Inspiratory Airway 27 Pressure Peak Inspiratory Airway 26 Pressure Peak Inspiratory Airway 26 Pressure Results - Laboratory Findings CBC and BMP: 11/12/16 03:00 11/12/16 03:00 ABG ABG pH 7.33 pH Units (7.32-7.45) 11/12/16 05:45 ABG pCO2 46 mmHg (35-45) H 11/12/16 05:45 ABG pO2 119 mmHg (85-104) H 11/12/16 05:45 ABG O2 Saturation 98 % (95-98) 11/12/16 05:45 PT/INR, D-dimer PT 12.3 Seconds (9.4-12.1) H 11/10/16 04:04 Abnormal lab findings: Abnormal lab results WBC 13.7 K/mcL (4.3-11.1) H 11/12/16 03:00 RBC 3.15 M/mcL (4.19-5.50) L 11/12/16 03:00 Hgb 9.0 g/dL (12.9-16.9) L 11/12/16 03:00 Hct 28.5 % (37.5-50.1) L 11/12/16 03:00 RDW 15.1 % (11.5-14.5) H 11/12/16 03:00 Band Neutrophils % 16.0 % (0-4) H 11/12/16 03:00 Metamyelocytes % 2.0 % (0) H 11/02/16 03:18 Myelocytes % 2.0 % (0) H 11/03/16 11:30 Neutrophils # 12.1 K/mcL (1.6-8.9) H 11/12/16 03:00 Nucleated RBCs/100 WBC 0.1 /100 WBC (0) H 11/12/16 03:00 Reactive Lymphocytes Present (Not Present) A 11/04/16 04:40 Toxic Granulation Present (Not Present) A 11/12/16 03:00 Dohle Bodies Present (Not Present) A 11/12/16 03:00 Large Platelets Present (Not Present) A 11/12/16 03:00 Hypochromasia Present (Not Present) A 11/12/16 03:00 Poikilocytosis 1+ (Not Present) A 11/06/16 04:47 Ovalocytes 1+ (Not Present) A 11/06/16 04:47 [place] Cells 1+ (Not Present) A 11/06/16 04:47 PT 12.3 Seconds (9.4-12.1) H 11/10/16 04:04 ABG pCO2 46 mmHg (35-45) H 11/12/16 05:45 ABG pO2 119 mmHg (85-104) H 11/12/16 05:45 VBG pCO2 38 mmHg (41-51) L 11/03/16 07:45 VBG pO2 221 mmHg (25-40) H 11/03/16 07:45 Sodium 146 mEq/L (136-145) H 11/12/16 03:00 Potassium 4.8 mEq/L (3.5-4.5) H D 11/12/16 03:00 BUN 55 mg/dL (8-26) H 11/12/16 03:00 Creatinine 4.87 mg/dL (0.72-1.25) H 11/12/16 03:00 Est GFR ( Amer) 15 (> 60) L 11/12/16 03:00 Est GFR (Non-Af Amer) 12 (> 60) L 11/12/16 03:00 Glucose 186 mg/dL (70-99) H 11/12/16 03:00 POC Glucose 130 (58-89) H 11/11/16 23:16 Calculated Osmolality 322 (280-300) H 11/12/16 03:00 Lactic Acid 2.9 mmol/L (0.5-2.2) H 11/11/16 04:20 Iron 21 mcg/dL (65-175) L 11/09/16 10:25 % Saturation 19 % (20-55) L 11/09/16 10:25 Transferrin 79 mg/dL (174-364) L 11/09/16 10:25 Direct Bilirubin 1.0 mg/dL (0.0-0.5) H 11/10/16 04:04 Alkaline Phosphatase 356 Units/L (38-126) H 11/12/16 03:00 Troponin I 0.17 ng/mL (0-0.03) H* 11/02/16 21:49 Serum Total Protein 5.1 g/dL (6.0-8.3) L 11/12/16 03:00 Albumin 1.6 g/dL (3.5-5.0) L 11/12/16 03:00 Albumin/Globulin Ratio 0.5 (1.1-2.2) L 11/12/16 03:00 Vitamin B12 > 2000 pg/mL (213-816) H 11/09/16 10:25 25-OH Vitamin D Total 9 ng/mL (30-80) L 11/09/16 10:25 Ur Specimen Adequacy See below A 11/02/16 20:24 Ur Specific [place] 1.009 (1.010-1.025) L 11/10/16 09:38 Ur Leukocyte Esterase Trace (Negative) H 11/10/16 09:38 Urine Microscopic RBC 3-5 per hpf (0-3) H 11/10/16 09:38 Urine Microscopic WBC 3-5 per hpf (0-3) H 11/10/16 09:38 Granular Casts Few per lpf (None Seen) H 11/02/16 20:24 Urine Yeast Few per hpf (None Seen) H 11/10/16 09:38 Ur Culture Indicated? YES (NO) A 11/10/16 09:38 Microalb/Creat Ratio 223 (0-30) H 11/09/16 10:25 Protein/Creatinin Ratio 1.08 mg/mg (0-0.20) H 11/09/16 10:25 Complement C3 65 mg/dL (88-201) L 11/09/16 10:25 C. glabrata (PCR) DETECTED (Not Detect) A 11/07/16 13:53 - Microbiology Findings Microbiology Findings: Microbiology, Last 48 Hours 11/09/16 10:25 Urine Culture - Preliminary Urine,Clean Catch Yeast Species 11/10/16 09:38 Urine Culture - Final Urine,Clean Catch No growth. 11/07/16 13:53 Blood Culture - Preliminary Peripheral Venipuncture Neli glabrata - Clinical Findings Intake & Output: Intake & Output 11/11/16 11/12/16 11/12/16 23:59 07:59 15:59 Intake Total 445 / 445 134 / 134 354 / 354 Output Total 300 / 300 150 / 150 100 / 100 Balance 145 / 145 -16 / -16 254 / 254 - Attending Attestation I examined this patient and my medical decision-making was reviewed with the Resident Physician. I agree with the documented findings, disposition and treatment plan as described except to the extent set forth below. Patient seen and examined. Labs, radiology, chart personally reviewed. Agree with resident's history and physical, assessment, plan with following comments: [employer]: Patient does not follows commands, Pulmonary: Acceptable oxygenation and ventilation and lowered FiO2 to keep SPO2 around 90% Cardiovascular: Patient remained in shock and significant tachycardia now with cardiomyopathy GI: Nutrition per dietary and GI prophylaxis per routine. Trying trickle feed. Patient not candidate for TPN Heme: DVT prophylaxis per routine ID: Continue antifungal and worsening of lactic acid suggesting Mary mortality Renal; urine out put and renal funtion reviewed Endorcine: blood glucose is monitored Lines: all lines checked and no evidence of infections Skin: skin care to prevent pressure ulcers per nursing routine care Overall prognosis is very poor and discussed this with the family at the bedside. Palliative care seen patient and CODE STATUS changed appropriately.
[2016-11-12] MEDS ORDERED: *HR* Rocuronium Bromide 50 MG/5 ML VIAL IVC ONE (09:05)
[2016-11-12] MEDS ORDERED: *HR* Midazolam HCl 5 MG/5 ML VIAL IVP ONE (09:05)
--- NOTE | 2016-11-12 09:05 | Palliative Progress Note ---
Date of Encounter: 11/12/16 Time of Encounter: 08:40 - Assessment and plan (1) Lactic acidosis Current Visit: Yes Status: Acute Assessment and plan: Slightly improved, secondary to the sepsis. Plan per psychiatric aide instructor team (2) Goals of care, counseling/discussion Current Visit: Yes Status: Acute Assessment and plan: Full code at this time, family meeting planned for 11:00. (3) Candidemia Current Visit: Yes Status: Acute Assessment and plan: On antibiotics, she did have a fever last night, white count has not changed since yesterday but is mildly elevated. - Time Spent With Patient Total time spent is greater than 50% in coordination of care (as documented) at patient's floor/unit and/or counseling patient: - Subjective Interval history: Sedated on vent, events overnight patient has developed a fever continues to be on pressors. And is not currently being fed. - Constitutional Vitals: Abnormal lab results WBC 13.7 K/mcL (4.3-11.1) H 11/12/16 03:00 RBC 3.15 M/mcL (4.19-5.50) L 11/12/16 03:00 Hgb 9.0 g/dL (12.9-16.9) L 11/12/16 03:00 Hct 28.5 % (37.5-50.1) L 11/12/16 03:00 RDW 15.1 % (11.5-14.5) H 11/12/16 03:00 Band Neutrophils % 16.0 % (0-4) H 11/12/16 03:00 Metamyelocytes % 2.0 % (0) H 11/02/16 03:18 Myelocytes % 2.0 % (0) H 11/03/16 11:30 Neutrophils # 12.1 K/mcL (1.6-8.9) H 11/12/16 03:00 Nucleated RBCs/100 WBC 0.1 /100 WBC (0) H 11/12/16 03:00 Reactive Lymphocytes Present (Not Present) A 11/04/16 04:40 Toxic Granulation Present (Not Present) A 11/12/16 03:00 Dohle Bodies Present (Not Present) A 11/12/16 03:00 Large Platelets Present (Not Present) A 11/12/16 03:00 Hypochromasia Present (Not Present) A 11/12/16 03:00 Poikilocytosis 1+ (Not Present) A 11/06/16 04:47 Ovalocytes 1+ (Not Present) A 11/06/16 04:47 Gini Cells 1+ (Not Present) A 11/06/16 04:47 PT 12.3 Seconds (9.4-12.1) H 11/10/16 04:04 ABG pCO2 46 mmHg (35-45) H 11/12/16 05:45 ABG pO2 119 mmHg (85-104) H 11/12/16 05:45 VBG pCO2 38 mmHg (41-51) L 11/03/16 07:45 VBG pO2 221 mmHg (25-40) H 11/03/16 07:45 Sodium 146 mEq/L (136-145) H 11/12/16 03:00 Potassium 4.8 mEq/L (3.5-4.5) H D 11/12/16 03:00 BUN 55 mg/dL (8-26) H 11/12/16 03:00 Creatinine 4.87 mg/dL (0.72-1.25) H 11/12/16 03:00 Est GFR ( Amer) 15 (> 60) L 11/12/16 03:00 Est GFR (Non-Af Amer) 12 (> 60) L 11/12/16 03:00 Glucose 186 mg/dL (70-99) H 11/12/16 03:00 POC Glucose 130 (58-89) H 11/11/16 23:16 Calculated Osmolality 322 (280-300) H 11/12/16 03:00 Lactic Acid 2.9 mmol/L (0.5-2.2) H 11/11/16 04:20 Iron 21 mcg/dL (65-175) L 11/09/16 10:25 % Saturation 19 % (20-55) L 11/09/16 10:25 Transferrin 79 mg/dL (174-364) L 11/09/16 10:25 Direct Bilirubin 1.0 mg/dL (0.0-0.5) H 11/10/16 04:04 Alkaline Phosphatase 356 Units/L (38-126) H 11/12/16 03:00 Troponin I 0.17 ng/mL (0-0.03) H* 11/02/16 21:49 Serum Total Protein 5.1 g/dL (6.0-8.3) L 11/12/16 03:00 Albumin 1.6 g/dL (3.5-5.0) L 11/12/16 03:00 Albumin/Globulin Ratio 0.5 (1.1-2.2) L 11/12/16 03:00 Vitamin B12 > 2000 pg/mL (213-816) H 11/09/16 10:25 25-OH Vitamin D Total 9 ng/mL (30-80) L 11/09/16 10:25 Ur Specimen Adequacy See below A 11/02/16 20:24 Ur Specific [place] 1.009 (1.010-1.025) L 11/10/16 09:38 Ur Leukocyte Esterase Trace (Negative) H 11/10/16 09:38 Urine Microscopic RBC 3-5 per hpf (0-3) H 11/10/16 09:38 Urine Microscopic WBC 3-5 per hpf (0-3) H 11/10/16 09:38 Granular Casts Few per lpf (None Seen) H 11/02/16 20:24 Urine Yeast Few per hpf (None Seen) H 11/10/16 09:38 Ur Culture Indicated? YES (NO) A 11/10/16 09:38 Microalb/Creat Ratio 223 (0-30) H 11/09/16 10:25 Protein/Creatinin Ratio 1.08 mg/mg (0-0.20) H 11/09/16 10:25 Complement C3 65 mg/dL (88-201) L 11/09/16 10:25 C. glabrata (PCR) DETECTED (Not Detect) A 11/07/16 13:53 General appearance: Present: no acute distress (sedated on vent) - Head Head exam: Present: atraumatic, normal inspection - Eye Eye exam: Present: normal appearance - ENT ENT exam: Present: mucous membranes moist - Neck Neck exam: Present: normal inspection - Respiratory Respiratory exam: Present: CTAB - Cardiovascular Cardiovascular exam: Present: RRR - GI/Abdominal GI/Abdominal exam: Present: hypoactive bowel sounds, soft. Absent: tenderness - Extremities Exam Extremities exam: Present: normal inspection. Absent: pedal edema, tenderness - Neurological Exam Neurological exam: Present: altered (Sedated on vent) - Psychiatric Psychiatric exam: Absent: agitated, anxious - Skin Skin exam: Present: dry. Absent: warm (Feet are cool) Palliative Quality Palliative Quality: Screen for Code Status: Yes, Screen for Goals of Care: Yes, Screen for Pain: Yes, If Pain Regimen Started, Initiate Bowel Regimen: Yes, Screen for Nausea/Vomitting: Yes Code Status: 11/02/16 03:04 Resuscitation Status: Active [RES] Routine Comment: Resuscitation Status: Full Code - Labs CBC & Chem 7: 11/12/16 03:00 11/12/16 03:00 Labs: Laboratory Results - last 24 hr 11/09/16 11/11/16 11/11/16 10:25 07:13 09:38 WBC RBC Hgb Hct MCV MCH MCHC RDW Plt Count MPV Seg Neutrophils % Band Neutrophils % Lymphocytes % Monocytes % Neutrophils # Lymphocytes # Monocytes # Nucleated RBCs/100 WBC Toxic Granulation Dohle Bodies Platelet Estimate Large Platelets Hypochromasia ABG pH 7.31 L D ABG pCO2 52 H ABG pO2 185 H ABG HCO3 26.2 ABG Total CO2 27.8 H ABG O2 Saturation 100 H ABG Base Excess -0.4 Blood Gas Modality VC Inspired O2 80 Sodium Potassium Chloride Carbon Dioxide BUN Creatinine Est GFR ( Amer) Est GFR (Non-Af Amer) BUN/Creatinine Ratio Glucose POC Glucose 144 H Calculated Osmolality Calcium Ionized Calcium Phosphorus Magnesium Total Bilirubin AST ALT Alkaline Phosphatase Serum Total Protein Albumin Globulin Albumin/Globulin Ratio Complement C3 65 L Complement C4 18 11/11/16 11/11/16 11/11/16 11:14 13:55 15:41 WBC RBC Hgb Hct MCV MCH MCHC RDW Plt Count MPV Seg Neutrophils % Band Neutrophils % Lymphocytes % Monocytes % Neutrophils # Lymphocytes # Monocytes # Nucleated RBCs/100 WBC Toxic Granulation Dohle Bodies Platelet Estimate Large Platelets Hypochromasia ABG pH ABG pCO2 ABG pO2 ABG HCO3 ABG Total CO2 ABG O2 Saturation ABG Base Excess Blood Gas Modality Inspired O2 Sodium 149 H Potassium 3.7 Chloride 109 Carbon Dioxide 26 BUN 49 H Creatinine 4.60 H Est GFR ( Amer) 16 L Est GFR (Non-Af Amer) 13 L BUN/Creatinine Ratio 11 Glucose 160 H POC Glucose 171 H 141 H Calculated Osmolality 324 H Calcium 9.2 Ionized Calcium Phosphorus Magnesium 2.2 Total Bilirubin 0.9 AST 19 ALT 28 Alkaline Phosphatase 408 H Serum Total Protein 5.4 L Albumin 1.8 L Globulin 3.6 H Albumin/Globulin Ratio 0.5 L Complement C3 Complement C4 11/11/16 11/11/16 11/12/16 19:10 23:16 03:00 WBC 13.7 H RBC 3.15 L Hgb 9.0 L Hct 28.5 L MCV 90.5 MCH 28.6 MCHC 31.6 RDW 15.1 H Plt Count 178 MPV 10.5 Seg Neutrophils % 72.0 Band Neutrophils % 16.0 H Lymphocytes % 8.0 Monocytes % 4.0 Neutrophils # 12.1 H Lymphocytes # 1.1 Monocytes # 0.6 Nucleated RBCs/100 WBC 0.1 H Toxic Granulation Present A Dohle Bodies Present A Platelet Estimate Normal Large Platelets Present A Hypochromasia Present A ABG pH ABG pCO2 ABG pO2 ABG HCO3 ABG Total CO2 ABG O2 Saturation ABG Base Excess Blood Gas Modality Inspired O2 Sodium Potassium Chloride Carbon Dioxide BUN Creatinine Est GFR ( Amer) Est GFR (Non-Af Amer) BUN/Creatinine Ratio Glucose POC Glucose 156 H 130 H Calculated Osmolality Calcium Ionized Calcium Phosphorus Magnesium Total Bilirubin AST ALT Alkaline Phosphatase Serum Total Protein Albumin Globulin Albumin/Globulin Ratio Complement C3 Complement C4 11/12/16 11/12/16 11/12/16 03:00 03:00 05:45 WBC RBC Hgb Hct MCV MCH MCHC RDW Plt Count MPV Seg Neutrophils % Band Neutrophils % Lymphocytes % Monocytes % Neutrophils # Lymphocytes # Monocytes # Nucleated RBCs/100 WBC Toxic Granulation Dohle Bodies Platelet Estimate Large Platelets Hypochromasia ABG pH 7.33 ABG pCO2 46 H ABG pO2 119 H ABG HCO3 24.3 ABG Total CO2 25.7 ABG O2 Saturation 98 ABG Base Excess -1.7 Blood Gas Modality VC Inspired O2 60 Sodium 146 H Potassium 4.8 H D Chloride 108 Carbon Dioxide 24 BUN 55 H Creatinine 4.87 H Est GFR ( Amer) 15 L Est GFR (Non-Af Amer) 12 L BUN/Creatinine Ratio 11 Glucose 186 H POC Glucose Calculated Osmolality 322 H Calcium 9.1 Ionized Calcium 1.21 Phosphorus 4.7 Magnesium 1.9 Total Bilirubin 1.2 AST 17 ALT 23 Alkaline Phosphatase 356 H Serum Total Protein 5.1 L Albumin 1.6 L Globulin 3.5 Albumin/Globulin Ratio 0.5 L Complement C3 Complement C4 - Impressions Impressions Chest X-Ray 11/12/16 08:26 IMPRESSION: 1. Stable bilateral lung infiltrates with small bilateral pleural effusions. This may be related to pneumonia versus pulmonary edema. 2. Support tubes and lines are unchanged. D/ / 11/12/2016 07:38:07 Eagle Melvin MD / marlon Interpreting Provider: Eagle Melvin MD - ABG Interpretation ABG results: ABG ABG pH 7.33 pH Units (7.32-7.45) 11/12/16 05:45 ABG pCO2 46 mmHg (35-45) H 11/12/16 05:45 ABG pO2 119 mmHg (85-104) H 11/12/16 05:45 ABG O2 Saturation 98 % (95-98) 11/12/16 05:45 PT/INR, D-dimer PT 12.3 Seconds (9.4-12.1) H 11/10/16 04:04 Consult Discharge Plan - Plan Referrals: Norris Bonner MD [Primary Care Provider] -
[2016-11-12] MEDS: Chlorhexidine Rinse 15 ML MOUTHWASH MM SCH ×2 (09:27→19:29)
[2016-11-12] MEDS: Famotidine 20 MG/2 ML VIAL IVP SCH (09:30)
[2016-11-12] MEDS: Micafungin 100 MG in 0.9 % Sodium Chloride Mini Bag 100 ML IVPB SCH (09:33)
[2016-11-12] MEDS: Dexmedetomidine HCl 400 MCG/100 ML MLS IVC SCH ×2 (09:35→19:00)
[2016-11-12] MEDS: Nicotine 7 MG PATCH.TD24 TD SCH (09:52)
--- NOTE | 2016-11-12 11:42 | Event Note ---
Date of Encounter: 11/12/16 Time of Encounter: 11:41 meeting wih family. update given (mpoa present) change in code staus to dnr cca. family aware that need for trach is soon they are now deciding that. [facility] team aware
--- NOTE | 2016-11-12 14:26 | Nephrology Progress Note ---
Date of Encounter: 11/12/16 Time of Encounter: 14:24 - Assessment and Plan (1) BJORN (acute kidney injury) Current Visit: Yes Status: Acute Creatinine continues to rise. UOP nonoliguric. No acute need for dialysis today. Patient appears to be euvolemic. Caution with diuretics. Would avoid using vancomycin if possible. Monitor for renal recovery. Adjust medications for renal function. With lack of recovery expanded work-up for BJORN. Patient with unexplained hematuria improved with repeat urinalysis. (2) Leukocytosis Current Visit: Yes Status: Acute Unexplained etiology. Patient on miconazole for fungemia.. Evaluate for source (possibly UTI). Will check blood culture via HD cath. Consider removal if the suspected source of infection. Discussed with team. Qualifiers: Qualified Code(s): D72.829 - Elevated white blood cell count, unspecified (3) Acute respiratory failure with hypoxia and hypercapnia Current Visit: Yes Status: Acute Patient is intubated and sedated. Per pulmonary. (4) Cardiomyopathy Current Visit: Yes Status: Acute Per cardiology. Etiology unclear. Qualifiers: Cardiomyopathy type: unspecified Qualified Code(s): I42.9 - Cardiomyopathy , unspecified (5) Metabolic acidosis Current Visit: Yes Status: Acute Resolved. (6) Anemia Current Visit: Yes Status: Acute iron saturation slightly low. Avoid iv iron until infection cleared. Qualifiers: Anemia type: unspecified type Qualified Code(s): D64.9 - Anemia, unspecified (7) Hyperphosphatemia Current Visit: Yes Status: Acute Likely related to renal failure. Resolved. Subjective Principal diagnosis: Cardiac Arrest Interval history: Patient seen. He is intubated. Sedated. ROS unobtainable. Objective - Vital Signs Vital signs: Vital Signs Temp Pulse Resp BP Pulse Ox 11/12/16 14:00 158 21 111/46 100 11/12/16 13:56 22 116/62 99 11/12/16 13:00 138 21 115/61 100 11/12/16 12:00 135 21 110/59 100 11/12/16 11:55 98.3 F 11/12/16 11:11 21 118/66 99 11/12/16 11:00 137 21 138/57 99 11/12/16 10:00 108 20 105/58 98 11/12/16 09:55 19 100/56 98 11/12/16 09:00 107 20 100/56 98 11/12/16 08:23 113 11/12/16 08:00 158 20 134/57 98 11/12/16 07:47 99.2 F 11/12/16 07:37 20 133/72 98 11/12/16 06:00 126 19 102/52 100 11/12/16 05:25 20 116/52 100 11/12/16 04:54 112 18 122/54 100 11/12/16 03:50 101 18 92/51 100 11/12/16 03:25 18 106/55 100 11/12/16 03:00 98.0 F 105 19 120/64 99 11/12/16 02:00 105 19 123/71 99 11/12/16 01:45 19 117/61 99 11/12/16 00:59 110 21 87/54 97 11/12/16 00:00 112 20 115/58 97 11/11/16 23:16 20 88/53 97 11/11/16 23:00 98.4 F 124 18 88/53 97 11/11/16 22:00 116 20 122/58 97 11/11/16 21:40 20 94/52 97 11/11/16 21:00 123 25 102/46 96 11/11/16 20:00 121 27 101/51 96 11/11/16 19:58 102.1 F H 11/11/16 19:38 25 106/50 97 11/11/16 19:00 121 11/11/16 18:00 102.6 F H 130 34 96/51 96 11/11/16 17:00 129 24 102/48 96 11/11/16 16:00 120 20 115/49 96 11/11/16 15:51 101.3 F H 11/11/16 15:11 21 113/48 97 11/11/16 15:00 135 20 113/48 95 Intake and Output 11/11/16 11/12/16 11/12/16 23:59 07:59 15:59 Intake Total 445 / 445 134 / 134 354 / 354 Output Total 300 / 300 150 / 150 100 / 100 Balance 145 / 145 -16 / -16 254 / 254 Intake: IV Fluids 445 / 445 134 / 134 354 / 354 PRECEDEX Premix 400 mcg 100 / 100 100 / 100 In 100 ml @ 0.2 MCG/KG/HR 3.502 mls/hr IVC .Q24H JOSY Rx#:[id number] FentaNYL (PF) 3,000 MCG 240 / 240 In 0.9 % Sodium Chloride 240 ML @ 50 MCG/HR 5 mls/ hr IVC CONT JOSY Rx#: [id number] Levophed 4 MG In Dextrose 134 / 134 254 / 254 5% 250 ML @ 8 MCG/MIN 30 .48 mls/hr IVC CONT JOSY Rx#:[id number] Keppra 500 MG In 0.9 % 105 / 105 Sodium Chloride 100 ML @ 400 mls/hr IVPB BID JOSY Rx#:[id number] Oral 0 / 0 0 / 0 Output: Catheter 200 / 200 150 / 150 100 / 100 Gastric Drainage 100 / 100 Other: Blood Glucose* 156 143 138 - General Appearance General appearance: Present: well-developed, chronically ill, sedated on ventilator, intubated, frail EENT: Present: ATNC Respiratory: Present: course breath sounds Cardiology: Present: no edema Additional Comments: tachycardic Dialysis Vascular Access: Venous Catheter Gastrointestinal: Present: no tenderness Integumentary: Present: warm and dry Neurologic: Present: obtunded Musculoskeletal: Present: no cyanosis - Lab 11/12/16 03:00 11/12/16 03:00 Most recent lab results ABG pH 7.33 pH Units (7.32-7.45) 11/12/16 05:45 ABG pCO2 46 mmHg (35-45) H 11/12/16 05:45 ABG pO2 119 mmHg (85-104) H 11/12/16 05:45 ABG HCO3 24.3 mEQ/L (21-27) 11/12/16 05:45 ABG O2 Saturation 98 % (95-98) 11/12/16 05:45 Calcium 9.1 mg/dL (8.6-10.8) 11/12/16 03:00 Phosphorus 4.7 mg/dL (2.3-4.7) 11/12/16 03:00 Magnesium 1.9 mg/dL (1.6-2.6) 11/12/16 03:00 Urine Creatinine 13 mg/dL 11/09/16 10:25 Urine Sodium 111.0 mEq/L 11/09/16 10:25 Urine Total Protein 14 mg/dL (1-14) 11/09/16 10:25 - VTE Documentation of Mechanical Device: Intermittent pneumatic compression device Consult Discharge Plan - Plan Referrals: Norris Bonner MD [Primary Care Provider] -
--- NOTE | 2016-11-12 14:51 | Event Note ---
Date of Encounter: 11/12/16 Time of Encounter: 14:45 - Cardiology Event Note Per Cardiology: Patients status continues to be gaurded. He continues to be intubated. Renal function continues to worsen. Palliative care now following patient and he is now a DNRCCA. Noted to have PAT. HR 100-120. Likely respiratory driven. On IV lopressor. Increase as needed. Convert to oral beta- erasmo once able. No jeff inhibitor due to acute renal failure. Fluid status per nephrology.He is not a candidate for [facility] to evaluate cardiomyopathy. Cardiology will sign off. Please call with questions. Re-consult as needed.
[2016-11-12 14:57] LABS: ANA IgG by ELISA NONE DETECTED (None Detected)
[2016-11-12] MEDS ORDERED: Norepinephrine 4 MG in D5% in Water 250 ML IVC SCH (16:57)
[2016-11-12] MEDS: Bisacodyl 10 MG RECTAL SUPPOSITORY RC SCH (19:29)
[2016-11-12] MEDS: FentaNYL (PF) 3,000 MCG in 0.9 % Sodium Chloride 240 ML IVC SCH (23:05)
[2016-11-13] MEDS: Ipratropium/Albuterol Neb 3 ML IH SCH ×4 (03:27→15:18)
[2016-11-13] MEDS: Insulin LISPRO 300 UNITS/3 ML VIAL SQ SCH ×4 (03:49→16:41)
[2016-11-13] MEDS: Lacri-Lube 3.5 GM TUBE BOTH EYES SCH ×4 (03:49→16:41)
[2016-11-13] MEDS: Dexmedetomidine HCl 400 MCG/100 ML MLS IVC SCH (04:37)
[2016-11-13] MEDS: *HR* Heparin 5,000 UNIT/ML VIAL SQ SCH ×2 (05:07→16:41)
[2016-11-13 05:26] LABS: ABG Base Excess -4.2 mEq/L (-2.0 to 3.0); ABG HCO3 21.6 mEQ/L (21-27); ABG Oxygen Saturation 96 % (95-98); ABG PCO2 42 mmHg (35-45); ABG PH 7.32 pH Units (7.32-7.45); ABG PO2 86 mmHg (85-104); ABG TCO2 22.9 mEq/L (20-26); Blood Gas FiO2 50 %
[2016-11-13 05:44] LABS: Basophils # 0.1 K/mcL (0.0-0.2); Basophils % 0.7 %; Eosinophils # 0.1 K/mcL (0.0-0.6); Eosinophils % 0.6 %; Hematocrit 27.2 % (37.5-50.1); Hemoglobin 8.8 g/dL (12.9-16.9); Immature Granulocytes % 1.4 % (0-4); Lymphocytes # 1.4 K/mcL (0.6-4.6); Lymphocytes % 10.2 %; Mean Corpuscular HGB Conc 32.4 g/dL (31.6-35.5); Mean Corpuscular Hemoglobin 29.1 pg (28.0-33.3); Mean Corpuscular Volume 90.1 fL (83.0-100.0); Mean Platelet Volume 10.3 fL (9.4-12.4); Monocytes # 0.6 K/mcL (0.0-1.3); Monocytes % 4.4 %; Nucleated Red Blood Cells 0.2 /100 WBC (0); Platelet Count 202 K/mcL (140-400); Red Blood Count 3.02 M/mcL (4.19-5.50); Red Cell Distribution Width 15.2 % (11.5-14.5); Segmented Neutrophils % 82.7 %
[2016-11-13 05:45] LABS: Neutrophils # 11.1 K/mcL (1.6-8.9)
[2016-11-13 05:49] LABS: Ionized Calcium 1.22 mmol/L (1.15-1.35)
[2016-11-13 05:57] LABS: Albumin/Globulin Ratio 0.4 (1.1-2.2); Bilirubin,Total 1.1 mg/dL (0.2-1.2); Calcium 9.3 mg/dL (8.6-10.8); Phosphorous 4.8 mg/dL (2.3-4.7); Potassium 5.1 mEq/L (3.5-4.5); Total Protein 5.6 g/dL (6.0-8.3)
[2016-11-13 06:02] LABS: Albumin 1.6 g/dL (3.5-5.0)
[2016-11-13 06:07] LABS: Platelet Estimate Normal (Normal)
[2016-11-13 06:08] LABS: Polychromasia 1+ (Not Present)
[2016-11-13] MEDS ORDERED: Phenylephrine 10 MG in D5% in Water 250 ML IVC SCH (06:45)
[2016-11-13] MEDS: Budesonide/Formoterol 160/4.5 MDI IH SCH (07:36)
[2016-11-13] MEDS: Famotidine 20 MG/2 ML VIAL IVP SCH (07:52)
[2016-11-13] MEDS: Chlorhexidine Rinse 15 ML MOUTHWASH MM SCH (07:52)
[2016-11-13] MEDS: Nicotine 7 MG PATCH.TD24 TD SCH (07:52)
[2016-11-13] MEDS: Micafungin 100 MG in 0.9 % Sodium Chloride Mini Bag 100 ML IVPB SCH (07:53)
--- NOTE | 2016-11-13 08:36 | Palliative Progress Note ---
Date of Encounter: 11/13/16 Time of Encounter: 07:40 - Assessment and plan (1) Lactic acidosis Current Visit: Yes Status: Acute Assessment and plan: The patient is no longer acidotic and the lactic acid is coming down. Plan per intensive care team. (2) Goals of care, counseling/discussion Current Visit: Yes Status: Acute Assessment and plan: Discussion with family yesterday resulted in DNR CCA status. All plan continues to be to continue aggressive care, however we will continue meeting with the family. I are aware that the patient is very close to needing a tracheotomy. There wavering on this. We will continue to discuss. (3) Candidemia Current Visit: Yes Status: Acute Assessment and plan: On antibiotics, fever continues, however little less than it was. White count continues to be elevated but slightly better certainly not going up. - Time Spent With Patient Total time spent is greater than 50% in coordination of care (as documented) at patient's floor/unit and/or counseling patient: - Subjective Interval history: Sedated on vent, events overnight patient has low-grade fever, being fed slowly , appears to nursing staff to be less responsive than last week. This is with less sedation. - Constitutional Vitals: Abnormal lab results WBC 13.4 K/mcL (4.3-11.1) H 11/13/16 05:33 RBC 3.02 M/mcL (4.19-5.50) L 11/13/16 05:33 Hgb 8.8 g/dL (12.9-16.9) L 11/13/16 05:33 Hct 27.2 % (37.5-50.1) L 11/13/16 05:33 RDW 15.2 % (11.5-14.5) H 11/13/16 05:33 Band Neutrophils % 16.0 % (0-4) H 11/12/16 03:00 Metamyelocytes % 2.0 % (0) H 11/02/16 03:18 Myelocytes % 2.0 % (0) H 11/03/16 11:30 Neutrophils # 11.1 K/mcL (1.6-8.9) H 11/13/16 05:33 Nucleated RBCs/100 WBC 0.2 /100 WBC (0) H 11/13/16 05:33 Reactive Lymphocytes Present (Not Present) A 11/04/16 04:40 Toxic Granulation Present (Not Present) A 11/12/16 03:00 Dohle Bodies Present (Not Present) A 11/12/16 03:00 Large Platelets Present (Not Present) A 11/12/16 03:00 Polychromasia 1+ (Not Present) A 11/13/16 05:33 Hypochromasia Present (Not Present) A 11/12/16 03:00 Poikilocytosis 1+ (Not Present) A 11/06/16 04:47 Ovalocytes 1+ (Not Present) A 11/06/16 04:47 Gini Cells 1+ (Not Present) A 11/06/16 04:47 PT 12.3 Seconds (9.4-12.1) H 11/10/16 04:04 ABG Base Excess -4.2 mEq/L (-2.0 to 3.0) L 11/13/16 05:15 VBG pCO2 38 mmHg (41-51) L 11/03/16 07:45 VBG pO2 221 mmHg (25-40) H 11/03/16 07:45 Sodium 146 mEq/L (136-145) H 11/13/16 05:33 Potassium 5.1 mEq/L (3.5-4.5) H 11/13/16 05:33 BUN 65 mg/dL (8-26) H 11/13/16 05:33 Creatinine 5.07 mg/dL (0.72-1.25) H 11/13/16 05:33 Est GFR ( Amer) 14 (> 60) L 11/13/16 05:33 Est GFR (Non-Af Amer) 12 (> 60) L 11/13/16 05:33 Glucose 160 mg/dL (70-99) H 11/13/16 05:33 POC Glucose 94 (58-89) H 11/12/16 23:13 Calculated Osmolality 324 (280-300) H 11/13/16 05:33 Lactic Acid 2.7 mmol/L (0.5-2.2) H 11/13/16 05:33 Phosphorus 4.8 mg/dL (2.3-4.7) H 11/13/16 05:33 Iron 21 mcg/dL (65-175) L 11/09/16 10:25 % Saturation 19 % (20-55) L 11/09/16 10:25 Transferrin 79 mg/dL (174-364) L 11/09/16 10:25 Direct Bilirubin 1.0 mg/dL (0.0-0.5) H 11/10/16 04:04 Alkaline Phosphatase 361 Units/L (38-126) H 11/13/16 05:33 Troponin I 0.17 ng/mL (0-0.03) H* 11/02/16 21:49 Serum Total Protein 5.6 g/dL (6.0-8.3) L 11/13/16 05:33 Albumin 1.6 g/dL (3.5-5.0) L 11/13/16 05:33 Globulin 4.0 g/dL (2.4-3.5) H 11/13/16 05:33 Albumin/Globulin Ratio 0.4 (1.1-2.2) L 11/13/16 05:33 Vitamin B12 > 2000 pg/mL (213-816) H 11/09/16 10:25 25-OH Vitamin D Total 9 ng/mL (30-80) L 11/09/16 10:25 Ur Specimen Adequacy See below A 11/02/16 20:24 Ur Specific Mauldin 1.009 (1.010-1.025) L 11/10/16 09:38 Ur Leukocyte Esterase Trace (Negative) H 11/10/16 09:38 Urine Microscopic RBC 3-5 per hpf (0-3) H 11/10/16 09:38 Urine Microscopic WBC 3-5 per hpf (0-3) H 11/10/16 09:38 Granular Casts Few per lpf (None Seen) H 11/02/16 20:24 Urine Yeast Few per hpf (None Seen) H 11/10/16 09:38 Ur Culture Indicated? YES (NO) A 11/10/16 09:38 Microalb/Creat Ratio 223 (0-30) H 11/09/16 10:25 Protein/Creatinin Ratio 1.08 mg/mg (0-0.20) H 11/09/16 10:25 Complement C3 65 mg/dL (88-201) L 11/09/16 10:25 C. glabrata (PCR) DETECTED (Not Detect) A 11/07/16 13:53 General appearance: Present: no acute distress (Sedated on vent) - Head Head exam: Present: atraumatic, normal inspection - Eye Eye exam: Present: normal appearance - ENT ENT exam: Present: mucous membranes moist - Neck Neck exam: Present: normal inspection - Respiratory Respiratory exam: Present: decreased breath sounds - Cardiovascular Cardiovascular exam: Present: RRR, tachycardia (In SVT) - GI/Abdominal GI/Abdominal exam: Present: hypoactive bowel sounds, soft. Absent: tenderness - Extremities Exam Extremities exam: Present: pedal edema (Edema is more in the upper extremities than the lower, however edema is present.) - Neurological Exam Neurological exam: Present: altered (Sedated on vent) - Psychiatric Psychiatric exam: Absent: agitated, anxious (Sedated on vent) - Skin Skin exam: Present: dry. Absent: warm (Feet are cool.) Palliative Quality Palliative Quality: Screen for Code Status: Yes, Screen for Goals of Care: Yes, Screen for Pain: Yes, If Pain Regimen Started, Initiate Bowel Regimen: Yes, Screen for Nausea/Vomitting: Yes Code Status: 11/02/16 03:04 Resuscitation Status: Active [RES] Routine Comment: Resuscitation Status: Full Code Resuscitation Status: Active [RES] Routine Comment: Resuscitation Status: DNR-Comfort Care-Arrest - Labs CBC & Chem 7: 11/13/16 05:33 11/13/16 05:33 Labs: Laboratory Results - last 24 hr 11/09/16 11/12/16 11/12/16 10:25 07:13 11:07 WBC RBC Hgb Hct MCV MCH MCHC RDW Plt Count MPV Immature Gran % Seg Neutrophils % Lymphocytes % Monocytes % Eosinophils % Basophils % Neutrophils # Lymphocytes # Monocytes # Eosinophils # Basophils # Nucleated RBCs/100 WBC Platelet Estimate Polychromasia ABG pH ABG pCO2 ABG pO2 ABG HCO3 ABG Total CO2 ABG O2 Saturation ABG Base Excess Blood Gas Modality Inspired O2 Sodium Potassium Chloride Carbon Dioxide BUN Creatinine Est GFR ( Amer) Est GFR (Non-Af Amer) BUN/Creatinine Ratio Glucose POC Glucose 143 H 138 H Calculated Osmolality Lactic Acid Calcium Ionized Calcium Phosphorus Magnesium Total Bilirubin AST ALT Alkaline Phosphatase Serum Total Protein Albumin Globulin Albumin/Globulin Ratio BARRY Screen NONE DETECTED 11/12/16 11/12/16 11/12/16 14:45 16:00 19:06 WBC RBC Hgb Hct MCV MCH MCHC RDW Plt Count MPV Immature Gran % Seg Neutrophils % Lymphocytes % Monocytes % Eosinophils % Basophils % Neutrophils # Lymphocytes # Monocytes # Eosinophils # Basophils # Nucleated RBCs/100 WBC Platelet Estimate Polychromasia ABG pH ABG pCO2 ABG pO2 ABG HCO3 ABG Total CO2 ABG O2 Saturation ABG Base Excess Blood Gas Modality Inspired O2 Sodium Potassium Chloride Carbon Dioxide BUN Creatinine Est GFR ( Amer) Est GFR (Non-Af Amer) BUN/Creatinine Ratio Glucose POC Glucose 167 H 190 H Calculated Osmolality Lactic Acid 3.2 H Calcium Ionized Calcium Phosphorus Magnesium Total Bilirubin AST ALT Alkaline Phosphatase Serum Total Protein Albumin Globulin Albumin/Globulin Ratio BARRY Screen 11/12/16 11/13/16 11/13/16 23:13 05:15 05:33 WBC 13.4 H RBC 3.02 L Hgb 8.8 L Hct 27.2 L MCV 90.1 MCH 29.1 MCHC 32.4 RDW 15.2 H Plt Count 202 MPV 10.3 Immature Gran % 1.4 Seg Neutrophils % 82.7 Lymphocytes % 10.2 Monocytes % 4.4 Eosinophils % 0.6 Basophils % 0.7 Neutrophils # 11.1 H Lymphocytes # 1.4 Monocytes # 0.6 Eosinophils # 0.1 Basophils # 0.1 Nucleated RBCs/100 WBC 0.2 H Platelet Estimate Normal Polychromasia 1+ A ABG pH 7.32 ABG pCO2 42 ABG pO2 86 ABG HCO3 21.6 ABG Total CO2 22.9 ABG O2 Saturation 96 ABG Base Excess -4.2 L Blood Gas Modality VCT Inspired O2 50 Sodium Potassium Chloride Carbon Dioxide BUN Creatinine Est GFR ( Amer) Est GFR (Non-Af Amer) BUN/Creatinine Ratio Glucose POC Glucose 94 H Calculated Osmolality Lactic Acid Calcium Ionized Calcium Phosphorus Magnesium Total Bilirubin AST ALT Alkaline Phosphatase Serum Total Protein Albumin Globulin Albumin/Globulin Ratio BARRY Screen 11/13/16 11/13/16 05:33 05:33 WBC RBC Hgb Hct MCV MCH MCHC RDW Plt Count MPV Immature Gran % Seg Neutrophils % Lymphocytes % Monocytes % Eosinophils % Basophils % Neutrophils # Lymphocytes # Monocytes # Eosinophils # Basophils # Nucleated RBCs/100 WBC Platelet Estimate Polychromasia ABG pH ABG pCO2 ABG pO2 ABG HCO3 ABG Total CO2 ABG O2 Saturation ABG Base Excess Blood Gas Modality Inspired O2 Sodium 146 H Potassium 5.1 H Chloride 108 Carbon Dioxide 22 BUN 65 H Creatinine 5.07 H Est GFR ( Amer) 14 L Est GFR (Non-Af Amer) 12 L BUN/Creatinine Ratio 13 Glucose 160 H POC Glucose Calculated Osmolality 324 H Lactic Acid 2.7 H Calcium 9.3 Ionized Calcium 1.22 Phosphorus 4.8 H Magnesium 2.0 Total Bilirubin 1.1 AST 28 ALT 22 Alkaline Phosphatase 361 H Serum Total Protein 5.6 L Albumin 1.6 L Globulin 4.0 H Albumin/Globulin Ratio 0.4 L BARRY Screen - Impressions Impressions Chest X-Ray 11/13/16 05:00 IMPRESSION: 1. No significant change life support appliances. 2. Stable chest x-ray with bilateral infiltrates likely representing pneumonia versus edema. Follow-up to resolution is recommended. D/ / 11/13/2016 07:40:05 César Cedillo MD / [facility] Interpreting Provider: César Cedillo MD - ABG Interpretation ABG results: ABG ABG pH 7.32 pH Units (7.32-7.45) 11/13/16 05:15 ABG pCO2 42 mmHg (35-45) 11/13/16 05:15 ABG pO2 86 mmHg (85-104) 11/13/16 05:15 ABG O2 Saturation 96 % (95-98) 11/13/16 05:15 PT/INR, D-dimer PT 12.3 Seconds (9.4-12.1) H 11/10/16 04:04 Consult Discharge Plan - Plan Referrals: Norris Bonner MD [Primary Care Provider] -
[2016-11-13] MEDS ORDERED: Phenylephrine 50 MG in D5% in Water 250 ML IVC SCH (08:45)
--- NOTE | 2016-11-13 09:27 | Pulmonology Progress Note ---
<Tejas Hernandes - Last Filed: 11/13/16 09:19> Date of Encounter: 11/13/16 Time of Encounter: 09:00 Assessment and Plan (1) Sepsis Current Visit: Yes Status: Acute Lactic acid 2.7<3.2<2.9<2.4 Anion Gap = 16 Patient continues to have leukocytosis with WBC = 13.4, tachycardic, on mechanical ventilator. Continue with Micafungin 100mg daily Monitor with VS and a.m. labs Cadidemia likely from HD catheter. Pending blood culture. Code status DNR - CCA. I spoke with the family in regards to the possibility of tracheotomy if the endotracheal tube comes out. Family still undecided. Qualifiers: Sepsis type: Neli Qualified Code(s): B37.7 - Candidal sepsis (2) Candidemia Current Visit: Yes Status: Acute Continue with Micafungin 100mg daily and a.m. labs. Plan per #1 Blood culture drawn from HD tube. If positive, we will consider removing it. (3) Cardiac arrest Current Visit: Yes Status: Acute s/p cardiac arrest with NSTEMI. Reduced EF%. Patient continues to be tachycardic. Cardizem 15mg Q4H PRN for heart rate >160 Continue beta erasmo (4) Acute respiratory failure with hypoxia and hypercapnia Current Visit: Yes Status: Acute Plan per #1 (5) Cardiomyopathy Current Visit: Yes Status: Acute Plan per cardiology. Flat troponin elevation is likely related to respiratory failure with arrest. Ischemic evaluation will be done once kidney and respiratory status improves. Continue ASA and BB. Qualifiers: Cardiomyopathy type: unspecified Qualified Code(s): I42.9 - Cardiomyopathy , unspecified (6) COPD (chronic obstructive pulmonary disease) Current Visit: No Status: Chronic Qualifiers: COPD type: unspecified COPD Qualified Code(s): J44.9 - Chronic obstructive pulmonary disease, unspecified (7) Lactic acidosis Current Visit: Yes Status: Acute (8) BJORN (acute kidney injury) Current Visit: Yes Status: Acute Acute AGMA with non-GAP acidosis with worsening renal function. Nephrology is following - UOP nonoliguric. No acute need for dialysis. They recommend to caution with diuretics and adjust medications for renal function. Repeat UA continues to show yeast infection. We will continue to monitor kidney function. Patient is on mechanical ventilation. (9) Hyperphosphatemia Current Visit: Yes Status: Acute Calcium levels are normal and stable. Continue IVF for now. (10) Leukocytosis Current Visit: Yes Status: Acute Qualifiers: Qualified Code(s): D72.829 - Elevated white blood cell count, unspecified (11) Bandemia Current Visit: Yes Status: Acute Did not order bands for today. Follow up labs tomorrow. (12) Poor nutrition Current Visit: Yes Status: Acute Trying trickle feeds. Intake 52ml yesterday. 91ml today Patient is not a good candidate for TPN (13) DVT prophylaxis Current Visit: Yes Status: Acute Heparin 5000 units for DVT prophylaxis Subjective Principal diagnosis: Cardiac Arrest Interval history: Patient's health continues to deteriorate. He is still unresponsive. He had episodes of increased heart rate throughout the night that self resolved. Lactic acid 2.7/3.2/2.9/2.4 Currently weaning sedation. Objective PUL Vital signs: Last Vital Signs Temp 98.4 F 11/13/16 07:30 Pulse 138 11/13/16 08:22 Resp 21 11/13/16 08:22 BP 138/68 11/13/16 08:22 Pulse Ox 100 11/13/16 08:22 General appearance: other (sedated on ventilation. Intubated. Unresponsive. ) Effort: other (intubated. on mechanical ventilation ) Auscultation: right: rales Cardiovascular: other (tachycardic.) Gastrointestinal: soft, non-tender, non-distended, other (no bowel sounds appreciated) Extremities: cool, edema (2+) Musculoskeletal: no deformities Ventilator Settings Ventilator Settings: Ventilator Settings, Last 8 Hours Ventilator Mode VC+ Ventilator Mode VC+ Ventilator Mode VC+ Ventilator Mode VC+ Ventilator Mode VC+ Ventilator Mode VC+ Ventilator Mode VC+ Ventilator Mode VC+ Ventilator Mode VC+ Ventilator Mode VC+ Ventilator Mode VC+ Ventilator Mode VC+ Ventilator Tidal Volume 550 Setting Ventilator Tidal Volume 550 Setting Ventilator Tidal Volume 550 Setting Ventilator Tidal Volume 550 Setting Ventilator Tidal Volume 550 Setting Ventilator Tidal Volume 550 Setting Ventilator Tidal Volume 550 Setting Ventilator Tidal Volume 550 Setting Ventilator Tidal Volume 550 Setting Ventilator Tidal Volume 550 Setting Ventilator Tidal Volume 550 Setting Ventilator Tidal Volume 550 Setting Ventilator Respiratory Rate 18 Setting Ventilator Respiratory Rate 18 Setting Ventilator Respiratory Rate 18 Setting Ventilator Respiratory Rate 18 Setting Ventilator Respiratory Rate 18 Setting Ventilator Respiratory Rate 18 Setting Ventilator Respiratory Rate 18 Setting Ventilator Respiratory Rate 18 Setting Ventilator Respiratory Rate 18 Setting Ventilator Respiratory Rate 18 Setting Ventilator Respiratory Rate 18 Setting Ventilator Respiratory Rate 18 Setting Actual Respiratory Rate 22 Actual Respiratory Rate 22 Actual Respiratory Rate 22 Actual Respiratory Rate 19 Actual Respiratory Rate 19 Actual Respiratory Rate 19 Actual Respiratory Rate 21 Actual Respiratory Rate 23 Actual Respiratory Rate 23 Actual Respiratory Rate 21 Actual Respiratory Rate 22 Positive End Expiratory 5 Pressure Positive End Expiratory 5 Pressure Positive End Expiratory 5 Pressure Positive End Expiratory 5 Pressure Positive End Expiratory 5 Pressure Positive End Expiratory 5 Pressure Positive End Expiratory 5 Pressure Positive End Expiratory 5 Pressure Positive End Expiratory 5 Pressure Positive End Expiratory 5 Pressure Positive End Expiratory 5 Pressure Positive End Expiratory 5 Pressure Peak Inspiratory Airway 25 Pressure Peak Inspiratory Airway 28 Pressure Peak Inspiratory Airway 29 Pressure Peak Inspiratory Airway 17 Pressure Peak Inspiratory Airway 17 Pressure Peak Inspiratory Airway 17 Pressure Peak Inspiratory Airway 19 Pressure Peak Inspiratory Airway 27 Pressure Peak Inspiratory Airway 27 Pressure Peak Inspiratory Airway 27 Pressure Peak Inspiratory Airway 27 Pressure Results - Laboratory Findings CBC and BMP: 11/13/16 05:33 11/13/16 05:33 ABG ABG pH 7.32 pH Units (7.32-7.45) 11/13/16 05:15 ABG pCO2 42 mmHg (35-45) 11/13/16 05:15 ABG pO2 86 mmHg (85-104) 11/13/16 05:15 ABG O2 Saturation 96 % (95-98) 11/13/16 05:15 PT/INR, D-dimer PT 12.3 Seconds (9.4-12.1) H 11/10/16 04:04 Abnormal lab findings: Abnormal lab results WBC 13.4 K/mcL (4.3-11.1) H 11/13/16 05:33 RBC 3.02 M/mcL (4.19-5.50) L 11/13/16 05:33 Hgb 8.8 g/dL (12.9-16.9) L 11/13/16 05:33 Hct 27.2 % (37.5-50.1) L 11/13/16 05:33 RDW 15.2 % (11.5-14.5) H 11/13/16 05:33 Band Neutrophils % 16.0 % (0-4) H 11/12/16 03:00 Metamyelocytes % 2.0 % (0) H 11/02/16 03:18 Myelocytes % 2.0 % (0) H 11/03/16 11:30 Neutrophils # 11.1 K/mcL (1.6-8.9) H 11/13/16 05:33 Nucleated RBCs/100 WBC 0.2 /100 WBC (0) H 11/13/16 05:33 Reactive Lymphocytes Present (Not Present) A 11/04/16 04:40 Toxic Granulation Present (Not Present) A 11/12/16 03:00 Dohle Bodies Present (Not Present) A 11/12/16 03:00 Large Platelets Present (Not Present) A 11/12/16 03:00 Polychromasia 1+ (Not Present) A 11/13/16 05:33 Hypochromasia Present (Not Present) A 11/12/16 03:00 Poikilocytosis 1+ (Not Present) A 11/06/16 04:47 Ovalocytes 1+ (Not Present) A 11/06/16 04:47 Thurman Cells 1+ (Not Present) A 11/06/16 04:47 PT 12.3 Seconds (9.4-12.1) H 11/10/16 04:04 ABG Base Excess -4.2 mEq/L (-2.0 to 3.0) L 11/13/16 05:15 VBG pCO2 38 mmHg (41-51) L 11/03/16 07:45 VBG pO2 221 mmHg (25-40) H 11/03/16 07:45 Sodium 146 mEq/L (136-145) H 11/13/16 05:33 Potassium 5.1 mEq/L (3.5-4.5) H 11/13/16 05:33 BUN 65 mg/dL (8-26) H 11/13/16 05:33 Creatinine 5.07 mg/dL (0.72-1.25) H 11/13/16 05:33 Est GFR ( Amer) 14 (> 60) L 11/13/16 05:33 Est GFR (Non-Af Amer) 12 (> 60) L 11/13/16 05:33 Glucose 160 mg/dL (70-99) H 11/13/16 05:33 POC Glucose 94 (58-89) H 11/12/16 23:13 Calculated Osmolality 324 (280-300) H 11/13/16 05:33 Lactic Acid 2.7 mmol/L (0.5-2.2) H 11/13/16 05:33 Phosphorus 4.8 mg/dL (2.3-4.7) H 11/13/16 05:33 Iron 21 mcg/dL (65-175) L 11/09/16 10:25 % Saturation 19 % (20-55) L 11/09/16 10:25 Transferrin 79 mg/dL (174-364) L 11/09/16 10:25 Direct Bilirubin 1.0 mg/dL (0.0-0.5) H 11/10/16 04:04 Alkaline Phosphatase 361 Units/L (38-126) H 11/13/16 05:33 Troponin I 0.17 ng/mL (0-0.03) H* 11/02/16 21:49 Serum Total Protein 5.6 g/dL (6.0-8.3) L 11/13/16 05:33 Albumin 1.6 g/dL (3.5-5.0) L 11/13/16 05:33 Globulin 4.0 g/dL (2.4-3.5) H 11/13/16 05:33 Albumin/Globulin Ratio 0.4 (1.1-2.2) L 11/13/16 05:33 Vitamin B12 > 2000 pg/mL (213-816) H 11/09/16 10:25 25-OH Vitamin D Total 9 ng/mL (30-80) L 11/09/16 10:25 Ur Specimen Adequacy See below A 11/02/16 20:24 Ur Specific [place] 1.009 (1.010-1.025) L 11/10/16 09:38 Ur Leukocyte Esterase Trace (Negative) H 11/10/16 09:38 Urine Microscopic RBC 3-5 per hpf (0-3) H 11/10/16 09:38 Urine Microscopic WBC 3-5 per hpf (0-3) H 11/10/16 09:38 Granular Casts Few per lpf (None Seen) H 11/02/16 20:24 Urine Yeast Few per hpf (None Seen) H 11/10/16 09:38 Ur Culture Indicated? YES (NO) A 11/10/16 09:38 Microalb/Creat Ratio 223 (0-30) H 11/09/16 10:25 Protein/Creatinin Ratio 1.08 mg/mg (0-0.20) H 11/09/16 10:25 Complement C3 65 mg/dL (88-201) L 11/09/16 10:25 C. glabrata (PCR) DETECTED (Not Detect) A 11/07/16 13:53 - Microbiology Findings Microbiology Findings: Microbiology, Last 48 Hours 11/09/16 10:25 Urine Culture - Preliminary Urine,Clean Catch Neli glabrata 11/07/16 13:53 Blood Culture - Final Peripheral Venipuncture Neli glabrata 11/07/16 13:53 Blood Culture - Final Peripheral Venipuncture No growth. 11/10/16 09:38 Urine Culture - Final Urine,Clean Catch No growth. - Clinical Findings Intake & Output: Intake & Output 11/12/16 11/13/16 11/13/16 23:59 07:59 15:59 Intake Total 1312 / 1312 191 / 191 565 / 565 Output Total 250 / 250 250 / 250 Balance 1062 / 1062 -59 / -59 565 / 565 Weight 70.2 kg - VTE Documentation of Mechanical Device: Intermittent pneumatic compression device Consult Discharge Plan - Plan Referrals: Norris Bonner MD [Primary Care Provider] - <Kierra Rodriguez - Last Filed: 11/13/16 10:42> Date of Encounter: 11/13/16 Assessment and Plan (1) Acute respiratory failure with hypoxia and hypercapnia Current Visit: Yes Status: Acute (2) Aspiration pneumonia Current Visit: Yes Status: Acute Qualifiers: Aspiration pneumonia type: unspecified Lung location: unspecified part of lung Objective PUL Vital signs: Last Vital Signs Temp 98.4 F 11/13/16 07:30 Pulse 138 11/13/16 08:22 Resp 21 11/13/16 09:20 BP 87/52 11/13/16 09:20 Pulse Ox 100 11/13/16 09:20 Ventilator Settings Ventilator Settings: Ventilator Settings, Last 8 Hours Ventilator Mode VC+ Ventilator Mode VC+ Ventilator Mode VC+ Ventilator Mode VC+ Ventilator Mode VC+ Ventilator Mode VC+ Ventilator Mode VC+ Ventilator Mode VC+ Ventilator Mode VC+ Ventilator Mode VC+ Ventilator Mode VC+ Ventilator Tidal Volume 550 Setting Ventilator Tidal Volume 550 Setting Ventilator Tidal Volume 550 Setting Ventilator Tidal Volume 550 Setting Ventilator Tidal Volume 550 Setting Ventilator Tidal Volume 550 Setting Ventilator Tidal Volume 550 Setting Ventilator Tidal Volume 550 Setting Ventilator Tidal Volume 550 Setting Ventilator Tidal Volume 550 Setting Ventilator Tidal Volume 550 Setting Ventilator Respiratory Rate 18 Setting Ventilator Respiratory Rate 18 Setting Ventilator Respiratory Rate 18 Setting Ventilator Respiratory Rate 18 Setting Ventilator Respiratory Rate 18 Setting Ventilator Respiratory Rate 18 Setting Ventilator Respiratory Rate 18 Setting Ventilator Respiratory Rate 18 Setting Ventilator Respiratory Rate 18 Setting Ventilator Respiratory Rate 18 Setting Ventilator Respiratory Rate 18 Setting Actual Respiratory Rate 22 Actual Respiratory Rate 22 Actual Respiratory Rate 22 Actual Respiratory Rate 22 Actual Respiratory Rate 19 Actual Respiratory Rate 19 Actual Respiratory Rate 19 Actual Respiratory Rate 21 Actual Respiratory Rate 23 Actual Respiratory Rate 23 Positive End Expiratory 5 Pressure Positive End Expiratory 5 Pressure Positive End Expiratory 5 Pressure Positive End Expiratory 5 Pressure Positive End Expiratory 5 Pressure Positive End Expiratory 5 Pressure Positive End Expiratory 5 Pressure Positive End Expiratory 5 Pressure Positive End Expiratory 5 Pressure Positive End Expiratory 5 Pressure Positive End Expiratory 5 Pressure Peak Inspiratory Airway 21 Pressure Peak Inspiratory Airway 25 Pressure Peak Inspiratory Airway 28 Pressure Peak Inspiratory Airway 29 Pressure Peak Inspiratory Airway 17 Pressure Peak Inspiratory Airway 17 Pressure Peak Inspiratory Airway 17 Pressure Peak Inspiratory Airway 19 Pressure Peak Inspiratory Airway 27 Pressure Peak Inspiratory Airway 27 Pressure Results - Laboratory Findings CBC and BMP: 11/13/16 05:33 11/13/16 05:33 ABG ABG pH 7.32 pH Units (7.32-7.45) 11/13/16 05:15 ABG pCO2 42 mmHg (35-45) 11/13/16 05:15 ABG pO2 86 mmHg (85-104) 11/13/16 05:15 ABG O2 Saturation 96 % (95-98) 11/13/16 05:15 PT/INR, D-dimer PT 12.3 Seconds (9.4-12.1) H 11/10/16 04:04 Abnormal lab findings: Abnormal lab results WBC 13.4 K/mcL (4.3-11.1) H 11/13/16 05:33 RBC 3.02 M/mcL (4.19-5.50) L 11/13/16 05:33 Hgb 8.8 g/dL (12.9-16.9) L 11/13/16 05:33 Hct 27.2 % (37.5-50.1) L 11/13/16 05:33 RDW 15.2 % (11.5-14.5) H 11/13/16 05:33 Band Neutrophils % 16.0 % (0-4) H 11/12/16 03:00 Metamyelocytes % 2.0 % (0) H 11/02/16 03:18 Myelocytes % 2.0 % (0) H 11/03/16 11:30 Neutrophils # 11.1 K/mcL (1.6-8.9) H 11/13/16 05:33 Nucleated RBCs/100 WBC 0.2 /100 WBC (0) H 11/13/16 05:33 Reactive Lymphocytes Present (Not Present) A 11/04/16 04:40 Toxic Granulation Present (Not Present) A 11/12/16 03:00 Dohle Bodies Present (Not Present) A 11/12/16 03:00 Large Platelets Present (Not Present) A 11/12/16 03:00 Polychromasia 1+ (Not Present) A 11/13/16 05:33 Hypochromasia Present (Not Present) A 11/12/16 03:00 Poikilocytosis 1+ (Not Present) A 11/06/16 04:47 Ovalocytes 1+ (Not Present) A 11/06/16 04:47 Thurman Cells 1+ (Not Present) A 11/06/16 04:47 PT 12.3 Seconds (9.4-12.1) H 11/10/16 04:04 ABG Base Excess -4.2 mEq/L (-2.0 to 3.0) L 11/13/16 05:15 VBG pCO2 38 mmHg (41-51) L 11/03/16 07:45 VBG pO2 221 mmHg (25-40) H 11/03/16 07:45 Sodium 146 mEq/L (136-145) H 11/13/16 05:33 Potassium 5.1 mEq/L (3.5-4.5) H 11/13/16 05:33 BUN 65 mg/dL (8-26) H 11/13/16 05:33 Creatinine 5.07 mg/dL (0.72-1.25) H 11/13/16 05:33 Est GFR ( Amer) 14 (> 60) L 11/13/16 05:33 Est GFR (Non-Af Amer) 12 (> 60) L 11/13/16 05:33 Glucose 160 mg/dL (70-99) H 11/13/16 05:33 POC Glucose 94 (58-89) H 11/12/16 23:13 Calculated Osmolality 324 (280-300) H 11/13/16 05:33 Lactic Acid 2.7 mmol/L (0.5-2.2) H 11/13/16 05:33 Phosphorus 4.8 mg/dL (2.3-4.7) H 11/13/16 05:33 Iron 21 mcg/dL (65-175) L 11/09/16 10:25 % Saturation 19 % (20-55) L 11/09/16 10:25 Transferrin 79 mg/dL (174-364) L 11/09/16 10:25 Direct Bilirubin 1.0 mg/dL (0.0-0.5) H 11/10/16 04:04 Alkaline Phosphatase 361 Units/L (38-126) H 11/13/16 05:33 Troponin I 0.17 ng/mL (0-0.03) H* 11/02/16 21:49 Serum Total Protein 5.6 g/dL (6.0-8.3) L 11/13/16 05:33 Albumin 1.6 g/dL (3.5-5.0) L 11/13/16 05:33 Globulin 4.0 g/dL (2.4-3.5) H 11/13/16 05:33 Albumin/Globulin Ratio 0.4 (1.1-2.2) L 11/13/16 05:33 Vitamin B12 > 2000 pg/mL (213-816) H 11/09/16 10:25 25-OH Vitamin D Total 9 ng/mL (30-80) L 11/09/16 10:25 Ur Specimen Adequacy See below A 11/02/16 20:24 Ur Specific [place] 1.009 (1.010-1.025) L 11/10/16 09:38 Ur Leukocyte Esterase Trace (Negative) H 11/10/16 09:38 Urine Microscopic RBC 3-5 per hpf (0-3) H 11/10/16 09:38 Urine Microscopic WBC 3-5 per hpf (0-3) H 11/10/16 09:38 Granular Casts Few per lpf (None Seen) H 11/02/16 20:24 Urine Yeast Few per hpf (None Seen) H 11/10/16 09:38 Ur Culture Indicated? YES (NO) A 11/10/16 09:38 Microalb/Creat Ratio 223 (0-30) H 11/09/16 10:25 Protein/Creatinin Ratio 1.08 mg/mg (0-0.20) H 11/09/16 10:25 Complement C3 65 mg/dL (88-201) L 11/09/16 10:25 C. glabrata (PCR) DETECTED (Not Detect) A 11/07/16 13:53 - Microbiology Findings Microbiology Findings: Microbiology, Last 48 Hours 11/09/16 10:25 Urine Culture - Preliminary Urine,Clean Catch Neli glabrata 11/07/16 13:53 Blood Culture - Final Peripheral Venipuncture Neli glabrata 11/07/16 13:53 Blood Culture - Final Peripheral Venipuncture No growth. 11/10/16 09:38 Urine Culture - Final Urine,Clean Catch No growth. - Clinical Findings Intake & Output: Intake & Output 11/12/16 11/13/16 11/13/16 23:59 07:59 15:59 Intake Total 1312 / 1312 191 / 191 565 / 565 Output Total 250 / 250 250 / 250 Balance 1062 / 1062 -59 / -59 565 / 565 Weight 70.2 kg - Attending Attestation I examined this patient and my medical decision-making was reviewed with the Resident Physician. I agree with the documented findings, disposition and treatment plan as described except to the extent set forth below. Patient seen and examined. Labs, radiology, chart personally reviewed. Agree with resident's history and physical, assessment, plan with following comments: [employer]: Patient does not follows commands, I will wean off his sedation to check his mental status, however I suspect after his cardiac arrest he might have hypoxemic/anoxic encephalopathy Pulmonary: Acceptable oxygenation and ventilation and there is no plan for spontaneous breathing trial because his unstable Cardiovascular: Cardiomyopathy with shock as well as sinus arrhythmias and tachycardia. I have switched levofed to phenylephrine which might help his tachycardia and also treat him with Cardizem and even beta erasmo to control his heart rate especially with cardiomyopathy GI: Nutrition per dietary and GI prophylaxis per routine Heme: DVT prophylaxis per routine ID: Continue antibiotics and plan to de-escalation. Patient remaining septic shock and continue supportive care Renal; urine out put and renal funtion reviewed. Discussed with the lamination builder will keep the central line at this time Endorcine: blood glucose is monitored Lines: all lines checked and no evidence of infections Skin: skin care to prevent pressure ulcers per nursing routine care Overall prognosis extremely poor I spent 35 min of Critical Care time with this patient. It involved decision making of high complexity to assess, manipulate, and support vital organ system failure and/or to prevent further life threatening deterioration of the patient' s condition. The time involved in the performance of separately reportable procedures was not counted toward critical care time.
--- NOTE | 2016-11-13 10:22 | Nephrology Progress Note ---
Date of Encounter: 11/13/16 Time of Encounter: 10:20 - Assessment and Plan (1) BJORN (acute kidney injury) Current Visit: Yes Status: Acute Creatinine continues to rise. UOP decreasing. No acute need for dialysis today, but he may need SOFTWARE [employer]INE[employer] in the next day or two. This will be complicated given his tachycardia and hypotension. Patient appears to be euvolemic at this time with 40% FIO2 on the ventilator. Caution with diuretics - no need for them at this time. Monitor for renal recovery. Adjust medications for renal function. With lack of recovery expanded work-up for BJORN which was unremarkable. Patient with unexplained hematuria improved with repeat urinalysis. Patient with extremely poor prognosis. Spoke with team regarding the plan. (2) Leukocytosis Current Visit: Yes Status: Acute Severe sepsis secondary to fungemia. Patient on miconazole for fungemia.. ( UTI vs. line infection vs. other). Patient with persistent leukocytosis and he had fevers overnight. The initial plan was to hold on removing the right IJ non-tunneled hemodialysis catheter until either culture data was available or the family made a decision regarding withdrawal of care. However, with the persistent fevers and hypotension along with tachycardia I think would be more prudent to place a temporary catheter and another site to remove the right IJ non-tunneled catheter. Discussed with team. Qualifiers: Qualified Code(s): D72.829 - Elevated white blood cell count, unspecified (3) Acute respiratory failure with hypoxia and hypercapnia Current Visit: Yes Status: Acute Patient is intubated and sedated. Per pulmonary. (4) Cardiomyopathy Current Visit: Yes Status: Acute Per cardiology. Etiology unclear. Qualifiers: Cardiomyopathy type: unspecified Qualified Code(s): I42.9 - Cardiomyopathy , unspecified (5) Metabolic acidosis Current Visit: Yes Status: Acute Resolved. (6) Anemia Current Visit: Yes Status: Acute iron saturation slightly low. Avoid iv iron until infection cleared. Qualifiers: Anemia type: unspecified type Qualified Code(s): D64.9 - Anemia, unspecified (7) Hyperphosphatemia Current Visit: Yes Status: Acute Likely related to renal failure. Resolved. Subjective Principal diagnosis: Cardiac Arrest Interval history: Patient seen. He is intubated. Sedated. ROS unobtainable. Objective - Vital Signs Vital signs: Vital Signs Temp Pulse Resp BP Pulse Ox 11/13/16 09:20 21 87/52 100 11/13/16 08:22 138 21 138/68 100 11/13/16 07:37 22 118/92 100 11/13/16 07:30 98.4 F 134 22 118/92 100 11/13/16 05:58 158 22 113/59 100 11/13/16 05:25 19 159/79 100 11/13/16 05:00 170 21 111/59 100 11/13/16 03:47 137 21 104/68 100 11/13/16 03:41 137 11/13/16 03:27 23 103/59 100 11/13/16 03:00 100.7 F H 124 20 103/59 100 11/13/16 02:00 117 21 103/60 100 11/13/16 01:23 22 101/69 100 11/13/16 01:00 137 20 97/75 100 11/12/16 23:55 116 20 96/65 100 11/12/16 23:54 21 96/65 100 11/12/16 23:20 118 11/12/16 23:00 99.7 F H 118 22 99/57 100 11/12/16 22:00 98.4 F 133 19 92/56 100 11/12/16 21:40 19 88/61 100 11/12/16 21:00 123 22 97/56 100 11/12/16 20:00 141 22 96/57 100 11/12/16 19:36 21 93/55 100 11/12/16 19:13 125 11/12/16 19:00 125 23 124/62 100 11/12/16 18:00 147 23 85/68 100 11/12/16 17:05 23 84/57 100 11/12/16 17:00 134 23 115/57 100 11/12/16 16:24 98.3 F 11/12/16 16:00 165 11/12/16 15:50 22 102/68 99 11/12/16 15:00 147 21 113/51 100 11/12/16 14:00 158 21 111/46 100 11/12/16 13:56 22 116/62 99 11/12/16 13:00 138 21 115/61 100 11/12/16 12:00 135 21 110/59 100 11/12/16 11:55 98.3 F 11/12/16 11:11 21 118/66 99 11/12/16 11:00 137 21 138/57 99 Intake and Output 11/12/16 11/13/16 11/13/16 23:59 07:59 15:59 Intake Total 1312 / 1312 191 / 191 565 / 565 Output Total 250 / 250 250 / 250 Balance 1062 / 1062 -59 / -59 565 / 565 Intake: IV Fluids 1260 / 1260 100 / 100 565 / 565 ALBURX 5% 12.5 gm In 250 250 / 250 ml @ 60 mls/hr IVC . Q4H10M [facility] Rx#:[id number] PRECEDEX Premix 400 mcg 100 / 100 100 / 100 In 100 ml @ 0.2 MCG/KG/HR 3.502 mls/hr IVC .Q24H [facility] Rx#:[id number] FentaNYL (PF) 3,000 MCG 300 / 300 In 0.9 % Sodium Chloride 240 ML @ 50 MCG/HR 5 mls/ hr IVC CONT [facility] Rx#: [id number] Levophed 4 MG In Dextrose 214 / 214 5% 250 ML @ 8 MCG/MIN 30 .48 mls/hr IVC CONT [facility] Rx#:[id number] Phenylephrine 10 MG In 251 / 251 Dextrose 5% 250 ML @ 80 MCG/MIN 120.48 mls/hr IVC CONT [facility] Rx#:[id number] Mycamine 100 MG In 0.9 % 100 / 100 100 / 100 Sodium Chloride (Mini-Bag +) 100 ML @ 100 mls/hr IVPB Q24H [facility] Rx#: [id number] Potassium Chloride 20 mEq 200 / 200 /100 mL 40 meq In 200 ml @ 100 mls/hr IVPB Q1H PRN Rx#:[id number] Keppra 500 MG In 0.9 % 210 / 210 Sodium Chloride 100 ML @ 400 mls/hr IVPB BID [facility] Rx#:[id number] Oral 0 / 0 Tube Feeding 52 / 52 91 / 91 Output: Catheter 250 / 250 250 / 250 Other: Weight 70.2 kg Blood Glucose* 94 161 - General Appearance General appearance: Present: well-developed, chronically ill, frail EENT: Present: ATNC Neck: Present: supple Respiratory: Present: course breath sounds Cardiology: Present: no edema Additional Comments: tachycardic Dialysis Vascular Access: Venous Catheter Gastrointestinal: Present: no tenderness Integumentary: Present: warm and dry Musculoskeletal: Present: no cyanosis - Lab 11/13/16 05:33 11/13/16 05:33 Most recent lab results ABG pH 7.32 pH Units (7.32-7.45) 11/13/16 05:15 ABG pCO2 42 mmHg (35-45) 11/13/16 05:15 ABG pO2 86 mmHg (85-104) 11/13/16 05:15 ABG HCO3 21.6 mEQ/L (21-27) 11/13/16 05:15 ABG O2 Saturation 96 % (95-98) 11/13/16 05:15 Calcium 9.3 mg/dL (8.6-10.8) 11/13/16 05:33 Phosphorus 4.8 mg/dL (2.3-4.7) H 11/13/16 05:33 Magnesium 2.0 mg/dL (1.6-2.6) 11/13/16 05:33 Urine Creatinine 13 mg/dL 11/09/16 10:25 Urine Sodium 111.0 mEq/L 11/09/16 10:25 Urine Total Protein 14 mg/dL (1-14) 11/09/16 10:25 - VTE Documentation of Mechanical Device: Intermittent pneumatic compression device Consult Discharge Plan - Plan Referrals: Norris Bonner MD [Primary Care Provider] -
--- NOTE | 2016-11-13 16:50 | Electrocardiograph Report ---
[address] [address] Test Date: 2016-11-13 Pat Name: Taco Avalos Department: 109 Room: [facility] Gender: M Clean Up Supervisor: : [id number] Requested By: Lincoln Goodman Order Number: [id number] Reading MD: Jovita Verde Measurements Intervals [place] Rate: 167 P: ID: 0 QRS: 19 QRSD: 89 T: 32 QT: 250 QTc: 341 Interpretive Statements NORMAL SINUS RHYTHM WITH FREQUENT ATRIAL ECTOPY LOW QRS VOLTAGE IN EXTREMITY LEADS MINIMAL ST DEPRESSION ABNORMAL RHYTHM ECG Electronically Signed On 11-13-2016 16:49:01 EDT by Jovita Verde
[2016-11-13] MEDS ORDERED: *HR* LORazepam 2 MG/ML VIAL IVP SCH (18:00)
[2016-11-13] MEDS ORDERED: Atropine Sulfate 1% 40 DROP/2 ML BOTTLE SL PRN (18:04)
[2016-11-13 19:35] VITALS: BP 67/46
--- NOTE | 2016-11-14 09:18 | Death Note ---
<GretaTejas - Last Filed: 11/14/16 10:31> Discharge Sum: Summary - Date and Time Date of admission: 11/02/16 02:37 Date of : 11/13/16 Time of : 18:05 - Summary Details: The patient's family had a meeting with Dr. Rodriguez in the presence of the nurse , who explained that his hemodialysis central line needed to be removed due to infection and another central line would be needed for vasopressors. The family expressed only comfort care at that point and to remove catheter without placing another central line for vasopressors. The family understood that the patient could deteriorate without pressors. Family requested to remove endotracheal tube approximately [address] Hernandes was contacted about their decision and explained the likelihood of deterioration leading to gradual after extubation withdrawal of ventilatory support. The patient's declining medical situation and his values and preferences were discussed. Patient's family, including power of attorney lawyer, express they understood and affirmed their decision to extubate. Lorazepam and Fentanyl continued for patient's comfort. Endotracheal tube was extubated. Patient approximately 25 minutes post-extubation. - Additional Data Confirmation of as documented by pronouncing clinician: no pulse, no respirations, no heart sounds, pupils fixed and dilated Family: at bedside Attending/PCP notified?: Yes Attending physician: Lincoln Goodman MD Discharge Sum: Diag - PCOD Probable Cause of : Septic shock (multiorgan dysfunction) - Contributing Factors (1) Sepsis Candidemia, leukocytosis, recurrent fevers, multiorgan dysfunction. (2) Candidemia Immunocompromised, possible hemodyalisis catheter infection. (3) Cardiac arrest Patient had poorly controlled diabetes. His blood glucose was in the 400s at the long-term. He received insulin that caused the blood glucose level to fall into the 20s. He then began to seize, vomited, and aspirated. He then went into cardiac arrest and ACLS was started. He had arrythmias of asystole, V. tach , and V. fib. Upon arrival to [facility] he had ROSC. (4) Acute respiratory failure with hypoxia and hypercapnia Likely secondary to patient's hyperglycemia, seizure, vomiting and aspiration. Patient aspirated again when he pulled out his endotracheal tube, resulting in aspiration pneumonia. (5) Cardiomyopathy Per reports, history of PCI to LAD and CX. However, cardiomyopathy diagnosed after respiratory failure and subsequent cardiac arrest so myocardial stunning could have been contributing. (6) COPD (chronic obstructive pulmonary disease) Patient had history of COPD (7) Lactic acidosis Multisystem dysfunction. (8) BJORN (acute kidney injury) Likely secondary to cardiac arrest and hypotension. (9) Leukocytosis Leukocytosis secondary to sepsis. (10) Bandemia Bandemia secondary to sepsis. (11) Poor nutrition Immunocompromised. Septic shock. Discharge Sum: Prov - Provider Primary care physician: Norris Bonner MD Attending physician on admission: Lincoln Goodman Consults: 11/02/16 04:00 Consult to Pulmonology [CONS] Routine Consulting Provider: Pulm Crit Care & Sleep Suzanne Reason for Consult: s/p cardiac arrest. vent management; hx of COPD Call Completed: No 11/03/16 08:46 Consult to Cardiology [CONS] Routine Comment: Consulting Provider: Cardiology [place] Reason for Consult: EF 35% patient displaying shock physiology Time Notified: 09:39 Call Completed: Yes 11/04/16 09:11 Consult to Interventional Radiology [CONS] Routine Consulting Provider: Radiology Interventional Cols Reason for Consult: Please evaluate for placement of a dialysis catheter. Call Completed: Yes 11/04/16 09:15 Consult to Dialysis [CONS] ONCE 11/04/16 09:27 Consult to Nephrology [CONS] Routine Consulting Provider: Kidney Suzanne/THOR/LUCY/NINO Reason for Consult: BJORN/Hyperkalemia Time Notified: 07:33 Call Completed: Yes 11/07/16 12:00 Consult to Dialysis [CONS] ONCE 11/08/16 09:39 Consult to Nutrition [CONS] Routine Comment: Consulting Provider: NUTRITION Reason for Dietary Consult: TF Start and Manage 11/11/16 10:25 Consult to Palliative Care [CONS] Stat Comment: Consulting Provider: Palliative Care Suzanne Reason for Consult: inability for food intake. Chronically ill now with Candidemia and sepsis. Call Completed: Yes <Kierra Rodriguez - Last Filed: 11/14/16 14:11> Discharge Sum: Summary - Date and Time Date of admission: 11/02/16 02:37 - Additional Data Attending physician: Lincoln Goodman MD Discharge Sum: Prov - Provider Primary care physician: Norris Bonner MD Consults: 11/02/16 04:00 Consult to Pulmonology [CONS] Routine Consulting Provider: Pulm Crit [facility] [place] Reason for Consult: s/p cardiac arrest. vent management; hx of COPD Call Completed: No 11/03/16 08:46 Consult to Cardiology [CONS] Routine Comment: Consulting Provider: Cardiology [place] Reason for Consult: EF 35% patient displaying shock physiology Time Notified: 09:39 Call Completed: Yes 11/04/16 09:11 Consult to Interventional Radiology [CONS] Routine Consulting Provider: Radiology Interventional Cols Reason for Consult: Please evaluate for placement of a dialysis catheter. Call Completed: Yes 11/04/16 09:15 Consult to Dialysis [CONS] ONCE 11/04/16 09:27 Consult to Nephrology [CONS] Routine Consulting Provider: Kidney Suzanne/THOR/LUCY/NINO Reason for Consult: BJORN/Hyperkalemia Time Notified: 07:33 Call Completed: Yes 11/07/16 12:00 Consult to Dialysis [CONS] ONCE 11/08/16 09:39 Consult to Nutrition [CONS] Routine Comment: Consulting Provider: NUTRITION Reason for Dietary Consult: TF Start and Manage 11/11/16 10:25 Consult to Palliative Care [CONS] Stat Comment: Consulting Provider: Palliative Care [place] Reason for Consult: inability for food intake. Chronically ill now with Candidemia and sepsis. Call Completed: Yes - Attending Attestation I examined this patient and my medical decision-making was reviewed with the Resident Physician. I agree with the documented findings, disposition and treatment plan as described except to the extent set forth below. Patient had cardiac arrest and subsequently had fungal infection with acute respiratory failure and septic shock. He had discussion with family at the bedside including the power of attorney lawyer and they decided patient to be extubated and comfort care knowing he would and that was done. Subsequently patient .
[2016-11-15 10:37] LABS: Myeloperoxidase Ab 2 AU/mL (0-19); Serine Protease-3 Antibody 1 AU/mL (0-19)
== END 2016-11-13 20:40 | disposition expired | DRG 207 ==
LOC: ICNU 02:37
PROVIDERS: ADMIT Pediatrics; ATTEND Pediatrics
PROC: IRPERMA (2016-11-04 12:00)